=== PATIENT | female | born 1980 | race Caucasian/White ===

== ENCOUNTER → 2017-10-06 07:30 | Outpatient (CLI) | payer MEDICAID, SELFPAY ==
[2017-10-06 08:18] LABS: Absolute Lymphocyte Count 2.04 X10^3/ul (0.83-4.51); Absolute Neutrophil Count 5.5 X10^3/uL (2.0-7.7); Basophil# 0.01 X10^3/uL; Basophil% 0.1 % (0-1); Eosinophil# 0.08 X10^3/uL; Hematocrit 39.5 % (37-47); Hemoglobin 13.2 g/dl (12.0-15.0); Lymphocyte # 2.04 X10^3/ul (4.0); Lymphocyte % 24.9 % (19-41); Mean Corp Hgb Conc 33.4 g/gl (32-36); Mean Corpuscular Hgb 31.8 pg (27.0-32.0); Mean Corpuscular Volume 95.2 fL (81-99); Mean Platelet Vol. 10.5 fl (6.2-12.0); Monocyte# 0.58 X10^3/uL; Monocyte% 7.1 % (0-10); Neutrophil # 5.47 X10^3/uL (2.7-7.7); Neutrophil % 66.8 % (47-70); Platelet Count 184 K/mm3 (150-450); RBC Distribution Width CV 11.7 % (11.6-14.6); RBC Distribution Width SD 40.1 fl (35.1-43.9); Red Blood Count 4.15 M/mm3 (4.2-5.4); White Blood Count 8.2 K/mm3 (4.4-11.0)
[2017-10-06 08:30] LABS: POSITIVE COUNT NO; POSITIVE DIFFERENTIAL NO; POSITIVE MORPHOLOGY NO
[2017-10-06 08:47] LABS: AST(SGOT) 10 U/L (15-37); Alanine Aminotransfer ALT/SGPT 11 U/L (13-56); Albumin, Serum 3.6 g/dL (3.2-5.0); Alkaline Phosphatase 51 U/L (45-117); Anion Gap 6 (5-15); BUN 8 mg/dL (7-18); BUN/Creat Ratio 12.1 RATIO (10-20); Calcium,Total 8.8 mg/dL (8.5-10.1); Chloride 106 mmol/L (98-107); Creatinine, Serum 0.66 mg/dL (0.55-1.02); EST Glomerular Filtration Rate 108 mL/min (>60); Est Glom Filt Rate - Afr Amer 130 mL/min (>60); Ferritin 26 ng/mL (8-252); Globulin 3.5 g/dL (2.2-4.2); Glucose 83 mg/dL (74-106); Iron 107 ug/dL (50-170); Iron Binding Capacity,Total 370 ug/dL (250-450); Potassium 4.3 mmol/L (3.5-5.1); Protein, Total 7.1 g/dL (6.4-8.2); Sodium Level 140 mmol/L (136-145); T4 Free Direct 1.03 ng/dL (0.76-1.46); Thyroid Stim Hormone (TSH) 0.67 uIU/mL (0.358-3.74)
[2017-10-06 09:47] LABS: Vitamin D,25 Hydroxy 19.6 ng/mL (29.95-100.01)
[2017-10-08 08:47] LABS: Thyroid Peroxidase AB 13 IU/mL (0-34); Thyroid Stim Immunoglob <0.10 IU/L (0.00-0.55)
== END ==
PROVIDERS: Family Provider Family Medicine; PCP Family Medicine; Visit Provider Internal Medicine Endocrinology, Diabetes & Metabolism
DX: E55.9 Vitamin D deficiency, unspecified (principal); R53.82 Chronic fatigue, unspecified; Z86.39 Personal history of other endocrine, nutritional and metabolic disease
CPT/HCPCS: 36415; 80053; 82306; 82728; 83540; 83550; 84439; 84443; 84445; 84481; 85025; 86376

== ENCOUNTER 2017-10-13 08:56 | Emergency (ER) | payer MEDICAID, SELFPAY ==
[2017-10-13 08:57] VITALS: BP 147/99; PULSE 132; RESP 16; TEMP 36.9; O2SAT 100; BMI 25.2
--- NOTE | 2017-10-13 09:04 | CT_ITS ---
STUDY: CT BRAIN WITHOUT CONTRAST REASON FOR EXAM: Female, 36 years old. One-week history of left occipital pain. RADIATION DOSAGE (If Supplied By Facility): CTDIvol = ( 44.99 ) mGy, DLP = ( 762.36 ) mGycm TECHNIQUE: Transaxial CT imaging of the brain was performed without administration of intravenous contrast material. Individualized dose optimization techniques were used for this CT. COMPARISON: None. FINDINGS: Normal soft tissue structures. Normal calvarium. Normal size ventricles and extra-axial spaces for the patient's age. Normal white matter tracts of the cerebral hemispheres. Normal basal ganglia and thalami. Normal brainstem. Normal cerebellum. Prominent cisterna magna. This is a normal variant. There is no intracranial hemorrhage. There are no findings of an acute ischemic infarction. Normal visualized paranasal sinuses. CT/Brain/Head without Contrast IMPRESSION: Normal unenhanced CT scan of the brain. Electronically Signed: Alejandro Cutler MD at 9:38 EDT Tel [phone], Service support ,
--- NOTE | 2017-10-13 09:12 | ED.DCSUM_ITS ---
- ER Visit Summary Date of Service: 10/13/17 Chief Complaint: Head pain History of Present Illness: The patient is a 36 F reports pain to the base of the skull and left the past 1 week. She initially thought she had pinched nerve. Pain is now radiating around the left ear. She had some mild nausea today. She states her vision seems not quite as crisp as normal today. She has no light sensitivity. She denies URI symptoms or head injury. She has not had fever or chills. Physical Examination: Vital signs are unremarkable. Patient is afebrile. Patient sitting upright in a well lit room. He is in no acute distress and appears nontoxic. Head and neck examination reveals pupils equal and reactive. TMs are clear bilaterally. She does have tenderness over the left mastoids there is no overlying skin erythema. She also has tenderness at the base of the skull on the left. She has no midline cervical tenderness. There is no meningismus. Heart is regular rate and rhythm. Lung sounds are clear. Abdomen is soft nontender. Neuro exam is normal. Test Results: CT scan of the head is unremarkable. There is a prominent cisterna magna which is a normal variant. Emergency Department Course and Treatment: On repeat evaluation patient is resting comfortably. Repeat heart rate is 91. She did take ibuprofen 3 hours ago. She be given a prescription for Naprosyn. She will also be started on prednisone taper to decrease inflammation around the occipital nerve. Treatment Plan: [] Disposition: Discharge Impression: Cephalgia secondary to pinched nerve This note was generated with [employer] dictation software. It may contain incorrect words, spelling, and punctuation that were not noted in review of the chart prior to signing ED Disposition - Plan for ED Patient: Chief Complaint: Headache Referrals: Guerline Alberts MD [Primary Care Provider] -
--- NOTE | 2017-10-13 10:12 | ED.DEP ---
ED Disposition - Plan for ED Patient: Disposition: Home or Assisted Living Chief Complaint: Headache Instructions: ED Cephalgia Unspecified Prescriptions: Naproxen [Naprosyn] 500 mg PO BID PRN #20 tablet Prednisone 10 mg PO UD #33 tablet Referrals: Guerline Alberts MD [Primary Care Provider] - 1 Week if not improving
[2017-10-13 10:27] VITALS: BP 105/70; PULSE 82; RESP 14; O2SAT 100
== END 2017-10-13 10:28 | disposition home or self-care (01) ==
PROVIDERS: Emergency Provider Emergency Medicine; Family Provider Family Medicine; PCP Family Medicine
DX: G58.9 Mononeuropathy, unspecified (principal); Z87.891 Personal history of nicotine dependence
CPT/HCPCS: 70450; 99283

== ENCOUNTER → 2018-03-07 08:05 | Outpatient (CLI) | payer MEDICAID, SELFPAY ==
[2018-03-07 09:40] LABS: Cholesterol 153 mg/dL (200); High Density Lipoprotein 58 mg/dL; Triglycerides 67 mg/dL; Very Low Density Lipoprotein 13 mg/dL (5-40)
== END ==
PROVIDERS: Family Provider Family Medicine; PCP Family Medicine; Visit Provider Family Medicine
DX: Z00.00 Encounter for general adult medical examination without abnormal findings (principal)
CPT/HCPCS: 36415; 80061

== ENCOUNTER → 2018-04-19 12:50 | Outpatient (CLI) | payer MEDICAID, SELFPAY ==
--- NOTE | 2018-04-19 13:16 | US_ITS ---
STUDY: THYROID ULTRASOUND REASON FOR EXAM: Female, 37 years old. Nodules follow-up. TECHNIQUE: Ultrasound evaluation of the thyroid was performed with real-time and static diaz-scale imaging. COMPARISON: Thyroid ultrasound May 23, 2017. FINDINGS: RIGHT LOBE: The right lobe of the thyroid gland measures 5.3 x 2.4 x 1.5 cm. There is a homogeneous echotexture. Again seen are numerous subcentimeter solid nodules and other complex cystic lesions in the right lobe. The largest is a complicated cyst measuring 1.7 x 1.2 x 0.9 cm LEFT LOBE: The left lobe of the thyroid gland measures 4.8 x 1.6 x 1.2 cm. There is a homogeneous echotexture. Again seen are a number of solid and possibly cystic focal lesions. The largest is a solid mid pole nodule measuring 12 x 10 x 6 mm. ISTHMUS: The isthmus measures 3.0 mm. There is a stable 5 x 4 x 2 mm hypoechoic lesion at the mid isthmus, and a second, slightly smaller, complicated cystic lesion in the left isthmus. The regional lymph nodes are normal. US/Thyroid IMPRESSION: Stable mix of bilateral solid and complicated cystic lesions throughout the thyroid gland, as described. Electronically Signed: Vik Mejia MD at 19:58 EDT , Service support ,
[2018-04-19 13:22] LABS: Absolute Lymphocyte Count 2.73 X10^3/ul (0.83-4.51); Absolute Neutrophil Count 3.1 X10^3/uL (2.0-7.7); Basophil# 0.02 X10^3/uL; Basophil% 0.3 % (0-1); Eosinophil# 0.14 X10^3/uL; Eosinophils% 2.1 % (0-5); Hematocrit 40.7 % (37-47); Lymphocyte # 2.73 X10^3/ul (4.0); Lymphocyte % 41.7 % (19-41); Mean Corp Hgb Conc 34.4 g/gl (32-36); Mean Corpuscular Hgb 32.3 pg (27.0-32.0); Mean Platelet Vol. 9.9 fl (6.2-12.0); Monocyte# 0.58 X10^3/uL; Monocyte% 8.9 % (0-10); Neutrophil # 3.07 X10^3/uL (2.7-7.7); Neutrophil % 46.8 % (47-70); POSITIVE COUNT NO; POSITIVE DIFFERENTIAL NO; POSITIVE MORPHOLOGY NO; Platelet Count 185 K/mm3 (150-450); RBC Distribution Width CV 11.5 % (11.6-14.6); RBC Distribution Width SD 39.2 fl (35.1-43.9); Red Blood Count 4.33 M/mm3 (4.2-5.4); White Blood Count 6.6 K/mm3 (4.4-11.0)
[2018-04-19 13:49] LABS: Vitamin D,25 Hydroxy 73.3 ng/mL (29.95-100.01)
[2018-04-19 13:52] LABS: ALB/GLOB Ratio 1.2 RATIO (0.9-2.4); AST(SGOT) 14 U/L (15-37); Alanine Aminotransfer ALT/SGPT 16 U/L (13-56); Albumin, Serum 3.9 g/dL (3.2-5.0); Alkaline Phosphatase 60 U/L (45-117); Anion Gap 8 (5-15); BUN 7 mg/dL (7-18); BUN/Creat Ratio 9.3 RATIO (10-20); Calcium,Total 9.2 mg/dL (8.5-10.1); Chloride 106 mmol/L (98-107); Creatinine, Serum 0.76 mg/dL (0.55-1.02); EST Glomerular Filtration Rate 92 mL/min (>60); Est Glom Filt Rate - Afr Amer 111 mL/min (>60); Free T3 3.4 pg/mL (2.18-3.98); Globulin 3.3 g/dL (2.2-4.2); Glucose 89 mg/dL (74-106); Protein, Total 7.2 g/dL (6.4-8.2); Sodium Level 141 mmol/L (136-145); T4 Free Direct 1.06 ng/dL (0.76-1.46); Thyroid Stim Hormone (TSH) 0.45 uIU/mL (0.358-3.74)
== END ==
PROVIDERS: Family Provider Family Medicine; PCP Family Medicine; Visit Provider Internal Medicine Endocrinology, Diabetes & Metabolism
DX: E04.1 Nontoxic single thyroid nodule (principal)
CPT/HCPCS: 36415; 76536; 80053; 82306; 84439; 84443; 84481; 85025

== ENCOUNTER → 2018-08-14 15:50 | Outpatient (CLI) | payer MEDICAID, SELFPAY ==
[2018-07-19 12:40] VITALS: BMI 27.1
[2018-08-14 17:41] LABS: Anion Gap 8 (5-15); BUN 7 mg/dL (7-18); BUN/Creat Ratio 10.4 RATIO (10-20); Calcium,Total 9.3 mg/dL (8.5-10.1); Chloride 107 mmol/L (98-107); Creatinine, Serum 0.68 mg/dL (0.55-1.02); EST Glomerular Filtration Rate 105 mL/min (>60); Est Glom Filt Rate - Afr Amer 127 mL/min (>60); Glucose 115 mg/dL (74-106); Magnesium 1.9 mg/dL (1.6-2.6); Potassium 3.2 mmol/L (3.5-5.1); Sodium Level 138 mmol/L (136-145)
== END ==
PROVIDERS: Family Provider Family Medicine; PCP Family Medicine; Referring Provider Nurse Practitioner Family; Visit Provider Nurse Practitioner Family
DX: R00.0 Tachycardia, unspecified (principal); R00.2 Palpitations
CPT/HCPCS: 36415; 80048; 83735

== ENCOUNTER → 2018-08-28 11:02 | Outpatient (CLI) | payer MEDICAID, SELFPAY ==
[2018-07-19 12:40] VITALS: BMI 27.1
[2018-08-28 12:03] LABS: Potassium 3.8 mmol/L (3.5-5.1)
== END ==
PROVIDERS: Family Provider Family Medicine; PCP Family Medicine; Referring Provider Nurse Practitioner Family; Visit Provider Nurse Practitioner Family
DX: E87.6 Hypokalemia (principal); R00.2 Palpitations
CPT/HCPCS: 36415; 84132

== ENCOUNTER 2018-09-28 17:43 | Emergency (ER) | payer MEDICAID, SELFPAY ==
[2018-08-28 12:56] VITALS: BMI 27.1
[2018-09-28 17:44] VITALS: BP 130/71; PULSE 113; RESP 20; TEMP 36.5; O2SAT 100; BMI 26.4
--- NOTE | 2018-09-28 18:04 | ED.VISSUMM ---
- ER Visit Summary Date of Service: 09/28/18 Chief Complaint: Diarrhea with intermittent nausea History of Present Illness: The patient is a 37 F past medical history of hyperthyroidism and accelerated heart rate. She is on metoprolol. Takes of control pill and vitamin. States for the last 3 weeks she has had diarrhea. Primary care physician's office did stool cultures which she states was negative. She denies any recent travel or surgery. Denies any recent hospitalization. No recent antibiotics. She drinks bottled water. No one else at home has diarrhea. She is never had episodes like this before. Physical Examination: Well-appearing young female. Vital signs are stable and afebrile. HEENT exam is unremarkable. Moist weeks membranes. Neck nontender no lymphadenopathy. Lungs clear to auscultation bilaterally. Heart regular rhythm rate about 110 no murmur. Abdomen soft. Nondistended. Normal bowel sounds. No peritoneal signs. Patient is moving all 4 extremities. Calves nontender no edema. Back nontender. Skin unremarkable. Neurologically she is awake and alert. Test Results: None. Emergency Department Course and Treatment: Patient was offered IV fluids. And nausea medication both of which she refused. Patient discussed with me a CAT scan which I explained to her most likely would not give us any significant additional information Treatment Plan: [place] diet increase slowly. She started on nausea medications at home. She stated that Imodium did not help her. Follow-up with Dr. Gonzales of GI. Disposition: dc Impression: Acute diarrhea of uncertain etiology This note was generated with [employer] dictation software. It may contain incorrect words, spelling, and punctuation that were not noted in review of the chart prior to signing ED Disposition - Plan for ED Patient: Referrals: Nadja Ferguson NP-C [Primary Care Provider] -
--- NOTE | 2018-09-28 18:11 | DCINST.ED_ITS ---
ED Disposition - Plan for ED Patient: Disposition: Home or Assisted Living Referrals: Nadja Ferguson, SARAH-C [Primary Care Provider] - As Needed Marco Antonio Gonzales MD [NON-STAFF] - As soon as possible Additional Instructions: Plenty of fluids and rest. [place] diet increase slowly as tolerated. Zofran as needed for nausea. Imodium for diarrhea. Call and follow-up with Dr. Marco Antonio Gonzales of gastroenterology for further evaluation.
== END 2018-09-28 18:51 | disposition home or self-care (01) ==
LOC: ED 18:42
PROVIDERS: Emergency Provider Emergency Medicine; Family Provider Family Medicine; PCP Family Medicine
DX: R19.7 Diarrhea, unspecified (principal); E05.90 Thyrotoxicosis, unspecified without thyrotoxic crisis or storm
CPT/HCPCS: 99282

== ENCOUNTER 2018-12-07 10:59 | Emergency (ER) | payer MEDICAID, SELFPAY ==
[2018-12-07 11:00] VITALS: BP 122/68; PULSE 98; RESP 16; TEMP 36.9; O2SAT 100; BMI 25.7
--- NOTE | 2018-12-07 11:12 | CT_ITS ---
STUDY: CT ABDOMEN AND PELVIS WITHOUT CONTRAST REASON FOR EXAM: Female, 38 years old. Abdominal pain. History of hypertension. RADIATION DOSAGE (If Supplied By Facility): CTDIvol = ( 6.06 ) mGy, DLP = ( 283.32 ) mGycm TECHNIQUE: Transaxial images were obtained from the dome of the diaphragm to the symphysis pubis without oral contrast, and without intravenous contrast. Sagittal and coronal images were reconstructed. Individualized dose optimization techniques were used for this CT. COMPARISON: None. FINDINGS: The visualized lung bases are unremarkable. The visualized portions of the heart are within normal limits. Normal liver. Normal gallbladder and extrahepatic biliary system. Normal spleen. Normal pancreas. Normal bilateral adrenal glands. Normal right kidney. Normal left kidney. Surgical clips are seen at the gastroesophageal junction. Small hiatal hernia. Normal small intestine. Fecal material is seen throughout the colon. Scattered sigmoid diverticula. The appendix is visualized and appears normal. Normal abdominal aorta. Normal inferior vena cava. Normal retroperitoneum. Normal urinary bladder. There is a small cyst in the right ovary measuring 2.2 cm x 2 cm. Calcified phleboliths are seen in the pelvis. Normal abdominal wall. Normal osseous structures. CT/Abdomen/Pelvis without Cont IMPRESSION: Surgical clips are seen in the gastroesophageal junction. Small hiatal hernia. Scattered sigmoid diverticula. Electronically Signed: Alejandro Cutler, at 12:48 EDT , Service support ,
[2018-12-07] MEDS: Morphine 4 MG/ML Syringe IV (11:29)
[2018-12-07] MEDS: Ondansetron 4 MG/2 ML Vial IV (11:30)
[2018-12-07] MEDS: Dicyclomine 20 MG/2 ML Vial IM (11:30)
[2018-12-07] MEDS: 0.9% Normal Saline 1,000 ML 125 ML IV (11:30)
[2018-12-07 11:50] LABS: ALB/GLOB Ratio 1.2 RATIO (0.9-2.4); AST(SGOT) 11 U/L (15-37); Alanine Aminotransfer ALT/SGPT 17 U/L (13-56); Albumin, Serum 4.3 g/dL (3.2-5.0); Alkaline Phosphatase 62 U/L (45-117); Anion Gap 6 (5-15); BUN 8 mg/dL (7-18); BUN/Creat Ratio 10.3 RATIO (10-20); Calcium,Total 9.4 mg/dL (8.5-10.1); Chloride 105 mmol/L (98-107); Creatinine, Serum 0.78 mg/dL (0.55-1.02); EST Glomerular Filtration Rate 89 mL/min (>60); Est Glom Filt Rate - Afr Amer 108 mL/min (>60); Estimated Creatinine Clearance 85.27 ml/min; Globulin 3.5 g/dL (2.2-4.2); Glucose 97 mg/dL (74-106); Lipase 239 U/L (73-393); Potassium 3.8 mmol/L (3.5-5.1); Protein, Total 7.8 g/dL (6.4-8.2); Sodium Level 139 mmol/L (136-145)
[2018-12-07 11:52] LABS: Absolute Lymphocyte Count 2.59 X10^3/ul (0.83-4.51); Absolute Neutrophil Count 3.5 X10^3/uL (2.0-7.7); Basophil# 0.02 X10^3/uL; Basophil% 0.3 % (0-1); Eosinophil# 0.06 X10^3/uL; Eosinophils% 0.9 % (0-5); Hematocrit 41.9 % (37-47); Lymphocyte # 2.59 X10^3/ul (4.0); Lymphocyte % 37.9 % (19-41); Mean Corp Hgb Conc 33.4 g/gl (32-36); Mean Corpuscular Hgb 30.9 pg (27.0-32.0); Mean Corpuscular Volume 92.5 fL (81-99); Monocyte# 0.63 X10^3/uL; Monocyte% 9.2 % (0-10); Neutrophil # 3.53 X10^3/uL (2.7-7.7); Neutrophil % 51.6 % (47-70); POSITIVE COUNT NO; POSITIVE DIFFERENTIAL NO; POSITIVE MORPHOLOGY NO; Platelet Count 185 K/mm3 (150-450); RBC Distribution Width CV 11.9 % (11.6-14.6); RBC Distribution Width SD 40.4 fl (35.1-43.9); Red Blood Count 4.53 M/mm3 (4.2-5.4); White Blood Count 6.8 K/mm3 (4.4-11.0)
[2018-12-07 12:00] LABS: Bacteria 0 SEEN /hpf (None Seen); Mucous, Urine 0 SEEN /hpf (<or=2+); Red Blood Cells-Urine 0 SEEN /hpf (0-5); White Blood Cells 0 SEEN /hpf (0-5)
[2018-12-07 12:06] LABS: Color, Urine Yellow (Yellow); Glucose, Dipstick Normal (Normal); Ketone-Dipstick Negative (Negative); Leukocyte Esterase-Dipstick Negative /ul (Negative); Nitrite-Dipstick Negative (Negative); Occult Blood-Urine Negative /ul (Negative); Protein-Dipstick Negative (Negative); Specific Gravity, Urine 1.005 (1.002-1.030); Urine Bilirubin Dipstick Negative (Negative); Urine Clarity Sl. Cloudy (Clear); Urine Urobilinogen Normal (Normal)
[2018-12-07 12:15] LABS: Squamous Epithelial Cells - UA 0-5 SEEN /hpf (5-10)
[2018-12-07 12:20] LABS: Internal QC Validated? YES +Cl - CLEAR BKGD; Pregnancy, Serum, hCG Quali. NEGATIVE Negative
[2018-12-07] MEDS: HYDROmorphone 1 MG/ML Syringe IV ×2 (12:21→14:30)
--- NOTE | 2018-12-07 13:50 | ED.DCSUM_ITS ---
- ER Visit Summary Date of Service: 12/07/18 Chief Complaint: [Abdominal pain] History of Present Illness: The patient is a 38 F [presents the emergency department complaint of abdominal pain that started about an hour ago. Patient states that it severe and rates it an 8 or 9 out of 10. She describes it as starting in the left lower quadrant and radiating to the right side of the abdomen. Patient denies urinary symptoms. She denies any back pain. Patient states that she is currently being worked up for diarrhea that she is had for about 2 months and is seeing a environmental health and safety manager. Patient had recent colonoscopy that showed a few polyps. She denies any current fever although it for the last 2 months intermittently she is had fever off and on. Patient has history of hyperthyroidism. Patient has had a prior Kimberly fundoplication.] Physical Examination: [HEENT-PERRLA, EOMI. Cranial nerves II through XII grossly intact. TMs clear. Mucous membranes moist. No adenopathy. Cardiovascular-regular rate and rhythm without murmur or ectopy Lungs-clear to auscultation, chest wall stable without crepitus or subcu emphysema Abdomen-normoactive bowel sounds, soft. Patient has tenderness over left lower quadrant with some guarding. There is no rebound, rigidity, or perineal signs. No masses palpated. Extremities-intact ?4, normal range of motion, normal pulses, atraumatic] Test Results: [CBC with differential showing a 6.8, hemoglobin 14, hematocrit 42, placed 185. Chemistries unremarkable. LFTs were normal. Urinalysis normal. hCG was negative. CT flank showed small hiatal hernia and small cyst on the right ovary otherwise nothing acute.] Emergency Department Course and Treatment: [Patient was medicated with morphine and Zofran as well as Bentyl initially. Patient continued to have pain and was given Dilaudid 1 mg IV.] Treatment Plan: [Patient will be given a prescription for [place] for pain. Advised to follow-up with her environmental health and safety manager. Patient to return if worsening pain, fever, vomiting, or condition worsen anyway.] Disposition: [Discharged home stable condition] Impression: Abdominal pain-etiology uncertain [] This note was generated with [employer] software. It may contain incorrect words, spelling, and punctuation that were not noted in review of the chart prior to signing ED Disposition - Plan for ED Patient: Referrals: Nadja Ferguson, SARAH-C [Primary Care Provider] -
--- NOTE | 2018-12-07 13:50 | ED.DEP ---
ED Disposition - Plan for ED Patient: Instructions: ED Abdominal Pain Unkn Cause Prescriptions: Hydrocodone Bitart/Apap 5-325 [[place] 5MG-325MG] 1 tab PO Q4H PRN PRN 2 Days #14 tab PRN Reason: Pain Referrals: Nadja Ferguson, CLOTH FOLDER HAND-C [Primary Care Provider] - 3-5 Days
--- NOTE | 2018-12-07 13:51 | DCINST.ED_ITS ---
ED Disposition - Plan for ED Patient: Instructions: ED Abdominal Pain Unkn Cause Prescriptions: Hydrocodone Bitart/Apap 5-325 [[place] 5MG-325MG] 1 tab PO Q4H PRN PRN 2 Days #14 tab PRN Reason: Pain Referrals: Nadja Ferguosn, HAND MIXER-C [Primary Care Provider] - 3-5 Days
[2018-12-07 13:57] VITALS: BP 124/78; PULSE 76; RESP 18; O2SAT 99
== END 2018-12-07 14:37 | disposition home or self-care (01) ==
LOC: ED 11:32
PROVIDERS: Emergency Provider Emergency Medicine; Family Provider Family Medicine; PCP Family Medicine
DX: R10.9 Unspecified abdominal pain (principal); R19.7 Diarrhea, unspecified; R11.0 Nausea; E05.90 Thyrotoxicosis, unspecified without thyrotoxic crisis or storm; K44.9 Diaphragmatic hernia without obstruction or gangrene; N83.291 Other ovarian cyst, right side
CPT/HCPCS: 74176; 80053; 81001; 83690; 84703; 85025; 96361; 96372; 96374; 96375; 96376; 99283; J7030; J2405

== ENCOUNTER 2019-01-09 15:45 | Emergency (ER) | payer MEDICAID, SELFPAY ==
[2019-01-09 15:46] VITALS: BP 120/73; PULSE 84; RESP 16; TEMP 36.1; O2SAT 99; BMI 26.6
--- NOTE | 2019-01-09 16:15 | RAD_ITS ---
STUDY: X-RAY - LEFT HAND, ATTENTION FIFTH FINGER REASON FOR EXAM: Female, 38 years old. Pain TECHNIQUE: 3 view(s) of the finger were obtained. COMPARISON: None. FINDINGS: There is no evidence of fracture or dislocation. There are no significant degenerative changes. There are no radiodense foreign bodies. RAD/Finger(s) Min 2 Views IMPRESSION: No fracture or dislocation. Electronically Signed: Hitesh Perry, at 16:32 EDT Tel , Service support ,
--- NOTE | 2019-01-09 16:18 | ED.VIS.UPPEX ---
History of Present Illness Chief Complaint: Upper Extremity Injury Informant: Patient Occurred: Weeks - 1 Mechanism/Context: Injury Context: Sudden Onset Quality of Pain: Aching Current Severity: Moderate Maximum Severity: Moderate Worsened by: moving Relieved by: remaining still Associated Symptoms: Negative for: Parasthesia, Weakness, Loss of Funtion Narrative: Patient states she accidentally injured her left small finger when she was trying to push herself up out of her car seat and accidentally had a hyperflexion injury of it against her palm against her car door. Most of her pain is at the small finger PIPJ and MCPJ. - Past Medical History (1) [place] esophagus Status: Chronic (2) Hyperthyroidism Status: Chronic Past Medical History - Allergies and Home Meds Allergies/Adverse Reactions: Allergies No Known Allergies Allergy (Verified 12/07/18 11:01) Primary Care Physician: Nadja Ferguson NP-C [Primary Care Provider] - Surgical History: herniorrhaphy Smoking Status: Former smoker Drugs: None Review of Systems Musculoskeletal: Reports: Extremity Pain Neurological: Denies: Parasthesia, Numbness Physical Exam Vital Signs/Narrative: Vital Signs Temp Pulse Resp BP Pulse Ox 01/09/19 15:46 96.9 F L 84 16 120/73 99 Inital Vital Signs reviewed: Yes Left Finger: - - 5th finger ttp middle and prox phalanxes, and distal 5th MC. also tender PIPJ and MCPJ. all tenderness mild. FROM; FDS and FDP, extensor all intact. no signs of trauma.. Negative for: Limited ROM General: Well nourished, Well developed Head: Normocephalic, Atraumatic Skin: Normal color, No rash, No Trauma Neurological: Alert, Oriented x3, Cranial nerves II-XII grossly intact, Normal Strength, Normal Sensation, Normal Gait Psychological: Normal affect, Normal Mood Diagnostic/Tx/Re-eval Clinical Impression(s) from Imaging Studies Finger X-Ray 01/09/19 16:15 IMPRESSION: No fracture or dislocation. Electronically Signed: Hitesh Perry, at 16:32 EDT Tel , Service support , - Medical Decision Making X-ray negative. Consistent with a sprain, which is likely why she is still having discomfort. Deuce tape her fingers together, advised anti-inflammatories as needed, ice, rest, given appropriate discharge instructions for follow-up. Advised that pain can often last a month or more before it finally will likely resolve. ED Disposition - Plan for ED Patient: Disposition: Home or Assisted Living Diagnosis: Sprain of left little finger Instructions: ED Sprain Finger Referrals: Nadja Ferguson NP-C [Primary Care Provider] - 10-14 Days if not better Additional Instructions: ibuprofen and ice to affected area as needed
== END 2019-01-09 17:05 | disposition home or self-care (01) ==
PROVIDERS: Emergency Provider Emergency Medicine; Family Provider Family Medicine; PCP Family Medicine
DX: S63.617A Unspecified sprain of left little finger, initial encounter (principal); X50.9XXA Other and unspecified overexertion or strenuous movements or postures, initial encounter; Y93.9 Activity, unspecified; Y92.89 Other specified places as the place of occurrence of the external cause; Y99.9 Unspecified external cause status; E05.90 Thyrotoxicosis, unspecified without thyrotoxic crisis or storm; Z87.891 Personal history of nicotine dependence
CPT/HCPCS: 73140; 99282

== ENCOUNTER → 2019-02-06 15:57 | Outpatient (CLI) | payer MEDICAID, SELFPAY ==
[2019-02-06 15:48] VITALS: BMI 26.6
--- NOTE | 2019-02-06 15:58 | RAD_ITS ---
STUDY: X-RAY - LEFT HAND, ATTENTION FIFTH FINGER REASON FOR EXAM: Female, 38 years old. Injury TECHNIQUE: 3 view(s) of the finger were obtained. COMPARISON: None. FINDINGS: Normal metacarpal head. Normal metacarpophalangeal joint. Normal proximal phalanx. Normal middle phalanx. Normal distal phalanx. Normal proximal interphalangeal joint. Normal distal interphalangeal joint. There is no demonstrated fracture. RAD/Finger(s) Min 2 Views IMPRESSION: Normal x-ray examination of the finger. Electronically Signed: Rock Ortiz MD at 16:14 EDT , Service support ,
== END ==
PROVIDERS: Family Provider Family Medicine; PCP Family Medicine; Referring Provider Orthopaedic Surgery; Visit Provider Orthopaedic Surgery
DX: S60.052A Contusion of left little finger without damage to nail, initial encounter (principal)
CPT/HCPCS: 73140

== ENCOUNTER → 2019-05-23 16:40 | Outpatient (CLI) | payer MEDICAID, SELFPAY ==
[2019-02-06 15:48] VITALS: BMI 26.6
[2019-05-21 15:12] VITALS: BMI 26.6
--- NOTE | 2019-05-23 16:43 | US_ITS ---
STUDY: THYROID ULTRASOUND REASON FOR EXAM: Female, 38 years old. Follow-up nodules. TECHNIQUE: Ultrasound evaluation of the thyroid was performed with real-time and static diaz-scale imaging. COMPARISON: None. FINDINGS: RIGHT LOBE: The right lobe of the thyroid gland measures 5.2 x 2.3 x 1.9 cm. There is a homogeneous echotexture. Within the right thyroid lobe there are multiple, predominantly cystic nodules largest seen within the middle pole and measuring 2.2 x 1.5 x 1.0 cm. Some of the nodules have internal septations or combination of solid and cystic changes. Additionally, there are several hypoechoic nodules with hypoechoic rim scattered through the right thyroid lobe within the upper middle and lower pole and largest measuring approximately 0.5 x 0.4 cm. These are stable in the interval. There is peripheral and internal color flow. The margins are regular. LEFT LOBE: The left lobe of the thyroid gland measures 5.0 x 1.9 x 1.4 cm. There is a homogeneous echotexture. Within the left thyroid lobe there is a predominantly hypoechoic nodule with hypoechoic rim and internal color flow seen within the mid upper pole measuring approximately 1.3 x 1.0 x 1.7 cm. There margins are regular . Additional, predominantly cystic nodules demonstrated throughout the remainder of the left thyroid lobe measuring different sizes from 0.2 cm up to a largest dimension of 0.7 cm . The margins are regular. ISTHMUS: The isthmus measures 0.3 cm. A small nodule is seen at the level of the isthmus with hypoechoic rim and diffuse decreased echogenicity measuring 0.6 x 0.5 x 0.3 cm. There is peripheral color flow. The margins are regular. A lymph node is seen lateral to the right thyroid gland measuring 1.3 x 0.9 x 0.3 cm. A second lymph node is seen to the left of the thyroid, measuring 1.3 x 0.7 x 0.3 cm. US/Thyroid IMPRESSION: Multiple bilateral thyroid lobe nodules with predominantly cystic or complex cystic/solid component and favoring benign process given morphology and stability in the interval. Note to be made that benign versus malignant process cannot be adequately determined that microscopic evaluation or documentation of stability. Depending on clinical evaluation and history, follow-up ultrasound in 6-12 months recommended to evaluate stability. Electronically Signed: Kalani Richardson MD at 6:19 EDT , Service support ,
== END ==
PROVIDERS: Family Provider Nurse Practitioner Family; PCP Nurse Practitioner Family; Referring Provider Nurse Practitioner Family; Visit Provider Nurse Practitioner Family
DX: E04.1 Nontoxic single thyroid nodule (principal)
CPT/HCPCS: 76536

== ENCOUNTER → 2019-12-20 15:57 | Outpatient (CLI) | payer MEDICAID, SELFPAY ==
[2019-12-20 12:52] VITALS: BMI 28.5
--- NOTE | 2019-12-20 13:00 | FLU_PTH ---
PATIENT: MANE BRYANT LOC: [place] U#:[id number] AGE/SX: 44/F ROOM: RE12/20/[address]: Dr. Andrea Mcgregor MD : 1980 BED: DIS: SPEC #: [id number] RECD: 12/20/19 15:26 STATUS: ZOFIA RERiana #: [id number] VIRGIL: 12/20/19 13:[address]: Andrea Mcgregor DEPT: CYTOLOGY RECD BY: Chris Roberts ENTERED: 12/24/19 08:35 SP TYPE: Fluid OTHR DR: Taina Carter, FAILURE ANALYSIS TECHNICIAN-Sharron Tissues: A - Thyroid gland, NOS B - Thyroid gland, NOS Procedures: Special Stain Group II Surgery Specimen Level IV Cytospin Fluid Cytology Other HEADER OPERATION: Right thyroid FNA PRE-OP DIAGNOSIS: Multiple thyroid nodules TISSUE SUBMITTED: A - Right thyroid nodule aspiration for cytology, B - Right thyroid slides x6 DIAGNOSIS CYTOLOGY A. Right thyroid nodule aspiration for cytology (cytospin and cell block): Consistent with benign colloid nodule with cystic changes. Adequate for evaluation. B. Right thyroid nodule, FNA (smears): A few clusters of benign follicular cells and small amount of colloid are noted. See comment. RANDA:melisa 12/25/19 COMMENT B. Correlation with clinical, radiologic findings and appropriate follow up are necessary. CYTOLOGY STUDY Slides are reviewed. CYTOLOGY GROSS A - Received is 1 ml of red cloudy fluid labeled with the patient's name and and designated per the requisition as right thyroid. Submitted for cytology preparation including cell block. B - Received are six smears labeled with the patient's name and designated per the requisition as right thyroid. Submitted for staining. / melisa 12/24/19 TC:5 CPT: 06154, 58489, 29644
== END ==
PROVIDERS: PCP Nurse Practitioner Family; Referring Provider Surgery; Visit Provider Surgery
DX: E04.2 Nontoxic multinodular goiter (principal)
CPT/HCPCS: 88108; 88161; 88305; 88313

== ENCOUNTER → 2020-09-24 09:10 | Outpatient (CLI) | payer MEDICAID, SELFPAY ==
[2020-09-24 08:33] VITALS: BMI 29.5
[2020-09-24 10:22] LABS: Hematocrit 40.7 % (37-47); Hemoglobin 13.4 g/dL (12.0-15.0); Mean Corp Hgb Conc 32.9 g/dL (32-36); Mean Corpuscular Hgb 31.6 pg (27.0-32.0); Mean Platelet Vol. 10.2 fl (6.2-12.0); Platelet Count 191 K/mm3 (150-450); RBC Distribution Width CV 11.7 % (11.6-14.6); RBC Distribution Width SD 40.7 fl (35.1-43.9); Red Blood Count 4.24 M/mm3 (4.2-5.4)
[2020-09-24 11:10] LABS: Anion Gap 4 (5-15); BUN 9 mg/dL (7-18); BUN/Creat Ratio 13.1 RATIO (10-20); Calcium,Total 9.4 mg/dL (8.5-10.1); Chloride 105 mmol/L (98-107); Creatinine, Serum 0.69 mg/dL (0.55-1.02); EST Glomerular Filtration Rate 101 mL/min (>60); Est Glom Filt Rate - Afr Amer 122 mL/min (>60); Glucose 88 mg/dL (74-106); Magnesium 2.5 mg/dL (1.6-2.6); Potassium 4.3 mmol/L (3.5-5.1); Sodium Level 138 mmol/L (136-145); Thyroid Stim Hormone (TSH) 0.48 uIU/mL (0.358-3.74)
== END ==
PROVIDERS: PCP Nurse Practitioner Family; Referring Provider Physician Assistant Medical; Visit Provider Physician Assistant Medical
DX: R00.0 Tachycardia, unspecified (principal); R00.2 Palpitations
CPT/HCPCS: 36415; 80048; 83735; 84443; 85027

== ENCOUNTER → 2021-06-02 06:55 | Outpatient (CLI) | payer MEDICAID, SELFPAY ==
[2021-06-02 08:29] LABS: ALB/GLOB Ratio 0.9 RATIO (0.9-2.4); AST(SGOT) 11 U/L (15-37); Alanine Aminotransfer ALT/SGPT 12 U/L (13-56); Albumin, Serum 3.3 g/dL (3.2-5.0); Alkaline Phosphatase 43 U/L (45-117); Anion Gap 5 (5-15); BUN 10 mg/dL (7-18); BUN/Creat Ratio 13.6 RATIO (10-20); Chloride 105 mmol/L (98-107); Cholesterol 202 mg/dL (200); Creatinine, Serum 0.74 mg/dL (0.55-1.02); EST Glomerular Filtration Rate 93 mL/min (>60); Est Glom Filt Rate - Afr Amer 113 mL/min (>60); Globulin 3.7 g/dL (2.2-4.2); Glucose 88 mg/dL (74-106); High Density Lipoprotein 79 mg/dL; Potassium 3.7 mmol/L (3.5-5.1); Sodium Level 138 mmol/L (136-145); Triglycerides 123 mg/dL; Very Low Density Lipoprotein 25 mg/dL (5-40)
== END ==
PROVIDERS: PCP Nurse Practitioner Family; Referring Provider Nurse Practitioner Family; Visit Provider Nurse Practitioner Family
DX: Z13.1 Encounter for screening for diabetes mellitus (principal); Z13.6 Encounter for screening for cardiovascular disorders
CPT/HCPCS: 36415; 80053; 80061

== ENCOUNTER 2022-06-03 07:21 | Outpatient (CLI) | payer MEDICAID, SELFPAY ==
[2022-06-03 07:56] LABS: Hematocrit 41.4 % (37-47); Hemoglobin 14.3 g/dL (12.0-15.0); Mean Corp Hgb Conc 34.5 g/dL (32-36); Mean Corpuscular Hgb 32.3 pg (27.0-32.0); Mean Corpuscular Volume 93.5 fL (81-99); Platelet Count 202 K/mm3 (150-450); RBC Distribution Width CV 11.5 % (11.6-14.6); RBC Distribution Width SD 39.2 fl (35.1-43.9); Red Blood Count 4.43 M/mm3 (4.2-5.4); White Blood Count 6.6 K/mm3 (4.4-11.0)
[2022-06-03 08:36] LABS: AST(SGOT) 17 U/L (15-37); Alanine Aminotransfer ALT/SGPT 16 U/L (13-56); Albumin, Serum 3.8 g/dL (3.2-5.0); Alkaline Phosphatase 54 U/L (45-117); Anion Gap 6 (5-15); BUN 8 mg/dL (7-18); BUN/Creat Ratio 12.4 RATIO (10-20); Calcium,Total 9.8 mg/dL (8.5-10.1); Chloride 105 mmol/L (98-107); Cholesterol 233 mg/dL (200); Creatinine, Serum 0.65 mg/dL (0.55-1.02); EST Glomerular Filtration Rate 108 mL/min (>60); Est Glom Filt Rate - Afr Amer 130 mL/min (>60); Globulin 3.7 g/dL (2.2-4.2); Glucose 90 mg/dL (74-106); High Density Lipoprotein 91 mg/dL; Potassium 3.6 mmol/L (3.5-5.1); Protein, Total 7.5 g/dL (6.4-8.2); Sodium Level 139 mmol/L (136-145); T4 Free Direct 1.16 ng/dL (0.76-1.46); Thyroid Stim Hormone (TSH) 0.83 uIU/mL (0.358-3.74); Triglycerides 88 mg/dL; Very Low Density Lipoprotein 18 mg/dL (5-40)
[2022-06-03 10:04] LABS: Chlamydia Trachomatis by PCR Negative (Negative); Neisserai gonorrhoeae by PCR Negative (Negative); Probe Check PASS; Sample Adequacy Control PASS; Specimen Processing Control PASS
[2022-06-03 10:10] LABS: HIV - WCH Non-Reactive (Nonreactive)
[2022-06-04 06:08] LABS: HEPATITIS B SURFACE AG Negative (Negative); Hep C Antibodies 0.1 s/co ratio (0.0-0.9); Hepatitis A IgM Antibody Negative (Negative); Hepatitis B Core AB IgM Negative (Negative)
== END 2022-06-03 23:59 | disposition home or self-care (01) ==
PROVIDERS: PCP Nurse Practitioner Family; Referring Provider Nurse Practitioner Family; Visit Provider Nurse Practitioner Family
DX: Z13.1 Encounter for screening for diabetes mellitus (principal); Z01.419 Encounter for gynecological examination (general) (routine) without abnormal findings; E05.90 Thyrotoxicosis, unspecified without thyrotoxic crisis or storm; Z11.3 Encounter for screening for infections with a predominantly sexual mode of transmission
CPT/HCPCS: 36415; 80053; 80061; 80074; 84439; 84443; 85027; 86703; 87491; 87591

== ENCOUNTER → 2022-07-04 | Outpatient (CLI) | payer MEDICAID, SELFPAY | END | disposition home or self-care (01) | LOC: LABSPEC 09:55 | PROVIDERS: PCP Nurse Practitioner Family; Visit Provider Physician Assistant Surgical | DX: R52 Pain, unspecified (principal) | CPT/HCPCS: 87070; 87077; 87186; 87205 ==

== ENCOUNTER → 2022-07-07 | Outpatient (CLI) | payer MEDICAID, SELFPAY ==
--- NOTE | 2022-07-07 07:10 | BI_ITS ---
MAMMOGRAPHY - BILATERAL SCREENING REASON FOR EXAM: Female, 41 years old. Routine annual screening examination. PERTINENT HISTORY: Non-contributory. TECHNIQUE: Digital bilateral breast shon (3D mammographic acquisition) in the CC and MLO projections. 2-D mediolateral oblique (MLO) and craniocaudad (CC) views of both breasts were obtained. CAD: Full Field Digital Mammography with Computer Added Detection was performed. COMPARISON: None. Baseline examination. FINDINGS: Breast Composition: There are scattered areas of fibroglandular density. There are no dominant masses or suspicious calcifications. No other significant abnormalities are identified. BI/SCRN MAMM (CAD)W/SHON BILAT IMPRESSION: Negative screening mammogram. Yearly followup mammogram recommended. (A) ASSESSMENT CATEGORY: BIRADS Category 1: Negative. A letter regarding these results will be sent to the patient by the facility within 30 days. Approximately 10% of breast cancers are not detected by mammography. A normal mammogram should not delay biopsy of a clinically suspicious abnormality. [id number] Electronically Signed: Alejandro Cutler MD at 8:23 EST ,
== END | disposition home or self-care (01) ==
LOC: OPBI 07:08
PROVIDERS: PCP Nurse Practitioner Family; Referring Provider Nurse Practitioner Family; Visit Provider Nurse Practitioner Family
DX: Z12.31 Encounter for screening mammogram for malignant neoplasm of breast (principal)
CPT/HCPCS: 77063; 77067

== ENCOUNTER → 2022-12-13 | Outpatient (CLI) | payer MEDICAID, SELFPAY ==
--- NOTE | 2022-12-13 12:48 | CT_ITS ---
STUDY: CT CHEST WITH CONTRAST REASON FOR EXAM: Female, 42 years old. Lung nodule follow up. 30 pound weight loss. Tachycardia. RADIATION DOSAGE (If Supplied By Facility): CTDIvol = ( 7.18 ) mGy, DLP = ( 169.93 ) mGycm TECHNIQUE: Transaxial imaging was performed following intravenous administration of IV 100mL Isovue-370. Multiplanar coronal and sagittal images were reformatted. Individualized dose optimization techniques were used for this CT. COMPARISON: No relevant priors. FINDINGS: CHEST The lungs are normal. There is no demonstrated pleural abnormality. Normal heart and pericardium. Normal mediastinum. Normal hilar regions. Normal unenhanced pulmonary arteries. Normal aorta arch and descending thoracic aorta. Normal osseous structures. There is no demonstrated abnormality of the visualized upper abdomen. CT/Chest WITH Contrast IMPRESSION: Normal enhanced CT chest T abdomen examination. Electronically Signed: Alejandro Cutler MD at 15:39 EDT ,
== END | disposition home or self-care (01) ==
LOC: CT 12:47
PROVIDERS: PCP Nurse Practitioner Family; Referring Provider Nurse Practitioner Family; Visit Provider Nurse Practitioner Family
DX: R91.8 Other nonspecific abnormal finding of lung field (principal)
CPT/HCPCS: 71260; Q9967

== ENCOUNTER → 2022-12-19 | Outpatient (CLI) | payer MEDICAID, SELFPAY ==
--- NOTE | 2022-12-19 16:41 | US_ITS ---
INDICATION: BLADDER MASS EXAMINATION: Ultrasound US Kidney(s) complete (eg, kidneys and bladder) TECHNIQUE: Frankel scale and color doppler images were obtained of the kidneys. COMPARISON: None. FINDINGS: RIGHT KIDNEY: 9.3 x 6.1 x 6.4 cm. There is no hydronephrosis. No shadowing calculus, focal lesion or perinephric collection is demonstrated. LEFT KIDNEY: 9.7 x 5.3 x 4.6 cm. There is no hydronephrosis. No shadowing calculus, focal lesion or perinephric collection is demonstrated. URINARY BLADDER: Anechoic. No focal wall thickening. Bilateral ureteral jets are demonstrated. Prevoid volume 100 mL.. US/Kidney and Bladder IMPRESSION: No sonographic evidence of bladder mass. No acute renal finding. If there is blood in urine or high clinical concern for urologic neoplasm CT IVP could further evaluate. Electronically Signed: Caleb Liz MD at 10:29 EDT ,
== END | disposition home or self-care (01) ==
LOC: US 16:39
PROVIDERS: PCP Nurse Practitioner Family; Referring Provider Nurse Practitioner Family; Visit Provider Nurse Practitioner Family
DX: N32.89 Other specified disorders of bladder (principal)
CPT/HCPCS: 76770

== ENCOUNTER → 2023-01-09 | Outpatient (CLI) | payer MEDICAID, SELFPAY ==
--- NOTE | 2023-01-09 14:20 | CT_ITS ---
STUDY: CT ABDOMEN AND PELVIS WITH AND WITHOUT CONTRAST REASON FOR EXAM: Female, 42 years old. UROGRAM, HEMATURIA RADIATION DOSAGE (If Supplied By Facility): CTDIvol = ( 10.41 ) mGy, DLP = ( 1303.87 ) mGycm TECHNIQUE: Transaxial images were obtained from the dome of the diaphragm to the symphysis pubis without oral contrast. IV 100mL Isovue-300 was administered. Sagittal and coronal images were reconstructed. Individualized dose optimization techniques were used for this CT. COMPARISON: Comparison is made with prior study dated December 07, 2018. FINDINGS: The visualized lung bases are unremarkable. The visualized portions of the heart are within normal limits. Normal liver. The gallbladder is contracted. Normal spleen. Normal pancreas. Normal bilateral adrenal glands. Normal right kidney. Normal left kidney. Surgical sutures are seen in the region of the gastroesophageal junction. Normal small intestine. There are scattered colonic diverticula consistent with diverticulosis. The appendix is visualized and appears normal. Normal abdominal aorta. Normal inferior vena cava. Normal retroperitoneum. The urinary bladder is not completely distended although there is evidence of a bladder wall thickening. Normal abdominal wall. Normal osseous structures. CT/CT Abd/Pelvis W/WO Contrast IMPRESSION: No evidence of obstructive uropathy. Bilateral wall thickening. Electronically Signed: Alejandro Cutler MD at 15:39 EDT ,
== END | disposition home or self-care (01) ==
LOC: CT 14:11
PROVIDERS: PCP Nurse Practitioner Family; Referring Provider Nurse Practitioner Family; Visit Provider Nurse Practitioner Family
DX: R31.9 Hematuria, unspecified (principal); N32.89 Other specified disorders of bladder
CPT/HCPCS: 74178; Q9967

== ENCOUNTER → 2023-01-27 | Outpatient (CLI) | payer MEDICAID, SELFPAY ==
--- NOTE | 2023-01-27 09:30 | RAD_ITS ---
PROCEDURE: Air contrast Upper GI with Small Bowel Follow Through DATE OF EXAMINATION: January 27, 2023. INDICATION: Female, 42 years old. Weight loss. Loss of appetite. FLUOROSCOPY TIME (if supplied): (1:18) minutes/seconds. 25.69 mGy. 26 fluoroscopic images were obtained. TECHNIQUE: Radiographic and fluoroscopic images of the distal esophagus, stomach, and entire small intestine were obtained following the oral ingestion of barium. COMPARISON: None. FINDINGS: The drag car racer film of the abdomen demonstrates a normal bowel gas pattern. There are no abnormal calcifications or organomegaly demonstrated. The visualized osseous structures are normal. The esophagus is unremarkable. No evidence of obstruction. No evidence of gastroesophageal reflux. The stomach and duodenum are unremarkable. A small bowel follow-through examination was then obtained. The terminal ileum is seen within 30 minutes. No abnormalities seen. A single contrast small bowel follow through exam demonstrates the small bowel to have no evidence for stricture, ulceration or mass. The transit time is normal at . RAD/Upper GI/w Small Bowel IMPRESSION: 1. Normal air contrast upper GI series and small bowel follow-through exam. Electronically Signed: Alejandro Cutler MD at 10:34 EDT ,
[2023-01-27 12:02] LABS: T4 Free Direct 1.07 ng/dL (0.76-1.46); Thyroid Stim Hormone (TSH) 0.17 uIU/mL (0.358-3.74)
[2023-01-27 12:03] LABS: Follicle Stimulating Hormone 8.4 mIU/mL
[2023-01-27 12:47] LABS: Hemoglobin A1c 4.8 % (3.8-5.6)
[2023-01-27 14:09] LABS: Luteinizing Hormone 13.5 mIU/mL
[2023-01-31 17:07] LABS: Thyroglobulin Antibody < 1.0 IU/mL (0.0-0.9); Thyroid Peroxidase AB < 9 IU/mL (0-34)
== END | disposition home or self-care (01) ==
LOC: RAD 08:47
PROVIDERS: PCP Nurse Practitioner Family; Referring Provider Surgery; Visit Provider Surgery
DX: Z13.1 Encounter for screening for diabetes mellitus (principal); R63.4 Abnormal weight loss; R13.10 Dysphagia, unspecified
CPT/HCPCS: 36415; 74246; 74248; 82670; 83001; 83002; 83036; 84439; 84443; 84481; 86376; 86800

== ENCOUNTER 2023-03-10 08:58 | Day surgery (SDC) | payer MEDICAID, SELFPAY ==
[2023-03-10] VITALS (7 sets, daily range): BP systolic 91–115; BP diastolic 45–58; PULSE 69–94; RESP 16–18; TEMP 36.1–37.5; O2SAT 96–100; BMI 21.5
[2023-03-10] MEDS: Lactated Ringers 1,000 ML 15 ML IV (09:15)
[2023-03-10 09:30] LABS: Internal QC Validated? YES +Cl - CLEAR BKGD; Pregnancy, Urine Negative Negative
--- NOTE | 2023-03-10 09:57 | PCM.HP.BLA ---
History and Physical Date of Admission: 03/10/23 Intake Vital Signs 09/22/2207:44 01/24/2309:00 Height 5 ft 4 in 5 ft 4 in Weight: 134 lb BMI 23.0 BP 113/73 Blood Pressure Location Rt brachial Position Sitting Respiration 16 Intake Visit Reasons: REPEAT EGD BARRETTS ESOPHAGUS Chief Complaint: unexplained weight loss Malt Specifications Control Assistant Required: No Is patient in pain?: No Allergies No Known Allergies Allergy (Verified 01/24/23 09:01) Medications multivitamin (Daily Multi-Vitamin tablet) 1 tab PO DAILY 07/19/18 [History Confirmed 01/24/23] buspirone 5 mg tablet 5 mg PO TID PRN 08/29/19 [History Confirmed 01/24/23] metoprolol succinate 25 mg tablet,extended release 24 hr 25 mg PO DAILY #90 tabs 08/27/21 [Rx Confirmed 01/24/23] diltiazem HCl 30 mg tablet 30 mg PO DAILY 09/22/21 [History Confirmed 01/24/23] norgestimate-ethinyl estradiol 0.18 mg/0.215mg/0.25mg-35 mcg(28)tablet (Tri-Linyah) tablet PO 12/16/22 [History Confirmed 01/24/23] PFSH Medical History (Updated 01/24/23 @ 09:13 by Lucinda Frankel) Anxiety [place] esophagus COVID-19 Dysphagia Encounter for screening for COVID-19 Strain of right index finger Tachycardia Thyroid nodule URI (upper respiratory infection) Weight loss Surgical History History of colonoscopy (~2018) History of esophagogastroduodenoscopy (EGD) Hx of hernia repair Status post biopsy of thyroid gland (~2016) Family History Mother CHF (congestive heart failure)Father Heart disease Colon cancer Social History Smoking Status: Former smoker alcohol intake: never substance use type: does not use caffeine: Yes Type: coffee HPI HPI HPI: Patient is a 42-year-old female here with weight loss and loss of appetite. Patient has experienced 30 pounds weight loss over the last 3 months which is unintentional. She reports she has no appetite. She does not report specific abdominal pain. She denies blood in her stool. She says she does have dry heaving. She does not have vomiting. She says she feels very full after taking a few bites. Her last colonoscopy was in 2019. ROS General General: Yes weight change and fatigue; No appetite, colon cancer, breast cancer or weakness HEENT HEENT: Yes swollen glands; No difficulty swallowing, eye injury, eye surgery or hoarseness Endo Endocrine: Yes thyroid disease; No diabetes mellitus, thyroid cancer, Hair loss, heat intolerance or cold intolerance Skin Skin: No rash or changing moles Breast Breast: No left breast lump, right breast lump, nipple discharge, breast pain, abnormal mammogram, abnormal US or breast enlargement Musc Musculoskeletal: No back problems, arthritis, rheumatoid arthritis, gout or joint pain Cardio Cardiovascular: Yes heart disease; No murmur, pacemaker, atrial fibrillation, high blood pressure, heart attack, heart stent, palpitations, shortness of breat with exertion or chest pain Psych Psychiatric: Yes anxiety; No depression or hearing voices Resp Respiratory: No shortness of breath, No sleep apnea, No cough, No COPD, No asthma, No emphysema and No wheezing Gastro Gastrointestinal: Yes abdominal pain, Yes nausea or vomiting, Yes diarrhea, No constipation, No blood in stool, No acid reflux, No hemorrhoids, No ulcers, No gallbladder problem and No black,tarry stools James Hematologic: No blood thinners, No blood disorders, No bleeding, No anemia and No blood clots Neuro Neurologic: No system reviewed and no additional complaints, except as documented, No as per HPI, No abnormal gait, No abnormal hearing, No abnormal movements, No abnormal speech, No behavioral changes, No burning sensations, No confusion, No convulsions, No disequilibrium, No dizziness, No localized weakness, No frequent falls, No headache(s), No lack of coordination, No loss of vision, No memory loss, No numbness, No other visual disturbances, No radicular pain, No restless legs, No sensory deficit, No syncope, No tingling, No tremor(s), No weakness and No other Exam Const General: cooperative Orientation: alert and oriented x3 HENMT Head: normal to inspection Neck Neck: normal visual inspection and full ROM Chest Chest palpation & inspection: normal inspection of the chest Resp Effort & Inspection: normal respiratory effort Auscultation: clear to auscultation bilaterally Cardio Rate: regular rate Rhythm: regular rhythm GI Inspection: non-distended Palpation: soft and nontender Skin General: no rashes or lesions noted Neuro General: patient alert and patient oriented x3 Extrem General: full ROM Psych Appearance: grossly normal Mental Status: mental status grossly normal Assessment and Plan Assessment and Plan (1) Weight loss: Status: Acute Plan: Patient is having severe weight loss and early satiety. I reviewed the CT scan with the radiologist and he does not believe that the SMA has the angle to create SMA syndrome but I would like to order an upper GI with small bowel series to see if things are getting caught in the stomach and not able to move through the duodenum. CT scan was normal and did not show any large masses or malignancies to account for her weight loss. If the upper GI is normal I will perform an EGD and colonoscopy. Ralf Ventura MD Pager: [facility] [address] [place] [address], [address] [place] [address] Office: I have examined the patient and the H&P has been reviewed. There are no clinical changes since date of exam.
--- NOTE | 2023-03-10 10:37 | OP.CCLET_ITS ---
03/10/2023 Tiana Carter Re : Upper GI endoscopy procedure for Yamilka Agarwal Dear Raul This procedure was performed on Friday, March 10, 2023. My impressions and recommendations are as follows: Impressions : - Normal esophagus. - Normal stomach. - Normal examined duodenum. - No specimens collected. Recommendations : - Discharge patient to home. - Resume previous diet. - Continue present medications. My findings are described in the full procedure note, which is enclosed. If I can be of further assistance, please feel free to contact me at Doctor phone number(s): , Work: . Sincerely, Ralf Ventura MD 03/10/2023 10:36:53 AM This report has been signed electronically.
--- NOTE | 2023-03-10 10:37 | OP.EGD_ITS ---
Patient Name: Yamilka Agarwal Procedure Date: 03/10/2023 10:07 AM Date of : 1980 Age: 42 Procedure: Upper GI endoscopy Indications: Weight loss Providers: Ralf Ventura MD Medicines: Monitored Anesthesia Care Patient Profile: This is a 42 year old female. Refer to note in patient chart for documentation of history and physical. Complications: No immediate complications. Procedure: Pre-Anesthesia Assessment: - Prior to the procedure, a History and Physical was performed, and patient medications and allergies were reviewed. The patient's tolerance of previous anesthesia was also reviewed. The risks and benefits of the procedure and the sedation options and risks were discussed with the patient. All questions were answered, and informed consent was obtained. Prior Anticoagulants: The patient has taken no anticoagulant or antiplatelet agents. After reviewing the risks and benefits, the patient was deemed in satisfactory condition to undergo the procedure. After obtaining informed consent, the endoscope was passed under direct vision. Throughout the procedure, the patient's blood pressure, pulse, and oxygen saturations were monitored continuously. The gastroscope was introduced through the mouth, and advanced to the fourth part of duodenum. The upper GI endoscopy was accomplished without difficulty. The patient tolerated the procedure well. Scope In: 10:15:50 AM Scope Out: 10:18:29 AM Total Procedure Duration Time 0 hours 2 minutes 39 seconds Findings: The esophagus was normal. The stomach was normal. The examined duodenum was normal. Impression: - Normal esophagus. - Normal stomach. - Normal examined duodenum. - No specimens collected. Recommendation: - Discharge patient to home. - Resume previous diet. - Continue present medications. Procedure Code(s): --- Professional --- 40834, Esophagogastroduodenoscopy, flexible, transoral; diagnostic, including collection of specimen(s) by brushing or washing, when performed (separate procedure) Diagnosis Code(s): --- Professional --- R63.4, Abnormal weight loss CPT copyright 2021 [employer]. All rights reserved. The codes documented in this report are preliminary and upon customer resource specialist review may be revised to meet current compliance requirements. Ralf Ventura MD 03/10/2023 10:36:53 AM This report has been signed electronically. Number of Addenda: 0 Note Initiated On: 03/10/2023 10:07 AM
--- NOTE | 2023-03-10 10:39 | OP.CCLET_ITS ---
03/10/2023 Tiana Caretr Re : Colonoscopy procedure for Yamilka Agarwal Dear Raul This procedure was performed on Friday, March 10, 2023. My impressions and recommendations are as follows: Impressions : - The entire examined colon is normal on direct and retroflexion views. - No specimens collected. Recommendations : - Discharge patient to home. - Resume previous diet. - Continue present medications. - Repeat colonoscopy in 10 years for screening purposes. My findings are described in the full procedure note, which is enclosed. If I can be of further assistance, please feel free to contact me at Doctor phone number(s): , Work: . Sincerely, Ralf Ventura MD 03/10/2023 10:38:51 AM This report has been signed electronically.
--- NOTE | 2023-03-10 10:39 | OP.COLON_ITS ---
Patient Name: Yamilka Agarwal Procedure Date: 03/10/2023 10:19 AM Date of : 1980 Age: 42 Procedure: Colonoscopy Indications: Weight loss Providers: Ralf Ventura MD Medicines: Monitored Anesthesia Care Patient Profile: This is a 42 year old female. Refer to note in patient chart for documentation of history and physical. Last Colonoscopy: none. The patient's first colonoscopy is today. Complications: No immediate complications. Procedure: Pre-Anesthesia Assessment: - Prior to the procedure, a History and Physical was performed, and patient medications and allergies were reviewed. The patient's tolerance of previous anesthesia was also reviewed. The risks and benefits of the procedure and the sedation options and risks were discussed with the patient. All questions were answered, and informed consent was obtained. Prior Anticoagulants: The patient has taken no anticoagulant or antiplatelet agents. After reviewing the risks and benefits, the patient was deemed in satisfactory condition to undergo the procedure. After I obtained informed consent, the scope was passed under direct vision. Throughout the procedure, the patient's blood pressure, pulse, and oxygen saturations were monitored continuously. The Colonoscope was introduced through the anus and advanced to the cecum, identified by appendiceal orifice and ileocecal valve. The colonoscopy was performed without difficulty. The patient tolerated the procedure well. The quality of the bowel preparation was good. The ileocecal valve, appendiceal orifice, and rectum were photographed. Scope In: 10:21:02 AM Scope Withdrawal Time 0 hours 5 minutes 19 seconds Scope Out: 10:32:04 AM Total Procedure Duration Time 0 hours 11 minutes 2 seconds Findings: The entire examined colon appeared normal on direct and retroflexion views. Impression: - The entire examined colon is normal on direct and retroflexion views. - No specimens collected. Recommendation: - Discharge patient to home. - Resume previous diet. - Continue present medications. - Repeat colonoscopy in 10 years for screening purposes. Procedure Code(s): --- Professional --- 59686, Colonoscopy, flexible; diagnostic, including collection of specimen(s) by brushing or washing, when performed (separate procedure) Diagnosis Code(s): --- Professional --- R63.4, Abnormal weight loss CPT copyright 2021 [employer]. All rights reserved. The codes documented in this report are preliminary and upon slunk skinner review may be revised to meet current compliance requirements. Ralf Ventura MD 03/10/2023 10:38:51 AM This report has been signed electronically. Number of Addenda: 0 Note Initiated On: 03/10/2023 10:19 AM
== END 2023-03-10 11:16 | disposition home or self-care (01) ==
LOC: EN 08:59 → AC 09:01
PROVIDERS: Anesthesiology; PCP Nurse Practitioner Family; Referring Provider Nurse Practitioner Family; Visit Provider Surgery
PROC: 0DJD8ZZ Inspection of Lower Intestinal Tract, Via Natural or Artificial Opening Endoscopic (ICD-10-PCS; CPT 45378; principal; 2023-03-10 09:55)
DX: R63.4 Abnormal weight loss (principal); Z87.891 Personal history of nicotine dependence; Z86.16 Personal history of COVID-19; Z68.23 Body mass index [BMI] 23.0-23.9, adult
CPT/HCPCS: 45378; 43235; 81025; J7120; J2405

== ENCOUNTER → 2023-05-05 | Outpatient (CLI) | payer MEDICAID, SELFPAY ==
[2023-05-05 14:25] LABS: Erythrocyte Sedimentation Rate 2 mm/hr (0-30)
[2023-05-05 15:31] LABS: Rheumatoid Factor < 10.0 IU/mL (<15); Uric Acid 3.1 mg/dL (2.6-6.0)
[2023-05-08 17:07] LABS: Anti-Nuclear Antibody Test Negative (.); CCP IgG Antibodies 1 units (0-19); IgG, Quant 902 mg/dL (586-1602); Immunoglobulin A 173 mg/dL (87-352); Immunoglobulin G, Subclass 1 563 mg/dL (248-810); Immunoglobulin G, Subclass 2 244 mg/dL (130-555); Immunoglobulin G, Subclass 3 24 mg/dL (15-102); Immunoglobulin G, Subclass 4 43 mg/dL (2-96)
== END | disposition home or self-care (01) ==
PROVIDERS: PCP Nurse Practitioner Family
DX: M19.90 Unspecified osteoarthritis, unspecified site (principal)
CPT/HCPCS: 36415; 82784; 82787; 83516; 84550; 85652; 86038; 86200; 86431

== ENCOUNTER → 2023-05-10 | Outpatient (CLI) | payer MEDICAID, SELFPAY ==
--- NOTE | 2023-05-10 16:42 | US_ITS ---
INDICATION: NODULE F/U EXAMINATION: Ultrasound US Thyroid (eg thyroid, parathyroid, parotid) TECHNIQUE: Siddiqui scale and color doppler imaging was performed of the thyroid gland. COMPARISON: Prior study dated: 05/23/2019 FINDINGS: RIGHT THYROID LOBE: 5.3 x 1.8 x 2.4 cm, volume 12.1 mL. Previously 5.2 x 2.3 x 1.9 cm. Parenchyma: The gland echotexture is homogenous. Thyroid vascularity is normal. LEFT THYROID LOBE: 5 x 1.6 x 1.3 cm, volume 5.6 mL. Previously 5 x 1.9 x 1.4 cm. Parenchyma: The gland echotexture is homogenous. Thyroid vascularity is normal. ISTHMUS: 0.4 cm in maximum AP dimension. Previously 0.3 cm. Estimated total number of nodules greater than equal to 1 cm: 3. Of note, there are multiple cysts seen throughout both lobes. These are not characterized. Geophysical Laboratory Chief nodules are described as follows: 1. Location: Right mid Size: 1.4 x 1.1 x 0.7 cm, volume 0.6 mL. Nodule characteristics: Composition: Mixed cystic and solid (1). Echogenicity: Hypoechoic (2). Shape: Wider than tall (0). Margins: Ill-defined (0). Echogenic Foci: None (0). ACR TI-RADS total points: 3. ACR TI-RADS category: 3. 2. Location: Right mid Size: 0.8 x 0.4 x 0.7 cm, volume 0.1 mL. Nodule characteristics: Composition: Mixed cystic and solid (1). Echogenicity: Hypoechoic (2). Shape: Wider than tall (0). Margins: Ill-defined (0). Echogenic Foci: None (0). ACR TI-RADS total points: 3. ACR TI-RADS category: 3. 3. Location: Left mid Size: 1.3 x 0.9 x 0.6 cm, volume 0.4 mL. Nodule characteristics: Composition: Solid or almost completely solid (2). Echogenicity: Hypoechoic (2). Shape: Wider than tall (0). Margins: Smooth (0). Echogenic Foci: None (0). ACR TI-RADS total points: 4. ACR TI-RADS category: 4. 4. Location: Isthmus Size: 0.8 x 1 x 0.3 cm. Nodule characteristics: Composition: Solid or almost completely solid (2). Echogenicity: Hypoechoic (2). Shape: Wider than tall (0). Margins: Smooth (0). Echogenic Foci: None (0). ACR TI-RADS total points: 4. ACR TI-RADS category: 4. LYMPH NODES: No lymphadenopathy is seen in the tissue surrounding the thyroid gland. US/Thyroid IMPRESSION: Multiple thyroid nodules are again seen throughout the thyroid gland. Previous images are not available for comparison, but multiple cystic nodules are described on prior. Nodules measured larger on the prior study. Based on the current examination, given the size and appearance of the right lobe nodules there is no specific follow-up for these. The described nodules in the left lobe and at the isthmus are appropriate for follow-up ultrasound in one year. ACR TI-RADS RECOMMENDATION REFERENCE: Ultrasound-guided fine-needle aspiration, follow-up ultrasound, no further follow-up. *TR 1 (0 points) and TR 2 (2 points): No FNA or follow-up. *TR 3 (3 points): FNA if more than or equal to 2.5 cm in maximum dimension. Follow-up ultrasound in 1, 3, and 5 years if 1.5 to 2.4 cm in maximum dimension. *TR 4 (4-6 points): FNA if more than or equal to 1.5 cm in maximum dimension. Follow-up ultrasound in 1, 2, 3, and 5 years if 1 to 1.4 cm in maximum dimension. *TR 5 (more than or equal to 7 points): FNA if more than or equal to 1 cm in maximum dimension. Follow-up ultrasound every year for 5 years if 0.5 to 0.9 cm in maximum dimension. *TR 3, TR 4, or TR 5 nodules that are below the size threshold for follow-up receive no follow-up. Electronically Signed: Garfield Green MD at 17:49 EDT ,
== END | disposition home or self-care (01) ==
LOC: US 16:39
PROVIDERS: PCP Nurse Practitioner Family; Referring Provider Nurse Practitioner Family; Visit Provider Nurse Practitioner Family
DX: E04.1 Nontoxic single thyroid nodule (principal)
CPT/HCPCS: 76536

== ENCOUNTER → 2023-05-19 | Outpatient (CLI) | payer MEDICAID, SELFPAY ==
[2023-05-19 14:51] LABS: Free T3 2.8 pg/mL (2.18-3.98); T4 Free Direct 1.03 ng/dL (0.76-1.46); Thyroid Stim Hormone (TSH) 0.41 uIU/mL (0.358-3.74)
[2023-05-23 15:08] LABS: Thyroid Peroxidase AB < 9 IU/mL (0-34); Thyroid Stim Immunoglob <0.10 IU/L (0.00-0.55)
== END | disposition home or self-care (01) ==
LOC: LAB 13:42
PROVIDERS: PCP Nurse Practitioner Family; Referring Provider Internal Medicine Endocrinology, Diabetes & Metabolism; Visit Provider Internal Medicine Endocrinology, Diabetes & Metabolism
DX: E04.2 Nontoxic multinodular goiter (principal)
CPT/HCPCS: 36415; 84439; 84443; 84445; 84481; 86376

== ENCOUNTER → 2023-11-02 | Outpatient (CLI) | payer MEDICAID, SELFPAY ==
[2023-11-02 09:29] LABS: Thyroid Stim Hormone (TSH) 0.81 uIU/mL (0.358-3.74)
== END | disposition home or self-care (01) ==
LOC: LAB 08:18
PROVIDERS: PCP Nurse Practitioner Family
DX: E05.90 Thyrotoxicosis, unspecified without thyrotoxic crisis or storm (principal)
CPT/HCPCS: 36415; 84439; 84443; 84481

== ENCOUNTER 2023-11-17 09:11 | Emergency (ER) | payer MEDICAID, SELFPAY ==
[2023-11-17 09:12] VITALS: BP 131/71; PULSE 131; RESP 20; TEMP 36.5; O2SAT 100; BMI 23.8
--- NOTE | 2023-11-17 09:23 | EKG12_ITS ---
Test Reason : HIGH HR Blood Pressure : / mmHG Vent. Rate : 114 BPM Atrial Rate : 114 BPM P-R Int : 114 ms QRS Dur : 088 ms QT Int : 328 ms P-R-T Axes : 051 -49 066 degrees QTc Int : 452 ms Sinus tachycardia Left anterior fascicular block Abnormal ECG Confirmed by Kenan Gordon ([id number]), international editorial producer TONY SMITH ([id number]) on 11/20/2023 2:00:47 PM Referred By: Confirmed By:Kenan Gordon
--- NOTE | 2023-11-17 09:39 | RAD_ITS ---
STUDY: X-RAY CHEST REASON FOR EXAM: Female, 42 years old. Chest pain TECHNIQUE: Single AP portable view of the chest. COMPARISON: None. FINDINGS: EKG electrodes are seen. The lungs are clear and expanded. There is no demonstrated pleural abnormality. Normal size heart. Normal mediastinum and gay. Normal visualized pulmonary arteries. Normal visualized aortic arch and descending thoracic aorta. Normal visualized thoracic spine. Normal visualized ribs, clavicles, and shoulders. There is no demonstrated abnormality of the visualized soft tissue structures of the upper abdomen. RAD/Chest 1 View (Portable) IMPRESSION: Normal x-ray examination of the chest. Electronically Signed: Alejandro Cutler MD at 9:49 EDT ,
[2023-11-17 09:43] LABS: Absolute Lymphocyte Count 1.83 X10^3/uL (0.83-4.51); Absolute Neutrophil Count 5.5 X10^3/uL (2.0-7.7); Basophil# 0.04 X10^3/uL; Basophil% 0.5 % (0-1); Eosinophil# 0.05 X10^3/uL; Eosinophils% 0.6 % (0-5); Hemoglobin 12.8 g/dL (12.0-15.0); Lymphocyte # 1.83 X10^3/ul (0.83-4.51); Mean Corp Hgb Conc 33.7 g/dL (32-36); Mean Platelet Vol. 9.7 fl (6.2-12.0); Monocyte# 0.51 X10^3/uL; Monocyte% 6.4 % (0-10); NRBC Flagged by Analyzer 0 % (0-5); Neutrophil % 69.1 % (47-70); Platelet Count 243 K/mm3 (150-450); RBC Distribution Width CV 11.7 % (11.6-14.6); RBC Distribution Width SD 39.7 fl (35.1-43.9); Red Blood Count 4.13 M/mm3 (4.2-5.4)
--- NOTE | 2023-11-17 10:10 | EX.ED.DYSGE1 ---
HPI History of Present Illness Chief Complaint: Palpitations Informant: patient Narrative Narrative: 42-year-old male states that she is here because I was sent here. She tells me that at approximately 0830 hrs. she was sitting in a car getting it under work she began to feel her heart racing. She states she put a pulse ox on her heart rate was around 170. She states that persisted until she got to the emergency department. She reportedly went to primary care office where an EKG showed a sinus tachycardia with a rate of 134 with incomplete right bundle branch block left anterior fascicular block patient states that she was recently told she had problems with her thyroid believes it to be hyperthyroid and states the medication she is on should be in the computer which unfortunately does not. Patient states that she took her last dose of antibiotics for pneumonia. She states she still has not felt quite right stating all week that she feels like she has problems breathing but states it is difficult to describe. Unsure of which antibiotic it is. She states she is also started sertraline in the past week. Patient denies any current fevers. Patient states she has had episodes of tachycardia in the past was seen by cardiology released. She states she wore a Holter monitor at 1 point for about 24 hours. Reportedly takes Cardizem and metoprolol. She had problems with hypotension when she attempted to increase her metoprolol. [facility] Medical History Abnormal thyroid blood test Anxiety Back pain [place] esophagus Cardiology follow-up encounter COVID-19 Dysphagia Encounter for screening for COVID-19 Former smoker Gastric reflux History of echocardiogram History of hiatal hernia History of Holter monitoring History of IBS History of irregular heartbeat Kidney stones Strain of right index finger Tachycardia Thyroid disease Thyroid nodule URI (upper respiratory infection) Wears glasses Weight loss Home Medications multivitamin (Daily Multi-Vitamin tablet) 1 tab PO DAILY 07/19/18 [History Last Taken Unknown] buspirone 5 mg tablet 10 mg PO TID PRN anxiety 08/29/19 [History Last Taken Unknown] metoprolol succinate 25 mg tablet,extended release 24 hr 25 mg PO DAILY #90 tabs 08/27/21 [Rx Last Taken 03/10/23] diltiazem HCl 30 mg tablet 30 mg PO DAILY 02/23/22 [History Last Taken 03/10/23] norgestimate-ethinyl estradiol 0.18 mg/0.215mg/0.25mg-35 mcg(28)tablet (Tri-Linyah) 1 tab PO DAILY 12/16/22 [History Last Taken Unknown] promethazine 25 mg tablet 25 mg PO Q4-6H PRN nausea and vomiting #20 tabs 11/03/23 [Rx Last Taken Unknown] Allergy/AdvReac Type Severity Reaction Status Date / Time No Known Allergies Allergy Verified 11/03/23 07:24 Family History Mother CHF (congestive heart failure) Father Heart disease Colon cancer Surgical History History of colonoscopy (~2018) History of esophagogastroduodenoscopy (EGD) History of Kimberly fundoplication History of tonsillectomy and adenoidectomy Hx of hernia repair Status post biopsy of thyroid gland (~2016) Social History Smoking Status: Former smoker alcohol intake: never substance use type: does not use caffeine: Yes Type: coffee ROS ROS ED Constitutional Constitutional ED: Reports weight loss and other Details: Patient reports unintentional weight loss which she states has been worked up. ; Denies chills or fever(s) Eyes Eyes: Denies change in vision or diplopia ENT ENT ED: Denies ear pain, rhinorrhea or sore throat Cardiovascular Cardiovascular: Reports palpitations and racing heartbeat; Denies chest pain or orthopnea Respiratory/Chest Respiratory/Chest: Reports cough and dyspnea; Denies orthopnea Gastrointestinal Gastrointestinal: Denies abdominal pain, diarrhea, nausea or vomiting Genitourinary Genitourinary ED: Denies dysuria, hematuria or urinary frequency Musculoskeletal Musculoskeletal: Denies arthralgias or myalgias Integumentary Denies abscess or rash Neurologic Neurologic: Denies headache(s) or weakness Psychiatric Psychiatric: Denies anxiety, depression, suicidal ideation or suicidal thoughts Endocrine Endocrinology: Denies polydipsia, polyphagia or polyuria Allergic/Immunologic Allergic/Immunologic ED: Denies mouth swelling, tongue swelling or urticaria EXAM Physical Exam Const Vital Signs: 11/17/23 09:12 04/19/24 09:29 11/17/23 09:32 Temperature 97.7 F L Temperature Source Temporal Pulse Rate 131 H Respiratory Rate 20 H Respiratory Effort Normal Non-Labored Respiratory Pattern Normal Blood Pressure 131/71 H Blood Pressure Mean 91 Pulse Ox 100 Oxygen Delivery Method Room Air Room Air 11/17/23 10:50 11/17/23 11:00 Temperature 97.2 F L Temperature Source Oral Pulse Rate 79 80 Respiratory Rate 18 14 Respiratory Effort Respiratory Pattern Blood Pressure 99/54 L 102/57 L Blood Pressure Mean 69 72 Pulse Ox 98 98 Oxygen Delivery Method Room Air Room Air Positive well nourished and well developed General Appearance ED: well developed HEENT Reports normocephalic, head/scalp atraumatic and moist mucous membranes Eyes PERRL and EOMs intact bilaterally Neck no lymphadenopathy, supple and no JVD Resp normal respiratory effort and clear to auscultation bilaterally Cardio regular rate, regular rhythm and no murmurs Rate: tachycardic GI normal to inspection, nondistended, normoactive bowel sounds and non-tender Palpation: soft Back/Spine no CVA tenderness and normal ROM Extremity normal to inspection General Extremety ED: Negative for edema General Extremity: Negative for edema Neuro oriented x3 and CN's II-XII intact bilaterally Sensorium / Orientation: alert Motor Exam: strength 5/5 throughout Psych mental status grossly normal Mood & Affect: anxious; Negative for depressed or tearful Skin no rashes or lesions noted and no wounds MDM MDM MDM Narrative Medical decision making narrative: My independent interpretation of the chest x-ray is no acute process. Prior to entering the room for initial H&P the patient's heart rate was down to about 91. When in the room patient's heart rate is noted to be around 110 appears to be sinus on the monitor. Patient continued to trend down slowly currently on exit interview about 74 bpm and again appears sinus with the same morphology. CBC appeared normal. D-dimer within normal range at 0.33. Magnesium 1.8 potassium 3.7 sodium 135. Glucose 116. I spoke with the patient's primary care. She will be following up in the office also recommended following back up with cardiology. I think with the gradual reduction in heart rate is less likely to be ectopic atrial in nature as compared to a spontaneous conversion. However I do not have an EKG at the rate of 170 that she was at. Patient's understanding the plan and comfortable with it. History & Record Review Discussion w/independent historian: Patient Lab Data Attestation: I reviewed the patient's lab results. Labs: Laboratory Results - last 24 hr 11/17/23 11/17/23 09:30 10:35 WBC 8.0 RBC 4.13 L Hgb 12.8 Hct 38.0 MCV 92.0 MCH 31.0 MCHC 33.7 RDW Std Deviation 39.7 RDW Coeff of Rizwan 11.7 Plt Count 243 MPV 9.7 Immature Gran % (Auto) 0.400 Neut % (Auto) 69.1 Lymph % (Auto) 23.0 [place] % (Auto) 6.4 Eos % (Auto) 0.6 Baso % (Auto) 0.5 Absolute Neuts (auto) 5.5 Absolute Lymphs (auto) 1.83 Nucleated RBC % 0 D-Dimer Quant (PE/DVT) 0.33 Sodium 135 L Potassium 3.7 Chloride 104 Carbon Dioxide 25.0 Anion Gap 6 BUN 10 Creatinine 0.67 Estim Creat Clear Calc 95.42 Est GFR (MDRD) Af Amer 125 Est GFR (MDRD) Non-Af 103 BUN/Creatinine Ratio 15.0 Glucose 116 H Calcium 9.0 Magnesium 1.8 Troponin I High Sens 4 Radiography Diagnostic Testing: Clinical Impression(s) from Imaging Studies Chest X-Ray 11/17/23 09:39 IMPRESSION: Normal x-ray examination of the chest. Electronically Signed: Alejandro Cutler MD at 9:49 EDT , EKG Initial EKG: Attestation: I personally reviewed and interpreted this EKG as follows: Comments: Sinus tachycardia left anterior fascicular block ventricular rate of 114 bpm Management Discussion w/another healthcare provider: Balloon Sander (PCP (Dr. Ramsay)) Discharge Plan Triage Chief Complaint: Palpitations ED Provider: Nnamdi Mcmanus Dx/Rx/DC Orders Clinical Impression: Heart palpitations Instructions: ED Palpitations Prescriptions: No Action buspirone 5 mg tablet 10 mg PO TID PRN (Reason: anxiety) multivitamin [Daily Multi-Vitamin] tablet 1 tab PO DAILY diltiazem HCl 30 mg tablet 30 mg PO DAILY norgestimate-ethinyl estradiol [Tri-Linyah] 0.18/0.215/0.25 mg-35 mcg (28) tablet 1 tab PO DAILY promethazine 25 mg tablet 25 mg PO Q4-6H PRN (Reason: nausea and vomiting) Qty: 20 0RF metoprolol succinate 25 mg tablet extended release 24 hr 25 mg PO DAILY Qty: 90 3RF Primary Care Provider: Tiana Carter NP Referrals: Sudhir Wang MD [Med Staff - Active Staff] - As soon as possible Tiana Carter NP, [employer] [Primary Care Provider] - As soon as possible Disposition Disposition: Home, Self Care
[2023-11-17 10:15] LABS: Anion Gap 6 (5-15); BUN 10 mg/dL (7-18); Chloride 104 mmol/L (98-107); Creatinine, Serum 0.67 mg/dL (0.55-1.02); EST Glomerular Filtration Rate 103 mL/min (>60); Est Glom Filt Rate - Afr Amer 125 mL/min (>60); Estimated Creatinine Clearance 95.42 ml/min; Glucose 116 mg/dL (74-106); Potassium 3.7 mmol/L (3.5-5.1); Sodium Level 135 mmol/L (136-145); Troponin-I HS (w/2H Reflex) 4 pg/mL (3.0-54.0)
[2023-11-17 10:50] VITALS: BP 99/54; PULSE 79; RESP 18; TEMP 36.2; O2SAT 98
[2023-11-17 10:55] LABS: Magnesium 1.8 mg/dL (1.6-2.6)
[2023-11-17 11:00] VITALS: BP 102/57; PULSE 80; RESP 14; O2SAT 98
[2023-11-17 11:03] LABS: D-Dimer Quantitative (DVT/PE) 0.33 FEU/ug/m (0.27-0.49)
[2023-11-17 11:38] LABS: Reflex Troponin-HS? (from REC) Y
[2023-11-17 11:48] VITALS: BP 98/69; PULSE 81; RESP 14; TEMP 36.2; O2SAT 99
== END 2023-11-17 11:49 | disposition home or self-care (01) ==
PROVIDERS: Emergency Provider Emergency Medicine; PCP Nurse Practitioner Family; Visit Provider Emergency Medicine
DX: R00.2 Palpitations (principal); Z87.891 Personal history of nicotine dependence; F41.9 Anxiety disorder, unspecified; Z79.899 Other long term (current) drug therapy
CPT/HCPCS: 71045; 80048; 83735; 84484; 85025; 85379; 93005; 99284; A4216

== ENCOUNTER → 2024-05-08 | Outpatient (CLI) | payer BC, SELFPAY ==
[2024-05-08 10:04] LABS: Free T3 3.4 pg/mL (2.18-3.98); T4 Free Direct 1.05 ng/dL (0.76-1.46)
--- NOTE | 2024-05-08 13:38 | BI_ITS ---
MAMMOGRAPHY - BILATERAL SCREENING REASON FOR EXAM: Female, 43 years old. Routine annual screening examination. PERTINENT HISTORY: Non-contributory. TECHNIQUE: Digital bilateral breast shon (3D mammographic acquisition) in the CC and MLO projections. 2-D mediolateral oblique (MLO) and craniocaudad (CC) views of both breasts were obtained. CAD: Full Field Digital Mammography with Computer Added Detection was performed. COMPARISON: Comparison is made with prior study dated July 07, 2022. FINDINGS: Breast Composition: There are scattered areas of fibroglandular density. There are no dominant masses or suspicious calcifications. No other significant abnormalities are identified. There has been no significant change since the prior study. BI/SCRN MAMM (CAD)W/SHON BILAT IMPRESSION: Stable bilateral screening mammogram. Yearly follow-up mammogram recommended. (A) ASSESSMENT CATEGORY: BIRADS Category 1: Negative. A letter regarding these results will be sent to the patient by the facility within 30 days. Approximately 10% of breast cancers are not detected by mammography. A normal mammogram should not delay biopsy of a clinically suspicious abnormality. [id number] Electronically Signed: Alejandro Cutler MD at 15:09 EDT ,
== END | disposition home or self-care (01) ==
LOC: OPBI 13:35
PROVIDERS: PCP Nurse Practitioner Family; Referring Provider Obstetrics & Gynecology; Visit Provider Obstetrics & Gynecology
DX: Z12.31 Encounter for screening mammogram for malignant neoplasm of breast (principal); E05.90 Thyrotoxicosis, unspecified without thyrotoxic crisis or storm
CPT/HCPCS: 36415; 77063; 77067; 84439; 84443; 84481

== ENCOUNTER → 2024-05-20 | Outpatient (CLI) | payer BC, SELFPAY ==
[2024-05-20 10:49] LABS: ALB/GLOB Ratio 1.1 RATIO (0.9-2.4); AST(SGOT) 14 U/L (15-37); Alanine Aminotransfer ALT/SGPT 11 U/L (13-56); Albumin, Serum 3.8 g/dL (3.2-5.0); Alkaline Phosphatase 68 U/L (45-117); Anion Gap 6 (5-15); BUN 9 mg/dL (7-18); BUN/Creat Ratio 11.3 RATIO (10-20); Calcium,Total 9.5 mg/dL (8.5-10.1); Chloride 102 mmol/L (98-107); Creatinine, Serum 0.79 mg/dL (0.55-1.02); EST Glomerular Filtration Rate 84 mL/min (>60); Est Glom Filt Rate - Afr Amer 102 mL/min (>60); Globulin 3.4 g/dL (2.2-4.2); Glucose 99 mg/dL (74-106); Magnesium 2.1 mg/dL (1.6-2.6); Potassium 3.8 mmol/L (3.5-5.1); Protein, Total 7.2 g/dL (6.4-8.2); Sodium Level 136 mmol/L (136-145)
== END | disposition home or self-care (01) ==
LOC: MFPLAB 09:08
PROVIDERS: PCP Nurse Practitioner Family; Visit Provider Nurse Practitioner Family
DX: R25.2 Cramp and spasm (principal)
CPT/HCPCS: 36415; 80053; 83735

== ENCOUNTER → 2024-09-17 | Outpatient (CLI) | payer BC, SELFPAY ==
[2024-09-17 10:56] LABS: AST(SGOT) 15 U/L (15-37); Alanine Aminotransfer ALT/SGPT 12 U/L (13-56); Albumin, Serum 3.9 g/dL (3.2-5.0); Alkaline Phosphatase 65 U/L (45-117); Anion Gap 8 (5-15); BUN 10 mg/dL (7-18); BUN/Creat Ratio 11.1 RATIO (10-20); Calcium,Total 9.5 mg/dL (8.5-10.1); Chloride 102 mmol/L (98-107); Cholesterol 196 mg/dL (200); EST Glomerular Filtration Rate 72 mL/min (>60); Est Glom Filt Rate - Afr Amer 88 mL/min (>60); Globulin 3.9 g/dL (2.2-4.2); Glucose 88 mg/dL (74-106); High Density Lipoprotein 67 mg/dL; Protein, Total 7.8 g/dL (6.4-8.2); Sodium Level 136 mmol/L (136-145); Triglycerides 128 mg/dL; Very Low Density Lipoprotein 26 mg/dL (5-40)
[2024-09-17 11:34] LABS: Hepatitis C Antibody Non-Reactive (Nonreactive)
[2024-09-17 11:35] LABS: Free T3 3.3 pg/mL (2.18-3.98); T4 Free Direct 1.11 ng/dL (0.76-1.46)
== END | disposition home or self-care (01) ==
PROVIDERS: PCP Nurse Practitioner Family; Referring Provider Nurse Practitioner Family; Visit Provider Nurse Practitioner Family
DX: Z13.6 Encounter for screening for cardiovascular disorders (principal); Z11.59 Encounter for screening for other viral diseases; Z13.1 Encounter for screening for diabetes mellitus; E05.90 Thyrotoxicosis, unspecified without thyrotoxic crisis or storm; R79.89 Other specified abnormal findings of blood chemistry
CPT/HCPCS: 36415; 80053; 80061; 84439; 84443; 84481; 86803

== ENCOUNTER → 2025-01-13 | Outpatient (CLI) | payer BC, SELFPAY ==
[2025-01-13 16:59] LABS: Bacteria 0 SEEN /hpf (None Seen); Mucous, Urine 0 SEEN /hpf (<or=2+); White Blood Cells 0 SEEN /hpf (0-5)
[2025-01-13 18:03] LABS: Absolute Lymphocyte Count 3.68 X10^3/uL (0.83-4.51); Absolute Neutrophil Count 3.1 X10^3/uL (2.0-7.7); Basophil# 0.03 X10^3/uL; Basophil% 0.4 % (0-1); Eosinophil# 0.15 X10^3/uL; Hemoglobin 13.4 g/dL (12.0-15.0); Lymphocyte # 3.68 X10^3/ul (0.83-4.51); Lymphocyte % 48.4 % (19-41); Mean Corp Hgb Conc 33.5 g/dL (32-36); Mean Corpuscular Hgb 31.2 pg (27.0-32.0); Mean Platelet Vol. 10.3 fl (6.2-12.0); Monocyte# 0.61 X10^3/uL; NRBC Flagged by Analyzer 0 % (0-5); Neutrophil # 3.11 X10^3/uL (2.7-7.7); Neutrophil % 40.9 % (47-70); Platelet Count 222 K/mm3 (150-450); RBC Distribution Width CV 11.9 % (11.6-14.6); RBC Distribution Width SD 41.1 fl (35.1-43.9); White Blood Count 7.6 K/mm3 (4.4-11.0)
[2025-01-13 18:30] LABS: Internal QC Validated? YES +Cl - CLEAR BKGD; Pregnancy, Serum, hCG Quali. NEGATIVE Negative; Record Kit Lot#, Serum Preg. 947241
[2025-01-13 18:57] LABS: Color, Urine Straw (Yellow); Glucose, Dipstick Normal (Normal); Ketone-Dipstick Negative (Negative); Leukocyte Esterase-Dipstick Negative /ul (Negative); Nitrite-Dipstick Negative (Negative); Occult Blood-Urine 10 /ul (Negative); Protein-Dipstick Negative (Negative); Urine Bilirubin Dipstick Negative (Negative); Urine Clarity Clear (Clear); Urine Urobilinogen Normal (Normal)
[2025-01-13 19:14] LABS: Squamous Epithelial Cells - UA 5-10 SEEN /hpf (5-10)
[2025-01-13 19:15] LABS: Red Blood Cells-Urine 0-5 SEEN /hpf (0-5); Transitional Epithelial - Ur 0-5 SEEN /hpf (0-5)
[2025-01-14 15:55] LABS: ALB/GLOB Ratio 1.6 RATIO (0.9-2.4); AST(SGOT) 21 U/L (<=31); Alanine Aminotransfer ALT/SGPT 8 U/L (<=34); Albumin, Serum 4.5 g/dL (3.5-5.0); Alkaline Phosphatase 62 U/L (35-104); Anion Gap 13 (5-15); BUN 7 mg/dL (4-19); BUN/Creat Ratio 8.8 RATIO (10-20); Bilirubin, Direct 0.11 mg/dL (0.00-0.30); Calcium,Total 9.5 mg/dL (7.6-11.0); Carbon Dioxide 24.4 mmol/L (21.0-32.0); Chloride 99 mmol/L (98-108); EST Glomerular Filtration Rate 94 (>60); Globulin 2.8 g/dL (2.2-4.2); Glucose 123 mg/dL (70-99); Potassium 3.4 mmol/L (3.3-5.1); Protein, Total 7.3 g/dL (5.9-8.4); Sodium Level 137 mmol/L (133-145); Total Bilirubin 0.28 mg/dL (0.00-1.30)
== END | disposition home or self-care (01) ==
LOC: MFPLAB 16:55
PROVIDERS: PCP Nurse Practitioner Family
DX: R11.0 Nausea (principal)
CPT/HCPCS: 36415; 80053; 81001; 82248; 84703; 85025; 87086; 87088

== ENCOUNTER → 2025-01-17 | Outpatient (CLI) | payer BC, SELFPAY ==
--- NOTE | 2025-01-17 07:23 | US_ITS ---
PROCEDURE: ABDOMEN LIMITED 01/17/2025 REASON FOR EXAM: NAUSEA COMPARISON: Prior CT scan dated January 27, 2023. FINDINGS: Liver: Hepatomegaly. The liver measures 20.3 cm. Gallbladder: Small amount of sludge is seen in the gallbladder lumen. The gallbladder wall is not thickened. Common bile duct: Normal measuring 1 mm . Pancreas: Normal Other: Visualized portions of the right kidney are unremarkable. No right upper quadrant ascites. US/Abdomen Limited IMPRESSION: Hepatomegaly. Small amount of sludge seen in the gallbladder lumen. Reading Location: [place] [id number]
--- OUTSIDE RECORDS SUMMARY | 2025-01-17 07:25 | XMS RPT_ITS | CCD ---
Author Organization [facility] Care Team Providers Care 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 Name Role Phone LEONEL, BRYN Unavailable Unavailable LEONEL, BRYN Unavailable Unavailable LEONEL, BRYN Unavailable Unavailable LEONEL, BRYN Unavailable Unavailable LEONEL, BRYN Unavailable Unavailable LEONEL, BRYN Unavailable Unavailable MURNEN, RENÉ Unavailable Unavailable MURNEN, RENÉ Unavailable Unavailable NONE, NONE Unavailable Unavailable MURNEN, RENÉ Unavailable Unavailable LEONEL, BRYN Unavailable Unavailable LEONEL, BRYN Unavailable Unavailable NONE, NONE Unavailable Unavailable MURNEN, RENÉ Unavailable Unavailable LEONEL, BRYN Unavailable Unavailable LEONEL, BRYN Unavailable Unavailable MATTIE PIERRE (PUBLIC SERVICE DIRECTOR) Referring Unavailable JOSÉ MIGUEL KING Referring Unavailable JOSÉ MIGUEL KING Admitting Unavailable JOSÉ MIGUEL KING Attending Unavailable RAUL RUTHERFORD-TIANA NANCE Primary Care Physician TIANA GREWAL Primary Care Physician RAUL RUTHERFORD-GOYO TIANA Primary Care Physician Raul PUBLIC SERVICE DIRECTOR, PUBLIC SERVICE DIRECTOR-C Tiana Primary Care Provider Raul PUBLIC SERVICE DIRECTOR, PUBLIC SERVICE DIRECTOR-C Tiana Referring Provider [phone] Tye OLIVERA PA Earnest Attending Provider [phone] Raul PUBLIC SERVICE DIRECTOR, PUBLIC SERVICE DIRECTOR-C [place] Primary Care Provider Raul PUBLIC SERVICE DIRECTOR, PUBLIC SERVICE DIRECTOR-C Tiana Referring Provider [phone] MD Sami Norwood Attending Provider [phone] Dr. Ralf Ventura Attending Provider [phone] David OLIVERA, PA Britni Lewis Attending Provider SYSTEM, PROVIDER NOT IN Primary Care UnavailALBERT Carrion Attending Unava ilable SYSTEM, PROVIDER NOT IN Primary Care Unavaila RITCHIE Sierra Attending Unavailable Cole Dillard CNP Primary Care Provider LORSON INTERN PRODUCT MARKETING MANAGER-ELECTROPHYSIOLOGY SCIENTIST, [place] Primary Care Unavail able LORSON INTERN PRODUCT MARKETING MANAGER-ELECTROPHYSIOLOGY SCIENTIST, [place]IANA Attending Unavail able LORSON INTERN PRODUCT MARKETING MANAGER-ELECTROPHYSIOLOGY SCIENTIST, [place] Primary Care Unavail able LORSON INTERN PRODUCT MARKETING MANAGER-ELECTROPHYSIOLOGY SCIENTIST, TIANA Attending Unavail able LORSON INTERN PRODUCT MARKETING MANAGER-ELECTROPHYSIOLOGY SCIENTIST, [place] Primary Care Unavail able LORSON INTERN PRODUCT MARKETING MANAGER-ELECTROPHYSIOLOGY SCIENTIST, TIANA Attending Unavail able LORSON INTERN PRODUCT MARKETING MANAGER-ELECTROPHYSIOLOGY SCIENTIST, [place] Consulting Unavail able LORSON INTERN PRODUCT MARKETING MANAGER-ELECTROPHYSIOLOGY SCIENTIST, [place] Primary Care Unavail able MARANDA CLEMENTS MD Attending Unavailable [place] PUBLIC SERVICE DIRECTOR, PUBLIC SERVICE DIRECTOR-C Tiana Primary Care Provider [place] PUBLIC SERVICE DIRECTOR, PUBLIC SERVICE DIRECTOR-C Tiana Referring Provider [phone] Dr. Ralf Ventura Other Provider Dr. John Thakur Attending Provider Harjinderson PUBLIC SERVICE DIRECTOR, PUBLIC SERVICE DIRECTOR-C Tiana Primary Care Provider [phone] Harjinderson PUBLIC SERVICE DIRECTOR, PUBLIC SERVICE DIRECTOR-C Tiana Referring Provider [phone] Dr. Ralf Ventura Attending Provider Dr. Rlaf Ventura Other Provider Dr. John Thakur Attending Provider COLE DILLARD Primary Care Unavailable CONY COX Attending Unavailable Physicians, [facility] Primary Care Provider Physicians, [facility] Primary Care Provider Tiana Carter Primary Care Provider [phone] [place] PUBLIC SERVICE DIRECTOR, PUBLIC SERVICE DIRECTOR-C [place] Primary Care Provider [phone] [place] PUBLIC SERVICE DIRECTOR, PUBLIC SERVICE DIRECTOR-C Tiana Referring Provider [phone] JOSELIN Infante Attending Provider ZMEILI, JUDY Attending Unavailable ZMEILI, JUDY Referring Unavailable RAUL TIANA Primary Care Unavailable ZMEILI, JUDY Attending Unavailable ZMEILI, JUDY Referring [facility]available [facility] Unavailable ZMEILI, JUDY Attending Unavailable HARJINDERSON TIANA Primary Care Unavailable LORSON INTERN PRODUCT MARKETING MANAGER-ELECTROPHYSIOLOGY SCIENTIST, [place] Primary Care Unavail able LORSON INTERN PRODUCT MARKETING MANAGER-ELECTROPHYSIOLOGY SCIENTIST, TIANA Attending Unavail able LORSON INTERN PRODUCT MARKETING MANAGER-ELECTROPHYSIOLOGY SCIENTIST, TIANA Attending Unavail able LORSON INTERN PRODUCT MARKETING MANAGER-ELECTROPHYSIOLOGY SCIENTIST, [place] Primary Care Unavail able TYREE HOWE, MARANDA Attending Unavailable LORSON INTERN PRODUCT MARKETING MANAGER-ELECTROPHYSIOLOGY SCIENTIST, [place] Primary Care Unavail able SOFÍA FALCON Attending Unavailable SELF, SELF Referring Unavailable Unavailable Primary Care Provider Unavailabl e [place]on PUBLIC SERVICE DIRECTOR, [place] Primary Care Unavailable [place] PUBLIC SERVICE DIRECTOR, Tiana Attending Unavailable [place] PUBLIC SERVICE DIRECTOR, [place] Primary Care Unavailable ALLISON, 1 Consulting Unavailable [place] PUBLIC SERVICE DIRECTOR, Tiana Attending Unavailable [place] PUBLIC SERVICE DIRECTOR, Tiana Referring Unavailable [place] PUBLIC SERVICE DIRECTOR, [place] Primary Care Unavailable [place] PUBLIC SERVICE DIRECTOR, Tiana Attending Unavailable [place] PUBLIC SERVICE DIRECTOR, [place] Primary Care Unavailable ALLISON, 1 Attending Unavailable [place] PUBLIC SERVICE DIRECTOR, [place] Primary Care Unavailable Sherry PUBLIC SERVICE DIRECTOR, Marylou Attending Unavailable Harjinderson PUBLIC SERVICE DIRECTOR, [place] Referring Unavailable Britni Chau Attending Unavail able [place] PUBLIC SERVICE DIRECTOR, [place] Primary Care Unavailable Tyree, Maranda Attending Unavailable Tyree, Maranda Referring Unavailable ALLISON, 1 Consulting Unavailable [place] PUBLIC SERVICE DIRECTOR, [facility] Care Unavailable [place] PUBLIC SERVICE DIRECTOR-C, [place] Primary Care Provider Sherry PUBLIC SERVICE DIRECTOR-CMarylou Attending Provider Medications Current Medications Medication Drug Class(es) Dates Sig (Normalized) Sig (Original) busPIRone hydrochloride 10 mg oral tablet (20 sources) Start: 05-20-2024 End: 05-15-2025 busPIRone 10 mg oral tablet Dose : 10 mg = 1 tab(s), Oral, BID, # 180 tab(s), 3 Refill(s), Pharmacy: [facility], 166, cm, 04/29/24 14:45:00 EDT, Height, kg, 04/29/24 14:45:00 EDT, Dosing Weight Start Date: 05/20/24 Stop Date: 05/15/25 Status: Ordered Quantity: 180.0 Unit: tab(s) Repeat number: 4 Start: 05-30-2022 End: 05-25-2023 busPIRone 10 mg oral tablet Dose : 10 mg = 1 tab(s), Oral, BID, # 180 tab(s), 3 Refill(s), Pharmacy: [facility], 162.6, cm, 05/30/22 15:45:00 EDT, Height Start Date: 05/30/22 Stop Date: 05/25/23 Status: Ordered Start: 08-29-2019 take 2 tablets by mo uth three times daily as needed for anxiety Buspirone 5 mg tablet Active 10 mg PO THREE TIMES A DAY as needed for anxiety August 29, 2019 2:09pm Start: 08-29-2019 take 10 mg by mouth three times daily Buspirone Active 10 MG PO THREE TIMES A DAY August 29, 2019 2:09pm Start: 12-05-2017 End: 06-25-2022 take 1 tablet by mouth three times daily Buspirone 5 mg tablet Discontinued 5 mg PO THREE TIMES A DAY December 05, 2017 12:00am August 29, 2019 2:09pm take 1 tablet by alexey th every eight hours as needed busPIRone 10 MG tablet Take 1 tablet by mouth Every 8 hours as needed. Active take 1 tablet by alexey th twice daily busPIRone (Buspar) 10 MG tablet Take 10 mg by mouth 2 times daily. Active Comment on above: Take 10 mg by mouth three times daily as needed. cephalexin 500 mg oral capsule (1 source) Cephalosporin Antibacterial Start: 3 End: 3 cephalexin 500 mg oral capsule Dose : 500 mg = 1 cap(s), Oral, q12h, X 5 day(s), # 10 cap(s), 0 Refill(s), 05/15/23 2:31:00 PM EDT, Pharmacy: [facility]30, 166, cm, 05/08/23 8:26:00 EDT, Height, 58.1, kg, 05/08/23 8:26:00 EDT, Dosing Weight Start Date: 05/10/23 Stop Date: 05/15/23 Status: Ordered Dietary Management Product (METHAZEL PO) (1 source) Dietary Manageme nt Product (METHAZEL PO) Take by mouth. Active {7 (Ethinyl Estradiol 0.035 MG / norgestimate 0.18 MG Oral Tablet) / 7 (Ethinyl Estradiol 0.035 MG / norgestimate 0.215 MG Oral Tablet) / 7 (Ethinyl Estradiol 0.035 MG / norgestimate 0.25 MG Oral Tablet) / 7 (Inert Ingredients 1 MG Oral Tablet) } Pack [Tr (20 sources) Progestin, Estrogen Start: End: take 1 tablet by mouth once daily Tri-Sprintec oral tablet Dose = 1 tab(s), Oral, Daily, # 84 tab(s), 3 Refill(s), Pharmacy: [facility], 166, cm, 04/29/24 14:45:00 EDT, Height, kg, 04/29/24 14:45:00 EDT, Dosing Weight Start Date: 05/20/24 Stop Date: 04/21/25 Status: Ordered Quantity: 84.0 Unit: tab(s) Repeat number: 4 Start: 05-20-2024 End: 04-21-2025 take 1 tablet by mouth once daily Tri-Sprintec oral tablet Dose = 1 tab(s), Oral, Daily, # 84 tab(s), 3 Refill(s), Pharmacy: [facility], 166, cm, 04/29/24 14:45:00 EDT, Height, kg, 04/29/24 14:45:00 EDT, Dosing Weight Start Date: 05/20/24 Stop Date: 04/21/25 Status: Ordered Start: 11-06-2023 End: 10-07-2024 take 1 tablet by mouth once daily Tri-Sprintec oral tablet Dose = 1 tab(s), Oral, Daily, # 84 tab(s), 3 Refill(s), Pharmacy: [facility], 166, cm, 11/06/23 11:53:00 EDT, Height, kg, 11/06/23 11:53:00 EDT, Dosing Weight Start Date: 11/06/23 Stop Date: 10/07/24 Status: Ordered Start: 12-16-2022 Norgestimate-E thinyl Estradiol (Tri-Linyah) 0.18/0.215/0.25 mg-35 mcg (28) tablet Active 1 {tbl} PO DAILY December 16, 2022 12:00am Start: 12-16-2022 take 1 tablet by alexey once daily Norgestimate-Ethinyl Estradiol (Tri-Linyah) 0.18/0.215/0.25 mg-35 mcg (28) tablet Active 1 TABLET PO DAILY December 15, 2022 11:00pm Start: 12-16-2022 take 1 tablet by alexey th once daily Norgestimate-Ethinyl Estradiol (Tri-Linyah) 0.18/0.215/0.25 mg-35 mcg (28) tablet Active 1 TABLET PO DAILY December 16, 2022 12:00am Start: 12-16-2022 Norgestimate-E thinyl Estradiol (Tri-Linyah) 0.18/0.215/0.25 mg-35 mcg (28) tablet Active TAB PO December 16, 2022 12:00am Start: 05-30-2022 End: 05-01-2023 take 1 tablet by mouth once daily Tri-Sprintec oral tablet Dose = 1 tab(s), Oral, Daily, # 84 tab(s), 3 Refill(s), Pharmacy: [facility], 162.6, cm, 05/30/22 15:45:00 EDT, Height, kg, 05/30/22 15:45:00 EDT, Dosing Weight Start Date: 05/30/22 Stop Date: 05/01/23 Status: Ordered Start: 04-01-2021 End: 05-26-2022 take 1 tablet by mouth once daily Tri-Sprintec oral tablet Dose = 1 tab(s), Oral, Daily, # 84 tab(s), 4 Refill(s), Pharmacy: [facility], 168, cm, 04/01/21 7:20:00 EDT, Height, kg, 04/01/21 7:20:00 EDT, Dosing Weight Start Date: 04/01/21 Stop Date: 05/26/22 Status: Ordered Start: 07-03-2017 End: 12-07-2017 Norgestimate-Ethinyl Estradi ol 1 TABLET tablet Discontinued 1 NMA PO DAILY July 03, 2017 1:00am December 07, 2017 1:09pm Start: 07-03-2017 End: 12-07-2017 Norgestimate-Ethinyl Estradi ol Discontinued 1 EACH PO DAILY July 03, 2017 1:00am December 07, 2017 1:09pm Start: 07-03-2017 End: 12-07-2017 Norgestimate-Ethinyl Estradi ol Discontinued 1 EACH PO DAILY July 03, 2017 12:00am December 07, 2017 12:09pm take 1 tablet by alexey th once daily Norgestimate-Ethinyl Estradiol 0.18/0.215/0.25 MG-35 MCG tablet Take 1 tablet by mouth daily. Active take 1 tablet by alexey th in the morning norgestimate-ethinyl estradiol (Ortho Tri-Cyclen,Trinessa) 0.18/0.215/0.25 MG-35 MCG tablet Take 1 tablet by mouth in the morning. Active take 1 tablet by alexey th in the morning norgestimate-ethinyl estradiol (Ortho Tri-Cyclen,Trinessa) 0.18/0.215/0.25 MG-35 MCG tablet Take 1 tablet by mouth in the morning. 0 Active take 1 tablet by alexey th once daily Norgestimate-Ethinyl Estradiol (TRI-LINYAH) 0.18/0.215/0.25 mg-35 mcg (28) Take 1 tablet by mouth once daily. 0 Active Comment on above: Take 1 tablet by alexey th once daily. methIMAzole 5 mg oral tablet (18 sources) Thyroid Hormone Synthesis Inhibitor Start: 10-12-2023 End: 10-01-2025 take 1 tablet by mouth once daily Methimazole 5 mg tablet Active 5 mg PO DAILY November 20, 2023 12:00am 24 hr metoprolol succinate 25 mg extended release oral tablet (20 sources) beta-Adrenergic Anton Start: 12-20-2023 End: 06-24-2025 Metoprolol Succinate ER 25 mg oral TABLET extended release Dose : 25 mg = 1 tab(s), Oral, qDay, # 100 tab(s), 3 Refill(s), Pharmacy: [facility], 166, cm, 04/29/24 14:45:00 EDT, Height, kg, 04/29/24 14:45:00 EDT, Dosing Weight Start Date: 05/20/24 Stop Date: 06/24/25 Status: Ordered Quantity: 100.0 Unit: tab(s) Repeat number: 4 Start: 04-01-2021 End: 05-25-2023 Metoprolol Succinate ER 25 m g oral TABLET extended release Dose : 25 mg = 1 tab(s), Oral, qDay, # 90 tab(s), 3 Refill(s), Pharmacy: [facility], 162.6, cm, 05/30/22 15:45:00 EDT, Height, kg, 05/30/22 15:45:00 EDT, Dosing Weight Start Date: 05/30/22 Stop Date: 05/25/23 Status: Ordered Start: 07-03-2017 End: 12-10-2024 take 1 tablet by mouth once daily Metoprolol Succinate 25 mg tablet extended release 24 hr Active 25 mg PO DAILY December 10, 2024 3:27pm Comment on above: Take 25 mg by mouth once daily. Multivitamin preparation (7 sources) Start: 9 take 1 tablet by mouth once daily Multivitamin Dose = 1 tab(s), Oral, Daily, 0 Refill(s) Start Date: 04/05/19 Status: Ordered naproxen 500 mg oral tablet (15 sources) Nonsteroidal Anti-inflammatory Drug Start: 3 End: 3 take 1 tablet by mouth every twelve hours as needed naproxen (NAPROSYN) 500 mg tablet Take 1 tablet by mouth twice daily as needed (for pain). Take with food 180 tablet 0 04/06/2023 07/05/2023 Active Start: 10-13-2017 End: 12-07-2017 take 1 tablet by mouth twice daily as needed Naproxen 500 MG tablet Discontinued 500 mg PO TWICE DAILY NEEDED October 13, 2017 12:00am December 07, 2017 1:08pm Comment on above: Take 1 tablet by alexey twice daily as needed (for pain). Take with food ondansetron 4 mg disintegrating oral tablet (20 sources) Serotonin-3 Receptor Antagonist Start: 5 take 1 tablet by mouth every eight hours as needed for nausea Ondansetron 4 MG Tab Dispersible tablet Indications: Nausea and vomiting, unspecified vomiting type Take 1 tablet by mouth every 8 hours as needed for Nausea. 15 tablet 12/31/2024 Active Start: 12-31-2024 End: 12-31-2024 Ondansetron 4mg/2ml (ZOFRAN) injection 4 mg Start: 12-31-2024 End: 12-31-2024 Ondansetron 4mg/2ml (ZOFRAN) injection 4 mg Start: 12-31-2024 End: 12-31-2024 inject 1 dose by intramuscular injection once 4 mg, Intramuscular, ONCE (IN CLINIC), 1 dose, On Mon12/31/24 at 1230 Start: 09-25-2023 End: 10-01-2024 take 1 tablet by mouth every six hours as needed ondansetron ODT (Zofran-ODT) 4 MG disintegrating tablet Take 4 mg by mouth every 6 hours as needed. 09/25/2023 10/01/2024 Discontinued promethazine hydrochloride 25 mg oral tablet (3 sources) Phenothiazine Start: 11-03-2023 take 1 tablet by mouth every four to six hours as needed for nausea and vomiting Promethazine 25 mg tablet Active 25 mg PO EVERY 4-6 HOURS as needed for nausea and vomiting November 03, 2023 12:00am sertraline 50 mg oral tablet (4 sources) Serotonin Reuptake Inhibitor Start: 05-20-2024 End: 05-15-2025 sertraline 50 mg oral tablet Dose : 50 mg = 1 tab(s), Oral, qDay, # 90 tab(s), 3 Refill(s), Pharmacy: [facility], 166, cm, 04/29/24 14:45:00 EDT, Height, kg, 04/29/24 14:45:00 EDT, Dosing Weight Start Date: 05/20/24 Stop Date: 05/15/25 Status: Ordered Quantity: 90.0 Unit: tab(s) Repeat number: 4 Start: 11-20-2023 sertraline 50 mg oral tablet Dose : 50 mg = 1 tab(s), Oral, qDay, # 30 tab(s), 11 Refill(s), Pharmacy: [facility], 166, cm, 01/01/24 14:09:00 EDT, Height, kg, 01/01/24 14:09:00 EDT, Dosing Weight Start Date: 02/13/24 Status: Ordered Tri-Sprintec oral tablet (2 sources) Start: 04-01-2021 End: 05-26-2022 take 1 tablet by mouth once daily Tri-Sprintec oral tablet Dose = 1 tab(s), Oral, Daily, # 84 tab(s), 4 Refill(s), Pharmacy: [facility], 168, cm, 04/01/21 7:20:00 EDT, Height, kg, 04/01/21 7:20:00 EDT, Dosing Weight Start Date: 04/01/21 Stop Date: 05/26/22 Status: Ordered {11 (varenicline 0.5 MG Oral Tablet [Chantix]) / 42 (varenicline 1 MG Oral Tablet [Chantix]) } Pack [Chantix First Month of Therapy] (1 source) Partial Cholinergic Nicotinic Agonist Start: 06-17-2024 take 1 tablet by mouth twice daily Chantix Starter Pack 0.5 mg-1 mg oral tablet Dose = 1 tab(s), Oral, BID, # 1 kit(s), 0 Refill(s), Pharmacy: [facility], 167.5, cm, 06/17/24 7:23:00 EST, Height, kg, 06/17/24 7:23:00 EST, Dosing Weight Start Date: 06/17/24 Status: Ordered Quantity: 1.0 Unit: kit(s) Repeat number: 1 Completed/Discontinued Medications Medication Drug Class(es) Dates Sig (Normalized) Sig (Original) acetaminophen 325 mg / HYDROcodone bitartrate 5 mg oral tablet (12 sources) Opioid Agonist Start: 12-07-2018 End: 12-09-2018 Hydrocodone-Acetami nophen 1 TABLET tablet Discontinued 1 {tbl} PO EVERY 4 HOURS NEEDED as needed for Pain 14 December 07, 2018 12:00am December 08, 2018 12:00am December 09, 2018 12:07am Start: 12-07-2018 End: 12-09-2018 take 1 tablet by mouth every four hours as needed Hydrocodone-Acetaminophen Discontinued 1 TABLET PO EVERY 4 HOURS NEEDED 14 December 07, 2018 12:00am December 09, 2018 12:07am Cecilwagandha (1 source) Start: 05-08-2023 Nathaly Andersen, See Instructions, 1 tablet daily, 0 Refill(s), 65.1 Start Date: 05/08/23 Status: Ordered dexamethasone 4 mg oral tablet (12 sources) Corticosteroid Start: 06-29-2021 End: 09-22-2021 take 1 tablet by mouth once daily Dexamethasone (Decadron) 4 mg tablet Discontinued 4 mg PO DAILY June 29, 2021 1:00am September 22, 2021 9:43am dicyclomine hydrochloride 10 mg oral capsule (12 sources) Anticholinergic Start: 12-07-2018 End: 09-24-2020 take 10-20 mg by mouth four times daily Dicyclomine 10 MG capsule Discontinued 10 - 20 mg PO 4 TIMES DAILY December 07, 2018 12:00am September 24, 2020 9:35am dilTIAZem hydrochloride 30 mg oral tablet (20 sources) Calcium Channel Anton Start: 04-01-2021 End: 12-04-2025 take 1 tablet by mouth once daily Diltiazem Hcl 30 mg tablet Discontinued 30 mg PO DAILY December 20, 2023 11:09am December 10, 2024 3:27pm Start: 09-24-2020 End: 09-22-2021 take 1 tablet by mouth twice daily Diltiazem Hcl 30 mg tablet Discontinued 30 mg PO TWICE A DAY December 24, 2020 5:47pm September 22, 2021 10:20am Comment on above: Take 30 mg by mouth once daily. 1 ml diphenhydrAMINE hydrochloride 50 mg/ml cartridge (3 sources) Histamine-1 Receptor Antagonist Start: 12-31-2024 End: 12-31-2024 diphenhydrAMINE (BENADRYL) injection 25 mg Start: 12-31-2024 End: 12-31-2024 diphenhydrAMINE (BENADRYL) injection 25 mg Start: 12-31-2024 End: 12-31-2024 inject 1 dose by intramuscular injection once 25 mg, Intramuscular, ONCE (IN CLINIC), 1 dose, On Mon12/31/24 at 1230 1 ml ketorolac tromethamine 30 mg/ml cartridge (2 sources) Nonsteroidal Anti-inflammatory Drug, Cyclooxygenase Inhibitor Start: 12-31-2024 End: 12-31-2024 Ketorolac (TORADOL) injection 60 mg Start: 12-31-2024 End: 12-31-2024 inject 1 dose by intramuscular injection once 60 mg, Intramuscular, ONCE (IN CLINIC), 1 dose, On Mon12/31/24 at 1230 1 ml medroxyPROGESTERone acetate 150 mg/ml prefilled syringe (12 sources) Progestin Start: 12-07-2017 End: 09-24-2020 inject 150 mg by intramuscular injection every three months Medroxyprogesterone (Depo-Provera) 150 mg/mL syringe Discontinued 150 mg IM every 3 months December 07, 2017 12:00am September 24, 2020 9:34am methylPREDNISolone 4 mg oral tablet (12 sources) Corticosteroid Start: 06-09-2021 End: 09-22-2021 take 1 tablet by mouth once daily Methylprednisolone (Medrol (Augustus)) 4 mg tablets,dose pack Discontinued 4 mg PO DAILY June 09, 2021 1:00am September 22, 2021 9:43am multivit with minerals/lutein (MULTIVITAMIN 50 PLUS ORAL) (4 sources) multivit with minerals/lutein (MULTIVITAMIN 50 PLUS ORAL) Take by mouth. 0 Active Comment on above: Take by mouth. Multivitamin (Daily Multi-Vitamin) tablet (12 sources) Start: 07-19-2018 End: 02-23-2024 Multivitamin (Daily Multi-Vitamin) tablet Discontinued 1 {tbl} PO DAILY July 19, 2018 1:00am February 23, 2024 8:49am Start: 07-19-2018 take 1 tablet by alexey th once daily Multivitamin (Daily Multi-Vitamin) tablet Active 1 TABLET PO DAILY July 19, 2018 1:00am Start: 07-19-2018 take 1 tablet by alexey th once daily Multivitamin (Daily Multi-Vitamin) tablet Active 1 TABLET PO DAILY July 19, 2018 12:00am omeprazole 40 mg delayed release oral capsule (12 sources) Proton Pump Inhibitor Start: 05-21-2019 End: 08-29-2019 take 1 capsule by mouth once daily Omeprazole 40 mg capsule,delayed release(DR/EC) Discontinued 40 mg PO DAILY May 21, 2019 12:00am August 29, 2019 2:08pm pantoprazole 40 mg delayed release oral tablet (12 sources) Proton Pump Inhibitor Start: 12-07-2018 End: 05-21-2019 take 1 tablet by mouth once daily Pantoprazole 40 MG tablet Discontinued 40 mg PO DAILY December 07, 2018 12:00am May 21, 2019 3:12pm predniSONE 10 mg oral tablet (12 sources) Start: 10-13-2017 End: 12-07-2017 take 4 tablets by mouth once daily, then take 3 tablets by mouth once daily, then take 2 tablets by mouth once daily, then take 1 tablet by mouth once daily, then take 1 tablet by mouth every other day Prednisone 10 MG tablet Discontinued 10 mg PO DIRECTED October 13, 2017 12:00am December 07, 2017 1:08pm Take 4 tablets daily for 3 days, then 3 daily for 3 days, then 2 daily for 3 days, then 1 a day for 3 days then 1 QOD for 3 doses. sodium iodide (I-123) capsule 300 microcurie (2 sources) Start: 10-11-2023 End: 10-11-2023 sodium iodide (I-123) capsule 300 microcurie sulfamethoxazole 800 mg / trimethoprim 160 mg oral tablet (12 sources) Dihydrofolate Reductase Inhibitor Antibacterial, Sulfonamide Antimicrobial Start: 07-04-2022 End: 07-11-2022 Sulfamethoxazole-Tr imethoprim (Bactrim Ds) 800-160 mg tablet Discontinued 1 {tbl} PO Q12H 14 7 July 04, 2022 1:00am July 10, 2022 1:00am July 11, 2022 1:03am traMADol hydrochloride 50 mg oral tablet (2 sources) Opioid Agonist Start: 10-09-2021 End: 10-15-2021 traMADol 50 mg oral tablet Dose : 50 mg = 1 tab(s), Oral, q12h, PRN for pain, # 12 tab(s), 0 Refill(s), Pharmacy: [facility] #30, Left flank pain, 162.6, cm, 10/09/21 9:53:00 EST, Height, 75.4, kg, 10/09/21 9:53:00 EST, Dosing Weight Start Date: 10/09/21 Stop Date: 10/15/21 Status: Ordered valACYclovir 1000 mg oral tablet (1 source) Herpesvirus Nucleoside Analog DNA Polymerase Inhibitor, Herpes Simplex Virus Nucleoside Analog DNA Polymerase Inhibitor, Herpes Zoster Virus Nucleoside Analog DNA Polymerase Inhibitor Start: 11-23-2022 End: 11-30-2022 valACYclovir 1 g oral tablet Dose : 1 gram(s) = 1 tab(s), Oral, q8h, Corrected dose, X 7 day(s), # 21 tab(s), 0 Refill(s), 11/30/22 7:58:00 EDT, Pharmacy: [facility], 166, cm, 11/23/22 7:04:00 EDT, Height, 65.1 Start Date: 11/23/22 Stop Date: 11/30/22 Status: Ordered Vitamin D3 125 mcg (5000 intl units) oral capsule (7 sources) Start: 07-05-2021 End: 08-04-2021 Vitamin D3 125 mcg (5000 intl units) oral capsule Dose : 125 mcg = 1 cap(s), Oral, qDay, # 30 cap(s), 0 Refill(s), Pharmacy: [facility], COVID-19, 162.6, cm, 07/05/21 16:51:00 EST, Height, kg, 07/05/21 16:51:00 EST, Dosing Weight Start Date: 07/05/21 Stop Date: 08/04/21 Status: Ordered Problems Active Problems Problem Classification Problem Date Documented Da te Episodic/Chronic Abdominal pain (7 sources) Generalized abdominal pain; Translations: [Pain in female pelvis] Onset: 11-12-2018 11-19-2021 Episodic Anxiety disorders (20 sources) Anxiety disorder, unspecified; Translations: [Anxiety] Onset: 04-27-2017 03-25-2019 Chronic Cardiac dysrhythmias (2 sources) Atrial premature depolarization; Translations: [Ventricular premature depolarization] Onset: 02-22-2017 Chronic Cardiac dysrhythmias (20 sources) Tachycardia, unspecified; Translations: [Palpitations] Onset: 02-13-2017 04-08-2019 Episodic Esophageal disorders (10 sources) Barger's esophagus 04-08-2019 Chronic Headache; including migraine (11 sources) Headache; Translations: [Acute headache] 05-25-2021 Episodic Headache; including migraine (2 sources) Headache; including migraine; Translations: [Headache, unspecified] Onset: 12-31-2024 Heart valve disorders (1 source) Rheumatic disorders of both mitral and tricuspid valves; Translations: [RHEUMATIC D/O MITRAL TRICUSPID VALV] Onset: 02-17-2017 Chronic Immunizations and screening for infectious disease (14 sources) Patient encounter status; Translations: [Encounter for screening for COVID-19] Onset: 04-29-2024 06-09-2021 Episodic Malaise and fatigue (4 sources) Fatigue 05-30-2022 Episodic Menstrual disorders (10 sources) Menorrhagia; Translations: [Irregular periods] 03-25-2019 Chronic Mycoses (9 sources) Pityriasis versicolor 04-01-2021 Episodic Nausea and vomiting (4 sources) Nausea; Translations: [Nausea with vomiting, unspecified] Onset: 10-04-2018 Episodic Osteoarthritis (1 source) Arthritis; Translations: [Unspecified osteoarthritis, unspecified site] 04-06-2023 Chronic Other connective tissue disease (4 sources) Hand pain 11-23-2022 Episodic Other connective tissue disease (9 sources) Swelling of hand; Translations: [Other specified soft tissue disorders] 12-19-2022 Episodic Other connective tissue disease (1 source) Cramp in lower limb 05-20-2024 Episodic Other connective tissue disease (1 source) Pain in toe 12-09-2024 Episodic Other connective tissue disease (1 source) Swelling of lower limb 12-09-2024 Episodic Other connective tissue disease (2 sources) Pain in unspecified toe(s); Translations: [Pain in unspecified toe(s)] Onset: 12-09-2024 Episodic Other gastrointestinal disorders (2 sources) Change in bowel habit; Translations: [Change in bowel habit] Onset: 11-01-2018 Episodic Other gastrointestinal disorders (1 source) Functional diarrhea; Translations: [Diarrhea, functional] Onset: 11-12-2018 Episodic Other gastrointestinal disorders (1 source) Diarrhea, unspecified; Translations: [Diarrhea, unspecified] Onset: 11-01-2018 Episodic Other gastrointestinal disorders (13 sources) Diarrhea; Translations: [Diarrhea, unspecified] Onset: 11-01-2018 05-09-2019 Episodic Other gastrointestinal disorders (7 sources) Dysphagia; Translations: [Dysphagia, unspecified] 01-24-2023 Episodic Other lower respiratory disease (9 sources) Nodule of lung 01-16-2020 Episodic Other lower respiratory disease (3 sources) Snoring 11-20-2023 Episodic Other nervous system disorders (2 sources) Carpal tunnel syndrome, right upper limb; Translations: [Carpal tunnel syndrome, right upper limb] Onset: 11-16-2022 Chronic Other nutritional; endocrine; and metabolic disorders (4 sources) Unintentional weight loss 11-23-2022 Episodic Other nutritional; endocrine; and metabolic disorders (6 sources) Weight loss; Translations: [Abnormal weight loss] 01-24-2023 Episodic Other nutritional; endocrine; and metabolic disorders (5 sources) Abnormal weight loss; Translations: [Loss of weight] 01-24-2023 Episodic Other nutritional; endocrine; and metabolic disorders (1 source) Weight decreased; Translations: [Abnormal weight loss] 01-24-2023 Episodic Other screening for suspected conditions (not mental disorders or infectious disease) (20 sources) Decreased thyroid stimulating hormone level; Translations: [Thyroid function tests abnormal] Onset: 04-29-2024 05-08-2023 Episodic Other upper respiratory infections (12 sources) Sinusitis; Translations: [Chronic sinusitis, unspecified] 06-09-2021 Chronic Other upper respiratory infections (19 sources) Upper respiratory infection; Translations: [Acute upper respiratory infection, unspecified] 06-09-2021 Episodic Otitis media and related conditions (2 sources) Acute suppurative otitis media without spontaneous rupture of ear drum, bilateral; Translations: [Acute suppurative otitis media without spontaneous rupture of ear drum, bilateral] Onset: 02-05-2023 Episodic Residual codes; unclassified (2 sources) Unrefreshed by sleep 11-20-2023 Episodic Screening or history of mental health and substance abuse (15 sources) Personal history of nicotine dependence; Translations: [Ex-smoker] Onset: 02-17-2017 01-16-2020 Episodic Skin and subcutaneous tissue infections (15 sources) Abscess of back ; Translations: [Cutaneous abscess of back [any part, except buttock]] Episodic Sprains and strains (20 sources) Unspecified sprain of left little finger, initial encounter; Translations: [Sprain of left little finger] 01-10-2019 Episodic Substance-related disorders (1 source) Nicotine dependence 06-17-2024 Chronic Thyroid disorders (20 sources) Nontoxic multinodular goiter; Translations: [Thyrotoxicosis, unspecified without thyrotoxic crisis or storm] Onset: 04-27-2017 03-25-2019 Chronic Unclassified (20 sources) Patient encounter status 05-25-2021 Unclassified (10 sources) Postmenopausal hormone replacement therapy 04-08-2019 Unclassified (2 sources) Sebaceous cyst of skin 02-19-2024 Unclassified (1 source) Sterilization requested 05-20-2024 Viral infection (20 sources) Disease caused by 2019-nCoV; Translations: [COVID-19] Onset: 07-26-2022 11-23-2022 Episodic Past or Other Problems Problem Classification Problem Date Documented Da te Episodic/Chronic Contraceptive and procreative management (1 source) Encounter for contraceptive management, unspecified; Translations: [ENC CONTRACEPTIVE MANAGEMENT UNS] Onset: 04-27-2017 Episodic Fluid and electrolyte disorders (4 sources) Hypokalemia; Translations: [Hypokalemia] Onset: 10-03-2024 12-09-2024 Episodic Genitourinary symptoms and ill-defined conditions (7 sources) Increased frequency of urination; Translations: [Frequency of micturition] Onset: 05-08-2023 05-08-2023 Episodic Heart valve disorders (3 sources) Cardiac murmur, unspecified; Translations: [CARDIAC MURMUR UNSPECIFIED] Onset: 02-16-2017 Episodic Other connective tissue disease (1 source) Cramp and spasm; Translations: [Cramp and spasm] Onset: 06-14-2024 Episodic Other gastrointestinal disorders (4 sources) Altered bowel function; Translations: [Change in bowel habit] Onset: 11-01-2018 11-01-2018 Episodic Results Test Name Value Interpretation Reference Range Facility Urine Cultureon 01-15-2025 [facility] Mixed Gram Pos Gram Neg Org Streator Count 25,000-50,000 [facility] Mixed contaminants. Submit a new specimen if indicated. Normal [facility] Comment on above: Performed By: #### L 506.0400, L501.58377, [id number] #### [facility] [address] [place], [place], [id number] Bilirubin, Directon 01-15-20 25 Bilirubin.direct [Mass/Vol] 0.11 mg/dL Normal 0.00-0.30 [facility] Comment on above: Result Comment: Hemo lysis present, Results??could be affected. ?? Performed By: #### L 506.0400, L501.72711, [id number] #### [facility] [address] [place], [address] Comprehensive Metabolic Prof ilon 01-14-2025 Albumin [Mass/Vol] 4.5 g/dL Normal 3.5-5.0 [facility] Comment on above: Performed By: #### L 506.0400, [id number], [id number] #### [facility] [address] [place], [address] Albumin/Globulin [Mass ratio] 1.6 {ratio} Normal 0.9-2.4 [facility] Comment on above: Performed By: #### L 506.0400, [id number], [id number] #### [facility] [address] [place], [address] ALK PHOS 62 U/L Normal 35-104 [facility] Comment on above: Performed By: #### L 506.0400, [id number], [id number] #### [facility] [address] [place], [address] ALT [Catalytic activity/Vol] 8 U/L Normal <=34 [facility] Comment on above: Performed By: #### L 506.0400, [id number], [id number] #### [facility] [address] [place], [address] AST [Catalytic activity/Vol] 21 U/L Normal <=31 [facility] Comment on above: Result Comment: Hemo lysis present, Results??could be affected. ?? Performed By: #### L 506.0400, [id number], [id number] #### [facility] [address] [place], [address] Bilirubin [Mass/Vol] 0.28 mg/dL Normal 0.00-1.30 [facility] Comment on above: Performed By: #### L 506.0400, [id number], [id number] #### [facility] [address] [place], [address] BUN/CRE 8.8 RATIO Low 10-20 [facility] Comment on above: Performed By: #### L 506.0400, [id number], [id number] #### [facility] [address] [place], [address] Calcium [Mass/Vol] 9.5 mg/dL Normal 7.6-11.0 [facility] Comment on above: Performed By: #### L 506.0400, [id number], [id number] #### [facility] [address] [place], [address] Chloride [Moles/Vol] 99 mmol/L Normal 98-108 [facility] Comment on above: Performed By: #### L 506.0400, [id number], [id number] #### [facility] [address] [place], [address] CO2 [Moles/Vol] 24.4 mmol/L Normal 21.0-32.0 [facility] Comment on above: Performed By: #### L 506.0400, [id number], [id number] #### [facility] [address] [place], [address] Creatinine [Mass/Vol] 0.80 mg/dL Normal 0.70-1.20 [facility] Comment on above: Performed By: #### L 506.0400, [id number], [id number] #### [facility] [address] [place], [address] GAP 13 Normal 5-15 [facility] Comment on above: Performed By: #### L 506.0400, L501.35089, [id number] #### [facility] [address] [place], [address] GFR/1.73 sq M.predicted among non-blacks MDRD (S/P/Bld) [Vol rate/Area] 94 mL/min/{1.73_m2} Normal >60 [facility] Comment on above: Result Comment: mL/m in/1.73m2 CKD-EPI Creatinine Equation (2020) Performed By: #### L 506.0400, L501.52151, [id number] #### [facility] [address] [place], [address] Globulin (S) [Mass/Vol] 2.8 g/dL Normal 2.2-4.2 [facility] Comment on above: Performed By: #### L 506.0400, [id number], [id number] #### [facility] [address] [place], [address] Glucose [Mass/Vol] 123 mg/dL High 70-99 [facility] Comment on above: Performed By: #### L 506.0400, [id number], [id number] #### [facility] [address] [place], [address] Potassium [Moles/Vol] 3.4 mmol/L Normal 3.3-5.1 [facility] Comment on above: Result Comment: Hemo lysis present, Results??could be affected. ?? Performed By: #### L 506.0400, L501.77683, [id number] #### [facility] [address] [place], [address] Sodium [Moles/Vol] 137 mmol/L Normal 133-145 [facility] Comment on above: Performed By: #### L 506.0400, [id number], [id number] #### [facility] [address] [place], [address] T PROT 7.3 g/dL Normal 5.9-8.4 [facility] Comment on above: Performed By: #### L 506.0400, [id number], [id number] #### [facility] [address] [place], [place], [id number] Urea nitrogen [Mass/Vol] 7 mg/dL Normal 4-19 [facility] Comment on above: Performed By: #### L 506.0400, [id number], [id number] #### [facility] [address] [place], [place], [id number] Absolute lymphocyte countOrd ered By: Marylou Powell on 01-13-2025 Lymphocytes Auto (Unsp spec) [#/Vol] 3.68 10*3/uL 0.83-4.51 [facility] Absolute neutrophil countOrd ered By: Marylou Powell on 01-13-2025 Neutrophils (Bld) [#/Vol] 3.1 10*3/uL 2.0-7.7 [facility] Anion gap in Serum or Plasma Ordered By: Marylou Powell on 01-13-2025 Anion gap [Moles/Vol] 13 mmol/L 5-15 [facility] Automated lymphocyte count a s percentage of total leukocytesOrdered By: Marylou Powell on 01-13-2025 Lymphocytes/100 WBC Auto (Unsp spec) 48.4 % High 19-41 [facility] BUN/creatinine ratioOrdered By: Marylou Powell on 01-13-2025 Urea nitrogen/Creatinine [Mass ratio] 8.8 mg/mg Low 10-20 [facility] Basophil percentageOrdered B y: Marylou Powell on 01-13-2025 Basophils/100 WBC (Bld) 0.4 % 0-1 [facility] Bilirubin Test strip Ql (U)O rdered By: Marylou Powell on 01-13-2025 Bilirubin Ql (U) Negative Negative [facility] Bilirubin directOrdered By: Marylou Powell on 01-13-2025 Bilirubin.direct [Mass/Vol] 0.11 mg/dL 0.00-0.30 [facility] Comment on above: Hemolysis present, R esults could be affected. Bilirubin, totalOrdered By: Marylou Powell on 01-13-2025 Bilirubin [Mass/Vol] 0.28 mg/dL 0.00-1.30 [facility] CBC W/Diff, Automatedon 12-29 Absolute Lymph 3.68 X10 3/uL Normal 0.83-4.51 [facility] Comment on above: Performed By: #### L 506.0400, [id number], [id number] #### [facility] [address] [place], [address] Absolute Neut 3.1 X10 3/uL Normal 2.0-7.7 [facility] Comment on above: Performed By: #### L 506.0400, [id number], [id number] #### [facility] [address] [place], [address] Basophils/100 WBC (Bld) 0.4 % Normal 0-1 [facility] Comment on above: Performed By: #### L 506.0400, L501.04594, [id number] #### [facility] [address] [place], [address] Eosinophils/100 WBC (Bld) 2.0 % Normal 0-5 [facility] Comment on above: Performed By: #### L 506.0400, L501.00296, [id number] #### [facility] [address] [place], [address] Erythrocyte distribution width (RBC) [Ratio] 11.9 % Normal 11.6-14.6 [facility] Comment on above: Performed By: #### L 506.0400, [id number], [id number] #### [facility] [address] [place], [address] Hematocrit (Bld) [Volume fraction] 40.0 % Normal 37-47 [facility] Comment on above: Performed By: #### L 506.0400, [id number], [id number] #### [facility] [address] [place], [address] Hemoglobin (Bld) [Mass/Vol] 13.4 g/dL Normal 12.0-15.0 [facility] Comment on above: Performed By: #### L 506.0400, L501.91516, [id number] #### [facility] [address] [place], [address] IG% 0.300 Normal 0.0-0.9 [facility] Comment on above: Result Comment: IG% - Immature Granulocytes (promyelocytes, myelocytes and metamyelocytes) > 1% indicates that a LEFT SHIFT is Present. Performed By: #### L 506.0400, L501.51673, L501.9520 #### [facility] [address] [place], [address] Lymphocytes/100 WBC (Bld) 48.4 % High 19-41 [facility] Comment on above: Performed By: #### L 506.0400, L501.42150, [id number] #### [facility] [address] [place], [address] MCH (RBC) [Entitic mass] 31.2 pg Normal 27.0-32.0 [facility] Comment on above: Performed By: #### L 506.0400, L501.72161, L501.9520 #### [facility] [address] [place], [address] MCHC (RBC) [Mass/Vol] 33.5 g/dL Normal 32-36 [facility] Comment on above: Performed By: #### L 506.0400, L501.99502, [id number] #### [facility] [address] [place], [address] MCV (RBC) [Entitic vol] 93.0 fL Normal 81-99 [facility] Comment on above: Performed By: #### L 506.0400, L501.53774, L501.9520 #### [facility] [address] [place], [address] Monocytes/100 WBC (Bld) 8.0 % Normal 0-10 [facility] Comment on above: Performed By: #### L 506.0400, L501.73356, [id number] #### [facility] [address] [place], [address] Neutrophils/100 WBC (Bld) 40.9 % Low 47-70 [facility] Comment on above: Performed By: #### L 506.0400, L501.36125, [id number] #### [facility] [address] [place], [address] Nucleated RBC (Bld) [#/Vol] 0 10*3/uL Normal 0-5 [facility] Comment on above: Performed By: #### L 506.0400, L501.83466, L501.9520 #### [facility] [address] [place], [address] Platelet mean volume (Bld) [Entitic vol] 10.3 fL Normal 6.2-12.0 [facility] Comment on above: Performed By: #### L 506.0400, L501.32392, [id number] #### [facility] [address] [place], [address] Platelets (Bld) [#/Vol] 222 10*3/uL Normal 150-450 [facility] Comment on above: Performed By: #### L 506.0400, L501.87544, [id number] #### [facility] [address] [place], [address] RBC (Bld) [#/Vol] 4.30 10*6/uL Normal 4.2-5.4 [facility] Comment on above: Performed By: #### L 506.0400, L501.57270, L501.9520 #### [facility] [address] [place], [address] RDW SD 41.1 fl Normal 35.1-43.9 [facility] Comment on above: Performed By: #### L 506.0400, L501.38350, [id number] #### [facility] [address] [place], [address] WBC (Bld) [#/Vol] 7.6 10*3/uL Normal 4.4-11.0 [facility] Comment on above: Performed By: #### L 506.0400, L501.86805, L501.9520 #### [facility] [address] [place], [address] Carbon dioxide, total [Moles /volume] in Central venous bloodOrdered By: Marylou Powell on 01-13-2025 CO2 [Moles/Vol] 24.4 mmol/L 21.0-32.0 [facility] Chloride assayOrdered By: Silvio Powell on 01-13-2025 Chloride [Moles/Vol] 99 mmol/L 98-108 [facility] Eosinophil percentageOrdered By: Marylou Powell on 01-13-2025 Eosinophils/100 WBC (Bld) 2.0 % 0-5 [facility] Erythrocyte distribution wid th ratioOrdered By: Marylou Powell on 01-13-2025 Erythrocyte distribution width (RBC) [Ratio] 11.9 % 11.6-14.6 [facility] Erythrocyte distribution wid th standard deviationOrdered By: Marylou Powell on 01-13-2025 Erythrocyte distribution width (RBC) [Ratio] 41.1 fl 35.1-43.9 [facility] Glomerular filtration rate ( GFR) estimation/1.73 sq m using serum, plasma, or whole bOrdered By: Marylou Powell on 01-13-2025 GFR/1.73 sq M.predicted among non-blacks MDRD (S/P/Bld) [Vol rate/Area] 94 mL/min/{1.73_m2} >60 [facility] Comment on above: mL/min/1.73m2 CKD-EP I Creatinine Equation (2020) Hematocrit Auto (Bld) [Volum e fraction]Ordered By: Marylou Powell on 01-13-2025 Hematocrit (Bld) [Volume fraction] 40.0 % 37-47 [facility] Hemoglobin measurementOrdere d By: Marylou Powell on 01-13-2025 Hemoglobin (Bld) [Mass/Vol] 13.4 g/dL 12.0-15.0 [facility] Immature granulocytes/100 WB C Auto (Bld)Ordered By: Marylou Powell on 01-13-2025 Immature granulocytes/100 WBC (Bld) 0.300 % 0.0-0.9 [facility] Comment on above: IG% - Immature Granu locytes (promyelocytes, myelocytes and metamyelocytes) > 1% indicates that a LEFT SHIFT is Present. Ketones Test strip Ql (U)Ord ered By: Marylou Powell on 01-13-2025 Ketones Ql (U) Negative Negative [facility] - Chemistry and C hemistry - challengeOrdered By: Marylou Powell on 01-13-2025 AST [Catalytic activity/Vol] 21 U/L <32 [facility] Comment on above: Hemolysis present, R esults could be affected. MCV (mean corpuscular volume ) determinationOrdered By: Marylou Powell on 01-13-2025 MCV (RBC) [Entitic vol] 93.0 fL 81-99 [facility] Mean corpuscular hemoglobin (MCH) determinationOrdered By: Marylou Powell on 01-13-2025 MCH (RBC) [Entitic mass] 31.2 pg 27.0-32.0 [facility] Mean corpuscular hemoglobin concentration (MCHC) determinationOrdered By: Marylou Powell on 01-13-2025 MCHC (RBC) [Mass/Vol] 33.5 g/dL 32-36 [facility] Mean platelet volume determi nationOrdered By: Marylou Powell on 01-13-2025 Platelet mean volume (Bld) [Entitic vol] 10.3 fL 6.2-12.0 [facility] Microscopic analysis of urin e for red blood cells (RBC)Ordered By: Marylou Powell on 01-13-2025 Microscopic analysis of urine for red blood cells (RBC) 0-5 SEEN /hpf 0-5 [facility] Monocyte percentageOrdered B y: Marylou Powell on 01-13-2025 Monocytes/100 WBC (Bld) 8.0 % 0-10 [facility] Mucus LM Ql (Urine sed)Order ed By: Marylou Powell on 01-13-2025 Mucus Ql (Urine sed) 0 SEEN /hpf [facility] Neutrophil percentageOrdered By: Marylou Powell on 01-13-2025 Neutrophils/100 WBC (Bld) 40.9 % Low 47-70 [facility] Nitrite Test strip Ql (U)Ord ered By: Marylou Powell on 01-13-2025 Nitrite Ql (U) Negative Negative [facility] Nucleated red blood cell per centageOrdered By: Marylou Powell on 01-13-2025 Nucleated RBC/100 WBC (Bld) [Ratio] 0 % 0-5 [facility] Platelet countOrdered By: Silvio Powell on 01-13-2025 Platelets (Bld) [#/Vol] 222 10*3/uL 150-450 [facility] Potassium measurement (mass/ volume)Ordered By: Marylou Powell on 01-13-2025 Potassium (Unsp spec) [Mass/Vol] 3.4 mmol/L 3.3-5.1 [facility] Comment on above: Hemolysis present, R esults could be affected. ,Serum,hCG Quali.on 01-13-2025 HCG, SERUM QUAL Negative Normal [facility] Comment on above: Performed By: #### L 506.0400, L501.80072, L501.9520 #### [facility] [address] [place], [address] Protein Test strip Ql (U)Ord ered By: Marylou Powell on 01-13-2025 Protein Ql (U) Negative Negative [facility] RBC Auto (Bld) [#/Vol]Ordere d By: Marylou Powell on 01-13-2025 RBC (Bld) [#/Vol] 4.30 10*6/uL 4.2-5.4 [facility] Serum beta-hCG test, qualita tiveOrdered By: Marylou Powell on 01-13-2025 Beta HCG ( test) Ql Negative [facility] Serum creatinine measurement (mass/volume)Ordered By: Marylou Powell on 01-13-2025 Creatinine [Mass/Vol] 0.80 mg/dL 0.70-1.20 [facility] Serum globulin measurementOr dered By: Marylou Powell on 01-13-2025 Globulin (S) [Mass/Vol] 2.8 g/dL 2.2-4.2 [facility] Serum glucose measurement (m ass/volume)Ordered By: Marylou Powell on 01-13-2025 Glucose [Mass/Vol] 123 mg/dL High 70-99 [facility] Serum or plasma alanine aljeo otransferase (ALT) measurementOrdered By: Marylou Powell on 01-13-2025 ALT [Catalytic activity/Vol] 8 U/L <35 [facility] Serum or plasma albumin cindy urement (mass/volume)Ordered By: Marylou Powell on 01-13-2025 Albumin [Mass/Vol] 4.5 g/dL 3.5-5.0 [facility] Serum or plasma albumin/glob ulin mass ratioOrdered By: Marylou Powell on 01-13-2025 Albumin/Globulin [Mass ratio] 1.6 {ratio} 0.9-2.4 [facility] Serum or plasma alkaline marvin sphatase measurementOrdered By: Marylou Powell on 01-13-2025 ALP [Catalytic activity/Vol] 62 U/L 35-104 [facility] Serum or plasma calcium cindy urement (mass/volume)Ordered By: Marylou Powell on 01-13-2025 Calcium [Mass/Vol] 9.5 mg/dL 7.6-11.0 [facility] Serum or plasma urea nitroge n measurement (mass/volume)Ordered By: Marylou Powell on 01-13-2025 Urea nitrogen [Mass/Vol] 7 mg/dL 4-19 [facility] Sodium levelOrdered By: Kelly Powell on 01-13-2025 Sodium [Moles/Vol] 137 mmol/L 133-145 [facility] Squamous epithelial cells de tection in urine sediment by light microscopyOrdered By: Marylou Powell on 01-13-2025 Epithelial cells.squamous LM Ql (Urine sed) 5-10 SEEN /hpf 5-10 [facility] Total proteinOrdered By: Pal Powell on 01-13-2025 Protein [Mass/Vol] 7.3 g/dL 5.9-8.4 [facility] Transitional cells detection in urine sediment by light microscopyOrdered By: Marylou Powell on 01-13-2025 Transitional cells LM Ql (Urine sed) 0-5 SEEN /hpf 0-5 [facility] Urinalysis, Completeon 01-13 EPI,TRANSITION 0-5 SEEN Normal 0-5 [facility] Comment on above: Order Comment: CLEAN CATCH Performed By: #### L 506.0400, L501.68975, L501.9520 #### [facility] [address] [place], [address] RBC 0-5 SEEN Normal 0-5 [facility] Comment on above: Order Comment: CLEAN CATCH Performed By: #### L 506.0400, L501.90818, L501.9520 #### [facility] [address] [place], [address] EPI,SQUAMOUS 5-10 SEEN Normal 5-10 [facility] Comment on above: Order Comment: CLEAN CATCH Performed By: #### L 506.0400, L501.65075, L501.9520 #### [facility] [address] [place], [address] BACTERIA 0 SEEN Normal None Seen [facility] Comment on above: Order Comment: CLEAN CATCH Performed By: #### L 506.0400, L501.15738, L501.9520 #### [facility] [address] [place], [address] Mucus Ql (Urine sed) 0 SEEN Normal [facility] Comment on above: Order Comment: CLEAN CATCH Performed By: #### L 506.0400, L501.28641, L501.9520 #### [facility] [address] [place], [address] WBC 0 SEEN Normal 0-5 [facility] Comment on above: Order Comment: CLEAN CATCH Performed By: #### L 506.0400, L501.37193, L501.9520 #### [facility] [address] [place], [address] Urine clarityOrdered By: Pal Powell on 01-13-2025 Clarity (U) Clear Clear [facility] Urine color determinationOrd ered By: Marylou Powell on 01-13-2025 Color (U) Straw Yellow [facility] Urine cultureOrdered By: Pal Powell on 01-13-2025 Bacteria identified Cx Nom (U) Mixed Gram Pos & Gram Neg Org Abnormal [facility] Urine glucose detectionOrder ed By: Marylou Powell on 01-13-2025 Glucose Ql (U) Normal mg/dl Normal [facility] Urine leukocyte esterase det ection by dipstickOrdered By: Marylou Powell on 01-13-2025 Leukocyte esterase Test strip Ql (U) Negative Negative [facility] Urine pHOrdered By: Marylou villalobos on 01-13-2025 pH (U) 6.0 [pH] 5.0 - 8.0 [facility] Urine sediment bacteria coun t by microscopy (number/high power field)Ordered By: Marylou Powell on 01-13-2025 Bacteria LM.HPF (Urine sed) [#/Area] 0 /[HPF] None Seen [facility] Urine specific gravity measu rementOrdered By: Marylou Powell on 01-13-2025 Specific gravity (U) [Rel density] 1.010 1.002-1.030 [facility] Urine urobilinogen measureme ntOrdered By: Marylou Powell on 01-13-2025 Urobilinogen Ql (U) Normal mg/dl Normal [facility] White blood cell (WBC) count Ordered By: Marylou Powell on 01-13-2025 WBC (Bld) [#/Vol] 7.6 10*3/uL 4.4-11.0 [facility] White blood cell countOrdere d By: Marylou Powell on 01-13-2025 White blood cell count 0 SEEN /hpf 0-5 [facility] SARS-COV-2 RAPID AG (WIC)on 12-31-2024 SARS-CoV-2 (COVID-19) RNA MONALISA+probe Ql (Unsp spec) Not detected Normal NOT DETECTED [facility] Comment on above: Result Comment: Nega tive results should be treated as presumptive and confirmation with a molecular assay, if necessary, for patient management, may be performed. Negative results do not rule out SARSCoV-2 infection and should not be used as the sole basis for treatment or patient management decisions, including infection control decisions. Negative results should be considered in the context of a patient's recent exposures, history and the presence of clinical signs and symptoms consistent with COVID-19. Performed By: #### C COVAG #### [place] [address] NARRATIVE This test was perfor med using lateral flow immunoassay. This test does not differentiate between SARS-CoV and SARS-CoV2. Normal [facility] Comment on above: Performed By: #### C COVAG #### [place] [address] SARS-COV-2 RAPID ANTIGEN (CL INIC ONLY)on 12-31-2024 SARS-CoV-2 (COVID-19) RNA MONALISA+probe Ql (Unsp spec) This test was performed using lateral flow immunoassay. This test does not differentiate between SARS-CoV and SARS-CoV2. [facility] [place] SARS-CoV-2 (COVID-19) RNA NA A+probe Ql (Unsp spec)on 12-31-2024 SARS-CoV-2 (COVID-19) Ag IA.rapid Ql (Resp) Not detected NOT DETECTED [facility] [place] Comment on above: Negative results winnie uld be treated as presumptive and confirmation with a molecular assay, if necessary, for patient management, may be performed. Negative results do not rule out SARSCoV-2 infection and should not be used as the sole basis for treatment or patient management decisions, including infection control decisions. Negative results should be considered in the context of a patient's recent exposures, history and the presence of clinical signs and symptoms consistent with COVID-19. [facility] [place] RFon 12-12-2024 Rheumatoid Factor <6.0 Normal <=5.9 [facility] Comment on above: Result Comment: RF I gM Antibody by Enzyme Immunoassay: Negative < or = 6 Positive > 6 A positive result indicates the presence of RF antibodies and suggests the possibility of rheumatoid arthritis. A negative result indicates no RF IgM antibody or levels below the negative cut-off of the assay. Results of this assay should be used in conjunction with clinical findings and other serological tests. These results were obtained with the [employer] QUANTA Lite RF IgM [place]. RF IgM values obtained with different manufacturers' assay methods may not be used interchangeably. The magnitude of the reported IgM levels cannot be correlated to an endpoint titer. Performed By: #### U MEIR PAUL K #### [address] [address] #### RF #### [id number] [place] [address] 12-10-2024 Antinuclear Ab Screen Negative Normal Negative [facility] Comment on above: Result Comment: Anti -nuclear antibody test is used as an aid in diagnosis of systemic autoimmune diseases. Where positive and clinically warranted, follow-up using disease-specific testing is recommended. Low positive titers are not uncommon with advanced age, certain chronic infections, and malignancies among others. Test methodology: Indirect fluorescence immunoassay (IFA) using HEp-2 cells. Performed By: [facility] [employer] [address] [place] [address] Broke Worker: Tim Kaufman III#: [id number] Performed By: #### U MEIR PAUL K #### [address] [address] #### RF #### [address] [address] [place] 12-09-2024 Potassium [Moles/Vol] 4.3 mmol/L Normal 3.5-5.1 AUL [facility] Comment on above: Performed By: #### U MEIR PAUL K #### [facility] [address] [place], [place] [address] #### RF #### [facility] [address] [place], [place] [address] LABORATORYOrdered By: RADHA ARTHUR CONTRIBUTOR_SYSTEM on 12-09-2024 Antinuclear Ab Screen Negative Invalid Interpretation Code Negative [facility] Comment on above: Result Comment: Anti -nuclear antibody test is used as an aid in diagnosis of systemic autoimmune diseases. Where positive and clinically warranted, follow-up using disease-specific testing is recommended. Low positive titers are not uncommon with advanced age, certain chronic infections, and malignancies among others. Test methodology: Indirect fluorescence immunoassay (IFA) using HEp-2 cells. Performed By: [facility] [address] [place] [address] Broke Worker: Jerry Newton III, M.D. CLIA#: [id number] LABORATORYOrdered By: SYSTEM SYSTEM on 12-09-2024 Potassium [Moles/Vol] 4.3 mmol/L Normal 3.5 - 5.1 mmol/L AO ADM SS Uric Acid Lvl 3.6 mg/dL Normal 2.6 - 6.2 mg/dL AO ADM SS LABORATORYOrdered By: Lucita Romo on 12-09-2024 Rheumatoid factor IgM IA Qn (S) 1 Normal <=5.9 [facility] Comment on above: Interpretive Data: R F IgM Antibody by Enzyme Immunoassay: Negative < or = 6 Positive > 6 A positive result indicates the presence of RF antibodies and suggests the possibility of rheumatoid arthritis. A negative result indicates no RF IgM antibody or levels below the negative cut-off of the assay. Results of this assay should be used in conjunction with clinical findings and other serological tests. These results were obtained with the [employer] QUANTA Lite RF IgM [place]. RF IgM values obtained with different manufacturers' assay methods may not be used interchangeably. The magnitude of the reported IgM levels cannot be correlated to an endpoint titer. [facility] 12-09-2024 Uric Acid Lvl 3.6 mg/dL Normal 2.6-6.2 [facility] Comment on above: Performed By: #### U MEIR PAUL K #### [facility] [address] [place], [place] [address] #### RF #### [facility] [address] [place] [address] Office Visiton 10-01-2024 Follow-up visit [id number] Misael Bryant fernie 1980 F Date Provider Department Center 10/01/2024 [id number], [facility] None Family History Problem Relation Age of Onset Asthma Mother Heart disease Mother Heart failure Mother Heart disease Father Cancer Father Thyroid disease Neg Hx Thyroid cancer Neg Hx Family Status - Relation Status Age at Mother Father Neg Hx Level of Service:63459 MO OFFICE/OUTPATIENT ESTABLISHED MOD MDM 30 MIN Reason for Visit and Comments: Follow-up [540053] - Low TSH level Normal [facility] Progress Noteon 10-01-2024 Progress Note [facility] [address] [facility] [address] Dept: [phone] Dept Visit Date: 10/01/2024 HPI: Yamilka Bryant is a 43 y.o. 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 Left thyroid nodule 1.3 cm TI-right 4, and 1 cm thyroid nodule at the isthmus TI-right 4 Thyroid ultrasound in September 2023 revealed 1.2 cm right thyroid nodule with microcalcifications TI-RADS 5 and another 1.3 cm left thyroid nodule TI-RADS 5 with microcalcifications Ultrasound-guided FNA biopsy for the 2 thyroid nodules in January 2024 was benign Thyroid uptake and scan in 2023 revealed increased uptake of 32% with heterogenicity in the right thyroid lobe with mild increased activity in the left lobe that corresponds to the solid nodule on the left side Patient was started on methimazole 5 mg daily Denies sore throat fever abdominal pain She denies being on biotin or b complex Denies hx of being on thyroid or antithyroid meds Denies tremors Reported that palpitations random Sees cardiology, HR controlled on metoprolol and diltiazem Reported hx of anxiety Does not sleep well at night Reported cold intolerance Denies heat intolerance Denies increased sweating Reported stable weight but fluctuates when she gets sick Reported occasional neck swelling Denies dysphagia Denies dyspnea Denies hoarseness Denies Fhx of thyroid disease or cancer Denies radiation treatment to head and neck Patient reported regular menstrual period, LMP was this week The patient current PCP is Tiana Carter Past Medical History: Diagnosis Date Anxiety Barger's esophagus Herpes zoster Thyroid nodule Past Surgical History: Procedure Laterality Date BIOPSY (HISTORICAL) STOMACH SURGERY 2015 TONSILLECTOMY Current Outpatient Medications Medication Sig Dispense Refill busPIRone (Buspar) 10 MG tablet Take 10 mg by mouth 2 times daily. dilTIAZem (Cardizem) 30 MG immediate release tablet Take 30 mg by mouth in the morning. metoprolol succinate XL (Toprol-XL) 25 MG 24 hr tablet Take 25 mg by mouth daily. norgestimate-ethinyl estradiol (Ortho Tri-Cyclen,Trinessa) 0.18/0.215/0.25 MG-35 MCG tablet Take 1 tablet by mouth in the morning. methIMAzole (Tapazole) 5 MG tablet Take 1 tablet (5 mg) by mouth daily. 90 tablet 3 No current facility-administered medications for this visit. No Known Allergies Family History Problem Relation Name Age of Onset Asthma Mother Heart disease Mother Heart failure Mother Heart disease Father Cancer Father Thyroid disease Neg Hx Thyroid cancer Neg Hx Social History Socioeconomic History Marital status: Single Tobacco Use Smoking status: Former Types: Cigarettes Smokeless tobacco: Former Substance and Sexual Activity Alcohol use: Yes Comment: Occ Drug use: Never Social Drivers of Health Stress: No Stress Concern Present (01/02/2020) Received from [facility], [facility] [employer] - Occupational Stress Questionnaire Feeling of Stress : Only a little Subjective: Review of Systems All other systems reviewed and are negative. Objective: BP 106/69 Pulse 90 Ht 5' 4 (1.626 m) Wt 140 lb (63.5 kg) BMI 24.03 kg/m? Physical Exam Constitutional: General: She is not in acute distress. Appearance: Normal appearance. She is not ill-appearing. HENT: Head: Normocephalic and atraumatic. Nose: Nose normal. Mouth/Throat: Mouth: Mucous membranes are moist. Pharynx: Oropharynx is clear. Eyes: General: No scleral icterus. Extraocular Movements: Extraocular movements intact. Neck: Thyroid: No thyromegaly. Cardiovascular: Rate and Rhythm: Normal rate and regular rhythm. Pulses: Normal pulses. Heart sounds: Normal heart sounds. No murmur heard. Pulmonary: Effort: Pulmonary effort is normal. No respiratory distress. Breath sounds: Normal breath sounds. No stridor. No wheezing, rhonchi or rales. Abdominal: General: Abdomen is flat. There is no distension. Palpations: Abdomen is soft. Tenderness: There is no abdominal tenderness. Musculoskeletal: Cervical back: Neck supple. Right lower leg: No edema. Left lower leg: No edema. Skin: General: Skin is warm. Coloration: Skin is not jaundiced. Findings: No rash. Neurological: Mental Status: She is alert and oriented to person, place, and time. Deep Tendon Reflexes: Reflexes normal. Psychiatric: Mood and Affect: Mood normal. Behavior: Behavior norm (more content not included)... Normal [facility] [id number] 09-23-2024 [facility]. [facility] Comment on above: Order Comment: [id number] TSH RECEPTOR AB SERUM RF Result Comment: TEST RESULTS LIMITS Thyrotropin Receptor Ab, Serum <1.10 IU/L 0.00-1.75 TESTING PERFORMED AT [facility]. ORIGINAL REPORT ON FILE IN LAB CONTAINS ADDITIONAL TEST SITE INFORMATION. Performed By: #### L 506.0400, L501.9520, L501.60832, L3410.9998 #### [facility] [address] [place], [address] Comprehensive Metabolic Prof ilon 09-17-2024 Albumin [Mass/Vol] 3.9 g/dL Normal 3.2-5.0 [facility] Comment on above: Performed By: #### L 506.0400, L501.75292, L501.9520 #### [facility] [address] [place], [address] Albumin/Globulin [Mass ratio] 1.0 {ratio} Normal 0.9-2.4 [facility] Comment on above: Performed By: #### L 506.0400, L501.45293, L501.9520 #### [facility] [address] [place], [address] ALK P 65 U/L Normal 45-117 [facility] Comment on above: Performed By: #### L 506.0400, L501.76210, L501.9520 #### [facility] [address] [place], [address] ALT [Catalytic activity/Vol] 12 U/L Low 13-56 [facility] Comment on above: Performed By: #### L 506.0400, L501.84686, L501.9520 #### [facility] [address] [place], [address] AST [Catalytic activity/Vol] 15 U/L Normal 15-37 [facility] Comment on above: Performed By: #### L 506.0400, L501.98234, L501.9520 #### [facility] [address] [place], [address] Bilirubin [Mass/Vol] 0.50 mg/dL Normal 0.20-1.00 [facility] Comment on above: Result Comment: For patients on eltrombopag therapy, use of Dimension [place] TBIL is not recommended. Performed By: #### L 506.0400, L501.49801, L501.9520 #### [facility] [address] [place], [address] BUN/CRE 11.1 RATIO Normal 10-20 [facility] Comment on above: Performed By: #### L 506.0400, L501.02465, L501.9520 #### [facility] [address] [place], [address] CA,Total 9.5 mg/dL Normal 8.5-10.1 [facility] Comment on above: Performed By: #### L 506.0400, L501.75791, L501.9520 #### [facility] [address] [place], [address] Chloride [Moles/Vol] 102 mmol/L Normal 98-107 [facility] Comment on above: Performed By: #### L 506.0400, L501.96141, L501.9520 #### [facility] [address] [place], [address] CO2 [Moles/Vol] 26.0 mmol/L Normal 21.0-32.0 [facility] Comment on above: Performed By: #### L 506.0400, L501.52417, L501.9520 #### [facility] [address] [place], [address] Creatinine [Mass/Vol] 0.90 mg/dL Normal 0.55-1.02 [facility] Comment on above: Result Comment: The validity of the calculated GFR GFRAA in patients over 70 years has not been determined. Clinical correlation is essential. Performed By: #### L 506.0400, L501.78037, L501.9520 #### [facility] [address] [place], [address] EST GFR - AA 88 mL/min Normal >60 [facility] Comment on above: Result Comment: Afri can [place]ian GFR Calc Performed By: #### L 506.0400, L501.10894, L501.9520 #### [facility] [address] [place], [address] GAP 8 Normal 5-15 [facility] Comment on above: Performed By: #### L 506.0400, L501.88979, L501.9520 #### [facility] [address] [place], [address] GFR/1.73 sq M.predicted among non-blacks MDRD (S/P/Bld) [Vol rate/Area] 72 mL/min/{1.73_m2} Normal >60 [facility] Comment on above: Result Comment: Non- GFR Calc Performed By: #### L 506.0400, L501.75590, L501.9520 #### [facility] [address] [place], [address] Globulin (S) [Mass/Vol] 3.9 g/dL Normal 2.2-4.2 [facility] Comment on above: Performed By: #### L 506.0400, L501.43595, L501.9520 #### [facility] [address] [place], [address] Glucose [Mass/Vol] 88 mg/dL Normal 74-106 [facility] Comment on above: Performed By: #### L 506.0400, L501.08250, L501.9520 #### [facility] [address] [place], [address] Potassium [Moles/Vol] 3.0 mmol/L Low 3.5-5.1 [facility] Comment on above: Performed By: #### L 506.0400, L501.92454, L501.9520 #### [facility] [address] [place], [address] Sodium [Moles/Vol] 136 mmol/L Normal 136-145 [facility] Comment on above: Performed By: #### L 506.0400, L501.37740, L501.9520 #### [facility] [address] [place], [address] T PROT 7.8 g/dL Normal 6.4-8.2 [facility] Comment on above: Performed By: #### L 506.0400, L501.84807, L501.9520 #### [facility] [address] [place], [address] Urea nitrogen [Mass/Vol] 10 mg/dL Normal 7-18 [facility] Comment on above: Performed By: #### L 506.0400, L501.85945, L501.9520 #### [facility] [address] [place], [address] Free T3on 09-17-2024 Free T3 [Mass/Vol] 3.3 pg/mL Normal 2.18-3.98 [facility] Comment on above: Performed By: #### L 506.0400, L501.9520, L501.92217, L3410.9998 #### [facility] [address] [place], [address] Hepatitis C Antibodyon 09-17 Hepatitis C AB Non-Reactive Normal Nonreactive [facility] Comment on above: Result Comment: Non Reactive: < 0.8 Equivocal: >/= 0.8 to < 1.0 Reactive: >/= 1.0 The CDC requires that a reactive/equivocal HCV antibody result be sent out for confirmation. HCV Quant by PCR testing. Performed By: #### L 506.0400, L501.70242, L501.9520 #### [facility] [address] [place], [address] Lipid Profileon 09-17-2024 Cholesterol [Mass/Vol] 196 mg/dL Normal 200 [facility] Comment on above: Result Comment: <200 mg/dL Desirable 200-240 mg/dL Borderline >240 mg/dL High Risk Performed By: #### L 506.0400, L501.03499, L501.9520 #### [facility] [address] [place], [address] Cholesterol in HDL [Mass/Vol] 67 mg/dL Normal [facility] Comment on above: Result Comment: The drugs N-Acetylcysteine and Metamizole may falsely depress this assay. Reference Range HDL <40 mg/dL Low HDL Cholesterol HDL >or= 60 mg/dL High HDL Cholesterol Performed By: #### L 506.0400, L501.04397, L501.9520 #### [facility] [address] [place], [address] Cholesterol in LDL [Mass/Vol] 103 mg/dL Normal 0-130 [facility] Comment on above: Performed By: #### L 506.0400, L501.65132, L501.9520 #### [facility] [address] [place], [address] Cholesterol in VLDL [Mass/Vol] 26 mg/dL Normal 5-40 [facility] Comment on above: Performed By: #### L 506.0400, L501.70084, L501.9520 #### [facility] [address] [place], [address] Triglyceride [Mass/Vol] 128 mg/dL Normal [facility] Comment on above: Result Comment: The drugs N-Acetylcysteine and Metamizole may falsely depress this assay. Serum Triglycerides Reference Interval Normal <150 mg/dL Borderline high 150 - 199 mg/dL High 200 - 499 mg/dL Very High > or = 500 mg/dL Performed By: #### L 506.0400, L501.98766, L501.9520 #### [facility] [address] [place], [place], [address] T4 Free Directon 09-17-2024 T4 FREE DIRECT 1.11 ng/dL Normal 0.76-1.46 [facility] Comment on above: Performed By: #### L 506.0400, L501.9520, L501.71360, L3410.9998 #### [facility] [address] [place], [place], [address] Thyroid Stim Hormone (TSH)on 09-17-2024 TSH 1.790 uIU/mL Normal 0.358-3.740 [facility] Comment on above: Performed By: #### L 506.0400, [id number], [id number], L3410.9996 #### [facility] [address] [place], [address] 36on 09-10-2024 36 Pt due for labs soon and has follow up with Dr Avila 10/01/24. Please send to hold over until labs and appointment. Normal [facility] 36on 05-21-2024 36 Name of caller: Carlota michele Contact phone number: [phone] Relationship to Patient: patient Provider: Dr Avila Practice: Endo Chief Complaint/Reason for Call: Pt is asking if the medication Methimazole is actually doing anything good? Pt states the symptoms that was stated should be taken care of are not and has actually developed new symptoms like leg cramps that are very painful. Additionally pt states her insurance will be changing and will no longer be able to afford the methimazole medication. Pt sates her blood work was no different than it is now and is wondering why the medication has not been increased or changed to a different medication. Please advise Best time of day caller can be reached: Any Patient advised that office/PCP has 24-48 business hours to return their call: Yes [facility] Comprehensive Metabolic Prof ilon 05-20-2024 Albumin [Mass/Vol] 3.8 g/dL Normal 3.2-5.0 [facility] Comment on above: Performed By: #### L 501.5200, L500.4050 #### [facility] [address] [place], [address] Albumin/Globulin [Mass ratio] 1.1 {ratio} Normal 0.9-2.4 [facility] Comment on above: Performed By: #### L 501.5200, L500.4050 #### [facility] [address] [place], [address] ALK P 68 U/L Normal 45-117 [facility] Comment on above: Performed By: #### L 501.5200, L500.4050 #### [facility] [address] [place], [address] ALT [Catalytic activity/Vol] 11 U/L Low 13-56 [facility] Comment on above: Performed By: #### L 501.5200, L500.4050 #### [facility] [address] [place], [address] AST [Catalytic activity/Vol] 14 U/L Low 15-37 [facility] Comment on above: Performed By: #### L 501.5200, L500.4050 #### [facility] [address] [place], [address] Bilirubin [Mass/Vol] 0.50 mg/dL Normal 0.20-1.00 [facility] Comment on above: Result Comment: For patients on eltrombopag therapy, use of Dimension [place] TBIL is not recommended. Performed By: #### L 501.5200, L500.4050 #### [facility] [address] [place], [address] BUN/CRE 11.3 RATIO Normal 10-20 [facility] Comment on above: Performed By: #### L 501.5200, L500.4050 #### [facility] [address] [place], [address] CA,Total 9.5 mg/dL Normal 8.5-10.1 [facility] Comment on above: Performed By: #### L 501.5200, L500.4050 #### [facility] [address] [place], [address] Chloride [Moles/Vol] 102 mmol/L Normal 98-107 [facility] Comment on above: Performed By: #### L 501.5200, L500.4050 #### [facility] [address] [place], [address] CO2 [Moles/Vol] 28.0 mmol/L Normal 21.0-32.0 [facility] Comment on above: Performed By: #### L 501.5200, L500.4050 #### [facility] [address] [place], [address] Creatinine [Mass/Vol] 0.79 mg/dL Normal 0.55-1.02 [facility] Comment on above: Result Comment: The validity of the calculated GFR GFRAA in patients over 70 years has not been determined. Clinical correlation is essential. Performed By: #### L 501.5200, L500.4050 #### [facility] [address] [place], [address] EST GFR - AA 102 mL/min Normal >60 [facility] Comment on above: Result Comment: Afri can Panamanian GFR Calc Performed By: #### L 501.5200, L500.4050 #### [facility] [address] [place], [address] GAP 6 Normal 5-15 [facility] Comment on above: Performed By: #### L 501.5200, L500.4050 #### [facility] [address] [place], [address] GFR/1.73 sq M.predicted among non-blacks MDRD (S/P/Bld) [Vol rate/Area] 84 mL/min/{1.73_m2} Normal >60 [facility] Comment on above: Result Comment: Non- GFR Calc Performed By: #### L 501.5200, L500.4050 #### [facility] [address] [place], [address] Globulin (S) [Mass/Vol] 3.4 g/dL Normal 2.2-4.2 [facility] Comment on above: Performed By: #### L 501.5200, L500.4050 #### [facility] [address] [place], [address] Glucose [Mass/Vol] 99 mg/dL Normal 74-106 [facility] Comment on above: Performed By: #### L 501.5200, L500.4050 #### [facility] [address] [place], [address] Potassium [Moles/Vol] 3.8 mmol/L Normal 3.5-5.1 [facility] Comment on above: Performed By: #### L 501.5200, L500.4050 #### [facility] [address] [place], [address] Sodium [Moles/Vol] 136 mmol/L Normal 136-145 [facility] Comment on above: Performed By: #### L 501.5200, L500.4050 #### [facility] [address] [place], [address] T PROT 7.2 g/dL Normal 6.4-8.2 [facility] Comment on above: Performed By: #### L 501.5200, L500.4050 #### [facility] [address] [place], [address] Urea nitrogen [Mass/Vol] 9 mg/dL Normal 7-18 [facility] Comment on above: Performed By: #### L 501.5200, L500.4050 #### [facility] [address] [place], [address] Magnesiumon 05-20-2024 Magnesium [Mass/Vol] 2.1 mg/dL Normal 1.6-2.6 [facility] Comment on above: Performed By: #### L 506.0400, L501.61041, L501.95 #### [facility] [address] [place], [address] No Panel Informationon 05-20 Culture Urine No growth at 48 hours. [facility] Work Phone: 36on 05-17-2024 36 Left msg tcb. [facility] 36 ----- Message from Gissell Avila MD sent at 05/17/2024 1:01 PM EDT ----- Inform the patient that her thyroid function test were normal so continue same dose of methimazole and recheck labs a week before her next visit with me in September [facility] 36 Addressed in a diffe rent encounter [facility] 36 Results Reconciled u nder lab tab for review. [facility] 36on 05-15-2024 36 Called for results t o faxed. [facility] 36on 05-14-2024 36 Name of caller: Carlota michele Contact phone number: [phone] Relationship to Patient: patient Provider: Dr Avila Practice: Endocrinology Chief Complaint/Reason for Call: Yamilka called in to see if her lab results were received. She had them done last week at [facility]. Yamilka would like a call back with those results and stated that she is currently out of medication. Best time of day caller can be reached: any Patient advised that office/PCP has 24-48 business hours to return their call: Yes [facility] Free T3on 05-08-2024 Free T3 [Mass/Vol] 3.4 pg/mL Normal 2.18-3.98 [facility] Comment on above: Performed By: #### L 506.0400, L501.24110, L501.9520 #### [facility] [address] [place], [address] SCRN MAMM (CAD)W/LALO BILATo n 05-08-2024 SCRN MAMM (CAD)W/LALO BILAT [facility] Imaging Services [address] [place] [address] SCRN MAMM (CAD)W/LALO BILAT MR#: [id number] Acct: [id number] Name: YAMILKA BRYANT Rep #: [id number] : 1980 F 43 From: Alejandro bloom MD PCP: NGUYỄN Heath Status: [facility] Study: SCRN MAMM (CAD)W/LALO BILAT Date of Exam: 04/23 Exam# [id number] Ordering Dr: Maranda Clements MD [id number] MAMMOGRAPHY - BILATERAL SCREENING REASON FOR EXAM: Female, 43 years old. Routine annual screening examination. PERTINENT HISTORY: Non-contributory. TECHNIQUE: Digital bilateral breast lalo (3D mammographic acquisition) in the CC and MLO projections. 2-D mediolateral oblique (MLO) and craniocaudad (CC) views of both breasts were obtained. CAD: Full Field Digital Mammography with Computer Added Detection was performed. COMPARISON: Comparison is made with prior study dated July 07, 2022. FINDINGS: Breast Composition: There are scattered areas of fibroglandular density. There are no dominant masses or suspicious calcifications. No other significant abnormalities are identified. There has been no significant change since the prior study. BI/SCRN MAMM (CAD)W/LALO BILAT IMPRESSION: Stable bilateral screening mammogram. Yearly follow-up mammogram recommended. (A) ASSESSMENT CATEGORY: BIRADS Category 1: Negative. A letter regarding these results will be sent to the patient by the facility within 30 days. Approximately 10% of breast cancers are not detected by mammography. A normal mammogram should not delay biopsy of a clinically suspicious abnormality. [id number] Electronically Signed: Alejandro Cutler MD at 15:09 EDT , CC: NGUYỄN Carter; Dr. Maranda Clements MD [employer] P8 Developer: Signed Normal [facility] T4 Free Directon 05-08-2024 T4 FREE DIRECT 1.05 ng/dL Normal 0.76-1.46 [facility] Comment on above: Performed By: #### L 506.0400, L501.34436, L501.9520 #### [facility] [address] [place], [place], [address] Thyroid Stim Hormone (TSH)on 05-08-2024 TSH 1.570 uIU/mL Normal 0.358-3.740 [facility] Comment on above: Performed By: #### L 506.0400, L501.90960, L501.9520 #### [facility] [address] [place], [place], [address] Pasteurizing Supervisor Cytology Reporton 2023 Pasteurizing Supervisor Cytology Report . Pathology Reports Accession: Collected Date/Time: Received Date/Time: Pathologist: [id number] 04/29/2024 15:14 EDT 04/29/2024 18:00 EDT NNAMDI BAE MD Pasteurizing Supervisor Cytology Report SPECIMEN: Specimen Description: Liquid Prep w/ HPV Specimen: Cervical Screening or Diagnostic: Screening RELEVANT HISTORY: LMP: 04/20/24 Other clinical information: + HR HPV 21,22. MELINA 1 06/2022 SPECIMEN ADEQUACY: SATISFACTORY FOR EVALUATION Endocervical/Transformatio nal zone component present INTERPRETATION/RESULTS: NEGATIVE FOR INTRAEPITHELIAL LESION OR MALIGNANCY SUGGESTIONS/EDUCATIONAL NOTES: This case has been reviewed for 10% QA rescreen HIGH RISK HPV TESTING: Event Code Result HPV Interp See Interp HPVO * HPV Interp Text: High Risk HPV Typing is Positive: High Risk HPV Types detected, other than HPV 16 or HPV 18. Specimen is positive for the DNA of any one of, or combination of, the following high risk HPV types: 31, 33, 35, 39, 45, 51, 52, 56, 58, 59, 66, 68. HPV types 16 and 18 DNA were undetectable or below the pre-set threshold. The abdiel High-Risk HPV DNA Test is not intended for use as a screening device for Pap normal women under age 30 and is not intended to substitute for regular Pap screening. The abdiel High-Risk HPV DNA Test is designed to augment existing methods for the detection of cervical disease and should be used in conjunction with clinical information derived from other diagnostic and screening tests, physical examinations and full medical history in accordance with appropriate patient management procedures. NOTE: A negative result does not preclude the presence of HPV infection because results depend on adequate specimen collection, absence of inhibitors and sufficient DNA to be detected. As of: 05/02/24 12:14 EDT COMMENT: This Pap Test was successfully processed and evaluated with the assistance of the Extreme DA ThinPrep Test Imaging System. Pathology Reports Accession: Collected Date/Time: Received Date/Time: Pathologist: [id number] 04/29/2024 15:14 EDT 04/29/2024 18:00 EDT NNAMDI BAE MD Electronically Signed by Pathology report verified by [facility] Screened by: CARLOS DW Electronically signed by NNAMDI BAE Sign-Out Date: 05/02/2024 14:41 Performing Lab: [facility], [address] [place] [address] Pathology Dept Disclaimer The Pap test is a screening test for cervical cancer. As evidenced by published data, it is subject to both inherent false negative and false positive results. Your patient's results should be interpreted in context with pertinent clinical history including gynecological examination. Normal [facility] HPVon 05-01-2024 HPV Interp Abnormal See Interp HPVN [facility] Comment on above: Order Comment: Order placed by AP_HPV_ORDER rule from [id number] Result Comment: High Risk HPV Typing is Positive: High Risk HPV Types detected, other than HPV 16 or HPV 18. Specimen is positive for the DNA of any one of, or combination of, the following high risk HPV types: 31, 33, 35, 39, 45, 51, 52, 56, 58, 59, 66, 68. HPV types 16 and 18 DNA were undetectable or below the pre-set threshold. The abdiel High-Risk HPV DNA Test is not intended for use as a screening device for Pap normal women under age 30 and is not intended to substitute for regular Pap screening. The abdiel High-Risk HPV DNA Test is designed to augment existing methods for the detection of cervical disease and should be used in conjunction with clinical information derived from other diagnostic and screening tests, physical examinations and full medical history in accordance with appropriate patient management procedures. NOTE: A negative result does not preclude the presence of HPV infection because results depend on adequate specimen collection, absence of inhibitors and sufficient DNA to be detected. See Interp HPVO Performed By: #### H PV #### [place] [address] HPV Source Cervix Normal [facility] Comment on above: Order Comment: Order placed by AP_HPV_ORDER rule from [id number] Performed By: #### H PV #### [place] [address] LABORATORYOrdered By: Claudine Carbajal on 04-29-2024 HPV Interp High Risk HPV Typing is Positive: High Risk HPV Typesdetected, other than HPV 16 or HPV 18.Specimen is positive for the DNA of any one of, or combination of, the following high risk HPVtypes: 31, 33, 35, 39, 45, 51, 52, 56, 58, 59, 66, 68.HPV types 16 and 18 DNA were undetectable or below the pre-set threshold.The abdiel High-Risk HPV DNA Test is not intended for use as a screening device for Papnormal women under age 30 and is not intended to substitute for regular Pap screening.The abdiel High-Risk HPV DNA Test is designed to augment existing methods for the detectionof cervical disease and should be used in conjunction with clinical information derived from otherdiagnostic and screening tests, physical examinations and full medical history in accordance withappropriate patient management procedures.NOTE: A negative result does not preclude the presence of HPV infection because results dependon adequate specimen collection, absence of inhibitors and sufficient DNA to be detected. Invalid Interpretation Code See Interp HPVN Auto Viro/Sero SS Specimen source Nom (Unsp spec) Cervix (04/29/24 3:14 PM) Normal Auto Viro/Sero SS Cardiology Visit Reporton Cardiology Visit Report [facility] [address] [place] [address] OFFICE VISIT Date of Service: 02/23/24 MR#: [id number] Acct: [id number] Name: YAMILKA BRYANT Rep #: [id number] : 1980 Provider: JOSELIN Richards Age/Sex: 43/F Location: [facility] Status: Signed HPI HPI History of Present Illness Details: YAMILKA BRYANT, is a 43 F with a has a history of sinus tachycardia, palpitations, hypothyroidism with a thyroid nodule status post thyroid biopsy, and anxiety. She had previously been monitored with a 30-day monitor and had a 5 beat run of VT. An echocardiogram done demonstrated preserved ejection fraction. She was in the office earlier this year for concerns over sinus tachycardia. We had attempted to have a loop recorder placed however insurance denied this. She did undergo a 14- day event monitor this did demonstrate 1 episode of sinus tachycardia with a heart rate of 129 that was associated with lightheadedness and dizziness. Her average heart rate was 84 bpm. No significant dysrhythmias noted. Patient does have brief palpitations. She has not had any fast heart rates. She has had some low heart rates. She did not have any symptoms similar to what she had earlier this year. Intake Vital Signs 11/20/23 11:25 02/23/24 08:46 Height 5 ft 4 in 5 ft 4 in Weight: 128 lb 135 lb BMI 21.9 23.1 BP 124/72 H 116/76 Blood Pressure Location Lt brachial Lt brachial Position Sitting Sitting Respiration 18 16 Pulse 96 96 Pulse Source Monitor Monitor Pulse Oximetry (%) 100 Intake Visit Reasons: 3 M FU Replenishment Buyer Required: No Accompanied by: Self Is patient in pain?: No Allergies No Known Allergies Allergy (Verified 02/23/24 08:49) Medications ???Medication ???Instructions ???Recorded ???Confirmed ???Type buspirone 5 mg tablet 10 mg PO TID PRN anxiety 08/29/19 02/23/24 History norgestimate-ethinyl estradiol 1 tab PO DAILY 12/16/22 02/23/24 History 0.18 mg/0.215mg/0.25mg-35 mcg(28)tablet (Tri-Linyah) promethazine 25 mg tablet 25 mg PO Q4-6H PRN nausea and 11/03/23 02/23/24 Rx vomiting #20 tabs methimazole 5 mg tablet 5 mg PO DAILY 11/20/23 02/23/24 History sertraline 50 mg tablet 50 mg PO DAILY 11/20/23 02/23/24 History diltiazem HCl 30 mg tablet 30 mg PO DAILY #90 tabs 12/20/23 02/23/24 Rx metoprolol succinate 25 mg 25 mg PO DAILY #90 tabs 12/20/23 02/23/24 Rx tablet,extended release 24 hr Ejection fraction %: 60 Nurse's Note: wants to talk about ribs right side then off and on chest discomfort PFSH Medical History Abnormal thyroid blood test Wears glasses Thyroid disease Kidney stones Back pain History of hiatal hernia History of IBS Gastric reflux Former smoker History of Holter monitoring History of echocardiogram Cardiology follow-up encounter History of irregular heartbeat Dysphagia Weight loss Strain of right index finger COVID-19 URI (upper respiratory infection) Encounter for screening for COVID-19 Anxiety Thyroid nodule Tachycardia Barger esophagus Surgical History History of tonsillectomy and adenoidectomy History of Adriane fundoplication History of colonoscopy ( 2019) Status post biopsy of thyroid gland ( 2017) History of esophagogastroduodenoscopy (EGD) Hx of hernia repair Family History Mother CHF (congestive heart failure) Father Heart disease Colon cancer Social History Smoking Status: Former smoker alcohol intake: never substance use type: does not use caffeine: Yes Type: coffee ROS Const Const: Positive for difficulty sleeping (same); Negative for fatigue, weakness, headache(s), frequent falls or excessive sweating Eyes Eyes: Negative for loss of peripheral vision, transient loss of vision, blurry vision, double vision or tunnel vision ENT ENT: Negative for headache(s), dizziness, Nosebleed/epistaxis or balance problems Cardio Chest Pain: Yes (discomfort) Frequency: daily, weekly and more than once a day Character: dull Location: epigastric and mid sternal Duration: brief Palpitations: Yes (her normal) feels like its: fast and skipping Edema: Bilateral (always) Muscle aches with walking: None Resp Respiratory: Negative for SOB with activity, SOB at rest, SOB orthopnea SOB lying down, Cough or paroxysmal nocturnal dyspnea GI GI: Positive for nausea (sometimes-norm) and heartburn; Negative vomiting or black,tarry stools : Negative for hematuria Musc Musc: Negative for muscle aches/ myalgia, muscle weakness, joint pain or balance problems Skin Skin: Negative non-healing lesi (more content not included)... Normal [facility] 02-07-2024 36 Message released to patient as written. Patient's further questions if applicable: Patient was returning office call. Released previous message to patient containing test results and medication instructions. Patient expresses understanding of message released. Please be advised. Were all questions from office addressed or relayed to the patient from encounter: Yes [facility] 36 Left msg to call back. Normal [facility] 36 ----- Message from Gissell Avila MD sent at 01/30/2024 9:05 AM EDT ----- Please inform pt that her thyroid function were normal. She can continue same dose of methimazole. Repeat thyroid test in 3 months [facility] 02-06-2024 36 My chart msg sent. [facility] 02-05-2024 36 Left msg TCB [facility] 01-31-2024 36 See both msgs below. Left msg for pt to call back [place] [id number] ----- Message from Gissell Avila MD sent at 01/30/2024 3:21 PM EDT ----- Please inform the patient that FNA biopsy for the right and left thyroid nodule were benign so risk of thyroid cancer is low Normal [facility] 36on 01-30-2024 36 Left msg tcb. Normal [facility] 36 ----- Message from Gissell Avila MD sent at 01/30/2024 9:05 AM EDT ----- Please inform pt that her thyroid function were normal. She can continue same dose of methimazole. Repeat thyroid test in 3 months Normal [facility] Progress Noteon 01-30-2024 Progress Note Inform the patient t hat her thyroid function test were normal so continue same dose of methimazole and recheck labs a week before her next visit with me in September Normal [facility] Progress Noteon 01-29-2024 Progress Note Please inform the pa tient that FNA biopsy for the right and left thyroid nodule were benign so risk of thyroid cancer is low Normal [facility] US GUIDED THYROID NEEDLE COR E BIOPSY W/ REFLEX AFFIRMAon 01-29-2024 US GUIDED THYROID NEEDLE CORE BIOPSY W/ REFLEX AFFIRMA Patient Name: YAMILKA BRYANT : 1980 Exam Date/Time: 01/29/2024 09:45 Procedure: US GUIDED THYROID NEEDLE CORE BIOPSY W/ REFLEX AFFIRMA Ordering Provider: AVILA OMAR Reason For Exam: Thyroid nodule CLINICAL HISTORY: Thyroid nodule Procedures: Ultrasound-guided thyroid FNA of bilateral thyroid nodules JONATHAN: Leia Muniz PA-C Attending provider: Sundeep Shepherd M.D. duck bill operator: Leia Muniz PA-C Attending provider was available in the department if needed. MEDICATIONS: Lidocaine. EBL: Minimal. Contrast: None. Specimen sent: FNA biopsies of a 1.2 right inferior TI-RADS 5 thyroid nodule and a 1.3 superior left TI-RADS 5 thyroid nodule. COMPLICATIONS: None Procedural details: All of the risk, benefits, and alternative treatments were explained to the patient and informed consent was obtained and documented. The patient was brought into the ultrasound suite and placed in a supine position. Imaging from 10/02/2023 was reviewed. The patient's thyroid was interrogated with ultrasound and a dominant thyroid nodule suitable for biopsy was identified. A timeout was performed. The overlying skin was then prepped and draped in the usual sterile fashion. The overlying subcutaneous tissues were anesthetized using 2 percent lidocaine. Under real-time ultrasound guidance, a 25-gauge 7.5 cm needle was advanced into the right thyroid nodule. 5 sets of FNA passes were performed. 3 passes were prepared for routine cytology and 2 passes were prepared for Afirma. All needles were then removed and hemostasis obtained using manual pressure. Post biopsy images were stored. Attention was then turned to the left superior nodule. The overlying subcutaneous tissues were anesthetized using 2 percent lidocaine. Under real-time ultrasound guidance, a 25-gauge 7.5 cm needle was advanced into the left thyroid nodule. 5 sets of FNA passes were performed. 3 passes were prepared for routine cytology and 2 passes were prepared for Afirma. All needles were then removed and hemostasis obtained using manual pressure. Post biopsy images were stored. FINDINGS: Dominant nodule within bilateral thyroid lobes IMPRESSION: Impression: Technically successful uncomplicated ultrasound-guided thyroid FNA of bilateral nodules as described above. Report Dictated on Electronically Signed By: Leia Muniz PA-C Electronically Signed Date/Time: 01/29/2024 11:07 AM EDT [facility] US Guidance for fine needle aspiration of Thyroid glandon 01-29-2024 Impression: Technically successful uncomplicated ultrasound-guided thyroid FNA of bilateral nodules as described above. Report Dictated on Electronically Signed By: Leia Muniz PA-C Electronically Signed Date/Time: 01/29/2024 11:07 AM T [facility] Patient Name: [facility]AM[facility]TERO [facility] 1980 [id number] Exam Date/Time: 01/29/2024 09:45 Procedure: US GUIDED THYROID NEEDLE CORE BIOPSY W/ REFLEX AFFIRMA Ordering Provider: AVILA OMAR Reason For Exam: Thyroid nodule CLINICAL HISTORY: Thyroid nodule Procedures: Ultrasound-guided thyroid FNA of bilateral thyroid nodules JONATHAN: Leia Muniz PA-C Attending provider: Sundeep Shepherd M.D. duck bill operator: Leia Muniz PA-C Attending provider was available in the department if needed. MEDICATIONS: Lidocaine. EBL: Minimal. Contrast: None. Specimen sent: FNA biopsies of a 1.2 right inferior TI-RADS 5 thyroid nodule and a 1.3 superior left TI-RADS 5 thyroid nodule. COMPLICATIONS: None Procedural details: All of the risk, benefits, and alternative treatments were explained to the patient and informed consent was obtained and documented. The patient was brought into the ultrasound suite and placed in a supine position. Imaging from 10/02/2023 was reviewed. The patient's thyroid was interrogated with ultrasound and a dominant thyroid nodule suitable for biopsy was identified. A timeout was performed. The overlying skin was then prepped and draped in the usual sterile fashion. The overlying subcutaneous tissues were anesthetized using 2 percent lidocaine. Under real-time ultrasound guidance, a 25-gauge 7.5 cm needle was advanced into the right thyroid nodule. 5 sets of FNA passes were performed. 3 passes were prepared for routine cytology and 2 passes were prepared for Afirma. All needles were then removed and hemostasis obtained using manual pressure. Post biopsy images were stored. Attention was then turned to the left superior nodule. The overlying subcutaneous tissues were anesthetized using 2 percent lidocaine. Under real-time ultrasound guidance, a 25-gauge 7.5 cm needle was advanced into the left thyroid nodule. 5 sets of FNA passes were performed. 3 passes were prepared for routine cytology and 2 passes were prepared for Afirma. All needles were then removed and hemostasis obtained using manual pressure. Post biopsy images were stored. FINDINGS: Dominant nodule within bilateral thyroid lobes [facility] EM[facility]GENC[facility] RADIOLOGY SYSTEM Leia Muniz PA-C - 01/29/2024 Patient Name: [place]AMIL[place] [facility]ANT [facility] 1980 [facility] [id number] Exam Date/Time: 01/29/2024 09:45 Procedure: US GUIDED THYROID NEEDLE CORE BIOPSY W/ REFLEX AFFIRMA Ordering Provider: AVILA OMAR Reason For Exam: Thyroid nodule CLINICAL HISTORY: Thyroid nodule Procedures: Ultrasound-guided thyroid FNA of bilateral thyroid nodules JONATHAN: Leia Muniz PA-C Attending provider: Sundeep Shepherd M.D. duck bill operator: Leia Muniz PA-C Attending provider was available in the department if needed. MEDICATIONS: Lidocaine. EBL: Minimal. Contrast: None. Specimen sent: FNA biopsies of a 1.2 right inferior TI-RADS 5 thyroid nodule and a 1.3 superior left TI-RADS 5 thyroid nodule. COMPLICATIONS: None Procedural details: All of the risk, benefits, and alternative treatments were explained to the patient and informed consent was obtained and documented. The patient was brought into the ultrasound suite and placed in a supine position. Imaging from 10/02/2023 was reviewed. The patient's thyroid was interrogated with ultrasound and a dominant thyroid nodule suitable for biopsy was identified. A timeout was performed. The overlying skin was then prepped and draped in the usual sterile fashion. The overlying subcutaneous tissues were anesthetized using 2 percent lidocaine. Under real-time ultrasound guidance, a 25-gauge 7.5 cm needle was advanced into the right thyroid nodule. 5 sets of FNA passes were performed. 3 passes were prepared for routine cytology and 2 passes were prepared for Afirma. All needles were then removed and hemostasis obtained using manual pressure. Post biopsy images were stored. Attention was then turned to the left superior nodule. The overlying subcutaneous tissues were anesthetized using 2 percent lidocaine. Under real-time ultrasound guidance, a 25-gauge 7.5 cm needle was advanced into the left thyroid nodule. 5 sets of FNA passes were performed. 3 passes were prepared for routine cytology and 2 passes were prepared for Afirma. All needles were then removed and hemostasis obtained using manual pressure. Post biopsy images were stored. FINDINGS: Dominant nodule within bilateral thyroid lobes IMPRESSION: Impression: Technically successful uncomplicated ultrasound-guided thyroid FNA of bilateral nodules as described above. Report Dictated on Electronically Signed By: Leia Muniz PA-C Electronically Signed Date/Time: 01/29/2024 11:07 AM EDT [facility] Radiology Study observation (narrative) [facility] US Guidance for fine needle aspiration of Thyroid glandOrdered By: Leia Muniz on 01-29-2024 [facility] Work Phone: Absolute lymphocyte countOrd ered By: ED PROVIDER on 11-17-2023 Lymphocytes Auto (Unsp spec) [#/Vol] 1.83 10*3/uL 0.83-4.51 [facility] Automated lymphocyte count a s percentage of total leukocytesOrdered By: ED PROVIDER on 11-17-2023 Lymphocytes/100 WBC Auto (Unsp spec) 23.0 % 19-41 [facility] Basophil percentageOrdered B y: ED PROVIDER on 11-17-2023 Basophils/100 WBC (Bld) 0.5 % 0-1 [facility] Eosinophils/100 WBC (Bld) 0.6 % 0-5 [facility] Hemoglobin (Bld) [Mass/Vol] 12.8 g/dL 12.0-15.0 [facility] Monocytes/100 WBC (Bld) 6.4 % 0-10 [facility] Neutrophils (Bld) [#/Vol] 5.5 10*3/uL 2.0-7.7 [facility] Neutrophils/100 WBC (Bld) 69.1 % 47-70 [facility] WBC (Bld) [#/Vol] 8.0 10*3/uL 4.4-11.0 [facility] Basophil percentageOrdered B y: Nnamdi Diaehne on 11-17-2023 Chloride [Moles/Vol] 104 mmol/L 98-107 [facility] Glucose [Mass/Vol] 116 mg/dL 74-106 [facility] Comment on above: Fasting Glucose resu lt from 100 to 125 mg/dL suggests IMPAIRED HOMEOSTASIS per A.D.A. criteria. Potassium [Moles/Vol] 3.7 mmol/L 3.5-5.1 [facility] Sodium [Moles/Vol] 135 mmol/L 136-145 [facility] Determination of erythrocyte mean corpuscular volume (MCV)Ordered By: ED PROVIDER on 11-17-2023 MCV (RBC) [Entitic vol] 92.0 fL 81-99 [facility] Erythrocyte distribution wid th ratioOrdered By: ED PROVIDER on 11-17-2023 Erythrocyte distribution width (RBC) [Ratio] 11.7 % 11.6-14.6 [facility] Erythrocyte distribution wid th standard deviationOrdered By: ED PROVIDER on 11-17-2023 Erythrocyte distribution width (RBC) [Entitic vol] 39.7 fL 35.1-43.9 [facility] Hematocrit Auto (Bld) [Volum e fraction]Ordered By: ED PROVIDER on 11-17-2023 Hematocrit (Bld) [Volume fraction] 38.0 % 37-47 [facility] Immature granulocytes/100 WB C Auto (Bld)Ordered By: ED PROVIDER on 11-17-2023 Immature granulocytes/100 WBC (Bld) 0.400 % 0.0-0.9 [facility] Comment on above: IG% - Immature Granu locytes (promyelocytes, myelocytes and metamyelocytes) > 1% indicates that a LEFT SHIFT is Present. Laboratory - Chemistry and C hemistry - challengeOrdered By: Nnamdi Mcmanus on 11-17-2023 CO2 [Moles/Vol] 25.0 mmol/L 21.0-32.0 [facility] Magnesium [Mass/Vol] 1.8 mg/dL 1.6-2.6 [facility] Urea nitrogen/Creatinine [Mass ratio] 15.0 mg/mg 10-20 [facility] Laboratory - Hematology and Cell countsOrdered By: ED PROVIDER on 11-17-2023 MCH (RBC) [Entitic mass] 31.0 pg 27.0-32.0 [facility] MCHC (RBC) [Mass/Vol] 33.7 g/dL 32-36 [facility] Nucleated RBC/100 WBC (Bld) [Ratio] 0 % 0-5 [facility] Platelet mean volume (Bld) [Entitic vol] 9.7 fL 6.2-12.0 [facility] Platelets (Bld) [#/Vol] 243 10*3/uL 150-450 [facility] No Panel InformationOrdered By: Nnamdi Mcmanus on 11-17-2023 D-Dimer Quantitative (PE/DVT) 0.33 FEU/ug/m 0.27-0.49 [facility] Comment on above: NORMAL D-Dimer level (<0.50) indicates no DVT or PE. Estimated Creatinine Clearance Calc 95.42 ml/min [facility] Estimated GFR (MDRD) Amer 125 mL/min >60 [facility] Comment on above: GFR Calc Estimated GFR (MDRD) Non-Af Amer 103 mL/min >60 [facility] Comment on above: Non- GFR Calc RBC Auto (Bld) [#/Vol]Ordere d By: ED PROVIDER on 11-17-2023 RBC (Bld) [#/Vol] 4.13 10*6/uL 4.2-5.4 [facility] Serum or plasma calcium cindy urement (mass/volume)Ordered By: Nnamdi Mcmanus on 11-17-2023 Calcium [Mass/Vol] 9.0 mg/dL 8.5-10.1 [facility] Serum or plasma cardiac trop onin I panel by high sensitivity methodOrdered By: Nnamdi Mcmanus on 11-17-2023 Tropinin I.cardiac panel High sensitivity method 4 pg/mL 3.0-54.0 [facility] Comment on above: Please Note: [place] t Units and Gender Specific Reference Ranges. For more information see Policy Stat Procedure [place] High Sensitivity Troponin (TNIH) and attachments. Serum or plasma creatinine m easurement (mass/volume)Ordered By: Nnamdi Mcmanus on 11-17-2023 Creatinine [Mass/Vol] 0.67 mg/dL 0.55-1.02 [facility] Comment on above: The validity of the calculated GFR & GFRAA in patients over 70 years has not been determined. Clinical correlation is essential. Serum or plasma urea nitroge n measurement (mass/volume)Ordered By: Nnamdi Mcmanus on 11-17-2023 Urea nitrogen [Mass/Vol] 10 mg/dL 02-14 [facility] Thin prep Papanicolaou smear with manual screeningOrdered By: Nnamdi Mcmanus on 11-17-2023 Thin prep Papanicolaou smear with manual screening 6 12-12 [facility] 36on 11-06-2023 36 Left voicemail for p atient regarding below. Provided with central scheduling phone number or to return call to office to schedule. Normal [facility] 36 ----- Message from Gissell Avila MD sent at 11/06/2023 10:15 AM EDT ----- Please inform pt that her thyroid function were normal. She can continue same dose of methimazole. Repeat thyroid test in 3 months Now, we need to FNA for 2 thyroid around this time to do it at [facility]. Please see orders. Thanks Normal [facility] OUTSIDE LAB SCANOrdered By: Kerry Galloway on 11-06-2023 [facility] Progress Noteon 11-06-2023 Progress Note Please inform pt melisa t her thyroid function were normal. She can continue same dose of methimazole. Repeat thyroid test in 3 months Now, we need to FNA for 2 thyroid around this time to do it at [facility]. Please see orders. Thanks [facility] Progress Note Please inform pt melisa t her thyroid function were normal. She can continue same dose of methimazole. Repeat thyroid test in 3 months [facility] Laboratory - Microbiology an d Antimicrobial susceptibilityon 11-03-2023 S. pyogenes Ag IA Ql (Unsp spec) Negative [facility] No Panel Informationon 11-02 Influenza Types A,B Rapid (Clinic) Negative [facility] POC SARS CoV-2 Antigen Negative [facility] No Panel Informationon 11-01 Free Triiodothyronine (T3) pg/dL 3.0 pg/mL 2.18-3.98 [facility] Serum or plasma thyroid stim ulating hormone (TSH) measurement (units/volume)on 11-02-2023 TSH Qn 0.81 uIU/mL 0.358-3.74 [facility] Thin prep Papanicolaou smear with manual screeningon 11-02-2023 Thin prep Papanicolaou smear with manual screening 1.30 ng/dL 0.76-1.46 [facility] 36on 10-12-2023 36 Sent, orders in, thanks Normal S [facility] 36 See msg below Rx Pen ded, please order labs. [place] [id number] Message released to patient as written. Patient's further questions if applicable: Yamilka would like the lab work to be sent to [facility] and th prescription to [facility] [place] in [place]. Were all questions from office addressed or relayed to the patient from encounter: Yes [place] [id number] Left msg for pt to c all back. [place] [id number] ----- Message from Gissell Avila MD sent at 10/12/2023 12:37 PM EDT ----- Please inform the patient that in summary her thyroid function test were consistent with subclinical hyperthyroidism. Thyroid ultrasound revealed 2 thyroid nodules Thyroid uptake and scan showed possible increased activity on the left side so one of the thyroid nodules could be potentially producing extra thyroid hormones at that could explain the reason for subclinical hyperthyroidism. Recommend to start methimazole 5 mg 1 tablet daily which is on antithyroid medication that will help to improve the TSH level. Load in the prescription if she agrees for 30-day supply with 1 refill. Then we will order blood work to be done in 4 weeks. Very important to follow-up on the results if she does not at outside lab and to make sure that the results are sent to me. She is to call us if she does not hear from us within a week after doing the test Once her thyroid function test are normal I would recommend to do FNA biopsy for the 2 thyroid nodules that we found on the ultrasound because it has some microcalcifications. It is reported that she had biopsy in the past in 2017 and I think she told me they were benign but we do not have access to the results [facility] Progress Noteon 10-11-2023 Progress Note Please inform the pa martha that in summary her thyroid function test were consistent with subclinical hyperthyroidism. Thyroid ultrasound revealed 2 thyroid nodules Thyroid uptake and scan showed possible increased activity on the left side so one of the thyroid nodules could be potentially producing extra thyroid hormones at that could explain the reason for subclinical hyperthyroidism. Recommend to start methimazole 5 mg 1 tablet daily which is on antithyroid medication that will help to improve the TSH level. Load in the prescription if she agrees for 30-day supply with 1 refill. Then we will order blood work to be done in 4 weeks. Very important to follow-up on the results if she does not at outside lab and to make sure that the results are sent to me. She is to call us if she does not hear from us within a week after doing the test Once her thyroid function test are normal I would recommend to do FNA biopsy for the 2 thyroid nodules that we found on the ultrasound because it has some microcalcifications. It is reported that she had biopsy in the past in 2017 and I think she told me they were benign but we do not have access to the results [facility] 36on 10-06-2023 36 Patient scheduled on 10/10 at 9AM - [facility] 36on 10-05-2023 36 Left msg for pt expl aining it is ok. [facility] 36 Sure as long as we g et results [facility] 36 Is this ok? 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 Message relayed to patient: Please inform the patient that her thyroid function test were consistent with subclinical hyperthyroidism and her thyroid ultrasound revealed multiple thyroid nodules that stable compared to the ultrasound done in April 2023 Recommend at this point to do thyroid uptake and scan to see if she has possible overactive thyroid nodules Please see order for test as well before the thyroid uptake and scan Patient wants to know if she can have blood drawn immediately prior to the can since she doesn't live near [facility] and would have to take another day off of work. R: Message sent to office for review. Reason for Disposition Health Information question, no triage required and triager able to answer question Lab result questions Caller requesting lab results (Exception: Routine or non-urgent lab result.) Protocols used: Information Only Call - No [id number], PCP Call - No [facility] Left voicemail for p atient to return call regarding below. [facility] 36 ----- Message from Gissell Avila MD sent at 10/04/2023 12:06 PM EST ----- Please inform the patient that her thyroid function test were consistent with subclinical hyperthyroidism and her thyroid ultrasound revealed multiple thyroid nodules that stable compared to the ultrasound done in April 2023 Recommend at this point to do thyroid uptake and scan to see if she has possible overactive thyroid nodules Please see order for test as well before the thyroid uptake and scan [facility] US THYROIDon 10-04-2023 US THYROID Patient Name: YAMILKA MONTERO : 1980 [place] [id number] Exam Date/Time: 10/02/2023 10:34 Procedure: US THYROID Ordering Provider: AVILA OMAR Reason For Exam: THYROID NODULE CLINICAL INFORMATION: Multiple thyroid nodules. Follow-up study. Ultrasound of the thyroid gland is provided. The examination is compared to a previous study from an outside institution ([facility]) dated 05/10/2023. FINDINGS: The right lobe measures 1.3 x 2.0 x 5.2 cm. The left lobe measures 1.0 x 1.6 x 5.0 cm. The isthmus spans 0.4 cm. Numerous subcentimeter nodules are noted bilaterally. The majority are nearly completely cystic. Several are hypoechoic solid nodules. Please see nodule details below. Nodule Details: RIGHT LOBE, LOWER POLE Size: 0.7 cm AP x 0.8 cm transverse x 1.2 cm cephalocaudad Echogenicity: Solid, hypoechoic to surrounding thyroid Margins: Well-circumscribed Microcalcifications: Some Acoustic enhancement: None identified Comparison: No significant change LEFT LOBE, LOWER POLE Size: 0.6 cm AP x 0.8 cm transverse x 1.3 cm cephalocaudad Echogenicity: Solid, hypoechoic to surrounding thyroid Margins: Well-circumscribed Microcalcifications: Some Acoustic enhancement: None identified Comparison: No significant change IMPRESSION: 1. Numerous nodules are noted bilaterally. The majority of these are cysts. 2. Solid hypoechoic nodules are noted bilaterally (see details above). 3. Note: The bilateral solid nodules were biopsied on 06/08/2017 (at [facility]). I do not have those results. BILATERAL SOLID NODULE ASSESSMENT CATEGORY: TI-RADS 5 - (highly suspicious) > 20% risk of malignancy - FNA when >/= 1 cm. Follow when > 0.5 cm every year for up to 5 years . Please see the complete detailed TI-RADS categorization below. Please note: There are other existing guidelines to classify thyroid nodules to determine need for FNA; and this decision will be deferred to the ordering physician. *TI-RADS (2017) Reference: Darcy Longoria. ACR Thyroid Imaging, Reporting and Data System (TI-RADS): White Paper of the ACR TI-RADS Committee. J Am [employer]. October 2016 Thyroid nodule details (add points for total score): Composition(points): 1 - mixed cystic and solid 2 - solid Echogenicity: 1 - hyperechoic or isoechoic 2 - hypoechoic 3 - very hypoechoic Shape: 3 - taller than wide Margin: 2 - lobulated or irregular 3 - extrathyroidal extension Echogenic foci: 1 - macrocalcifications 2 - rim calcification 3 - microcalcifications Risk for malignancy: TI-RADS 1 - 0 points - (benign) < 2% risk of malignancy TI-RADS 2 - 2 points - (not suspicious) < 5% risk of malignancy TI-RADS 3 - 3 points - (mildly suspicious) < 5% risk of malignancy - FNA when >/= 2.5 cm. Follow when > 1.5 cm at 1, 3 and 5 years TI-RADS 4 - 4-6 points - (moderately suspicious) 5-20% risk of malignancy - FNA when >/= 1.5 cm. Follow when > 1 cm at 1, 2, 3 and 5 years TI-RADS 5 - 7+ points - (highly suspicious) > 20% risk of malignancy - FNA when >/= 1 cm. Follow when > 0.5 cm every year for up to 5 years Note: Nodule vascularity is no longer considered a useful characteristic to assess risk for malignancy. Report Dictated on Electronically Signed By: Hitesh Bruce MD Electronically Signed Date/Time: 10/04/2023 10:14 AM [facility] 07-11-2023 [place] Telephone ([employer]) -- YAMILKA BRYANT ([id number]) 1980 F Date Time Provider Department 07/11/23 CONY COX During your visit today, we recorded the following information about you: Diandra Zavala 07/11/2023 9:22 AM Signed Patient missed her appointment yesterday. She called today wanting to know if there were any issues with her labs? Does she need a follow up? She lives far away and didn't want to travel if there was nothing more you could do? Labs were done at [place] and are scanned in her chart. Cony Turner MD 07/11/2023 6:53 PM Signed Diandra labs are not scanned in Not sure if even done Thanks Cony Cox MD Please obtain report Diandra Zavala 07/12/2023 1:40 PM Signed I saw the labs but they were from Dr. Ralf Ventura. Will call [place] to obtain. Diandra Hawk 07/12/2023 2:40 PM Signed Spoke with [place] lab and they are faxing over results. Patient had them done on 05-05-23. Diandra Hawk 07/12/2023 2:43 PM Signed Spoke with the patient and explained that we never received the labs from [place]. They are now faxing the results to us and I will give them to Dr. Cox. Once reviewed we will determine if a follow up is needed. Diandra Hawk 07/12/2023 2:53 PM Signed Results are on your desk. Cony Turner MD 07/12/2023 9:36 PM Signed Please call her Labs done for lupus RA Sjogre celiac gout all negative Can fu as needed MD Nika Alvarado Gail, LPN 07/13/2023 8:26 AM Signed Spoke with the pt and results were given. She will f/u if needed Barbara Jose LPN Allergies As of Date: 07/11/2023 (No Known Allergies) Date Reviewed: 04/06/2023 Reviewed by: Vivek Tarango MA - Fully Assessed Reason for Visit: Patient Question [0207] Prescriptions as of 07/13/2023 - Norgestimate-Ethinyl Estradiol (TRI-LINYAH) 0.18/0.215/0.25 mg-35 mcg (28) Take 1 tablet by mouth once daily. - dilTIAZem (CARDIZEM) 30 mg tablet Take 30 mg by mouth once daily. - busPIRone (BUSPAR) 10 mg tablet Take 10 mg by mouth three times daily as needed. - multivit with minerals/lutein (MULTIVITAMIN 50 PLUS ORAL) Take by mouth. - metoprolol succinate ER (TOPROL XL) 25 mg 24 hr tablet Take 25 mg by mouth once daily. Problem List As Of Date 07/11/2023 Noted Resolved Diarrhea [R19.7] 11/01/2018 Altered bowel habits [R19.4] 11/01/2018 Palpitations [R00.2] 11/01/2018 Tachycardia [R00.0] 11/01/2018 Nodular goiter [E04.9] 11/01/2018 Hyperthyroidism [E05.90] 11/01/2018 Anxiety [F41.9] 11/01/2018 Former smoker [Z87.891] 11/01/2018 Encounter Status:Closed by DIANDRA ZAVALA on 07/11/23 Normal [facility] Laboratory - Chemistry and C hemistry - challengeOrdered By: oJhn Thakur on 05-19-2023 Free T4 [Mass/Vol] 1.03 ng/dL 0.76-1.46 [facility] No Panel InformationOrdered By: John Thakur on 05-19-2023 Free Triiodothyronine (T3) pg/dL 2.8 pg/mL 2.18-3.98 [facility] Thyroid Stimulating Hormone (TSH) 0.41 uIU/mL 0.358-3.74 [facility] Serum or plasma thyroperoxid ase antibody assay (units/volume)Ordered By: John Thakur on 05-19-2023 TPO Ab Qn [IU]/mL 0-34 [facility] Comment on above: Performed at: [address] [id number] Director: Aashish Li MD, Phone: [phone] at: [facility] [place] [id number] Director: Marco Antonio Romero PhD, Phone: [phone] Thyroid stimulating immunogl obulins detectionOrdered By: John Thakur on 05-19-2023 Thyroid stimulating immunoglobulins Ql (S) <0.10 IU/L 0.00-0.55 [facility] No Panel Informationon 05-08 Culture Urine <10,000 cfu/ml. No Significant growth. Sensitivity not indicated. [facility] Work Phone: Erythrocyte sedimentation ra pooja 05-05-2023 ESR (Bld) [Velocity] 2 mm/h 0-30 [facility] Mitotic spindle apparatus Ab [Titer] in Serum or Plasmaon 05-05-2023 Mitotic spindle apparatus Ab [Titer] Not Reportable [facility] No Panel Informationon 05-05 SYDNIE Nuclear Membrane Pattern Not Reportable [facility] Immunoglobulin G4 43 mg/dL 2-96 [facility] Tissue Transglutaminase IgG Ab <2 U/mL 0-5 [facility] Comment on above: Negative 0 - 5 Weak Positive 6 - 9 Positive >9 Serum IgG subclass 1 measure ment (mass/volume)on 05-05-2023 IgG subclass 1 (S) [Mass/Vol] 563 mg/dL 248-810 [facility] Serum IgG subclass 2 measure ment (mass/volume)on 05-05-2023 IgG subclass 2 (S) [Mass/Vol] 244 mg/dL 130-555 [facility] Serum IgG subclass 3 measure ment (mass/volume)on 05-05-2023 IgG subclass 3 (S) [Mass/Vol] 24 mg/dL 15-102 [facility] Serum cyclic citrullinated p eptide IgG antibody assay (units/volume)on 05-05-2023 Cyclic citrullinated peptide IgG Qn 1 units 0-19 [facility] Comment on above: Negative <20 Weak po sitive 20 - 39 Moderate positive 40 - 59 Strong positive >59 Serum midbody antibody titer by immunofluorescenceon 05-05-2023 Midbody Ab IF (S) [Titer] Not Reportable [facility] Serum multiple nuclear dot p attern antinuclear IgG antibody (SYDNIE) titer by immunofluoon 05-05-2023 Multiple nuclear dots nuclear IgG pattern IF (S) [Titer] Not Reportable [facility] Serum neuronal nuclear antib tyler detection by immunofluorescenceon 05-05-2023 Neuronal nuclear Ab IF Ql (S) Not Reportable [facility] Serum nuclear antibody patte rn homogenous titer by immunofluorescenceon 05-05-2023 Homogenous nuclear Ab pattern IF (S) [Titer] Not Reportable [facility] Serum nuclear antibody titer by immunofluorescenceon 05-05-2023 Nuclear Ab IF (S) [Titer] Negative . [facility] Comment on above: Negative <1:80 Borde rline 1:80 Positive >1:80ICAP nomenclature: [id number] more information about Hep-2 cell patterns useANApatterns.org, the official website for theInternational Consensus on Antinuclear Antibody (SYDNIE)Patterns (ICAP).Performed at: [facility] [address] [id number] Director: Marco Antonio Romero PhD, Phone: [phone] Serum or plasma IgA measurem ent (mass/volume)on 05-05-2023 IgA [Mass/Vol] 173 mg/dL 87-352 [facility] Comment on above: Performed at: [address] [id number] Director: Marco Antonio Romero PhD, Phone: [phone] Serum or plasma IgG measurem ent (mass/volume)on 05-05-2023 IgG [Mass/Vol] 902 mg/dL [phone] [facility] Serum or plasma uric acid me asurement (mass/volume)on 05-05-2023 Urate [Mass/Vol] 3.1 mg/dL 2.6-6.0 [facility] Comment on above: The drugs N-Acetylcy steine and Metamizole may falsely depress this assay. Serum proliferating cell nuc lear antigen (PCNA) antibody titer by immunofluorescenceon 05-05-2023 PCNA extractable nuclear Ab IF (S) [Titer] Not Reportable [facility] Serum rheumatoid factor dete ctionon 05-05-2023 Rheumatoid factor Ql (S) < 10.0 IU/mL <15 [facility] Serum speckled nuclear antib tyler pattern titeron 05-05-2023 Speckled nuclear Ab pattern (S) [Titer] Not Reportable [facility] Thin prep Papanicolaou smear with manual screeningon 05-05-2023 Thin prep Papanicolaou smear with manual screening Not Reportable [facility] CNPNon 04-14-2023 CNPN Telephone ([employer]) -- YAMILKA BRYANT ([id number]) 1980 F Date Time Provider Department 04/14/23 CONY COX During your visit today, we recorded the following information about you: Cony Cox MD 04/14/2023 9:15 AM Signed Please let her know Old chart has been reviewed Labs ordered please get them done MD Nika Alvarado Gail, LPN 04/14/2023 10:58 AM Signed LVMM for the pt to please return my call to discuss I will also send my chart message. ELSY Penny Gail, LPN 04/14/2023 12:42 PM Signed Pt notified and asked for orders to be mailed to her home- done Barbara Jose LPN Allergies As of Date: 04/14/2023 (No Known Allergies) Date Reviewed: 04/06/2023 Reviewed by: Vivek Tarango MA - Fully Assessed Reason for Visit: Patient Update [1234] Prescriptions as of 04/14/2023 - Norgestimate-Ethinyl Estradiol (TRI-LINYAH) 0.18/0.215/0.25 mg-35 mcg (28) Take 1 tablet by mouth once daily. - dilTIAZem (CARDIZEM) 30 mg tablet Take 30 mg by mouth once daily. - naproxen (NAPROSYN) 500 mg tablet Take 1 tablet by mouth twice daily as needed (for pain). Take with food - busPIRone (BUSPAR) 10 mg tablet Take 10 mg by mouth three times daily as needed. - multivit with minerals/lutein (MULTIVITAMIN 50 PLUS ORAL) Take by mouth. - metoprolol succinate ER (TOPROL XL) 25 mg 24 hr tablet Take 25 mg by mouth once daily. Problem List As Of Date 04/14/2023 Noted Resolved Diarrhea [R19.7] 11/01/2018 Altered bowel habits [R19.4] 11/01/2018 Palpitations [R00.2] 11/01/2018 Tachycardia [R00.0] 11/01/2018 Nodular goiter [E04.9] 11/01/2018 Hyperthyroidism [E05.90] 11/01/2018 Anxiety [F41.9] 11/01/2018 Former smoker [Z87.891] 11/01/2018 Encounter Status:Closed by BARBARA JOSE on 04/14/23 [facility] CNPN Telephone ([employer]) -- YAMILKA BRYANT ([id number]) 1980 F Date Time Provider Department 04/14/23 CONY COX During your visit today, we recorded the following information about you: Allergies As of Date: 04/14/2023 (No Known Allergies) Date Reviewed: 04/06/2023 Reviewed by: Vivek Tarango MA - Fully Assessed Reason for Visit: Orders [681] Prescriptions as of 04/14/2023 - Norgestimate-Ethinyl Estradiol (TRI-LINYAH) 0.18/0.215/0.25 mg-35 mcg (28) Take 1 tablet by mouth once daily. - dilTIAZem (CARDIZEM) 30 mg tablet Take 30 mg by mouth once daily. - naproxen (NAPROSYN) 500 mg tablet Take 1 tablet by mouth twice daily as needed (for pain). Take with food - busPIRone (BUSPAR) 10 mg tablet Take 10 mg by mouth three times daily as needed. - multivit with minerals/lutein (MULTIVITAMIN 50 PLUS ORAL) Take by mouth. - metoprolol succinate ER (TOPROL XL) 25 mg 24 hr tablet Take 25 mg by mouth once daily. Problem List As Of Date 04/14/2023 Noted Resolved Diarrhea [R19.7] 11/01/2018 Altered bowel habits [R19.4] 11/01/2018 Palpitations [R00.2] 11/01/2018 Tachycardia [R00.0] 11/01/2018 Nodular goiter [E04.9] 11/01/2018 Hyperthyroidism [E05.90] 11/01/2018 Anxiety [F41.9] 11/01/2018 Former smoker [Z87.891] 11/01/2018 Encounter Status:Closed by BARBARA JOSE on 04/14/23 [facility] Chandana 04-06-2023 CNOV Office Visit (CROW ) -- YAMILKA BRYANT ([id number]) 1980 F Date Time Provider Department 04/06/23 10:00 AM CONY COX During your visit today, we recorded the following information about you: Temperature Pulse Blood pressure Weight 98.3 degrees 88/minute 108/63 56.7 kg Height 1.626 m Cony Cox MD 07/12/2023 9:35 PM Addendum This note was created using [employer]. Subjective Yamilka Bryant is a 42 year old female. 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 No history of Hidradenitis Suppurativa . No labs testing done Patient does not have a history of dry eyes, dry mouth, dryness in the mucosal membranes. There is no history of salivary gland enlargement. Patient has no history of pleuritis, pericarditis, seizures, psychosis, malar or discoid rashes. Has no history of hematologic issues, renal issues ( proteinuria or hematuria) . No history of photosensitivity is there. No history of any recurrent thrombotic events. No history of Raynaud or Livedo reticularis. No history of any recurrent miscarriages is there. No history of psoriasis, ulcerative colitis, Chron's disease, celiac disease or iritis / uveitis in family. Wt loss No vomit Nausea lot Never hungry Seen surg and alexander normal Review of Systems Constitutional: Positive for fatigue and unexpected weight change. Negative for fever. Respiratory: Negative. Cardiovascular: Negative. Objective Blood Pressure 108/63 Pulse 88 Temperature 36.8 ?C (98.3 ?F) Height 162.6 cm (5' 4) Weight 56.7 kg (125 lb) Last Menstrual Period 12/31/2019 Body Mass Index 21.46 kg/m? Physical Exam Vitals reviewed. Constitutional: General: She is not in acute distress. Appearance: Normal appearance. She is not ill-appearing or toxic-appearing. Cardiovascular: Rate and Rhythm: Normal rate and regular rhythm. Heart sounds: Normal heart sounds. No murmur heard. No friction rub. No gallop. Pulmonary: Effort: No respiratory distress. Breath sounds: Normal breath sounds. No stridor. No wheezing or rhonchi. Abdominal: General: There is no distension. Palpations: Abdomen is soft. There is no mass. Tenderness: There is no abdominal tenderness. Hernia: No hernia is present. Musculoskeletal: Right shoulder: Normal. Left shoulder: Normal. Right elbow: Normal. Left elbow: Normal. Right wrist: Normal. Left wrist: Normal. Right hand: Normal. Left hand: Normal. Cervical back: No rigidity or tenderness. Thoracic back: Normal. Lumbar back: Normal. Right hip: Normal. Left hip: Normal. Right knee: Normal. Left knee: Normal. Right lower leg: No edema. Left lower leg: No edema. Right ankle: Normal. Left ankle: Normal. Right foot: Normal. Left foot: Normal. Comments: Minimal swelling at the 2nd MCP Low grade dip pip 1st cmc enlargement Tender point neg Lymphadenopathy: Cervical: No cervical adenopathy. Skin: Findings: No rash. Neurological: Mental Status: She is alert. Assessment and Plan First visit 04/06/23 right handed Polyarthralgia 2022 Thyroglobulin, thyroid peroxidase ab neg. 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 ( 2 week ) stop and then just as needed. 04/06/23 get labs once old chart is reviewed, orders get labs once reviewed wt loss also issue . Drug and disease monitoring 2019 LFT (more content not included)... Normal [facility] Laboratory - Chemistry and C hemistry - challengeOrdered By: Yeyo Clements on 03-10-2023 HCG ( test) Ql (U) Negative [facility] Comment on above: Very dilute urine sp ecimens, as indicated by a low specificgravity, may not contain retail account representative levels of hCG. If is still suspected, a first morning urinespecimen should be collected 48 hours later and tested. Laboratory - Chemistry and C hemistry - challengeOrdered By: Ralf Ventura on 01-27-2023 Free T4 [Mass/Vol] 1.07 ng/dL 0.76-1.46 [facility] No Panel InformationOrdered By: Ralf Ventura on 01-27-2023 Thyroglobulin Antibody < 1.0 IU/mL 0.0-0.9 [facility] Comment on above: Thyroglobulin Antibo dy measured by Levon CoulterMethodologyPerformed at: CB - [facility] [address] [id number] Director: Marco Antonio Romero PhD, Phone: [phone] Follicle Stimulating Hormone 8.4 mIU/mL [facility] Comment on above: NORMAL REFERENCE RAN GES FEMALE FOLLICULAR 2.3 - 12.6 mIU/mL MID-CYCLE PEAK 5.2 - 17.5 mIU/mL LUTEAL 1.7 - 12.9 mIU/mL POST-MENOPAUSAL ON MHT 5.9 - 72.8 mIU/mL NOT ON MHT 12.7 - 132.2 mlU/mL MALE 0.7 - 10.8 mIU/mL Free Triiodothyronine (T3) pg/dL 3.0 pg/mL 2.18-3.98 [facility] Luteinizing Hormone 13.5 mIU/mL [facility] Comment on above: NORMAL REFERENCE RAN GES FEMALE FOLLICULAR 1.9 - 26.2 mIU/mL MID-CYCLE PEAK 22.8 - 76.1 mIU/mL LUTEAL 0.6 - 16.6 mIU/mL POST-MENOPAUSAL ON MHT 1.1 - 52.4 mIU/mL NOT ON MHT 8.6 - 61.8 mIU/mL MALE 1.2 - 10.6 mIU/mL Thyroid Stimulating Hormone (TSH) 0.17 uIU/mL 0.358-3.74 [facility] Serum or plasma estradiol (E 2) measurement (mass/volume)Ordered By: Ralf Ventura on 01-27-2023 E2 [Mass/Vol] 180.0 pg/mL [facility] Comment on above: NORMAL REFERENCE RAN GES FEMALE FOLLICULAR 21.4 - 164.8 pg/mL MID-CYCLE PEAK 49.9 - 367.2 pg/mL LUTEAL 40.2 - 259.0 pg/mL POST-MENOPAUSAL ON MHT <11.0 - 462.1 pg/mL NOT ON MHT <11.0 - 58.3 pg/mL MALE <11.0 - 52.5 pg/mL NOTE:[employer] HAS CONFIRMED THE DRUG FULVETRANT (FASLODEX) MAY CAUSE FALSELY ELEVATED ESTRADIOL RESULTS WHEN USING THIS TEST METHOD. IF PATIENT IS TAKING FULVESTRANT AN ALTERNATIVE METHOD SHOULD BE USED TO DETERMINE ESTRADIOL CONCENTRATION. Serum or plasma thyroperoxid ase antibody assay (units/volume)Ordered By: Ralf Ventura on 01-27-2023 TPO Ab Qn [IU]/mL 0-34 [facility] Whole blood hemoglobin A1c/t otal hemoglobin ratio (mass fraction)Ordered By: Ralf Ventura on 01-27-2023 HbA1c (Bld) [Mass fraction] 4.8 % 3.8-5.6 [facility] Comment on above: Normal < 5.7 % Predi abetic 5.7 - 6.4 % Diabetic >or= 6.5 % Please note range changes. ANAon 11-24-2022 Nuclear Ab IF (S) [Titer] 40 {titer} Normal Neg 40 [facility] ([place]) Comment on above: Result Comment: SYDNIE Screen and Titer methodology is an immunofluorescent technique utilizing Hep2 Substrate. Performed By: #### C BC, ANEU, URIC, FT4, CMP, ADIFF, GFR, TSH ####[address] [place], [place] [address]#### SYDINE, RF ####[place] [address] RFon 11-24-2022 Rheumatoid Factor <6.0 Normal <=6.0 [facility] ([place]) Comment on above: Result Comment: RF I gM Antibody by Enzyme Immunoassay: Negative < or = 6 Positive > 6 A positive result indicates the presence of RF antibodies and suggests the possibility of rheumatoid arthritis. A negative result indicates no RF IgM antibody or levels below the negative cut-off of the assay. Results of this assay should be used in conjunction with clinical findings and other serological tests. These results were obtained with the [employer] QUANTA Lite RF IgM [place]. RF IgM values obtained with different manufacturers' assay methods may not be used interchangeably. The magnitude of the reported IgM levels cannot be correlated to an endpoint titer. Performed By: #### C BC, ANEU, URIC, FT4, CMP, ADIFF, GFR, TSH ####[address] [place], [place] [address]#### SYDNIE, RF ####[address] [address] XR CHEST 2 VIEWSon 3 XR CHEST 2 VIEWS ORIGINAL EXAMINATION: TWO XRAY VIEWS OF THE CHEST 11/23/2022 8:19 am COMPARISON: None. HISTORY: ORDERING SYSTEM PROVIDED HISTORY: Reason for Exam: unintentional weight loss FINDINGS: The heart size and mediastinal contours are normal. There is no lung infiltrate or edema. No pneumothorax or pleural fluid is present. The skeletal structures are unremarkable. IMPRESSION: No acute radiographic abnormality of the chest. Interpreted by: Vishnu Sargent MD Preliminary Report By: Vishnu Sargent MD Electronically signed By Vishnu Sargent MD Dictated Date: 11/24/2022 11:10:54 AM Prelim Date: 11/24/2022 11:11:30 AM Sign Date: 11/24/2022 11:11:30 AM Ordering Provider: TIANA Cook [facility] ([place]) XR HAND MINIMUM 3 VIEWS RIGKatrina Ton 11-24-2022 XR HAND MINIMUM 3 VIEWS RIGHT ORIGINAL EXAMINATION: THREE XRAY VIEWS OF THE RIGHT HAND11/23/2022 8:21 am COMPARISON: None. HISTORY: ORDERING SYSTEM PROVIDED HISTORY: Reason for Exam: right second finger mcp joint pain and swelling FINDINGS: No acute fracture or dislocation is identified. The joint spaces are maintained. There is no radiopaque foreign body. IMPRESSION: No acute fracture or dislocation. Interpreted by: Jaxon Nguyen MD Preliminary Report By: Jaxon Nguyen MD Electronically signed By Jaxon Nguyen MD Dictated Date: 11/24/2022 10:23:26 AM Prelim Date: 11/24/2022 10:24:07 AM Sign Date: 11/24/2022 10:24:07 AM Ordering Provider: TIANA Cook [facility] ([place]) .Auto Diffon 11-23-2022 Basophil, Absolute 0.0 10 3/mcL Normal 0.0-0.2 [facility] ([place]) Comment on above: Performed By: #### C BC, ANEU, URIC, FT4, CMP, ADIFF, GFR, TSH #### [address] [address] #### SYDNIE, RF #### [address] [address] Basophils/100 WBC (Bld) 0.2 % Normal 0.0-2.5 [facility]) Comment on above: Performed By: #### C BC, ANEU, URIC, FT4, CMP, ADIFF, GFR, TSH #### [address] [address] #### SYDNIE, RF #### [address] [address] Eosinophil, Absolute 0.0 10 3/mcL Normal 0.0-0.4 [facility] ([place]) Comment on above: Performed By: #### C BC, ANEU, URIC, FT4, CMP, ADIFF, GFR, TSH #### [address] [address] #### SYDNIE, RF #### [address] [address] Eosinophils/100 WBC (Bld) 0.6 % Normal 0.0-7.0 [facility] ([place]) Comment on above: Performed By: #### C BC, ANEU, URIC, FT4, CMP, ADIFF, GFR, TSH #### [place] [address] #### SYDNIE, RF #### [address] [address] Lymphocyte, Absolute 1.9 10 3/mcL Normal 0.8-3.9 [facility] ([place]) Comment on above: Performed By: #### C BC, ANEU, URIC, FT4, CMP, ADIFF, GFR, TSH #### [place] [address] #### SYDNIE, RF #### [address] [address] Lymphocytes/100 WBC (Bld) 23.6 % Normal 10.0-50.0 [facility] ([place]) Comment on above: Performed By: #### C BC, ANEU, URIC, FT4, CMP, ADIFF, GFR, TSH #### [place] [address] #### SYDNIE, RF #### [address] [address] Monocyte, Absolute 0.4 10 3/mcL Normal 0.2-1.0 [facility] ([place]) Comment on above: Performed By: #### C BC, ANEU, URIC, FT4, CMP, ADIFF, GFR, TSH #### [place] [address] #### SYDNIE, RF #### [address] [address] Monocytes/100 WBC (Bld) 4.8 % Normal 1.7-13.0 [facility] ([place]) Comment on above: Performed By: #### C BC, ANEU, URIC, FT4, CMP, ADIFF, GFR, TSH #### [address] [address] #### SYDNIE, RF #### [address] [address] Neutrophils/100 WBC (Bld) 70.8 % Normal 37.0-80.0 [facility] ([place]) Comment on above: Performed By: #### C BC, ANEU, URIC, FT4, CMP, ADIFF, GFR, TSH #### [address] [address] #### SYDNIE, RF #### [address] [address] .GFRon 11-23-2022 GFR 102 ml/min/1.73sqm Normal [facility] ([place]) Comment on above: Result Comment: GFR Population mean for , Non- Americans Ages 20-29 = 116 mL/min/1.73 sq.m. Ages 30-39 = 107 mL/min/1.73 sq.m. Ages 40-49 = 99 mL/min/1.73 sq.m. Ages 50-59 = 93 mL/min/1.73 sq.m. Ages 60-69 = 85 mL/min/1.73 sq.m. Ages 70+ = 75 mL/min/1.73 sq.m. Chronic Kidney Disease: Less than 60 mL/min/1.73 square meters End Stage Renal Disease: Less than 15 mL/min/1.73 square meters Performed By: #### C BC, ANEU, URIC, FT4, CMP, ADIFF, GFR, TSH ####[address] [address]#### SYDNIE, RF ####[address] [address] GFR Non- 84 ml/min/1.73sqm Normal [facility] ([place]) Comment on above: Result Comment: GFR Population mean for , Non- Americans Ages 20-29 = 116 mL/min/1.73 sq.m. Ages 30-39 = 107 mL/min/1.73 sq.m. Ages 40-49 = 99 mL/min/1.73 sq.m. Ages 50-59 = 93 mL/min/1.73 sq.m. Ages 60-69 = 85 mL/min/1.73 sq.m. Ages 70+ = 75 mL/min/1.73 sq.m. Chronic Kidney Disease: Less than 60 mL/min/1.73 square meters End Stage Renal Disease: Less than 15 mL/min/1.73 square meters Performed By: #### C BC, ANEU, URIC, FT4, CMP, ADIFF, GFR, TSH ####[place] [address]#### SYDNIE, RF ####[place] [address] .NEUABSon 11-23-2022 Neutrophil, Absolute 5.8 10 3/mcL Normal 2.9-6.2 [facility] ([place]) Comment on above: Performed By: #### C BC, ANEU, URIC, FT4, CMP, ADIFF, GFR, TSH #### [address] [address] #### SYDNIE, RF #### [place] [address] .Urinalysis Microscopic (AO) on 11-23-2022 UA Bacteria Trace Abnormal [facility] ([place]) Comment on above: Performed By: #### U A, UAMICAO ####Tana [address] [address] UA CA Ox Crystal 1+ /hpf Normal [facility] ([place]) Comment on above: Performed By: #### U A, UAMICAO ####[address] [place], [place] [address] UA Mucous 3+ /hpf Normal [facility] ([place]) Comment on above: Performed By: #### U A, UAMICAO ####[address] [place], [place] [address] UA RBC None Seen Normal None Seen [facility] ([place]) Comment on above: Performed By: #### U A UAMICAO ####[address] [place], [place] [address] UA Squam Epithelial 0-5 Abnormal None Seen [facility] ([place]) Comment on above: Performed By: #### U A UAMICAO ####[address] [place], [place] [address] UA WBC 0-5 Abnormal None Seen [facility] ([place]) Comment on above: Performed By: #### Shelbie Holley UAMICAO ####[address] [place], [place] [address] CBCon 11-23-2022 Erythrocyte distribution width (RBC) [Ratio] 11.9 % Normal 11.5-14.5 [facility] ([place]) Comment on above: Performed By: #### C BC, ANEU, URIC, FT4, CMP, ADIFF, GFR, TSH #### [place] [address] #### SYDNIE, RF #### [place] [address] Hematocrit (Bld) [Volume fraction] 38.5 % Normal 37.0-47.0 [facility] ([place]) Comment on above: Performed By: #### C BC, ANEU, URIC, FT4, CMP, ADIFF, GFR, TSH #### [place] [address] #### SYDNIE, RF #### [place] [address] Hgb 13.3 G/dL Normal 12.0-16.0 [facility] ([place]) Comment on above: Performed By: #### C BC, ANEU, URIC, FT4, CMP, ADIFF, GFR, TSH #### [place] [address] #### SYDNIE, RF #### [place] [address] MCH (RBC) [Entitic mass] 31.6 pg High 27.0-31.2 [facility] ([place]) Comment on above: Performed By: #### C BC, ANEU, URIC, FT4, CMP, ADIFF, GFR, TSH #### [place] [address] #### SYDNIE, RF #### [place] [address] MCHC 34.5 G/dL Normal 33.0-37.0 [facility] ([place]) Comment on above: Performed By: #### C BC, ANEU, URIC, FT4, CMP, ADIFF, GFR, TSH #### [place] [address] #### SYDNIE, RF #### [place] [address] MCV (RBC) [Entitic vol] 91.6 fL Normal 80.0-94.0 [facility] ([place]) Comment on above: Performed By: #### C BC, ANEU, URIC, FT4, CMP, ADIFF, GFR, TSH #### [place] [address] #### SYDNIE, RF #### [place] [address] Platelet 196 10 3/mcL Normal 130-400 [facility] ([place]) Comment on above: Performed By: #### C BC, ANEU, URIC, FT4, CMP, ADIFF, GFR, TSH #### [place] [address] #### SYDNIE, RF #### [place] [address] Platelet mean volume (Bld) [Entitic vol] 8.7 fL Normal 7.4-10.4 [facility] ([place]) Comment on above: Performed By: #### C BC, ANEU, URIC, FT4, CMP, ADIFF, GFR, TSH #### [place] [address] #### SYDNIE, RF #### [address] [address] RBC 4.21 10 6/mcL Normal 4.20-5.40 [facility] ([place]) Comment on above: Performed By: #### C BC, ANEU, URIC, FT4, CMP, ADIFF, GFR, TSH #### [address] [address] #### SYDNIE, RF #### [place] [address] WBC 8.2 10 3/mcL Normal 4.6-10.8 [facility] ([place]) Comment on above: Performed By: #### C BC, ANEU, URIC, FT4, CMP, ADIFF, GFR, TSH #### [place] [address] #### SYDNIE, RF #### [place] [address] CMPon 11-23-2022 Albumin Level 4.1 G/dL Normal 3.5-5.0 [facility] ([place]) Comment on above: Performed By: #### C BC, ANEU, URIC, FT4, CMP, ADIFF, GFR, TSH ####[place] [address]#### SYDNIE, RF ####[place] [address] Albumin/Globulin [Mass ratio] 1.5 {ratio} Normal 1.1-2.5 [facility] ([place]) Comment on above: Performed By: #### C BC, ANEU, URIC, FT4, CMP, ADIFF, GFR, TSH ####[place] [address]#### SYDNIE, RF ####[place] [address] ALP [Catalytic activity/Vol] 44 U/L Normal 40-135 [facility] ([place]) Comment on above: Performed By: #### C BC, ANEU, URIC, FT4, CMP, ADIFF, GFR, TSH ####[place] [address]#### SYDNIE, RF ####[place] [address] ALT [Catalytic activity/Vol] 18 U/L Normal 14-59 [facility] ([place]) Comment on above: Performed By: #### C BC, ANEU, URIC, FT4, CMP, ADIFF, GFR, TSH ####[place] [address]#### SDYNIE, RF ####[place] [address] AST [Catalytic activity/Vol] 17 U/L Normal 10-40 [facility] ([place]) Comment on above: Performed By: #### C BC, ANEU, URIC, FT4, CMP, ADIFF, GFR, TSH ####[place] [address]#### SYDNIE, RF ####[place] [address] Bili Total 0.6 mg/dL Normal 0.2-1.0 [facility] ([place]) Comment on above: Result Comment: Use of this assay is not recommended for patients undergoing treatment with eltrombopag due to the potential for falsely elevated results. Performed By: #### C BC, ANEU, URIC, FT4, CMP, ADIFF, GFR, TSH ####[place] [address]#### SYDNIE, RF ####[place] [address] BUN/Creatinine Ratio 12 ratio Normal 7-27 [facility] ([place]) Comment on above: Performed By: #### C BC, ANEU, URIC, FT4, CMP, ADIFF, GFR, TSH ####[place] [address]#### SYDNIE, RF ####[place] [address] Calcium [Mass/Vol] 9.6 mg/dL Normal 8.4-10.2 [facility] ([place]) Comment on above: Performed By: #### C BC, ANEU, URIC, FT4, CMP, ADIFF, GFR, TSH ####[place] [address]#### SYDINE, RF ####[place] [address] Chloride [Moles/Vol] 103 mmol/L Normal 98-107 [facility] ([place]) Comment on above: Performed By: #### C BC, ANEU, URIC, FT4, CMP, ADIFF, GFR, TSH ####[place] [address]#### SYDNIE, RF ####[place] [address] CO2 [Moles/Vol] 28 mmol/L Normal 22-29 [facility] ([place]) Comment on above: Performed By: #### C BC, ANEU, URIC, FT4, CMP, ADIFF, GFR, TSH ####[place] [address]#### SYDNIE, RF ####[place] [address] Creatinine [Mass/Vol] 0.76 mg/dL Normal 0.55-1.02 [facility] ([place]) Comment on above: Performed By: #### C BC, ANEU, URIC, FT4, CMP, ADIFF, GFR, TSH ####[place] [address]#### SYDNIE, RF ####[place] [address] Electrolyte Balance 10.0 mEq/L Normal 4.0-15.0 [facility] ([place]) Comment on above: Performed By: #### C BC, ANEU, URIC, FT4, CMP, ADIFF, GFR, TSH ####[place] [address]#### SYDNIE, RF ####[place] [address] Globulin 2.8 G/dL Normal [facility] ([place]) Comment on above: Performed By: #### C BC, ANEU, URIC, FT4, CMP, ADIFF, GFR, TSH ####[address] [address]#### SYDNIE, RF ####[address] [address] Glucose [Mass/Vol] 74 mg/dL Normal 70-105 [facility] ([place]) Comment on above: Performed By: #### C BC, ANEU, URIC, FT4, CMP, ADIFF, GFR, TSH ####[place] [address]#### SYDNIE, RF ####[address] [address] Potassium [Moles/Vol] 3.8 mmol/L Normal 3.5-5.1 [facility] ([place]) Comment on above: Performed By: #### C BC, ANEU, URIC, FT4, CMP, ADIFF, GFR, TSH ####[place] [address]#### SYDNIE, RF ####[address] [address] Sodium [Moles/Vol] 141 mmol/L Normal 136-145 [facility] ([place]) Comment on above: Performed By: #### C BC, ANEU, URIC, FT4, CMP, ADIFF, GFR, TSH ####[place] [address]#### SYDNIE, RF ####[address] [address] Total Protein 6.9 G/dL Normal 6.4-8.2 [facility] ([place]) Comment on above: Performed By: #### C BC, ANEU, URIC, FT4, CMP, ADIFF, GFR, TSH ####[place] [address]#### SYDNIE, RF ####[address] [address] Urea nitrogen [Mass/Vol] 9 mg/dL Normal 7-18 [facility] ([place]) Comment on above: Performed By: #### C BC, ANEU, URIC, FT4, CMP, ADIFF, GFR, TSH ####[facility] [place], [place] [address]#### SYDNIE, RF ####[facility] [place] [address] FT4on 11-23-2022 Free T4 [Mass/Vol] 1.26 ng/dL Normal 0.76-1.46 [facility] ([place]) Comment on above: Performed By: #### C BC, ANEU, URIC, FT4, CMP, ADIFF, GFR, TSH #### [facility] [address] [place], [place] [address] #### SYDNIE, RF #### [facility] [address] [place], [place] [id number] LABORATORYOrdered By: An Anton on 11-23-2022 Appearance (U) Slightly Cloudy *ABN* (11/23/22 8:13 AM) Invalid Interpretation Code Clear AO Auto Urine SS Bacteria LM.HPF (Urine sed) [#/Area] Trace /HPF Invalid Interpretation Code AO Auto Urine SS Bilirubin Ql (U) Moderate *ABN* (11/23/22 8:13 AM) Invalid Interpretation Code Negative AO Auto Urine SS Calcium oxalate crystals LM.HPF (Urine sed) [#/Area] 1 /[HPF] Invalid Interpretation Code AO Auto Urine SS Color (U) Dark yellow Invalid Interpretation Code AO Auto Urine SS Glucose Test strip (U) [Mass/Vol] Negative Invalid Interpretation Code Negativemg/d L AO Auto Urine SS Hemoglobin Auto test strip (U) [Mass/Vol] Trace *ABN* (11/23/22 8:13 AM) Invalid Interpretation Code Negative AO Auto Urine SS Ketones Ql (U) 80 mg/dL Invalid Interpretation Code Negativemg/d L AO Auto Urine SS UA Leuk Est Negative (11/23/22 8:13 AM) Invalid Interpretation Code Negative AO Auto Urine SS UA Mucous 3+ /HPF Invalid Interpretation Code AO Auto Urine SS UA Nitrite Negative (11/23/22 8:13 AM) Invalid Interpretation Code Negative AO Auto Urine SS UA pH 5.5 (11/23/22 8:13 AM) Invalid Interpretation Code 5.0 - 8.0 AO Auto Urine SS UA Protein Negative Invalid Interpretation Code Negativemg/d L AO Auto Urine SS UA RBC None Seen /HPF Invalid Interpretation Code None Seen/HPF AO Auto Urine SS UA Spec Grav >=1.030 *ABN* (11/23/22 8:13 AM) Invalid Interpretation Code 1.015-1.025 AO Auto Urine SS UA Specimen Type Clean Catch (11/23/22 8:13 AM) Invalid Interpretation Code AO Auto Urine SS UA Squam Epithelial 0-5 /HPF Invalid Interpretation Code None Seen/HPF AO Auto Urine SS UA Urobilinogen 0.2 E.U./dL Invalid Interpretation Code 0.2-1.0E.U./ dL AO Auto Urine SS WBC LM.HPF (Urine sed) [#/Area] 0-5 /HPF Invalid Interpretation Code None Seen/HPF AO Auto Urine SS Basophil, Absolute 0.0 103/mcL Invalid Interpretation Code 0.0 - 0.2 10^3/mcL AO Workflow SS Basophils/100 WBC (Bld) 0.2 % Invalid Interpretation Code 0.0 - 2.5 % AO Workflow SS Eosinophil, Absolute 0.0 103/mcL Invalid Interpretation Code 0.0 - 0.4 10^3/mcL AO Workflow SS Eosinophils/100 WBC (Bld) 0.6 % Invalid Interpretation Code 0.0 - 7.0 % AO Workflow SS Erythrocyte distribution width (RBC) [Ratio] 11.9 % Invalid Interpretation Code 11.5 - 14.5 % AO Workflow SS Hematocrit (Bld) [Volume fraction] 38.5 % Invalid Interpretation Code 37.0 - 47.0 % AO Workflow SS Hemoglobin (Bld) [Mass/Vol] 13.3 G/dL Invalid Interpretation Code 12.0 - 16.0 G/dL AO Workflow SS Lymphocyte, Absolute 1.9 103/mcL Invalid Interpretation Code 0.8 - 3.9 10^3/mcL AO Workflow SS Lymphocytes/100 WBC (Bld) 23.6 % Invalid Interpretation Code 10.0 - 50.0 % AO Workflow SS MCH (RBC) [Entitic mass] 31.6 pg Invalid Interpretation Code 27.0 - 31.2 pg AO Workflow SS MCHC 34.5 G/dL Invalid Interpretation Code 33.0 - 37.0 G/dL AO Workflow SS MCV (RBC) [Entitic vol] 91.6 fL Invalid Interpretation Code 80.0 - 94.0 fL AO Workflow SS Monocyte, Absolute 0.4 103/mcL Invalid Interpretation Code 0.2 - 1.0 10^3/mcL AO Workflow SS Monocytes/100 WBC (Bld) 4.8 % Invalid Interpretation Code 1.7 - 13.0 % AO Workflow SS Neutrophil, Absolute 5.8 103/mcL Invalid Interpretation Code 2.9 - 6.2 10^3/mcL AO Workflow SS Neutrophils/100 WBC (Bld) 70.8 % Invalid Interpretation Code 37.0 - 80.0 % AO Workflow SS Platelet mean volume (Bld) [Entitic vol] 8.7 fL Invalid Interpretation Code 7.4 - 10.4 fL AO Workflow SS Platelets (Bld) [#/Vol] 196 103/mcL Invalid Interpretation Code 130 - 400 10^3/mcL AO Workflow SS RBC (Bld) [#/Vol] 4.21 106/mcL Invalid Interpretation Code 4.20 - 5.40 10^6/mcL AO Workflow SS WBC (Bld) [#/Vol] 8.2 103/mcL Invalid Interpretation Code 4.6 - 10.8 10^3/mcL AO Workflow SS LABORATORYOrdered By: SYSTEM SYSTEM on 11-23-2022 Albumin BCP dye [Mass/Vol] 4.1 G/dL Invalid Interpretation Code 3.5 - 5.0 G/dL AO ADM SS Albumin/Globulin [Mass ratio] 1.5 {ratio} Invalid Interpretation Code 1.1 - 2.5 ratio AO ADM SS ALP [Catalytic activity/Vol] 44 U/L Invalid Interpretation Code 40 - 135 U/L AO ADM SS ALT With P-5'-P [Catalytic activity/Vol] 18 U/L Invalid Interpretation Code 14 - 59 U/L AO ADM SS AST With P-5'-P [Catalytic activity/Vol] 17 U/L Invalid Interpretation Code 10 - 40 U/L AO ADM SS Bilirubin [Mass/Vol] 0.6 mg/dL Invalid Interpretation Code 0.2 - 1.0 mg/dL AO ADM SS Calcium [Mass/Vol] 9.6 mg/dL Invalid Interpretation Code 8.4 - 10.2 mg/dL AO ADM SS Chloride [Moles/Vol] 103 mmol/L Invalid Interpretation Code 98 - 107 mmol/L AO ADM SS CO2 [Moles/Vol] 28 mmol/L Invalid Interpretation Code 22 - 29 mmol/L AO ADM SS Creatinine [Mass/Vol] 0.76 mg/dL Invalid Interpretation Code 0.55 - 1.02 mg/dL AO ADM SS Electrolyte Balance 10.0 mEq/L Invalid Interpretation Code 4.0 - 15.0 mEq/L AO ADM SS Free T4 [Mass/Vol] 1.26 ng/dL Invalid Interpretation Code 0.76 - 1.46 ng/dL AO ADM SS GFR/1.73 sq M.predicted among blacks MDRD (S/P/Bld) [Vol rate/Area] 102 ml/min/1.73sqm Invalid Interpretation Code AO Chemistry S GFR/1.73 sq M.predicted among non-blacks MDRD (S/P/Bld) [Vol rate/Area] 84 ml/min/1.73sqm Invalid Interpretation Code AO Chemistry S Globulin 2.8 G/dL Invalid Interpretation Code AO ADM SS Glucose [Mass/Vol] 74 mg/dL Invalid Interpretation Code 70 - 105 mg/dL AO ADM SS Potassium [Moles/Vol] 3.8 mmol/L Invalid Interpretation Code 3.5 - 5.1 mmol/L AO ADM SS Protein [Mass/Vol] 6.9 G/dL Invalid Interpretation Code 6.4 - 8.2 G/dL AO ADM SS Sodium [Moles/Vol] 141 mmol/L Invalid Interpretation Code 136 - 145 mmol/L AO ADM SS TSH Qn 0.41 m[IU]/L Invalid Interpretation Code 0.36 - 3.74 mcIU/mL AO ADM SS Urea nitrogen [Mass/Vol] 9 mg/dL Invalid Interpretation Code 7 - 18 mg/dL AO ADM SS Urea nitrogen/Creatinine [Mass ratio] 12 ratio Invalid Interpretation Code 7 - 27 ratio AO ADM SS Uric Acid Lvl 4.3 mg/dL Invalid Interpretation Code 2.6 - 6.2 mg/dL AO ADM SS TSHon 11-23-2022 TSH Qn 0.41 m[IU]/L Normal 0.36-3.74 [facility] ([place]) Comment on above: Performed By: #### C BC, ANEU, URIC, FT4, CMP, ADIFF, GFR, TSH #### [address] [address] #### SYDNIE, RF #### [address] [address] UAon 11-23-2022 Color (U) Dark yellow Normal [facility] ([place]) Comment on above: Performed By: #### U A, UAMICAO ####[address] [place] [address] Glucose (U) [Mass/Vol] Negative Normal Negative [facility] ([place]) Comment on above: Performed By: #### U A, UAMICAO ####[address] [place] [address] Ketones Ql (U) 80 mg/dL Abnormal Negative [facility] ([place]) Comment on above: Performed By: #### U A, UAMICAO ####[address] [place] [address] UA Appear Slightly Cloudy Abnormal Clear [facility] ([place]) Comment on above: Performed By: #### U A, UAMICAO ####[address] [place] [address] UA Bili Moderate Abnormal Negative [facility] ([place]) Comment on above: Performed By: #### U A, UAMICAO ####[address] [place] [address] UA Blood Trace Abnormal Negative [facility] ([place]) Comment on above: Performed By: #### U A, UAMICAO ####[address] [place] [address] UA Leuk Est Negative Normal Negative [facility] ([place]) Comment on above: Performed By: #### U A, UAMICAO ####[address] [place] [address] UA Nitrite Negative Normal Negative [facility] ([place]) Comment on above: Performed By: #### U A, UAMICAO ####[address] [place] [address] UA pH 5.5 Normal 5.0 - 8.0 [facility] ([place]) Comment on above: Performed By: #### U A, UAMICAO ####[address] [place] [address] UA Protein Negative Normal Negative [facility] ([place]) Comment on above: Performed By: #### U A, UAMICAO ####[address] [place] [address] UA Spec Grav >=1.030 Abnormal 1.015-1.025 [facility] ([place]) Comment on above: Performed By: #### U A UAMICAO ####[address] [place], [place] [address] UA Specimen Type Clean Catch Normal [facility] ([place]) Comment on above: Performed By: #### U A, UAMICAO ####[address] [place] [place], [place] [address] UA Urobilinogen 0.2 E.U./dL Normal 0.2-1.0 [facility] ([place]) Comment on above: Performed By: #### U A, UAMICAO ####[address] [place], [place] [address] URICon 11-23-2022 Uric Acid Lvl 4.3 mg/dL Normal 2.6-6.2 [facility] ([place]) Comment on above: Performed By: #### C BC, ANEU, URIC, FT4, CMP, ADIFF, GFR, TSH #### [address] [address] #### SYDNIE, RF #### [place] [address] Final Surgical Pathology Rep [facility] 07-28-2022 Final Surgical Pathology Report . Pathology Reports Accession: Collected Date/Time: Received Date/Time: Pathologist: [id number] 07/26/2022 10:12 DEX 07/27/2022 10:26 NNAMDI CASAS MD Final Surgical Pathology Report DIAGNOSIS: A) CERVIX BIOPSY @ 6 O'CLOCK - LOW GRADE WILEY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 and the report reviewed and electronically signed by: AMA RUSSELL MD on Dec 31 2019 10:00AM EST Normal [facility] ANES Joan 11-12-2018 ANES POST HNO ID: [id number] Author: Leonel Bernard Service: Anesthesiology Author Type: Anesthesiologist Type: Anesthesia PostOp Filed: 11/12/2018 12:37 PM Note Text: POST ANESTHESIA EVALUATION NOTE SERVICE DATE: 11/12/2018 SERVICE TIME: 12.36 : 1980 Vitals: 11/12/18 0903 11/12/18 1100 Temp: 37.4 ?C (99.3 ?F) 36.6 ?C (97.9 ?F) 11/12/18 1100 11/12/18 1115 11/12/18 1130 11/12/18 1138 BP: 103/60 94/51 97/53 99/54 11/12/18 1100 11/12/18 1115 11/12/18 1130 11/12/18 1138 Pulse: 97 87 86 84 11/12/18 1100 11/12/18 1115 11/12/18 1130 11/12/18 1138 Resp: 16 16 22 18 11/12/18 1100 11/12/18 1115 11/12/18 1130 11/12/18 1138 SpO2: 99% 97% 99% 99% Validated Vital Signs: Yes POST ANES STATUS: No apparent anesthetic complications. The patient is appropriately hydrated with stable respiratory and cardiovascular status. Patient has safe and adequate airway control. The patient has appropriate pain relief and no significant post operative nausea or vomiting. The patient has achieved baseline mental status. Intra-Operative Events: No Significant Anesthesia Events Further assessment by Anesthesia Service: None Other Remarks: SIGNATURE: Leonel Bernard MD PATIENT NAME: Yamilka Bryant DATE: November 12, 2018 TIME: 12:36 PM PAGER/CONTACT #: anesthesia [facility] ANES PREOPon 11-12-2018 ANES PREOP HNO ID: [id number] Author: Leonel P Vincent Service: Anesthesiology Author Type: Anesthesiologist Type: Anesthesia PreOp Filed: 11/12/2018 10:02 AM Note Text: ANESTHESIOLOGY DAY OF SURGERY NOTE SERVICE DATE: 11/12/2018 SERVICE TIME: 05.01 : 1980 Procedure(s) (LRB): COLONOSCOPY (N/A) Surgeon(s): José Miguel King Estimated body mass index is 26.26 kg/m? as calculated from the following: Height as of this encounter: 162.6 cm (5' 4). Weight as of this encounter: 69.4 kg (153 lb). Most recent hematocrit and potassium results: Hematocrit 41.5 10/02/2018 Potassium 4.4 10/02/2018 ANES DOS/PREOP NOTE: Vitals: 11/12/18 0903 BP: 106/61 Pulse: 93 Resp: 17 Temp: 37.4 ?C (99.3 ?F) TempSrc: Temporal Artery SpO2: 99% Weight: 69.4 kg (153 lb) Height: 162.6 cm (5' 4) ACTIVE PROBLEM LIST Diarrhea Altered Bowel Habits Palpitations Tachycardia Multiple Thyroid Nodules Hyperthyroidism Anxiety Former Smoker PAST MEDICAL HISTORY Diagnosis Date - Barger's esophagus determined by biopsy [facility] T[facility] PAST SURGICAL HISTORY Procedure Laterality Date - [facility] AD[facility]ANE FUNDOPLASTY 2013 [facility] - TONSILLECTOMY HX FAMILY HISTORY Problem Relation Age of Onset - Heart Mother of CHF - Heart disease Father - Skin Cancer Father - GI Father diverticulitis - Heart Sister irregular heart beat Social History: Social History Tobacco Use - Smoking status: Former Smoker Packs/day: 0.75 Years: 15.00 Pack years: 11.25 Types: Cigarettes Last attempt to quit: 2013 Years since quittin.2 - Smokeless tobacco: Never Used Substance Use Topics - Alcohol use: Never Frequency: Never - Drug use: Never No current facility-administered medications on file prior to encounter. Current Outpatient Medications on File Prior to Encounter: dicyclomine (BENTYL) 10 mg capsule Take one (1) or two (2) capsules, three times a day. multivit with minerals/lutein (MULTIVITAMIN 50 PLUS ORAL) Take by mouth. Lactobac no.41/Bifidobact no.7 (PROBIOTIC-10 ORAL) Take by mouth. Omeprazole 20 mg TbEC Take 20 mg by mouth once daily. metoprolol succinate ER (TOPROL XL) 25 mg 24 hr tablet Take 25 mg by mouth once daily. Current Facility-Administered Medications: NaCl 0.9% iv infusion 30 mL/hr INTRAVENOUS CONTINUOUS José Miguel King Last Rate: 30 mL/hr at 11/12/18 0916 30 mL/hr at 11/12/18 0916 Allergies: ALLERGIES No Known Allergies DOS EXAM: Adequate NPO status: Yes Anesthetic risks, benefits, alternatives, personnel and consent discussed: Yes Patient agrees to proceed: Yes Previous Anesthesia: No history of adverse event. Airway Assessment: MP 2; Neck ROM: Full ROM without neurologic symptoms; Airway Evaluation: No significant abnormalities Symptoms of Sleep Apnea: None Dentition: Poor dentition Additional Physical Exam: Lungs: Patient health status unchanged since recent history and physical. See history and physical for exam findings. Lungs clear to auscultation. Good diaphragmatic excursion. Cardiac: Patient health status unchanged since recent history and physical. See history and physical for exam findings. normal S1 and S2; no rubs, no murmurs, and no gallops Additional Pertinent Findings: N/A Blood Products: Not anticipated for this procedure. Anesthetic Plan: MAC with Sedation Pain Management Plan: Parenteral or Oral ASA Class: 2 Other Medical Problems: None Chronic Beta Anton medication administered within 24 hours: N/A I have interviewed and examined the patient. I have reviewed the medical record and/or the pre-anesthesia evaluation, pertinent labs, and test results. Significant changes in the patient's condition since the History and Physical, not otherwise documented in primary service progress notes: No This contains updated information obtained within 48 hours of Surgery/Procedure. SIGNATURE: Leonel Bernard MD PATIENT NAME: Yamilka Bryant DATE: November 12, 2018 TIME: 10:02 AM CSN: [id number] Normal [facility] HISTORY PHYSICALon HISTORY PHYSICAL HNO ID: [id number] Author: José Miguel King Service: General Surgery Author Type: Physician Type: HANDP Filed: 11/12/2018 9:27 AM Note Text: This note was created using Designer Materialriter. Yamilka Bryant is a 37 year old female returning for follow up regarding altered bowel habits (diarrhea). I saw the patient in consultation on 10/02/18. That note has been reviewed. UGI-SBFT ordered and she was prescribed omeprazole. ? ? DATE OF EXAM: Sep 12:25PM ? MDX ? 5381 ?- ?XR UPPER GI W SMALL BOWEL SERIES ?/ PROCEDURE REASON: multiple diagnoses ?? ? * * * * Physician Interpretation * * * * ?Study: Upper GI and Small bowel seires single contrast study. HISTORY: Indication: Diarrhea, unspecified type Altered bowel habits Nausea TECHNIQUE: Radiation time: 1:50 (minutes:secs) Images obtained: Multiple spot film images under fluoroscopic guidance. Comparison: NONE. RESULT: Findings: Esophagus: ?Swallowing function unremarkable.. No hiatal hernia is seen. ? ?No gastroesophageal reflux identified. Stomach: The stomach showed no evidence of persistent filling defects,ulceration or mass lesions. ?Terminal ileum is unremarkable. Small bowel findings: No evidence of ulceration. ?Normal transit time. ? IMPRESSION: Negative exam. ? The patient underwent EGD by Dr. Ventura on 07/04/17: Report of Operation Date of Procedure: 07/04/17 Pre-Operative Diagnosis:?History of Barger's Post-Operative Diagnosis: Same Surgery/Procedure Performed:: EGD with biopsies Specimen's removed: 1. ?Antral biopsies. ?2. ?GE junction biopsies Description of Procedure: ? The patient was then placed in the left lateral decubitus position. IV sedation was started by anesthesia. The endoscope was then advanced under direct visualization over the tongue, into the esophagus, stomach and duodenum. It was slowly withdrawn and the mucosa was carefully evaluated. Duodenal mucosal abnormalities were not visualized. Antegrade and retrograde views of the stomach were normal and did not reveal a hiatal hernia or ulceration. ?Retrograde views revealed that the wrap was intact and below the diaphragm. ?Gastric folds were normal. A biopsy of the antrum was performed with cold forceps. The scope was then withdrawn through the GE junction and careful examination did not demonstrate any mucosal abnormalities. ?The patient had a history of Barger's esophagus and so four-quadrant biopsies of the GE junction were performed with cold forceps. ?Careful examination of the remainder of the esophagus was normal. The scope was then withdrawn from the patient and the procedure terminated. It was well tolerated and there were no immediate complications. ? MICROSCOPIC DIAGNOSIS A. Gastric antrum, biopsy: ?Gastritis. ? B. ?Gastroesophageal junction, biopsy: ?Fragments of gastric mucosa with chronic inflammation. ?No evidence of goblet cell metaplasia. ? RESULTS: ANTIBODY / CLONE ?RESULT H Pylori ?(polyclonal) ?negative ? Subjective The patient presents today reporting that taking the dicyclomine has decrease her bowel movements have from 5-6 times a day down to 3-4, but the discomfort persists. Mostly RLQ, but the discomfort can involve most of the abdomen at times. No blood or black stool. ? Taking omeprazole daily. The patient reports that she had a fever, nausea and vomiting over the weekend. Saw her PCP and wasn't given anything. We discussed the likelihood of that being viral. ? ? Review of Systems Constitutional: Positive for fever (for 24 hours 10/13). Negative for appetite change and unexpected weight change. HENT: Negative for dental problem, mouth sores and trouble swallowing. Eyes: Negative for visual disturbance. Respiratory: Negative for cough, shortness of breath and wheezing. Cardiovascular: Negative for chest pain and palpitations. Gastrointestinal: Positive for abdominal pain and diarrhea. Negative for blood in stool and nausea (resolved since the weekend episode.). Genitourinary: Negative for difficulty urinating, vaginal bleeding and vaginal discharge. Musculoskeletal: Positive for back pain. Skin: Negative for color change, pallor and rash. Neurological: Negative for tremors, seizures, syncope and headaches. Hematological: Negative for adenopathy. Does not bruise/bleed easily. Psychiatric/Behavioral: The patient is not nervous/anxious. ? ? ? PHYSICAL EXAMINATION: Blood pressure 110/69, pulse 83, height 162.6 cm (5' 4), weight 68.5 kg (151 lb), last menstrual period 10/11/2018. General appearance: Well appearing, alert, in no acute distress, well-hydrated, well nourished. Skin: Skin color, texture, turgor normal, no suspicious rashes or lesions. Head: Normocephalic, no masses, lesions or abnormalities. Eyes: Anicteric sclera. . Neck: Supple, no adenopathy; thyroid symmetric, normal size. Lungs: lungs clear to auscultation. No wheezing, rhonchi, rales. Heart: RRR without murmur. Abdomen: Bowel sounds normal. Abdomen soft. Mild tenderness RLQ, minimal tenderness otherwise. No masses, organomegaly. Extremities: No deformities, edema, skin discoloration, clubbing or cyanosis. Peripheral pulses: Normal Neuro: Gait normal. Reflexes normal and symmetric. Sensation grossly intact. ? Assessment and Plan Altered bowel habits 2)RLQ pain ? The patient may increase dicyclomine to 1 or 2 three times a day. ? This patient will be scheduled for a colonoscopy with MAC. She will be using Miralax/Dulcolax as the prep. The preparation, as well as the procedure, has been explained in detail. The risks, benefits, anticipated outcomes and possible complications were mentioned. I explained the procedure in understandable terms and the patient was given printed material concerning the planned procedure. The patient had the opportunity to ask questions concerning the planned procedure. The patient freely consents to the planned procedure. ? The patient is asked to call with any questions for concerns, or should there be any change in health status between now and the scheduled procedure. ? I have personally interviewed and examined this patient. I have read the information the MA documented in this encounter. I spent 30 minutes in the visit, with more than 50% of the total ifvq-mi-rcya time of the visit in counseling / coordination of care. ? Mattie Pierre RN INTERN PRODUCT MARKETING MANAGER.[facility] NURSING PROGon 11-12-2018 Protein mass conc HNO ID: [id number] Author: Sofía (Rn) KAJAL Garcia Service: Nursing Author Type: Registered Nurse Type: Nursing Progress Note Filed: 11/12/2018 11:29 AM Note Text: Nursing Progress Note Patient Name: Yamilka Bryant Patient Location: [facility] Endo/[facility] Endo re[port from Philip P RN, pt sitting upright eating ice chips, c/o abd cramping, advised to pass gas today, pt states that she is. VSS This note was completed by: Sofía Garcia RN [facility] PT EDon 11-12-2018 PT ED HNO ID: [id number] Author: Kenan ValenciaRnYenifer Bang RN Service: ? Author Type: Registered Nurse Type: Patient Education Filed: 11/12/2018 11:53 AM Note Text: POST OP LEARNING RESPONSE INSTRUCTION PROVIDED TO: Patient and family member METHOD OF INSTRUCTION: Teach Back . PATIENT / FAMILY RESPONSE: Verbalizes understanding of: POST-OPERATIVE INSTRUCTIONS-Correct actions to take to reduce postoperative complications FOLLOW-UP PLAN: Patient instructed to call with any further issues SUPPLEMENTAL MATERIAL: None REFERRAL (RECOMMENDATION): None Electronically Signed By: Kenan Bang RN In Department: [facility] ENDOSCOPY [facility] PT ED HNO ID: [id number] Author: Rhonda ValenciaRn) KAJAL Teixeira Service: ? Author Type: Registered Nurse Type: Patient Education Filed: 11/12/2018 8:58 AM Note Text: PRE OP LEARNING ASSESSMENT PROCEDURE/SURGERY: GI PROCEDURES: Colonoscopy READINESS TO LEARN COGNITIVE ABILITY: Alert and oriented MOTIVATION TO LEARN: Interested FAMILY SUPPORT: High - Very involved in pt care PATIENT LEARNS BEST BY: Verbal Instruction FACTORS AFFECTING LEARNING: None PHYSICAL LIMITATIONS AFFECTING LEARNING: None Electronically Signed By: Rhonda Teixeira RN In Department: [facility] ENDOSCOPY [facility] SURGICAL PATHOLOGYon 019 SURGICAL PATHOLOGY Specimen originated from [facility] Specimen #: [id number] Submitting Physician: JOSÉ MIGUEL KING MD FINAL DIAGNOSIS 1. Rectum, polypectomy (A) - Hyperplastic polyp. 2. Terminal ileum, biopsy (B) - Ileal mucosa with no diagnostic alteration. 3. Random colon, biopsy (C) - Colonic mucosa with no diagnostic alteration. TP/kr 11/13/2018 Fransico Mock M.D. (Electronic Signature) SPECIMEN SUBMITTED A: RECTAL POLYP B: TERMINAL ILEUM, BIOPSY C: RANDOM COLON, BIOPSY CLINICAL DATA DIARRHEA, LMP: HCG NEGATIVE GROSS DESCRIPTION A. Received in formalin is one piece of judd, soft tissue measuring 0.3 x 0.2 x 0.2 cm. Totally submitted in one cassette. B. Received in formalin is one piece of judd, soft tissue measuring 0.3 x 0.2 x 0.2 cm. Totally submitted in one cassette. C. Received in formalin are multiple pieces of judd, soft tissue aggregating to 0.7 x 0.2 x 0.2 cm. Totally submitted in one cassette. Gross examination performed at [facility], [address] [place] [address] 11/12/2018 4:28:50 PM Date of Report: 11/13/2018 Date of Procedure: 11/12/2018 Date of Receipt: 11/12/2018 Submitted by: JOSÉ MIGUEL KING MD Location: [facility] Diagnostic interpretation performed at [facility], [address] [place] [address]. [place] Number: [id number] [facility] NURSING PROGon 11-05-2018 Protein mass conc HNO ID: [id number] Author: Hien (Rn) KAJAL Banegas Service: ? Author Type: Registered Nurse Type: Nursing Progress Note Filed: 11/05/2018 9:27 AM Note Text: PACC Nurse Progress Note History AND Physical: PACC Visit Date: 11/01/18 Original HANDP Date: N/A ED visit Date: N/A Outside HANDP Scanned Date: N/A Labs Within Last 6 Months: CBC: Date 11/01/18-within normal limits BMP/CMP: Date 11/01/18-within acceptable limits Imaging Within Last 12 Months: X-ray-upper GI series Date of test: 10/04/18 See chart Cardiac Testing: N/A Last Menstrual Period: LMP Date: 10/11/18 Postmenopausal >1yr: No, S/P Hysterectomy: NoBMI Percentile (PEDS): N/A Risk Assessment: N/A Anesthesia Review: N/A Narrative: Per HPI: Anxiety; history of palpitations Pre-op Considerations: N/A Chart Check: COMPLETED Hien Banegas RN November 05, 2018 9:25 AM [facility] HISTORY PHYSICALon 9 HISTORY PHYSICAL HNO ID: [id number] Author: Sindhu Lawson (Cally Brandt Service: ? Author Type: Nurse Practitioner Type: HANDP Filed: 11/01/2018 11:19 AM Note Text: HISTORY AND PHYSICAL EXAMINATION SERVICE DATE: 11/01/2018 SERVICE TIME: 10:34 AM PRIMARY CARE PHYSICIAN: Cole Dillard NP REASON FOR VISIT: Yamilka Bryant is a 37 year old female who is scheduled for PAC due to colonoscopy at the request of Dr. José Miguel King for consultation. My final recommendation will be communicated back to the requesting physician by way of shared medical record or letter. The patient has the following: ACTIVE PROBLEM LIST Diarrhea Altered Bowel Habits Palpitations Tachycardia Multiple Thyroid Nodules Hyperthyroidism Anxiety Former Smoker Subjective CHIEF COMPLAINT: Pre-op exam: Altered bowel habits HPI: Keegan Is a 37 yo female seen for PAC due to scheduled colonoscopy because of complaints of altered bowel habits/diarrhea x month and half. Pt also with complaints of nausea, hx of barger's and generalized abdominal pain. PMH-palpitations, tachycardia, anxiety PAST MEDICAL HISTORY Diagnosis Date - Barger's esophagus determined by biopsy - [facility] PAST SURGICAL HISTORY Procedure Laterality Date - [facility]ION AD[facility] FUNDOPLASTY 2013 [facility] - TONSILLECTOMY HX FAMILY HISTORY Problem Relation Age of Onset - Heart Mother of CHF - Heart disease Father - Skin Cancer Father - GI Father diverticulitis - Heart Sister irregular heart beat SOCIAL HISTORY: Social History Socioeconomic History Marital status: Single Spouse name: Not on file Number of children: Not on file Years of education: Not on file Highest education level: Not on file Social Needs Financial resource strain: Not on file Food insecurity - worry: Not on file Food insecurity - inability: Not on file Transportation needs - medical: Not on file Transportation needs - non-medical: Not on file Occupational History Not on file Tobacco Use Smoking status: Former Smoker Packs/day: 0.75 Years: 15.00 Pack years: 11.25 Types: Cigarettes Quit date: 2013 Years since quittin.2 Smokeless tobacco: Never Used Substance and Sexual Activity Alcohol use: Never Frequency: Never Drug use: Never Sexual activity: Not on file Other Topics Concerns: Not on file Social History Narrative Not on file Prior to Admission medications as of 11/01/18 1032 Medication Sig Last Dose Taking polyethylene glycol 3350 (MIRALAX, GLYCOLAX) 17 gram/dose powder Take one (1) bottle as instructed on instruction sheet for colonoscopy. Taking Yes dicyclomine (BENTYL) 10 mg capsule Take one (1) or two (2) capsules, three times a day. Taking Yes multivit with minerals/lutein (MULTIVITAMIN 50 PLUS ORAL) Take by mouth. Taking Yes Lactobac no.41/Bifidobact no.7 (PROBIOTIC-10 ORAL) Take by mouth. Taking Yes Omeprazole 20 mg TbEC Take 20 mg by mouth once daily. Taking Yes metoprolol succinate ER (TOPROL XL) 25 mg 24 hr tablet Take 25 mg by mouth once daily. Taking Yes No medication comments found. ALLERGIES No Known Allergies REVIEW OF SYSTEMS: PAIN ASSESSMENT: Pain Pain Level: 3 Pain Location: Abdomen Description: Aching Frequency: Continuous Intervention: Relaxation General: Unintentional weight loss 8lbs due to diarrhea Neuro: No history of TIA's, stroke, SIDING STAPLER tumor, impaired sensorium, hemiplegia, paraplegia or quadraplegia. No neurological symptoms or problems. Denies hx BARR/migraines. Denies numbness/tingling. Respiratory: No history of current cough or dyspnea, or pneumonia in the past 6 weeks. No history of respiratory/pulmonary symptoms or problems. Former smoker. Denies hx of asthma, or NOELLE. Cardiovascular: Positive for: palpitations and tachycardia, on rx, follows [facility], Negative for Recent LA, Arrhythmia, CAD, Chest Pain, CHF, HTN, PVD, Valvular Heart Disease, DVT/PE, LE edema or SOB GI: See HPI : hx of kidney stone. Denies hx of frequent UTIs or CKD. TELEMETRY RN: Negative for abnormal vaginal bleeding, abnormal vaginal discharge. 2-3 weeks menstrual cycles occasional periods, on Depo : Denies, Patient's last menstrual period was 10/11/2018. Endocrine: Hyperthyroidism and multiple thyroid nodules, no rx, surveillance by PCP . Denies DM. Hematology: No history of bleeding or clotting disorder. Pt is not taking anti-coagulation or platelet medications. No history of hematological symptoms or problems. Oncology: No history of CA metastasis, chemo within 30 days, or radiotherapy within 90 days. Has not lost 10% of body wt in 6 months. No history of oncological symptoms or problems. Psych: Anxiety on rx PRN Musculoskeletal: Negative for joint pain or swelling, back pain or muscle pain. Skin: Negative for lesions, rash and itching. Objective PHYSICAL EXAM: VITALS: BP 105/54 Pulse 83 Temp (Src) 98.5 (Tympanic) Resp 16 Ht 5' 4 (1.63m) Wt 153 lb (69.4kg) SpO2 97% LMP 10/11/2018 BMI 26.25 kg/(m2). General: Alert and oriented Skin: Normal color, no rash, no lesions. HEENT: EOM, pupils equal, round and reactive. Cardiovascular: Normal S1 AND S2, no rubs, murmurs or gallops. No JVD. Pulse regular. Lungs: Normal breath sounds, no wheezes or crackles. Abdomen: Soft, non-tender, no rigidity. Extremities: No deformity, no edema or tenderness, no joint swelling or clubbing. Neurological: Normal cognition and motor skills. Pulses: Carotid and radial pulses normal +2. Diagnostic tests reviewed for today's visit: Lab Value Units Date High Low HB 13.9 g/dL 10/02/2018 15.5 11.5 HCT 41.5 % 10/02/2018 46.0 36.0 WBC 7.68 k/uL 10/02/2018 11.00 3.70 PLT 241 k/uL 10/02/2018 400 150 NA 141 mmol/L 10/02/2018 144 136 K 4.4 mmol/L 10/02/2018 5.1 3.7 GLUC 85 mg/dL 10/02/2018 99 74 BUN 6 mg/dL 10/02/2018 21 7 CREAT 0.65 mg/dL 10/02/2018 0.96 0.58 PTSEC No results within date range. INR No results within date range. APTT No results within date range. ALT 13 U/L 10/02/2018 38 7 AST 18 U/L 10/02/2018 35 13 TBILI 0.3 mg/dL 10/02/2018 1.3 0.2 TSH No results within date range. Lab Value Units Date High Low HCGQT No results within date range. UHCG No results within date range. HCG, BODY* No results within date range. Lab Value Units Date High Low ABORHD No results within date range. ABSCREEN No results within date range. No results found for: HBA1C Most recent labs Assessment/Plan Palpitations On rx, follows [facility] Tachycardia On rx, pulse 83 today Multiple thyroid nodules Surveillance by PCP Hyperthyroidism No rx Anxiety Buspar PRN Former smoker . METS: Climb a flight of stairs or walk up a hill (5.50 METs) Patient denies any chest pain or undue shortness of breath with the above physical activity. ASA Class: 3 ANESTHESIA FINDINGS: Intubation History: No history of difficult intubation Significant Anesthesia Considerations: None Airway Exam: General: Normal appearance Mallampati Score is CLASS II ULBT: Class I - Lower incisors can bite the upper lip above the marisol line Neck: Normal appearance and function, Distance from hyoid to mentum during neck extension is at least 3 finger breaths, neck fullness/thyroid nodules Mouth: Normal tongue size Dentition: multiple cavities, but intact Airway History: No abnormal airway history STOP BANG Score: Criteria: None Score = 0 PLAN This patient is optimally prepared for surgery. CONSULTS: Patient does not require consults for optimization at this time. The Following Tests/Procedures Have Been Initiated: Labs not indicated per PACC protocol, EKG not indicated per PACC protocol Planned Anesthetic: Per anesthesia choice Instructions Given to Patient: Patient given verbal and written preop instructions and voices comprehension and compliance. @ASSESSEND@ SIGNATURE: Sindhu Brandt APRN.[facility]YO PATIENT NAME: Yamilka Bryant DATE: November 01, 2018 TIME: 10:34 AM PAGER/CONTACT #: [facility] HOSPon 10-24-2018 HOSP Patient:Yani Bryant MRN: Height:5' 4(1.626 m) Weight:153 lb (69.4 kg) Outpatient Medications as of 11/12/18: busPIRone (BUSPAR) 10 mg tablet dicyclomine (BENTYL) 10 mg capsule multivit with minerals/lutein (MULTIVITAMIN 50 PLUS ORAL) Lactobac no.41/Bifidobact no.7 (PROBIOTIC-10 ORAL) Omeprazole 20 mg TbEC metoprolol succinate ER (TOPROL XL) 25 mg 24 hr tablet Admission/Clinic Administered Medications as of 11/12/18: NaCl 0.9% iv infusion Problem List: Diarrhea [R19.7] Altered bowel habits [R19.4] Palpitations [R00.2] Tachycardia [R00.0] Multiple thyroid nodules [E04.2] Hyperthyroidism [E05.90] Anxiety [F41.9] Former smoker [Z87.891] Allergies: No Known Allergies Date Verified:11/12/18 Lab Values No results within the last 30 days for the following basenames: K,HCT Progress Notes ([facility]): Piper Villegas Ma 10/18/2018 2:41 PM Signed Patient needs to be scheduled for a Colonoscopy MAC in [place] with Dr. King. Dx- altered bowel habits, diarrhea, unspecified type, generalized abdominal pain. Piper Rodriguez 10/24/2018 4:28 PM Signed 11-12-2018 Per patient scheduled colon Gal Rodriguez Progress Notes ([facility]): Mattie Pierre RN APRN.ELECTROPHYSIOLOGY SCIENTIST 10/18/2018 2:06 PM Signed You may take 2 of the dicyclomine, three times a day. Please follow the instructions for colonoscopy. You will be using Dulcolax and Miralax as laxatives during the preparation for the procedure. Your procedure will be at [facility], on November 12. This will be with Dr. King, with the same sedation you had for the upper endoscopy. Follow up with me on November 20, for 1:00. Mattie Pierre RN APRN.ELECTROPHYSIOLOGY SCIENTIST 10/18/2018 2:21 PM Signed This note was created using [employer]er [employer]. Yamilka Bryant is a 37 year old female returning for follow up regarding altered bowel habits (diarrhea). I saw the patient in consultation on 10/02/18. That note has been reviewed. UGI-SBFT ordered and she was prescribed omeprazole. DATE OF EXAM: Sep 12:25PM ? MDX ? 5381 ?- ?XR UPPER GI W SMALL BOWEL SERIES ?/ PROCEDURE REASON: multiple diagnoses ?? ? * * * * Physician Interpretation * * * * ?Study: Upper GI and Small bowel seires single contrast study. HISTORY: Indication: Diarrhea, unspecified type Altered bowel habits Nausea TECHNIQUE: Radiation time: 1:50 (minutes:secs) Images obtained: Multiple spot film images under fluoroscopic guidance. Comparison: NONE. RESULT: Findings: Esophagus: ?Swallowing function unremarkable.. No hiatal hernia is seen. ? ?No gastroesophageal reflux identified. Stomach: The stomach showed no evidence of persistent filling defects,ulceration or mass lesions. ?Terminal ileum is unremarkable. Small bowel findings: No evidence of ulceration. ?Normal transit time. IMPRESSION: Negative exam. The patient underwent EGD by Dr. Ventura on 07/04/17: Report of Operation Date of Procedure: 07/04/17 Pre-Operative Diagnosis: History of Barger's Post-Operative Diagnosis: Same Surgery/Procedure Performed:: EGD with biopsies Specimen's removed: 1. Antral biopsies. 2. GE junction biopsies Description of Procedure: The patient was then placed in the left lateral decubitus position. IV sedation was started by anesthesia. The endoscope was then advanced under direct visualization over the tongue, into the esophagus, stomach and duodenum. It was slowly withdrawn and the mucosa was carefully evaluated. Duodenal mucosal abnormalities were not visualized. Antegrade and retrograde views of the stomach were normal and did not reveal a hiatal hernia or ulceration. Retrograde views revealed that the wrap was intact and below the diaphragm. Gastric folds were normal. A biopsy of the antrum was performed with cold forceps. The scope was then withdrawn through the GE junction and careful examination did not demonstrate any mucosal abnormalities. The patient had a history of Barger's esophagus and so four-quadrant biopsies of the GE junction were performed with cold forceps. Careful examination of the remainder of the esophagus was normal. The scope was then withdrawn from the patient and the procedure terminated. It was well tolerated and there were no immediate complications. ? MICROSCOPIC DIAGNOSIS A. Gastric antrum, biopsy: Gastritis. B. Gastroesophageal junction, biopsy: Fragments of gastric mucosa with chronic inflammation. No evidence of goblet cell metaplasia. ? RESULTS: ANTIBODY / CLONE RESULT H Pylori (polyclonal) negative Subjective The patient presents today reporting that taking the dicyclomine has decrease her bowel movements have from 5-6 times a day down to 3-4, but the discomfort persists. Mostly RLQ, but the discomfort can involve most of the abdomen at times. No blood or black stool. Taking omeprazole daily. The patient reports that she had a fever, nausea and vomiting over the weekend. Saw her PCP and wasn't given anything. We discussed the likelihood of that being viral. Review of Systems Constitutional: Positive for fever (for 24 hours 10/13). Negative for appetite change and unexpected weight change. HENT: Negative for dental problem, mouth sores and trouble swallowing. Eyes: Negative for visual disturbance. Respiratory: Negative for cough, shortness of breath and wheezing. Cardiovascular: Negative for chest pain and palpitations. Gastrointestinal: Positive for abdominal pain and diarrhea. Negative for blood in stool and nausea (resolved since the weekend episode.). Genitourinary: Negative for difficulty urinating, vaginal bleeding and vaginal discharge. Musculoskeletal: Positive for back pain. Skin: Negative for color change, pallor and rash. Neurological: Negative for tremors, seizures, syncope and headaches. Hematological: Negative for adenopathy. Does not bruise/bleed easily. Psychiatric/Behavioral: The patient is not nervous/anxious. PHYSICAL EXAMINATION: Blood pressure 110/69, pulse 83, height 162.6 cm (5' 4), weight 68.5 kg (151 lb), last menstrual period 10/11/2018. General appearance: Well appearing, alert, in no acute distress, well-hydrated, well nourished. Skin: Skin color, texture, turgor normal, no suspicious rashes or lesions. Head: Normocephalic, no masses, lesions or abnormalities. Eyes: Anicteric sclera. . Neck: Supple, no adenopathy; thyroid symmetric, normal size. Lungs: lungs clear to auscultation. No wheezing, rhonchi, rales. Heart: RRR without murmur. Abdomen: Bowel sounds normal. Abdomen soft. Mild tenderness RLQ, minimal tenderness otherwise. No masses, organomegaly. Extremities: No deformities, edema, skin discoloration, clubbing or cyanosis. Peripheral pulses: Normal Neuro: Gait normal. Reflexes normal and symmetric. Sensation grossly intact. Assessment and Plan Altered bowel habits 2)RLQ pain The patient may increase dicyclomine to 1 or 2 three times a day. This patient will be scheduled for a colonoscopy with MAC. She will be using Miralax/Dulcolax as the prep. The preparation, as well as the procedure, has been explained in detail. The risks, benefits, anticipated outcomes and possible complications were mentioned. I explained the procedure in understandable terms and the patient was given printed material concerning the planned procedure. The patient had the opportunity to ask questions concerning the planned procedure. The patient freely consents to the planned procedure. The patient is asked to call with any questions for concerns, or should there be any change in health status between now and the scheduled procedure. I have personally interviewed and examined this patient. I have read the information the MA documented in this encounter. I spent 30 minutes in the visit, with more than 50% of the total ikfq-oh-pazd time of the visit in counseling / coordination of care. Mattie Pierre RN INTERN PRODUCT MARKETING MANAGER.[facility] XR UPPER GI W SMALL BOWEL SE Mary Beth 10-04-2018 XR UPPER GI W SMALL BOWEL SERIES * * *Final Report* * * DATE OF EXAM: Oct 04 2018 12:25PM MDX 5381 - XR UPPER GI W SMALL BOWEL SERIES / PROCEDURE REASON: multiple diagnoses * * * * Physician Interpretation * * * * Study: Upper GI and Small bowel seires single contrast study. HISTORY: Indication: Diarrhea, unspecified type Altered bowel habits Nausea TECHNIQUE: Radiation time: 1:50 (minutes:secs) Images obtained: Multiple spot film images under fluoroscopic guidance. Comparison: NONE. RESULT: Findings: Esophagus: Swallowing function unremarkable.. No hiatal hernia is seen. No gastroesophageal reflux identified. Stomach: The stomach showed no evidence of persistent filling defects,ulceration or mass lesions. Terminal ileum is unremarkable. Small bowel findings: No evidence of ulceration. Normal transit time. IMPRESSION: Negative exam. [employer]et P8 Developer: MISHA Transcribe Date/Time: Oct 04 2018 12:41P Dictated by : SHARON ARAIZA DO This examination was interpreted and the report reviewed and electronically signed by: SHARON ARAIZA DO on Oct 04 2018 12:43PM EST [id number] [facility] Bacteria identified Cx Nom ( Wound) Wound Culture Staphylococcus aureus [facility] Work Phone: Gram stain for investigation of transfusion reaction Microscopic observation Gram stain Nom (Unsp spec) [facility] Work Phone: Vital Signs Date Time Vital Sign Value Performing Clinician Facility 12-31-2024 12:04-0400 Body height 162.6 cm Sofía Falcon INTERN PRODUCT MARKETING MANAGER-ELECTROPHYSIOLOGY SCIENTIST Work Phone: [facility] 12-31-2024 12:04-0400 Body mass index (BMI) [Ratio] 24.89 kg/m2 Sofía Falcon INTERN PRODUCT MARKETING MANAGER-ELECTROPHYSIOLOGY SCIENTIST Work Phone: [facility] 12-31-2024 12:04-0400 Body temperature 99.1 [degF] Sofía Falcon INTERN PRODUCT MARKETING MANAGER-ELECTROPHYSIOLOGY SCIENTIST Work Phone: [facility] 12-31-2024 12:04-0400 Body weight 65.77 kg Sofía Falcon INTERN PRODUCT MARKETING MANAGER-ELECTROPHYSIOLOGY SCIENTIST Work Phone: [facility] [facility] 12-31-2024 12:04-0400 Diastolic blood pressure 61 mm[Hg] Sofía Falcon INTERN PRODUCT MARKETING MANAGER-ELECTROPHYSIOLOGY SCIENTIST Work Phone: [facility] 12-31-2024 12:04-0400 Respiratory rate 16 /min Sofía Falcon INTERN PRODUCT MARKETING MANAGER-ELECTROPHYSIOLOGY SCIENTIST Work Phone: [facility] 12-31-2024 12:04-0400 SaO2% (BldA) [Mass fraction] 99 % Sofía Falcon INTERN PRODUCT MARKETING MANAGER-ELECTROPHYSIOLOGY SCIENTIST Work Phone: [facility] 12-31-2024 12:04-0400 Systolic blood pressure 112 mm[Hg] Sofía Falcon INTERN PRODUCT MARKETING MANAGER-ELECTROPHYSIOLOGY SCIENTIST Work Phone: [facility] 10-01-2024 07:51-0500 Body height 162.6 cm Judy Avila MD Work Phone: [facility] 10-01-2024 07:51-0500 Body mass index (BMI) [Ratio] 24.03 kg/m2 Judy Avila MD Work Phone: [facility] 10-01-2024 07:51-0500 Body weight 63.5 kg Judy Avila MD Work Phone: [facility] 10-01-2024 07:51-0500 Diastolic blood pressure 69 mm[Hg] Judy Avila MD Work Phone: [facility] 10-01-2024 07:51-0500 Heart rate 90 /min Judy Avila MD Work Phone: [facility] 10-01-2024 07:51-0500 Systolic blood pressure 106 mm[Hg] Judy Avila MD Work Phone: [facility] 01-29-2024 09:38-0400 Diastolic blood pressure 69 mm[Hg] Judy Avila MD Work Phone: [facility] 01-29-2024 09:38-0400 Heart rate 74 /min Judy Avila MD Work Phone: [facility] 01-29-2024 09:38-0400 SaO2% (BldA) [Mass fraction] 100 % Judy Avila MD Work Phone: [facility] 01-29-2024 09:38-0400 Systolic blood pressure 106 mm[Hg] Judy Avila MD Work Phone: [facility] 11-17-2023 11:48-0400 Body temperature 97.2 [degF] PUBLIC SERVICE DIRECTOR-C Tiana Carter PUBLIC SERVICE DIRECTOR Work Phone: [facility] 11-17-2023 11:48-0400 Diastolic blood pressure 69 mm[Hg] PUBLIC SERVICE DIRECTOR-C Tiana Carter PUBLIC SERVICE DIRECTOR Work Phone: [facility] 11-17-2023 11:48-0400 Heart rate 81 /min PUBLIC SERVICE DIRECTOR-C Tiana Carter PUBLIC SERVICE DIRECTOR Work Phone: [facility] 11-17-2023 11:48-0400 Respiratory rate 14 /min PUBLIC SERVICE DIRECTOR-C Tiana Carter PUBLIC SERVICE DIRECTOR Work Phone: [facility] 11-17-2023 11:48-0400 SaO2% (BldA) [Mass fraction] 99 % PUBLIC SERVICE DIRECTOR-C Tiana Carter PUBLIC SERVICE DIRECTOR Work Phone: [facility] 11-17-2023 11:48-0400 Systolic blood pressure 98 mm[Hg] PUBLIC SERVICE DIRECTOR-C Tiana Carter PUBLIC SERVICE DIRECTOR Work Phone: [facility] 11-17-2023 09:12-0400 Body height 162.56 cm PUBLIC SERVICE DIRECTOR-C Tiana Carter PUBLIC SERVICE DIRECTOR Work Phone: [facility] 11-17-2023 09:12-0400 Body mass index (BMI) [Ratio] 23.8 kg/m2 PUBLIC SERVICE DIRECTOR-C Tiana Carter PUBLIC SERVICE DIRECTOR Work Phone: [facility] 11-17-2023 09:12-0400 Body weight 63.09 kg PUBLIC SERVICE DIRECTOR-C Tiana Carter PUBLIC SERVICE DIRECTOR Work Phone: [facility] 11-03-2023 07:23-0400 Body temperature 98.5 [degF] PUBLIC SERVICE DIRECTOR-C Tiana Carter PUBLIC SERVICE DIRECTOR Work Phone: [facility] 11-03-2023 07:23-0400 Diastolic blood pressure 70 mm[Hg] PUBLIC SERVICE DIRECTOR-C Tiana Carter PUBLIC SERVICE DIRECTOR Work Phone: [facility] 11-03-2023 07:23-0400 Heart rate 112 /min PUBLIC SERVICE DIRECTOR-C Tiana Carter PUBLIC SERVICE DIRECTOR Work Phone: [facility] 11-03-2023 07:23-0400 Respiratory rate 15 /min PUBLIC SERVICE DIRECTOR-C Tiana Carter PUBLIC SERVICE DIRECTOR Work Phone: [facility] 11-03-2023 07:23-0400 SaO2% (BldA) [Mass fraction] 98 % PUBLIC SERVICE DIRECTOR-C Tiana Carter PUBLIC SERVICE DIRECTOR Work Phone: [facility] 11-03-2023 07:23-0400 Systolic blood pressure 114 mm[Hg] PUBLIC SERVICE DIRECTOR-C Tiana Carter PUBLIC SERVICE DIRECTOR Work Phone: [facility] 10-02-2023 08:20-0500 Body height 162.6 cm Judy Avila MD Work Phone: [facility] 10-02-2023 08:20-0500 Body mass index (BMI) [Ratio] 21.97 kg/m2 Judy Avila MD Work Phone: [facility] 10-02-2023 08:20-0500 Body weight 58.06 kg Judy Avila MD Work Phone: [facility] 10-02-2023 08:20-0500 Diastolic blood pressure 64 mm[Hg] Judy Avila MD Work Phone: [facility] 10-02-2023 08:20-0500 Heart rate 113 /min Judy Avila MD Work Phone: [facility] 10-02-2023 08:20-0500 Systolic blood pressure 108 mm[Hg] Judy Avila MD Work Phone: [facility] 05-19-2023 13:00-0400 Body height 162.56 cm PUBLIC SERVICE DIRECTOR-C Tiana Carter PUBLIC SERVICE DIRECTOR Work Phone: [facility] 05-19-2023 13:00-0400 Body mass index (BMI) [Ratio] 21.7 kg/m2 PUBLIC SERVICE DIRECTOR-C Tiana Carter PUBLIC SERVICE DIRECTOR Work Phone: [facility] 05-19-2023 13:00-0400 Body temperature 97.6 [degF] PUBLIC SERVICE DIRECTOR-C Tiana Carter PUBLIC SERVICE DIRECTOR Work Phone: [facility] 05-19-2023 13:00-0400 Body weight 57.26 kg PUBLIC SERVICE DIRECTOR-C Tiana Carter PUBLIC SERVICE DIRECTOR Work Phone: [facility] 05-19-2023 13:00-0400 Diastolic blood pressure 68 mm[Hg] PUBLIC SERVICE DIRECTOR-C Tiana Carter PUBLIC SERVICE DIRECTOR Work Phone: [facility] 05-19-2023 13:00-0400 Heart rate 78 /min PUBLIC SERVICE DIRECTOR-C Tiana Carter PUBLIC SERVICE DIRECTOR Work Phone: [facility] 05-19-2023 13:00-0400 Respiratory rate 18 /min PUBLIC SERVICE DIRECTOR-C Tiana Carter PUBLIC SERVICE DIRECTOR Work Phone: [facility] 05-19-2023 13:00-0400 SaO2% (BldA) [Mass fraction] 97 % PUBLIC SERVICE DIRECTOR-C Tiana Carter PUBLIC SERVICE DIRECTOR Work Phone: [facility] 05-19-2023 13:00-0400 Systolic blood pressure 104 mm[Hg] PUBLIC SERVICE DIRECTOR-C Tiana Carter PUBLIC SERVICE DIRECTOR Work Phone: [facility] 04-06-2023 10:05-0400 Body height 162.6 cm Cony Cox MD Work Phone: [facility] 04-06-2023 10:05-0400 Body temperature 98.29 [degF] Cony Cox MD Work Phone: [facility] 04-06-2023 10:05-0400 Body weight 56.7 kg Cony Cox MD Work Phone: [facility] 04-06-2023 10:05-0400 Diastolic blood pressure 63 mm[Hg] Cony Cox MD Work Phone: [facility] 04-06-2023 10:05-0400 Heart rate 88 /min Cony Cox MD Work Phone: [facility] 04-06-2023 10:05-0400 Systolic blood pressure 108 mm[Hg] Cony oCx MD Work Phone: [facility] 03-10-2023 10:53-0400 Body temperature 97 [degF] PUBLIC SERVICE DIRECTOR-C Tiana Carter PUBLIC SERVICE DIRECTOR Work Phone: [facility] 03-10-2023 10:53-0400 Diastolic blood pressure 45 mm[Hg] PUBLIC SERVICE DIRECTOR-C Tiana Carter PUBLIC SERVICE DIRECTOR Work Phone: [facility] 03-10-2023 10:53-0400 Heart rate 74 /min PUBLIC SERVICE DIRECTOR-C Tiana Carter PUBLIC SERVICE DIRECTOR Work Phone: [facility] 03-10-2023 10:53-0400 Respiratory rate 16 /min PUBLIC SERVICE DIRECTOR-C Tiana Carter PUBLIC SERVICE DIRECTOR Work Phone: [facility] 03-10-2023 10:53-0400 SaO2% (BldA) [Mass fraction] 100 % PUBLIC SERVICE DIRECTOR-C Tiana Carter PUBLIC SERVICE DIRECTOR Work Phone: [facility] 03-10-2023 10:53-0400 Systolic blood pressure 93 mm[Hg] PUBLIC SERVICE DIRECTOR-C Tiana Carter PUBLIC SERVICE DIRECTOR Work Phone: [facility] 03-10-2023 09:26-0400 Body height 162.56 cm PUBLIC SERVICE DIRECTOR-C Tiana Carter PUBLIC SERVICE DIRECTOR Work Phone: [facility] 03-10-2023 09:26-0400 Body mass index (BMI) [Ratio] 21.5 kg/m2 PUBLIC SERVICE DIRECTOR-C Tiana Carter PUBLIC SERVICE DIRECTOR Work Phone: [facility] 03-10-2023 09:26-0400 Body weight 57 kg PUBLIC SERVICE DIRECTOR-C Tiana Carter PUBLIC SERVICE DIRECTOR Work Phone: [facility] 01-24-2023 13:15-0400 Body height 162.56 cm PUBLIC SERVICE DIRECTOR-C Tiana Carter PUBLIC SERVICE DIRECTOR Work Phone: [facility] 01-24-2023 13:15-0400 Body mass index (BMI) [Ratio] 22.8 kg/m2 PUBLIC SERVICE DIRECTOR-C Tiana Carter PUBLIC SERVICE DIRECTOR Work Phone: [facility] 01-24-2023 13:15-0400 Body weight 60.32 kg PUBLIC SERVICE DIRECTOR-C Tiana Carter PUBLIC SERVICE DIRECTOR Work Phone: [facility] 01-24-2023 13:15-0400 Diastolic blood pressure 72 mm[Hg] PUBLIC SERVICE DIRECTOR-C Tiana Carter PUBLIC SERVICE DIRECTOR Work Phone: [facility] 01-24-2023 13:15-0400 Heart rate 90 /min PUBLIC SERVICE DIRECTOR-C Tiana Carter PUBLIC SERVICE DIRECTOR Work Phone: [facility] 01-24-2023 13:15-0400 Respiratory rate 18 /min PUBLIC SERVICE DIRECTOR-C Tiana Carter PUBLIC SERVICE DIRECTOR Work Phone: [facility] 01-24-2023 13:15-0400 SaO2% (BldA) [Mass fraction] 100 % PUBLIC SERVICE DIRECTOR-C Tiana Carter PUBLIC SERVICE DIRECTOR Work Phone: [facility] 01-24-2023 13:15-0400 Systolic blood pressure 111 mm[Hg] PUBLIC SERVICE DIRECTOR-C Tiana Carter PUBLIC SERVICE DIRECTOR Work Phone: [facility] 01-24-2023 09:00-0400 Body mass index (BMI) [Ratio] 23 kg/m2 PUBLIC SERVICE DIRECTOR-C Tiana Carter PUBLIC SERVICE DIRECTOR Work Phone: [facility] 01-24-2023 09:00-0400 Body weight 60.78 kg PUBLIC SERVICE DIRECTOR-C Tiana Carter PUBLIC SERVICE DIRECTOR Work Phone: [facility] 01-24-2023 09:00-0400 Diastolic blood pressure 73 mm[Hg] PUBLIC SERVICE DIRECTOR-C Tiana Carter PUBLIC SERVICE DIRECTOR Work Phone: [facility] 01-24-2023 09:00-0400 Respiratory rate 16 /min PUBLIC SERVICE DIRECTOR-C Tiana Carter PUBLIC SERVICE DIRECTOR Work Phone: [facility] 01-24-2023 09:00-0400 Systolic blood pressure 113 mm[Hg] PUBLIC SERVICE DIRECTOR-C Tiana Carter PUBLIC SERVICE DIRECTOR Work Phone: [facility] 07-04-2022 07:35-0500 Body temperature 98.3 [degF] PUBLIC SERVICE DIRECTOR-C Tiana Carter PUBLIC SERVICE DIRECTOR Work Phone: [facility] Work Phone: 07-04-2022 07:35-0500 Diastolic blood pressure 68 mm[Hg] PUBLIC SERVICE DIRECTOR-C Tiana Carter PUBLIC SERVICE DIRECTOR Work Phone: [facility] Work Phone: 07-04-2022 07:35-0500 Heart rate 84 /min PUBLIC SERVICE DIRECTOR-C Tiana Carter PUBLIC SERVICE DIRECTOR Work Phone: [facility] Work Phone: 07-04-2022 07:35-0500 Respiratory rate 14 /min PUBLIC SERVICE DIRECTOR-C Tiana Carter PUBLIC SERVICE DIRECTOR Work Phone: [facility] Work Phone: 07-04-2022 07:35-0500 SaO2% (BldA) [Mass fraction] 99 % PUBLIC SERVICE DIRECTOR-C Tiana Carter PUBLIC SERVICE DIRECTOR Work Phone: [facility] Work Phone: 07-04-2022 07:35-0500 Systolic blood pressure 118 mm[Hg] PUBLIC SERVICE DIRECTOR-C Tiana Carter NP Work Phone: [facility] Work Phone: Encounters Encounter Date Encounter Type Care Provider Facility Start: 01-13-2025 End: 01-13-2025 Patient encounter procedure Marylou Powell PUBLIC SERVICE DIRECTOR-C -Laboratory Tawny Black Start: 01-13-2025 End: 01-13-2025 ambulatory Tiana Carter PUBLIC SERVICE DIRECTOR Facility:[facility] Start: 12-31-2024 ambulatory SOFÍA FALCON [facility] Start: 12-31-2024 End: 12-31-2024 Office outpatient new 30 minutes Sofía Falcon INTERN PRODUCT MARKETING MANAGER-ELECTROPHYSIOLOGY SCIENTIST Work Phone: [facility] Comment on above: Viral illness (Prima ry Dx); Nausea and vomiting, unspecified vomiting type; Acute nonintractable headache, unspecified headache type Start: 12-09-2024 End: 12-13-2024 ambulatory TIANA CARTER INTERN PRODUCT MARKETING MANAGER-ELECTROPHYSIOLOGY SCIENTIST Facility:[facility] Start: 12-09-2024 End: 12-13-2024 Outreach Lab TIANA CARTER INTERN PRODUCT MARKETING MANAGER-ELECTROPHYSIOLOGY SCIENTIST [facility] Start: 10-03-2024 ambulatory Tiana Carter PUBLIC SERVICE DIRECTOR Facil ity:[facility] Start: 10-01-2024 End: 10-01-2024 Office outpatient visit 25 minutes Judy Avila MD Work Phone: [facility] Comment on above: Subclinical hyperthy roidism (Primary Dx); Multiple thyroid nodules; Low TSH level Start: 10-01-2024 End: 10-01-2024 ambulatory JUDY AVILA [facility] Start: 09-17-2024 End: 09-17-2024 ambulatory Tiana Crater NP Facility:[facility] Start: 09-10-2024 End: 09-10-2024 Refill Judy Avila MD Work Phone: [facility] Comment on above: Low TSH level Start: 05-21-2024 End: 06-11-2024 Telephone encounter Judy Avila MD Work Phone: [facility] Comment on above: Medication Problem Start: 05-20-2024 End: 05-24-2024 ambulatory TIANA CARTER INTERN PRODUCT MARKETING MANAGER-ELECTROPHYSIOLOGY SCIENTIST Facility:[facility] Start: 05-20-2024 End: 05-24-2024 Outreach Lab TIANA CARTER INTERN PRODUCT MARKETING MANAGER-ELECTROPHYSIOLOGY SCIENTIST [facility] Start: 05-20-2024 End: 05-20-2024 ambulatory Tiana Carter PUBLIC SERVICE DIRECTOR Facility:[facility] Start: 05-17-2024 End: 05-17-2024 Orders Only Judy Avila MD Work Phone: [facility] Comment on above: Hyperthyroidism (Camila summer Dx); Low TSH level Start: 05-14-2024 End: 05-17-2024 Telephone encounter Judy Avial MD Work Phone: [facility] Comment on above: Results Start: 05-08-2024 End: 05-08-2024 ambulatory Maranda Clements Facility:[facility] Start: 04-29-2024 End: 05-03-2024 ambulatory MARANDA CLEMENTS MD Facility:[facility] Start: 04-29-2024 End: 05-03-2024 Outreach Lab MARANDA CLEMENTS MD [facility] Start: 02-23-2024 End: 02-23-2024 ambulatory Tiana Carter PUBLIC SERVICE DIRECTOR Facility:[facility] Start: 01-30-2024 End: 01-30-2024 Orders Only Judy Avila MD Work Phone: [facility] Comment on above: Subclinical hyperthy roidism (Primary Dx); Low TSH level Start: 01-29-2024 End: 01-29-2024 Subsequent hospital visit by physician Judy Avila MD Work Phone: [facility] Comment on above: Multiple thyroid nod ules Start: 01-29-2024 End: 01-29-2024 ambulatory [facility] Start: 11-17-2023 End: 11-17-2023 Emergency department patient visit PUBLIC SERVICE DIRECTOR-C Tiana Carter PUBLIC SERVICE DIRECTOR Work Phone: [facility]-Emergency Department Work Phone: Start: 11-06-2023 Orders Only Judy Avila MD Work Phone: [facility] Comment on above: Multiple thyroid nod ules (Primary Dx); Low TSH level Results Start: 11-03-2023 End: 11-03-2023 Patient encounter procedure PUBLIC SERVICE DIRECTOR-C Tiana Carter PUBLIC SERVICE DIRECTOR Work Phone: [facility] Work Phone: Start: 11-02-2023 End: 11-02-2023 ambulatory PUBLIC SERVICE DIRECTOR-C Tiana Carter PUBLIC SERVICE DIRECTOR Work Phone: [facility] Work Phone: Start: 11-02-2023 End: 11-02-2023 Patient encounter procedure PUBLIC SERVICE DIRECTOR-C Tiana Portillojonathan PUBLIC SERVICE DIRECTOR Work Phone: [facility]-Laboratory Work Phone: Start: 10-11-2023 End: 10-11-2023 Subsequent hospital visit by physician Judy Avila MD Work Phone: [facility] Nuclear Medicine Comment on above: Subclinical hyperthy roidism Start: 10-11-2023 End: 10-11-2023 ambulatory [facility] Start: 10-04-2023 Orders Only Judy Avila MD Work Phone: [facility] Comment on above: Subclinical hyperthy roidism (Primary Dx) Results Start: 10-02-2023 End: 10-02-2023 Subsequent hospital visit by physician Judy Avila MD Work Phone: [address] [facility] Comment on above: Multiple thyroid nod ules Start: 10-02-2023 End: 10-02-2023 Office outpatient new 45 minutes Judy Avila MD Work Phone: [facility] Comment on above: Low TSH level (Prima ry Dx); Multiple thyroid nodules Start: 07-11-2023 Telephone encounter Cony Cox MD Work Phone: [facility] [place] Comment on above: Patient Question Start: 05-19-2023 End: 05-19-2023 ambulatory PUBLIC SERVICE DIRECTOR-C Tiana Carter PUBLIC SERVICE DIRECTOR Work Phone: [facility] Work Phone: Start: 05-19-2023 End: 05-19-2023 Patient encounter procedure PUBLIC SERVICE DIRECTOR-C Tiana Carter PUBLIC SERVICE DIRECTOR Work Phone: [facility] Endocrinology Work Phone: Start: 05-10-2023 End: 05-10-2023 ambulatory PUBLIC SERVICE DIRECTOR-C Tiana Carter PUBLIC SERVICE DIRECTOR Work Phone: [facility] Work Phone: Start: 05-10-2023 End: 05-10-2023 Patient encounter procedure PUBLIC SERVICE DIRECTOR-C Tiana Carter PUBLIC SERVICE DIRECTOR Work Phone: [facility]-Ultrasound, [facility] Work Phone: Start: 05-08-2023 End: 05-13-2023 ambulatory TIANA CARTER INTERN PRODUCT MARKETING MANAGER-ELECTROPHYSIOLOGY SCIENTIST Facility:[facility] Start: 05-08-2023 End: 05-12-2023 Outreach Lab TIANA CARTER INTERN PRODUCT MARKETING MANAGER-ELECTROPHYSIOLOGY SCIENTIST [facility] Start: 05-05-2023 End: 05-05-2023 ambulatory PUBLIC SERVICE DIRECTOR-C Tiana Carter PUBLIC SERVICE DIRECTOR Work Phone: [facility] Work Phone: Start: 05-05-2023 End: 05-05-2023 Patient encounter procedure PUBLIC SERVICE DIRECTOR-C Tiana Carter PUBLIC SERVICE DIRECTOR Work Phone: [facility]-Laboratory Work Phone: Start: 04-14-2023 Telephone encounter Cony Cox MD Work Phone: [facility] [place] Comment on above: Orders Patient Update Start: 04-06-2023 End: 04-06-2023 ambulatory COLE DILLARD Facility:[facility] Start: 04-06-2023 End: 04-06-2023 Patient encounter procedure Cony Cox MD Work Phone: [facility] [place] Comment on above: 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) Start: 03-10-2023 Non-patient / Non-visit PUBLIC SERVICE DIRECTOR-C Abilio Carter PUBLIC SERVICE DIRECTOR Work Phone: [facility] Start: 03-10-2023 End: 03-10-2023 Admission to same day surgery center PUBLIC SERVICE DIRECTOR-Sharron Carter PUBLIC SERVICE DIRECTOR Work Phone: [facility]-Endoscopy Work Phone: Start: 02-05-2023 End: 02-05-2023 Emergency department patient visit PROVIDER NOT IN SYSTEM [facility] Start: 01-27-2023 End: 01-27-2023 ambulatory PUBLIC SERVICE DIRECTOR-C Tiana Carter PUBLIC SERVICE DIRECTOR Work Phone: [facility] Work Phone: Start: 01-27-2023 End: 01-27-2023 Patient encounter procedure PUBLIC SERVICE DIRECTOR-Sharron Carter PUBLIC SERVICE DIRECTOR Work Phone: [facility]-Radiology, [facility] Work Phone: Start: 01-24-2023 End: 01-24-2023 Patient encounter procedure PUBLIC SERVICE DIRECTOR-Sharron Carter PUBLIC SERVICE DIRECTOR Work Phone: [facility] Work Phone: Start: 01-24-2023 End: 01-24-2023 Patient encounter procedure PUBLIC SERVICE DIRECTOR-Sharron Carter PUBLIC SERVICE DIRECTOR Work Phone: [facility] Work Phone: Start: 01-09-2023 End: 01-09-2023 ambulatory PUBLIC SERVICE DIRECTOR-C Tiana Carter PUBLIC SERVICE DIRECTOR Work Phone: [facility] Work Phone: Start: 01-09-2023 End: 01-09-2023 Patient encounter procedure PUBLIC SERVICE DIRECTOR-C Tiana Carter PUBLIC SERVICE DIRECTOR Work Phone: [facility] Scan, [facility] Start: 12-19-2022 End: 12-19-2022 ambulatory PUBLIC SERVICE DIRECTOR-C Tiana Carter PUBLIC SERVICE DIRECTOR Work Phone: [facility] Work Phone: Start: 12-19-2022 End: 12-19-2022 Patient encounter procedure PUBLIC SERVICE DIRECTOR-C Tiana Carter PUBLIC SERVICE DIRECTOR Work Phone: [facility]-Ultrasound, [facility] Start: 12-16-2022 End: 12-16-2022 Patient encounter procedure PUBLIC SERVICE DIRECTOR-C Tiana Carter PUBLIC SERVICE DIRECTOR Work Phone: [facility] Start: 12-13-2022 End: 12-13-2022 Patient encounter procedure PUBLIC SERVICE DIRECTOR-C Tiana Carter PUBLIC SERVICE DIRECTOR Work Phone: [facility]-Cat Scan, [facility] Start: 11-23-2022 End: 11-24-2022 ambulatory TIANA CARTER INTERN PRODUCT MARKETING MANAGER-ELECTROPHYSIOLOGY SCIENTIST Facility:[facility] Start: 11-23-2022 End: 11-23-2022 Patient encounter procedure TIANA CARTER INTERN PRODUCT MARKETING MANAGER-ELECTROPHYSIOLOGY SCIENTIST [facility] Start: 11-16-2022 End: 11-16-2022 Emergency department patient visit PROVIDER NOT IN SYSTEM [facility] Start: 07-26-2022 End: 07-31-2022 ambulatory TIANA CARTER INTERN PRODUCT MARKETING MANAGER-ELECTROPHYSIOLOGY SCIENTIST Facility:[facility] Start: 07-07-2022 End: 07-07-2022 ambulatory PUBLIC SERVICE DIRECTOR-C Tiana Carter PUBLIC SERVICE DIRECTOR Work Phone: [facility] Work Phone: Start: 07-07-2022 End: 07-07-2022 Patient encounter procedure PUBLIC SERVICE DIRECTOR-C Tiana Carter PUBLIC SERVICE DIRECTOR Work Phone: [facility]-Outpatient Breast Imaging Start: 07-04-2022 End: 07-04-2022 ambulatory PUBLIC SERVICE DIRECTOR-C Tiana Carter PUBLIC SERVICE DIRECTOR Work Phone: [facility] Work Phone: Start: 07-04-2022 End: 07-04-2022 Patient encounter procedure PUBLIC SERVICE DIRECTOR-C Tiana Carter PUBLIC SERVICE DIRECTOR Work Phone: [facility]-Laboratory, Specimen Start: 07-04-2022 End: 07-04-2022 Patient encounter procedure PUBLIC SERVICE DIRECTOR-C Tiana Carter PUBLIC SERVICE DIRECTOR Work Phone: [facility] Start: 06-03-2022 End: 06-03-2022 ambulatory PUBLIC SERVICE DIRECTOR-C Tiana Crater PUBLIC SERVICE DIRECTOR Work Phone: [facility] Work Phone: Start: 06-03-2022 End: 06-03-2022 Patient encounter procedure PUBLIC SERVICE DIRECTOR-C Tiana Carter PUBLIC SERVICE DIRECTOR Work Phone: [facility]-Laboratory Start: 05-31-2022 End: 06-05-2022 ambulatory TIANA CARTER INTERN PRODUCT MARKETING MANAGER-ELECTROPHYSIOLOGY SCIENTIST Facility:[facility] Start: 05-31-2022 End: 06-05-2022 Encounter for gynecological examination (general) (routine) without abnormal findings TIANA CARTER INTERN PRODUCT MARKETING MANAGER-ELECTROPHYSIOLOGY SCIENTIST Facility:[facility] Start: 12-06-2021 End: 12-10-2021 Outreach Lab VIC LOPEZ MD [facility] Start: 12-06-2021 End: 12-06-[address] GIO SEALS DO [facility] Start: 11-02-2021 End: 11-02-[address] GIO SEALS DO [facility] Start: 10-09-2021 End: 10-09-[address] GIO SEALS DO [facility] Start: 05-25-2021 End: 05-29-2021 Outreach Lab TIANA CARTER INTERN PRODUCT MARKETING MANAGER-ELECTROPHYSIOLOGY SCIENTIST [facility] Start: 11-12-2018 End: 11-12-2018 Patient encounter procedure [facility] Start: 11-01-2018 Encounter for other preprocedural examination [facility] Start: 11-01-2018 End: 11-01-2018 Patient encounter procedure [facility] Start: 10-04-2018 Patient encounter procedure [facility] (PUBLIC SERVICE DIRECTOR) [facility] Start: 03-02-2017 End: 03-03-2017 Ambulatory NONE NONE Facility:[facility] Start: 02-16-2017 End: 02-17-2017 Ambulatory [facility] Facility:[facility] Start: 02-13-2017 End: 02-14-2017 Ambulatory [facility] Facility:[facility] Start: 02-13-2017 End: 02-14-2017 Ambulatory NONE NONE Facility:[facility] Procedures Date Procedure Procedure Detail Performing Clinician Start: 01-13-2025 Urnls dip stick/tabl et reagent auto microscopy Tiana Carter PUBLIC SERVICE DIRECTOR-C Work Phone: Start: 01-13-2025 Urine culture Tiana li PUBLIC SERVICE DIRECTOR-C Work Phone: Start: 12-31-2024 SARS-CoV-2 (COVID-19 ) RNA [Presence] in Unspecified specimen by MONALISA with probe detection Sofía Falcon INTERN PRODUCT MARKETING MANAGER-ELECTROPHYSIOLOGY SCIENTIST Work Phone: Start: 09-17-2024 Thyrotropin [Units/v olume] in Serum or Plasma Judy Avila MD Work Phone: Start: 05-08-2024 Thyrotropin [Units/v olume] in Serum or Plasma Judy Avila MD Work Phone: Start: 01-29-2024 Biopsy thyroid percu taneous core needle Judy Avila MD Work Phone: Start: 01-29-2024 Thyrotropin [Units/v olume] in Serum or Plasma Judy Avila MD Work Phone: Start: 11-17-2023 Plain chest X-ray PUBLIC SERVICE DIRECTOR-C Tiana Raul PUBLIC SERVICE DIRECTOR Work Phone: Start: 11-06-2023 OUTSIDE LAB SCAN Judy burns MD Work Phone: Start: 11-02-2023 Thyrotropin [Units/v olume] in Serum or Plasma Judy Avila MD Work Phone: Start: 10-02-2023 Thyrotropin [Units/v olume] in Serum or Plasma Judy Avila MD Work Phone: Start: 05-10-2023 US scan of thyroid PUBLIC SERVICE DIRECTOR-C Tiana Carter PUBLIC SERVICE DIRECTOR Work Phone: Start: 01-27-2023 Radiologic examinati on of upper gastrointestinal tract and small bowel with serial films PUBLIC SERVICE DIRECTOR-C Tiana Carter PUBLIC SERVICE DIRECTOR Work Phone: Start: 01-09-2023 Computed tomography of abdomen and pelvis with contrast PUBLIC SERVICE DIRECTOR-C Tiana Carter PUBLIC SERVICE DIRECTOR Work Phone: Start: 12-19-2022 US urinary tract PUBLIC SERVICE DIRECTOR-C Abilio Carter PUBLIC SERVICE DIRECTOR Work Phone: Start: 12-13-2022 CT of thorax with contrast PUBLIC SERVICE DIRECTOR-C Tiana Carter PUBLIC SERVICE DIRECTOR Work Phone: Start: 07-07-2022 End: 07-07-2022 Screening mammography PUBLIC SERVICE DIRECTOR-C Tiana Hernadez n PUBLIC SERVICE DIRECTOR Work Phone: Start: 07-04-2017 Endoscopic biopsy KARIS CARTER INTERN PRODUCT MARKETING MANAGER-ELECTROPHYSIOLOGY SCIENTIST Start: 06-18-2017 Biopsy TIANA ALBERT RSON INTERN PRODUCT MARKETING MANAGER-ELECTROPHYSIOLOGY SCIENTIST Start: 06-08-2017 Biopsy TIANA PRICE RSON INTERN PRODUCT MARKETING MANAGER-ELECTROPHYSIOLOGY SCIENTIST Comment on above: thyroid- [facility] Start: 07-31-2014 Other (qualifier value) TIANA CARTER INTERN PRODUCT MARKETING MANAGER-ELECTROPHYSIOLOGY SCIENTIST Comment on above: stomach Sx - Dr. Libia post, to repair hiatal hernia Start: 07-31-2014 Stomach structure (b tyler structure) TIANA CARTER INTERN PRODUCT MARKETING MANAGER-ELECTROPHYSIOLOGY SCIENTIST Investigation of tra nsfusion reaction PUBLIC SERVICE DIRECTOR-C Tiana Carter PUBLIC SERVICE DIRECTOR Work Phone: Microbial culture, routine N P-C Tiana Carter PUBLIC SERVICE DIRECTOR Work Phone: None (qualifier value) KARIS CARTER INTERN PRODUCT MARKETING MANAGER-ELECTROPHYSIOLOGY SCIENTIST Plan of Treatment Date Care Activity Detail Author Start: 2056 RSV Immunization for Adults (1 - 1-dose 75+ series) RSV Immunization for Adults (1 - 1-dose 75+ series) [facility] Start: 2041 RSV Immunization aged 60 or older (1 - 1-dose 60+ series) RSV Immunization aged 60 or older (1 - 1-dose 60+ series) [facility] Start: 11-30-2031 Zoster Vaccines (1 of 2) Zoster Vaccines (1 of 2) [facility] Start: 10-07-2025 End: 10-07-2025 Patient encounter procedure 10/07/2025 8:00 AM EDT Office Visit [facility] [address] [place] [id number] Judy Avila MD [address] [place] [id number] [facility] Start: 09-17-2025 Thyroid stimulating hormone measurement TSH Level [facility] Start: 09-03-2025 End: 10-01-2025 Thyrotropin [Units/volume] in Serum or Plasma TSH Lab Routine Subclinical hyperthyroidism Expected: 09/03/2025, Expires: 10/01/2025 [facility] Comment on above: Expected: 09/03/2025, Expires: Start: 09-03-2025 End: 10-01-2025 Thyroxine (T4) free [Mass/volume] in Serum or Plasma T4, free Lab Routine Subclinical hyperthyroidism Expected: 09/03/2025, Expires: 10/01/2025 [facility] Comment on above: Expected: 09/03/2025, Expires: Start: 09-03-2025 End: 10-01-2025 Triiodothyronine (T3) Free [Mass/volume] in Serum or Plasma T3, free Lab Routine Subclinical hyperthyroidism Expected: 09/03/2025, Expires: 10/01/2025 [facility] Comment on above: Expected: 09/03/2025, Expires: Start: 09-03-2025 End: 10-01-2025 US Thyroid gland US thyroid Imaging Routine Subclinical hyperthyroidism Multiple thyroid nodules Expected: 09/03/2025, Expires: 10/01/2025 [facility] Comment on above: Expected: 09/03/2025, Expires: Start: 05-08-2025 Thyroid stimulating hormone measurement TSH Level [facility] Start: 04-03-2025 End: 10-01-2025 Thyrotropin [Units/volume] in Serum or Plasma TSH Lab Routine Subclinical hyperthyroidism Expected: 04/03/2025, Expires: 10/01/2025 [facility] Work Phone: Comment on above: Expected: 04/03/2025, Expires: Start: 04-03-2025 End: 10-01-2025 Thyroxine (T4) free [Mass/volume] in Serum or Plasma T4, free Lab Routine Subclinical hyperthyroidism Expected: 04/03/2025, Expires: 10/01/2025 [facility] Comment on above: Expected: 04/03/2025, Expires: Start: 04-03-2025 End: 10-01-2025 Triiodothyronine (T3) Free [Mass/volume] in Serum or Plasma T3, free Lab Routine Subclinical hyperthyroidism Expected: 04/03/2025, Expires: 10/01/2025 [facility] Comment on above: Expected: 04/03/2025, Expires: Start: 03-31-2025 Influenza vaccination INFLUENZA VACCINE (Season Ended) [facility] Start: 01-28-2025 Thyroid stimulating hormone measurement TSH Level [facility] Start: 11-01-2024 Thyroid stimulating hormone measurement TSH Level [facility] Start: 10-01-2024 Thyroid Nodule Ultrasound Thyroid Nodule Ultrasound [facility] Start: 10-01-2024 Thyroid stimulating hormone measurement TSH Level [facility] Start: 10-01-2024 End: 10-01-2024 Patient encounter procedure [facility] Start: 09-17-2024 End: 05-17-2025 Thyroid Stimulating Hormone Receptor Antibody (TRAb) Thyroid Stimulating Hormone Receptor Antibody (TRAb) Lab Routine Low TSH level Hyperthyroidism Expected: 09/17/2024, Expires: 05/17/2025 [facility] Comment on above: Expected: 09/17/2024, Expires: Start: 09-17-2024 End: 05-17-2025 Thyrotropin [Units/volume] in Serum or Plasma TSH Lab Routine Low TSH level Hyperthyroidism Expected: 09/17/2024, Expires: 05/17/2025 [facility] Comment on above: Expected: 09/17/2024, Expires: Start: 09-17-2024 End: 05-17-2025 Thyroxine (T4) free [Mass/volume] in Serum or Plasma T4, free Lab Routine Low TSH level Hyperthyroidism Expected: 09/17/2024, Expires: 05/17/2025 [facility] Work Phone: Comment on above: Expected: 09/17/2024, Expires: Start: 09-17-2024 End: 05-17-2025 Triiodothyronine (T3) Free [Mass/volume] in Serum or Plasma T3, free Lab Routine Low TSH level Hyperthyroidism Expected: 09/17/2024, Expires: 05/17/2025 [facility] Comment on above: Expected: 09/17/2024, Expires: Start: 05-01-2024 End: 01-29-2025 Thyrotropin [Units/volume] in Serum or Plasma TSH Lab Routine Subclinical hyperthyroidism Expected: 05/01/2024, Expires: 01/29/2025 [facility] Work Phone: Comment on above: Expected: 05/01/2024, Expires: Start: 05-01-2024 End: 01-29-2025 Thyroxine (T4) free [Mass/volume] in Serum or Plasma T4, free Lab Routine Subclinical hyperthyroidism Expected: 05/01/2024, Expires: 01/29/2025 [facility] Comment on above: Expected: 05/01/2024, Expires: Start: 05-01-2024 End: 01-29-2025 Triiodothyronine (T3) Free [Mass/volume] in Serum or Plasma T3, free Lab Routine Subclinical hyperthyroidism Expected: 05/01/2024, Expires: 01/29/2025 [facility] Comment on above: Expected: 05/01/2024, Expires: Start: 03-31-2024 COVID-19 Vaccine ( season) COVID-19 Vaccine () [facility] Start: 03-31-2024 COVID-19 Vaccine ( season) COVID-19 Vaccine () [facility] Start: 03-31-2024 Influenza vaccination Influenza Vaccine (#1) [facility] Start: 02-05-2024 End: 11-05-2024 Thyrotropin [Units/volume] in Serum or Plasma TSH Lab Routine Low TSH level Expected: 02/05/2024, Expires: 11/05/2024 [facility] Work Phone: Comment on above: Expected: 02/05/2024, Expires: Start: 02-05-2024 End: 11-05-2024 Thyroxine (T4) free [Mass/volume] in Serum or Plasma T4, free Lab Routine Low TSH level Expected: 02/05/2024, Expires: 11/05/2024 [facility] Comment on above: Expected: 02/05/2024, Expires: Start: 02-05-2024 End: 11-05-2024 Triiodothyronine (T3) Free [Mass/volume] in Serum or Plasma T3, free Lab Routine Low TSH level Expected: 02/05/2024, Expires: 11/05/2024 [facility] Comment on above: Expected: 02/05/2024, Expires: Start: 11-17-2023 Troponin I measurement [facility] Start: 11-17-2023 [facility] Start: 11-17-2023 [facility] Start: 11-06-2023 End: 11-05-2024 US Guidance for fine needle aspiration of Thyroid gland US guided thyroid biopsy w/reflex [facility] Routine Multiple thyroid nodules Expected: 11/06/2023, Expires: 11/05/2024 [facility] Comment on above: Expected: 11/06/2023, Expires: Start: 10-11-2023 End: 10-11-2023 Patient encounter procedure 10/11/2023 9:00 AM EDT Appointment [facility] Nuclear Medicine [address] [place] [address] Judy Avila MD [address] [place] [address] [facility] Medicine Start: 10-04-2023 End: 10-03-2024 hCG, quantitative hCG, quantitative Lab Routine Subclinical hyperthyroidism Expected: 10/04/2023 (Approximate), Expires: 10/03/2024 [facility] Comment on above: Expected: 10/04/2023 (Approximate), Expi res: 10/03/2024 Start: 10-04-2023 End: 10-03-2024 NM Thyroid gland Uptake NM thyroid uptake and scan Imaging Routine Subclinical hyperthyroidism Expected: 10/04/2023, Expires: 10/03/2024 [facility] Work Phone: Comment on above: Expected: 10/04/2023, Expires: Start: 10-02-2023 End: 10-01-2024 hCG, quantitative hCG, quantitative Lab Routine Low TSH level Expected: 10/02/2023 (Approximate), Expires: 10/01/2024 [facility] Comment on above: Expected: 10/02/2023 (Approximate), Expi res: 10/01/2024 Start: 10-02-2023 End: 10-01-2024 Thyroid Stimulating Hormone Receptor Antibody (TRAb) (Sendout) Thyroid Stimulating Hormone Receptor Antibody (TRAb) (Sendout) Lab Routine Low TSH level Expected: 10/02/2023 (Approximate), Expires: 10/01/2024 [facility] Comment on above: Expected: 10/02/2023 (Approximate), Expi res: 10/01/2024 Start: 10-02-2023 End: 10-01-2024 Thyrotropin [Units/volume] in Serum or Plasma TSH Lab Routine Low TSH level Expected: 10/02/2023 (Approximate), Expires: 10/01/2024 [facility] Comment on above: Expected: 10/02/2023 (Approximate), Expi res: 10/01/2024 Start: 10-02-2023 End: 10-01-2024 Thyroxine (T4) free [Mass/volume] in Serum or Plasma T4, free Lab Routine Low TSH level Expected: 10/02/2023 (Approximate), Expires: 10/01/2024 [facility] Work Phone: Comment on above: Expected: 10/02/2023 (Approximate), Expi res: 10/01/2024 Start: 10-02-2023 End: 10-01-2024 Triiodothyronine (T3) Free [Mass/volume] in Serum or Plasma T3, free Lab Routine Low TSH level Expected: 10/02/2023 (Approximate), Expires: 10/01/2024 [facility] Comment on above: Expected: 10/02/2023 (Approximate), Expi res: 10/01/2024 Start: 10-02-2023 End: 10-01-2024 US Thyroid gland [facility] Comment on above: Expected: 10/02/2023, Expires: Once for 1 Occurrenc es starting 10/02/2023 until 10/02/2023 Start: 07-07-2023 Screening for malignant neoplasm of breast Mammogram [facility] Start: 03-31-2023 COVID-19 Vaccine ( season) COVID-19 Vaccine ( season) [facility] Start: 03-31-2023 Influenza vaccination [facility] Start: 03-10-2023 Colonoscopy flx dx w/collj spec when pfrmd DIAGNOSTIC COLONOSCOPY [facility] Start: 03-10-2023 Esophagogastroduodenoscopy transoral diagnostic EGD DIAGNOSTIC BRUSH WASH [facility] Start: 03-10-2023 Patient discharge [facility] Start: 12-19-2022 Patient referral [facility] Work Phone: Start: 07-31-2022 DEPRESSION ASSESSMENT DEPRESSION ASSESSMENT [facility] Start: 07-04-2022 [facility] Work Phone: Start: 2021 Lipid panel LIPID SCREENING [facility] Start: 2021 Mammography [facility] Start: 2021 Screening for malignant neoplasm of breast [facility] Start: 01-01-2021 ANNUAL PCP TEAM CHRONIC DISEASE VISIT ANNUAL PCP TEAM CHRONIC DISEASE VISIT [facility] Start: 11-30-2011 HPV TESTING HPV TESTING [facility] Start: 11-30-2011 Screening for malignant neoplasm of cervix [facility] Start: 2002 PAP TESTING PAP TESTING [facility] Start: 2002 Screening for malignant neoplasm of cervix [facility] Start: 2000 DTaP/Tdap/Td Vaccines (1 - Tdap) DTaP/Tdap/Td Vaccines (1 - Tdap) [facility] Start: 2000 Hepatitis B vaccination HEP B VACCINE (1 of 3 - 19+ 3-dose series) [facility] Start: 2000 Third diphtheria, tetanus and acellular pertussis (DTaP) vaccination TDAP (ADULT) [facility] Start: 2000 Urine microalbumin profile [facility] Start: 11-30-1999 HEPATITIS C SCREENING HEPATITIS C SCREENING [facility] Start: 11-30-1999 Hepatitis C screening Hepatitis C Screening [facility] Start: 11-30-1999 HIV SCREENING HIV SCREENING [facility] Start: 11-30-1999 HIV screening HIV Screening [facility] Start: 1996 HIV screening HIV SCREENING DISCUSSION [facility] Start: 1994 Varicella vaccination Varicella Vaccines (1 of 2 - 13+ 2-dose series) [facility] Start: 1993 Depression Screening Depression Screening [facility] Start: 1982 MMR Vaccines (1 of 1 - Standard series) MMR Vaccines (1 of 1 - Standard series) [facility] Start: 1982 Varicella vaccination Varicella Vaccines (1 of 2 - 2-dose childhood series) [facility] Start: 06-01-1982 COVID-19 VACCINE (#1) COVID-19 VACCINE (#1) [facility] Start: 1981 HEPATITIS B (1 of 3 - 3-dose series) HEPATITIS B (1 of 3 - 3-dose series) [facility] Start: 1981 Hepatitis B Vaccine (1 of 3 - 3-dose series) Hepatitis B Vaccine (1 of 3 - 3-dose series) [facility] Start: 1981 Hepatitis C screening HEPATITIS C VIRUS SCREENING [facility] Start: 1981 HIV screening HIV Screening [facility] Start: 1981 Tetanus vaccination TETANUS [facility] Start: 1981 Thyroid Nodule Ultrasound Thyroid Nodule Ultrasound [facility] Fine needle aspiration [facility] Work Phone: Comment on above: Release Upon Ordering for 1 Occurrences starting 01/29/2024, 1 completed Microbial culture, routine Wound Culture [facility] Work Phone: End: 10-11-2023 NM Thyroid gland Uptake [facility] Work Phone: Comment on above: Once for 1 Occurrences starting 10/11/19 24 until 10/11/2023 Patient Education ED Palpitations [facility] Work Phone: Patient referral [facility] Work Phone: [facility] Immunizations Immunization Date Immunization Notes Care Provider [facility] 06-17-2024 tetanus toxoid, reduced diphtheria toxoid, and acellular pertussis vaccine, adsorbed; Translations: [Boostrix (Tdap)] TIANA CARTER INTERN PRODUCT MARKETING MANAGERAllocad[facility]2024 influenza virus vaccine, unspecified formulation TIANA CARTER INTERN PRODUCT MARKETING MANAGER[facility]ad[facility] 05-08-2023 influenza, injectabl e, quadrivalent, contains preservative; Translations: [Fluarix PF Quadrivalent ] TIANA CARTER INTERN PRODUCT MARKETING MANAGER[facility]ad[facility] 05-08-2023 influenza virus vaccine, unspecified formulation Judy Avila MD Work Phone: [facility] 05-30-2022 influenza, injectabl e, quadrivalent, contains preservative; Translations: [Fluarix PF Quadrivalent ] TIANA CARTER INTERN PRODUCT MARKETING MANAGER-ELECTROPHYSIOLOGY SCIENTIST [facility] 05-30-2022 influenza virus vaccine, unspecified formulation Cony Cox MD Work Phone: [facility] 05-25-2021 influenza, injectabl e, quadrivalent, contains preservative; Translations: [Fluarix PF Quadrivalent ] TIANA CARTER INTERN PRODUCT MARKETING MANAGER-ELECTROPHYSIOLOGY SCIENTIST [facility] 04-27-2020 influenza virus vaccine, unspecified formulation MARANDA CLEMENTS MD [facility] 07-01-2019 hepatitis B vaccine, adult dosage PUBLIC SERVICE DIRECTOR-C Tiana Cartre PUBLIC SERVICE DIRECTOR Work Phone: [facility] 05-09-2019 influenza, injectabl e, quadrivalent, preservative free; Translations: [Fluarix PF Quadrivalent ] TIANA CARTER INTERN PRODUCT MARKETING MANAGER-ELECTROPHYSIOLOGY SCIENTIST [facility] 01-24-2019 hepatitis B vaccine, adult dosage PUBLIC SERVICE DIRECTOR-C Tiana Carter PUBLIC SERVICE DIRECTOR Work Phone: [facility] 12-27-2018 hepatitis B vaccine, adult dosage PUBLIC SERVICE DIRECTOR-C Tiana Carter PUBLIC SERVICE DIRECTOR Work Phone: [facility] 05-10-2018 influenza virus vaccine, unspecified formulation MARANDA CLEMENTS MD [facility] 05-18-2017 influenza virus vaccine, unspecified formulation MARANDA CLEMENTS MD [facility] Payers Date Payer Category Payer Blue Cross Blue [employer] Managed Care - HMO [employer] BLUE CROSS [id number] 2024 Managed Care (unspecified) [employer] HMO PPO POS [id number] 2024 Unknown [id number] 2024 Unknown [id number] 2024 Self-pay [id number] 2022 Medicaid [id number] 2016 Unknown [id number] 2016 Unknown [id number] 1981 Unknown [id number]. 902 1981 Unknown [id number] [id number]. 902 1981 Unknown [id number] [id number]. 627 1981 Unknown [id number] 2.840.1.597482.3.579.2. 62 1981 Unknown [id number] 2.840.1.072183.3.579.2. 627 1981 Unknown [id number] [id number]. 1981 Unknown [id number] 2..1.354581.3.579.2. 627 1981 Unknown [id number] .[id number]. 1981 Unknown [id number] 2..1.748727.3.579.2. 1981 Unknown [id number] [id number]. 983 Private Health Insurance [place] [id number] Unknown [id number]. 462 Unknown [id number] .[id number]. 462 Unknown [id number] .[id number]. 462 Unknown [id number] 2.840.1.749328.3.579.2. 462 Unknown [id number] 2.840.1.958774.3.579.2. 462 Unknown [id number] 2.840.1.672112.3.579.2. 462 Unknown [id number] .[id number]. 462 Unknown [facility] [id number] Social History Date Type Detail Facility Start: 05-09-2019 End: 11-17-2023 Ex-smoker (finding) [facility] Sex Assigned At [facility] Start: 07-04-2022 End: 11-17-2023 Tobacco smoking status NHIS Unknown if ever smoked [facility] Start: 01-09-2019 None [facility] Start: 1980 Sex Assigned At Female [facility] End: 07-31-2013 History of tobacco use Current smoker [facility] End: 07-31-2013 History of tobacco use Cigarette Smoker [facility] Start: 11-01-2018 End: 12-31-2024 Cigarettes smoked current (pack per day) - Reported 0.8 [facility] Start: 11-01-2018 End: 12-31-2024 Tobacco use and exposure Smokeless tobacco non-user [facility] Start: 04-06-2023 Alcohol intake Lifetime non-d herbert (finding) [facility] Start: 06-18-2020 End: 12-31-2024 Alcohol Use Disorder Identification Test - Consumption [AUDIT-C] [facility] How often to you hav e a drink containing alcohol? Never [facility] How many standard dr inks containing alcohol do you have on a typical day? Patient refused [facility] Do you feel stress - tense, restless, nervous, or anxious, or unable to sleep at night because your mind is troubled all the time - these days [OSQ] Only a little [facility] In the past 12 month s, was there a time when you were not able to pay the mortgage or rent on time? No [facility] Start: 01-02-2020 Education 12 [facility] Start: 1980 Sex Assigned At Not on file [facility] Start: 10-02-2023 Tobacco use and exposure Marie r smokeless tobacco user [facility] Start: 10-02-2023 End: 10-01-2024 Alcohol intake Current drinker of alcohol (finding) [facility] Start: 10-02-2023 Alcohol Comment Occ [facility] Start: 11-06-2014 End: 05-18-2023 Sex Female (finding) [facility] Start: 12-31-2024 [facility] Start: 12-31-2024 Alcoholic beverage intake Ex-drinker (finding) [facility] Gender identity Identifies as fe male gender (finding) [facility] NEGATED: Highlighted rowStart: NINF History of tobacco use Passive smoker [facility] Goals Date Patient Goal Desired Activity /State Mental Status Date Assessment Result Facility 11-17-2023 Cognitive function Awake;Alert;A ppropriate;Follow s Commands [facility] Work Phone: 03-10-2023 Cognitive function Level Of Cons ciousness Awake;Alert;Appropriate;Follow s Commands [facility] Work Phone: 03-10-2023 Cognitive function Voice/Name [facility] Work Phone: Clinical Notes 05-25-2021 to 12-31-2024 Annette Barker - 12/31/2024 11:55 AM Joaquin Falcon APRN-GOYO - 12/31/2024 11:55 AM Rich Barker - 12/31/2024 11:55 AM Hailey Avila MD - 10/01/2024 8:00 AM ESTDischarge Instructions Note Date & Type Note Facility 12-31-2024 History of Present illness Narrative Main historian: Self Patient presents with Nausea, Headache, and Vomiting Associated symptoms: loss of appetite Onset: x3 days Self treatments: Ibuprofen Alleviating factors none Aggravating factors: none Exposures: states after being at a grad constitution party Last visit: HPI Yamilka Knox Elizabethashley 1980 presents to the [facility] with Chief Complaint Patient presents with Nausea Headache Vomiting Main historian: Self Patient presents with Nausea, Headache, and Vomiting States headache is generalized denies any vision changes. States she has had decreased appetite she is able to drink water and keep it down. States she did miss work today due to her symptoms and does need a work excuse. Denies any weakness dizziness. Denies any bouts of diarrhea states she has vomited 1 time in the past 24 hours Associated symptoms: loss of appetite Onset: x3 days Self treatments: Ibuprofen Alleviating factors none Aggravating factors: none Exposures: states after being at a grad constitution party Last visit: History No Known Allergies Current Outpatient Medications Medication Sig busPIRone 10 MG tablet Take 1 tablet by mouth Every 8 hours as needed. Dietary Management Product (METHAZEL PO) Take by mouth. Diltiazem 30 MG tablet Take 1 tablet by mouth daily. Metoprolol succinate 25 MG tablet XL Take 1 tablet by mouth daily. Norgestimate-Ethinyl Estradiol 0.18/0.215/0.25 MG-35 MCG tablet Take 1 tablet by mouth daily. Ondansetron 4 MG Tab Dispersible tablet Take 1 tablet by mouth every 8 hours as needed for Nausea. Family History Problem Relation Age of Onset Heart Failure Mother Other - Specify Father Myocardial Infarction Father Past Medical History: Diagnosis Date Anxiety Tachycardia No past surgical history on file. Social History Socioeconomic History Marital status: Single Spouse name: Not on file Number of children: Not on file Years of education: Not on file Highest education level: Not on file Occupational History Not on file Tobacco Use Smoking status: Never Passive exposure: Never Smokeless tobacco: Never Vaping Use Vaping status: Every Day Substances: Nicotine Devices: Disposable, Pre-filled or refillable cartridge, Refillable tank Substance and Sexual Activity Alcohol use: Not Currently Drug use: Not Currently Sexual activity: Not on file Other Topics Concern Not on file Social History Narrative Not on file Social Drivers of Health Financial Resource Strain: Not on file Food Insecurity: Not on file Transportation Needs: Not on file Physical Activity: Not on file Stress: No Stress Concern Present (01/02/2020) Received from [facility] - Occupational Stress Questionnaire Feeling of Stress : Only a little Social Connections: Not on file Personal Safety: Not on file Housing Stability: Unknown (01/02/2020) Received from [facility] Housing Stability Vital Sign Unable to Pay for Housing in the Last Year: No Number of Places Lived in the Last Year: Not on file Unstable Housing in the Last Year: No ROS Review of Systems 8 systems reviewed with patient, negative unless specifically mentioned in history of present illness PHYSICAL EXAM Visit Vitals BP 112/61 Temp 99.1 F (37.3 C) (Temporal) Resp 16 Ht 1.626 m (5' 4) Wt 65.8 kg (145 lb) SpO2 99% BMI 24.89 kg/m Physical Exam Vitals and nursing note reviewed. Constitutional: Appearance: Normal appearance. HENT: Head: Normocephalic. Right Ear: Tympanic membrane, ear canal and external ear normal. Left Ear: Tympanic membrane, ear canal and external ear normal. Nose: Nose normal. Mouth/Throat: Mouth: Mucous membranes are moist. Pharynx: Oropharynx is clear. Eyes: Conjunctiva/sclera: Conjunctivae normal. Cardiovascular: Rate and Rhythm: Normal rate and regular rhythm. Pulses: Normal pulses. Heart sounds: Normal heart sounds. Pulmonary: Effort: Pulmonary effort is normal. Breath sounds: Normal breath sounds. Abdominal: General: Bowel sounds are normal. Musculoskeletal: General: Normal range of motion. Cervical back: Normal range of motion and neck supple. Skin: General: Skin is warm and dry. Neurological: General: No focal deficit present. Mental Status: She is alert and oriented to person, place, and time. Mental status is at baseline. Cranial Nerves: Cranial nerves 2-12 are intact. Sensory: Sensation is intact. Motor: Motor function is intact. Coordination: Coordination is intact. RESULTS Recent Results (from the past 2 hours) SARS-COV-2 RAPID ANTIGEN (CLINIC ONLY) Collection Time: 12/31/24 12:12 PM Specimen: NARES Result Value Ref Range SARS-COV-2 Rapid Antigen NOT DETECTED NOT DETECTED NARRATIVE -1 This test was performed using lateral flow immunoassay. This test does not differentiate between SARS-CoV and SARS-CoV2. ASSESSMENT/PLAN 1. Viral illness 2. Nausea and vomiting, unspecified vomiting type 3. Acute nonintractable headache, unspecified headache type Orders Placed This Encounter SARS-COV-2 RAPID ANTIGEN (CLINIC ONLY) Ketorolac (TORADOL) injection 60 mg DISCONTD: diphenhydrAMINE (BENADRYL) injection 25 mg DISCONTD: Ondansetron 4mg/2ml (ZOFRAN) injection 4 mg Ondansetron 4mg/2ml (ZOFRAN) injection 4 mg diphenhydrAMINE (BENADRYL) injection 25 mg Ondansetron 4 MG Tab Dispersible tablet COVID-19 negative. Physical exam grossly unremarkable. Patient has neurologically intact. 1236pm Benadryl, Zofran, Toradol given in clinic for headache 1318 patient states headache has improved neuro assessment unchanged Patient discharged home in stable condition I did prescribe Zofran for nausea supportive treatment reviewed patient verbalizes understanding for any worsening or worrisome symptoms go to the ER work excuse provided Follow up if symptoms worsen or fails to improve over time. The risk and benefits of therapy were discussed with the patient. Alarm symptoms were discussed, along with reasons for contacting the office or going to the ER. Questions were answered for the patient. Follow up if symptoms worsen or fails to improve over time. If symptoms worsen patient was advised to follow up in our office, primary care provider or the Emergency Dept. Benefits, Risks, Contraindications, and Complications of recommended treatments were explained. The patient verbalized understanding and agrees to proceed with plan. CLARISSA Espinosa 12/31/2024 Pt given diphenhydramine, Toradol, and Zofran IM right glute. Pt tolerated well. documented in this encounter [facility] 10-01-2024 History of Present illness Narrative Images from the original note were not included. [facility] ENDO[facility] [address] [id number] Dept: [phone] Dept Visit Date: 10/01/2024 HPI: Yamilka Bryant is a 43 y.o. female who presents today for: Chief Complaint Patient presents with Follow-up Low TSH level HPI: Patient is here for follow-up on subclinical hyperthyroidism She has history of thyroid nodules at least since 2018 Previous FNA bx done and they came back benign and other came back undetermined She had thyroid ultrasound in April 2023 at [facility] that revealed 1.4 cm right thyroid nodule TI-right 3, 0.8 cm right thyroid nodule TI-right 3. Left thyroid nodule 1.3 cm TI-right 4, and 1 cm thyroid nodule at the isthmus TI-right 4 Thyroid ultrasound in September 2023 revealed 1.2 cm right thyroid nodule with microcalcifications TI-RADS 5 and another 1.3 cm left thyroid nodule TI-RADS 5 with microcalcifications Ultrasound-guided FNA biopsy for the 2 thyroid nodules in January 2024 was benign Thyroid uptake and scan in 2023 revealed increased uptake of 32% with heterogenicity in the right thyroid lobe with mild increased activity in the left lobe that corresponds to the solid nodule on the left side Patient was started on methimazole 5 mg daily Denies sore throat fever abdominal pain She denies being on biotin or b complex Denies hx of being on thyroid or antithyroid meds Denies tremors Reported that palpitations random Sees cardiology, HR controlled on metoprolol and diltiazem Reported hx of anxiety Does not sleep well at night Reported cold intolerance Denies heat intolerance Denies increased sweating Reported stable weight but fluctuates when she gets sick Reported occasional neck swelling Denies dysphagia Denies dyspnea Denies hoarseness Denies Fhx of thyroid disease or cancer Denies radiation treatment to head and neck Patient reported regular menstrual period, LMP was this week The patient current PCP is Tiana Carter Past Medical History: Diagnosis Date Anxiety Barger's esophagus Herpes zoster Thyroid nodule Past Surgical History: Procedure Laterality Date BIOPSY (HISTORICAL) STOMACH SURGERY 2015 TONSILLECTOMY Current Outpatient Medications Medication Sig Dispense Refill busPIRone (Buspar) 10 MG tablet Take 10 mg by mouth 2 times daily. dilTIAZem (Cardizem) 30 MG immediate release tablet Take 30 mg by mouth in the morning. metoprolol succinate XL (Toprol-XL) 25 MG 24 hr tablet Take 25 mg by mouth daily. norgestimate-ethinyl estradiol (Ortho Tri-Cyclen,Trinessa) 0.18/0.215/0.25 MG-35 MCG tablet Take 1 tablet by mouth in the morning. methIMAzole (Tapazole) 5 MG tablet Take 1 tablet (5 mg) by mouth daily. 90 tablet 3 No current facility-administered medications for this visit. No Known Allergies Family History Problem Relation Name Age of Onset Asthma Mother Heart disease Mother Heart failure Mother Heart disease Father Cancer Father Thyroid disease Neg Hx Thyroid cancer Neg Hx Social History Socioeconomic History Marital status: Single Tobacco Use Smoking status: Former Types: Cigarettes Smokeless tobacco: Former Substance and Sexual Activity Alcohol use: Yes Comment: Occ Drug use: Never Social Drivers of Health Stress: No Stress Concern Present (01/02/2020) Received from [facility], [facility] of Occupational Health - Occupational Stress Questionnaire Feeling of Stress : Only a little Subjective: Review of Systems All other systems reviewed and are negative. Objective: BP 106/69 Pulse 90 Ht 5' 4 (1.626 m) Wt 140 lb (63.5 kg) BMI 24.03 kg/m Physical Exam Constitutional: General: She is not in acute distress. Appearance: Normal appearance. She is not ill-appearing. HENT: Head: Normocephalic and atraumatic. Nose: Nose normal. Mouth/Throat: Mouth: Mucous membranes are moist. Pharynx: Oropharynx is clear. Eyes: General: No scleral icterus. Extraocular Movements: Extraocular movements intact. Neck: Thyroid: No thyromegaly. Cardiovascular: Rate and Rhythm: Normal rate and regular rhythm. Pulses: Normal pulses. Heart sounds: Normal heart sounds. No murmur heard. Pulmonary: Effort: Pulmonary effort is normal. No respiratory distress. Breath sounds: Normal breath sounds. No stridor. No wheezing, rhonchi or rales. Abdominal: General: Abdomen is flat. There is no distension. Palpations: Abdomen is soft. Tenderness: There is no abdominal tenderness. Musculoskeletal: Cervical back: Neck supple. Right lower leg: No edema. Left lower leg: No edema. Skin: General: Skin is warm. Coloration: Skin is not jaundiced. Findings: No rash. Neurological: Mental Status: She is alert and oriented to person, place, and time. Deep Tendon Reflexes: Reflexes normal. Psychiatric: Mood and Affect: Mood normal. Behavior: Behavior normal. Thought Content: Thought content normal. Judgment: Judgment normal. Diagnostic Workup: Latest Reference Range & Units 10/02/23 10:52 11/02/23 00:00 01/29/24 10:24 05/08/24 00:00 09/17/24 00:00 THYROID STIMULATING HORMONE 0.35 - 4.94 uIU/mL 0.12 (L) 0.810 1.51 1.570 1.79 T4, FREE 0.70 - 1.48 ng/dL 1.3 1.30 1.0 1.05 1.11 T3, FREE 1.58 - 3.91 pg/mL 4.1 3.00 2.9 3.40 3.30 (L): Data is abnormally low Latest Reference Range & Units 10/02/23 10:52 TRAB <=2.00 IU/L <1.00 09/17/24 00:00 THYROID STIMULATING HORMONE RECEPTOR ANTIBODY (TRAB) <1.10 Assessment: Diagnosis Plan 1. Subclinical hyperthyroidism TSH T4, free T3, free TSH T4, free T3, free TSH T4, free T3, free TSH T4, free T3, free US thyroid 2. Multiple thyroid nodules US thyroid 3. Low TSH level methIMAzole (Tapazole) 5 MG tablet Plan: 1. Subclinical hyperthyroidism 2. Multiple thyroid nodules 3. 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 I offered the patient the treatment of radioactive iodine treatment versus to continue methimazole she would like to continue methimazole 5 mg daily Last thyroid function test was normal Repeat thyroid function test in 6 months and in 1 year Ultrasound-guided FNA biopsy for the 2 thyroid nodules in January 2024 were benign Patient was counseled that most hot nodules are benign Repeat thyroid ultrasound in 1 year I spent 30 minutes with the pt which involved in coordination of care, medical evaluation, review of records, and/or counseling of the pt regarding her condition/disease state/prognosis on the date of this note. Follow up in about 1 year (around 10/01/2025). Judy Avila MD 8:41 AM 10/01/24 Pt was eval'd by me on today's date and the note has been electronically signed by me. documented in this encounter [facility] 09-10-2024 Telephone encounter Note Pt due for labs soon and has follow up with Dr Avila 10/01/24. Please send to hold over until labs and appointment. [facility] 09-10-2024 Miscellaneous Notes Pt due for labs soon and has follow up with Dr Avila 10/01/24. Please send to hold over until labs and appointment. documented in this encounter [facility] 05-22-2024 Note . MICRO - Microbiology PROCEDURE: Urine Culture [*1] SOURCE: Urine, Clean Catch BODY SITE: COLLECTED DATE/TIME: 05/20/2024 16:43 EDT RECEIVED DATE/TIME: 05/20/2024 19:25 EDT START DATE/TIME: 05/20/2024 19:25 EDT FREE TEXT SOURCE: FINAL REPORTS Final Report [] Verified Date/Time/Personnel: 05/22/2024 07:35 EDT No growth at 48 hours. PRELIMINARY REPORTS Preliminary Report [] Verified Date/Time/Personnel: 05/21/2024 09:38 EDT No growth to date Performing Locations *1: This test was performed at: [address], [facility] , [facility] 05-21-2024 Telephone encounter Note Name of caller: Yamilka Contact phone number: [phone] Relationship to Patient: patient Provider: Dr Avila Practice: Endo Chief Complaint/Reason for Call: Pt is asking if the medication Methimazole is actually doing anything good? Pt states the symptoms that was stated should be taken care of are not and has actually developed new symptoms like leg cramps that are very painful. Additionally pt states her insurance will be changing and will no longer be able to afford the methimazole medication. Pt sates her blood work was no different than it is now and is wondering why the medication has not been increased or changed to a different medication. Please advise Best time of day caller can be reached: Any Patient advised that office/PCP has 24-48 business hours to return their call: Yes [facility] 05-21-2024 Miscellaneous Notes Name of caller: Yamilka Contact phone number: [phone] Relationship to Patient: patient Provider: Dr Avila Practice: Endo Chief Complaint/Reason for Call: Pt is asking if the medication Methimazole is actually doing anything good? Pt states the symptoms that was stated should be taken care of are not and has actually developed new symptoms like leg cramps that are very painful. Additionally pt states her insurance will be changing and will no longer be able to afford the methimazole medication. Pt sates her blood work was no different than it is now and is wondering why the medication has not been increased or changed to a different medication. Please advise Best time of day caller can be reached: Any Patient advised that office/PCP has 24-48 business hours to return their call: Yes documented in this encounter [facility] 05-17-2024 Telephone encounter Note Addressed in a different encounter [facility] Work Phone: 05-17-2024 Miscellaneous Notes Addressed in a different encounter Results Reconciled under lab tab for review. Called for results to faxed. Name of caller: Yamilka Contact phone number: [phone] Relationship to Patient: patient Provider: Dr Avila Practice: Endocrinology Chief Complaint/Reason for Call: Yamilka called in to see if her lab results were received. She had them done last week at [facility]. Yamilka would like a call back with those results and stated that she is currently out of medication. Best time of day caller can be reached: any Patient advised that office/PCP has 24-48 business hours to return their call: Yes documented in this encounter [facility] 05-17-2024 Telephone encounter Note Results Reconciled under lab tab for review. [facility] 05-15-2024 Telephone encounter Note Called for results to faxed. [facility] 05-14-2024 Telephone encounter Note Name of caller: Yamilka Contact phone number: [phone] Relationship to Patient: patient Provider: Dr Avila Practice: Endocrinology Chief Complaint/Reason for Call: Yamilka called in to see if her lab results were received. She had them done last week at [facility]. Yamilka would like a call back with those results and stated that she is currently out of medication. Best time of day caller can be reached: any Patient advised that office/PCP has 24-48 business hours to return their call: Yes [facility] 05-02-2024 Note This Pap Test was successfully processed and evaluated with the assistance of the [employer] ThinPrep Test Imaging System. [facility] 05-02-2024 Note This Pap Test was successfully processed and evaluated with the assistance of the [employer] Thin[employer] Test Imaging System. [facility] 05-02-2024 Note This Pap Test was successfully processed and evaluated with the assistance of the [employer] Thin[employer] Test Imaging System. [facility] 05-02-2024 Note This Pap Test was successfully processed and evaluated with the assistance of the [employer] Thin[employer] Test Imaging System. [facility] 05-02-2024 Note This Pap Test was successfully processed and evaluated with the assistance of the [employer] Thin[employer] Test Imaging System. [facility] 05-02-2024 Note This Pap Test was successfully processed and evaluated with the assistance of the [employer] Thin[employer] Test Imaging System. [facility] 05-02-2024 Note This Pap Test was successfully processed and evaluated with the assistance of the [employer] Thin[employer] Test Imaging System. [facility] 05-02-2024 Note This Pap Test was successfully processed and evaluated with the assistance of the [employer] Media[employer] Test Imaging System. [facility] 05-02-2024 Note This Pap Test was successfully processed and evaluated with the assistance of the [employer] ThinPrep Test Imaging System. [facility] 01-29-2024 Hospital Discharge instructions Kaitlyn Koehler RN - 01/29/2024 9:06 AM EDT Biopsy Discharge Instructions Your Recovery A biopsy is a procedure that is performed to obtain a small piece of tissue from an organ, bone, growth, or tumor. This tissue is sent to the lab where a pathologist can examine it to look for cancer or to diagnose other health problems. The area where the biopsy was taken may be sore for a couple days following the procedure. You may develop a bruise. This care sheet gives you a general idea about how long it will take for you to recover. However, each person recovers at a different pace. How can you care for yourself at home? Activity - Avoid heavy lifting or strenuous activities for 24-48 hours following your procedure Diet - You may resume your normal diet. If your stomach is upset, try bland, low-fat food like plain rice, broiled chicken, toast and yogurt. - Drink plenty of fluids. Medications - You may resume your home medications the day after the procedure unless otherwise instructed by your doctor. Care of Biopsy Site - Keep a bandage over the biopsy site for 24 hours. It is important to keep the site clean and dry during this time. - After 24 hours you may remove the bandage and clean the area with a mild soap. - You may apply heat or ice to the procedure site to help with any soreness. Alternate 20 minutes with heat or ice, and 20 minutes without. Be sure to use a barrier such as a towel between the ice or heat and your skin. - Monitor the site for signs of infection including redness, discharge or swelling. If you are concerned with the site, please contact us. When should you call for help? - For emergent concerns following your procedure please call 911 or go to the nearest emergency room. - For any non-emergent post-procedure questions or concerns, please give us a call between 8am and 5pm. - [facility] Radiology - [phone] - [facility] Radiology - [phone] - For questions after hours, please call [phone] and ask for the on-call Angiography Radiologist. When can I expect to get my test results? - It typically takes 1-2 weeks to get your biopsy results. - All biopsy results will be sent to your doctor that ordered the procedure. For any questions regarding test results, please contact your doctor s office. This handout is intended to provide general educational material to assist you in making informed decisions regarding your medical care. Specific questions about your unique medical conditions should be referred to your primary care physician. documented in this encounter [facility] 01-29-2024 Note Patient arrived to [facility] department for thyroid biopsy.Leia Muniz Pa-C discussing procedure with patient and informed consent obtained. Right anterior neck prepped in sterile fashion. FNA x 5 obtained from right thyroid nodule, with 2 specimens placed into Afirma. Left anterior neck prepped in sterile fashion. FNA x 5 obtained from left thyroid nodule, with 2 specimens placed into Afirma. Patient tolerated procedure well. Denies pain. Bandaid applied. Homegoing instuctions reviewed with patient. Ice pack given to patient. Patient discharged to home. [facility] 01-29-2024 Nurse Note Patient arrived to ultrasound department for thyroid biopsy.Leia Muniz Pa-C discussing procedure with patient and informed consent obtained. Right anterior neck prepped in sterile fashion. FNA x 5 obtained from right thyroid nodule, with 2 specimens placed into Afirma. Left anterior neck prepped in sterile fashion. FNA x 5 obtained from left thyroid nodule, with 2 specimens placed into Afirma. Patient tolerated procedure well. Denies pain. Bandaid applied. Homegoing instuctions reviewed with patient. Ice pack given to patient. Patient discharged to home. [facility] 01-29-2024 Nurse Note Patient arrived to ultrasound department for thyroid biopsy.Leia Muniz Pa-C discussing procedure with patient and informed consent obtained. Right anterior neck prepped in sterile fashion. FNA x 5 obtained from right thyroid nodule, with 2 specimens placed into Afirma. Left anterior neck prepped in sterile fashion. FNA x 5 obtained from left thyroid nodule, with 2 specimens placed into Afirma. Patient tolerated procedure well. Denies pain. Bandaid applied. Homegoing instuctions reviewed with patient. Ice pack given to patient. Patient discharged to home. documented in this encounter [facility] 11-06-2023 Telephone encounter Note Left voicemail for patient regarding below. Provided with central scheduling phone number or to return call to office to schedule. [facility] 11-06-2023 Telephone encounter Note ----- Message from Judy Avila MD sent at 11/06/2023 10:15 AM EDT ----- Please inform pt that her thyroid function were normal. She can continue same dose of methimazole. Repeat thyroid test in 3 months Now, we need to FNA for 2 thyroid around this time to do it at [facility]. Please see orders. Thanks [facility] 11-06-2023 Miscellaneous Notes Left voicemail for patient regarding below. Provided with central scheduling phone number or to return call to office to schedule. ----- Message from Judy Avila MD sent at 11/06/2023 10:15 AM EDT ----- Please inform pt that her thyroid function were normal. She can continue same dose of methimazole. Repeat thyroid test in 3 months Now, we need to FNA for 2 thyroid around this time to do it at [facility]. Please see orders. Thanks documented in this encounter [facility] 10-06-2023 Telephone encounter Note Patient scheduled on 10/10 at 9AM - [facility] 10-06-2023 Miscellaneous Notes Patient scheduled on 10/10 at 9AM - [facility] Left voicemail for patient to return call regarding below. ----- Message from Judy Avila MD sent at 10/04/2023 12:06 PM EST ----- Please inform the patient that her thyroid function test were consistent with subclinical hyperthyroidism and her thyroid ultrasound revealed multiple thyroid nodules that stable compared to the ultrasound done in April 2023 Recommend at this point to do thyroid uptake and scan to see if she has possible overactive thyroid nodules Please see order for test as well before the thyroid uptake and scan documented in this encounter [facility] 10-04-2023 Telephone encounter Note Left voicemail for patient to return call regarding below. [facility] 10-04-2023 Telephone encounter Note ----- Message from Judy Avila MD sent at 10/04/2023 12:06 PM EST ----- Please inform the patient that her thyroid function test were consistent with subclinical hyperthyroidism and her thyroid ultrasound revealed multiple thyroid nodules that stable compared to the ultrasound done in April 2023 Recommend at this point to do thyroid uptake and scan to see if she has possible overactive thyroid nodules Please see order for test as well before the thyroid uptake and scan [facility] 10-02-2023 History of Present illness Narrative Images from the original note were not included. [facility] [address] [id number] Dept: [phone] Dept Visit Date: 10/02/2023 HPI: Yamilka Bryant is a 42 y.o. female who presents today for: Chief Complaint Patient presents with New Patient Thyroid Problem HPI: Patient referred to endocrinology for low TSH level and thyroid nodules TSH level was 0.17 in December 2022 with normal free T4 normal free T3 TPO antibodies were normal thyroglobulin antibody was normal TSH level was normal at 0.41 in October 2022 TSH level was normal at 0.83 in May 2022 She denies being on biotin or b complex Denies hx of being on thyroid or antithyroid meds Denies tremors Reported palpitations occasionally, random, fees increased recently Reported hx of anxiety Does not sleep well at night Reported cold intolerance Denies heat intolerance Denies increased sweating lately She reported weight loss of 20 pounds in 2 months last year in 09/2022 and continued to loose weight till early 2023, all unintentional Had COVID 2 weeks ago She has history of thyroid nodules at least since 2019 Previous FNA bx done and they came back benign and other came back undetermined She had thyroid ultrasound in April 2023 at [facility] that revealed 1.4 cm right thyroid nodule TI-right 3, 0.8 cm right thyroid nodule TI-right 3. Left thyroid nodule 1.3 cm TI-right 4, and 1 cm thyroid nodule at the isthmus TI-right 4 Reported occasional neck swelling Denies dysphagia Denies dyspnea Denies hoarseness Denies Fhx of thyroid disease or cancer Denies radiation treatment to head and neck Patient reported regular menstrual period The patient current PCP is [facility] Past Medical History: Diagnosis Date Anxiety Barger's esophagus Herpes zoster Thyroid nodule Past Surgical History: Procedure Laterality Date BIOPSY (HISTORICAL) STOMACH SURGERY 2015 TONSILLECTOMY Current Outpatient Medications Medication Sig Dispense Refill busPIRone (Buspar) 10 MG tablet Take 10 mg by mouth every 8 hours as needed. dilTIAZem (Cardizem) 30 MG immediate release tablet Take 30 mg by mouth in the morning. metoprolol succinate XL (Toprol-XL) 25 MG 24 hr tablet Take 25 mg by mouth daily. norgestimate-ethinyl estradiol (Ortho Tri-Cyclen,Trinessa) 0.18/0.215/0.25 MG-35 MCG tablet Take 1 tablet by mouth in the morning. ondansetron ODT (Zofran-ODT) 4 MG disintegrating tablet Take 4 mg by mouth every 6 hours as needed. No current facility-administered medications for this visit. No Known Allergies Family History Problem Relation Name Age of Onset Asthma Mother Heart disease Mother Heart failure Mother Heart disease Father Cancer Father Thyroid disease Neg Hx Thyroid cancer Neg Hx Social History Socioeconomic History Marital status: Single Tobacco Use Smoking status: Former Types: Cigarettes Smokeless tobacco: Former Substance and Sexual Activity Alcohol use: Yes Comment: Occ Drug use: Never Subjective: Review of Systems All other systems reviewed and are negative. Objective: BP 108/64 Pulse (!) 113 Ht 5' 4 (1.626 m) Wt 128 lb (58.1 kg) BMI 21.97 kg/m Physical Exam Constitutional: General: She is not in acute distress. Appearance: Normal appearance. She is not ill-appearing. HENT: Head: Normocephalic and atraumatic. Nose: Nose normal. Mouth/Throat: Mouth: Mucous membranes are moist. Pharynx: Oropharynx is clear. Eyes: General: No scleral icterus. Extraocular Movements: Extraocular movements intact. Neck: Thyroid: No thyromegaly. Cardiovascular: Rate and Rhythm: Normal rate and regular rhythm. Pulses: Normal pulses. Heart sounds: Normal heart sounds. No murmur heard. Pulmonary: Effort: Pulmonary effort is normal. No respiratory distress. Breath sounds: Normal breath sounds. No stridor. No wheezing, rhonchi or rales. Abdominal: General: Abdomen is flat. There is no distension. Palpations: Abdomen is soft. Tenderness: There is no abdominal tenderness. Musculoskeletal: Cervical back: Neck supple. Right lower leg: No edema. Left lower leg: No edema. Skin: General: Skin is warm. Coloration: Skin is not jaundiced. Findings: No rash. Neurological: Mental Status: She is alert and oriented to person, place, and time. Deep Tendon Reflexes: Reflexes normal. Psychiatric: Mood and Affect: Mood normal. Behavior: Behavior normal. Thought Content: Thought content normal. Judgment: Judgment normal. Diagnostic Workup: Please see HPI Assessment: Diagnosis Plan 1. Low TSH level T4, free TSH T3, free Thyroid Stimulating Hormone Receptor Antibody (TRAb) (Sendout) T4, free TSH T3, free Thyroid Stimulating Hormone Receptor Antibody (TRAb) (Sendout) hCG, quantitative hCG, quantitative 2. Multiple thyroid nodules US thyroid Plan: 1. Low TSH level 2. Multiple thyroid nodules In general patient is clinically euthyroid Patient could have normal thyroid function test versus subclinical hyperthyroidism versus hyperthyroidism Will obtain thyroid function test for confirmation today Will obtain TSH receptor antibody If thyroid function test are consistent with subclinical hyperthyroidism or hypertthyroidism with negative TSH receptor antibody then I will obtain thyroid uptake and scan to evaluate for toxic nodules Patient was counseled about causes of hyperthyroidism Patient was counseled about symptoms of hyperthyroidism Patient was counseled about possible treatments for hyperthyroidism Patient was counseled about indications for treatment for subclinical hyperthyroidism For thyroid nodules: She was counseled about the nature of thyroid nodules Will evaluate thyroid nodules by obtaining thyroid ultrasound at our facility Further recommendations to follow after I get test results I have addressed the above chronic illnesses including management, progression, and benefits and side effects of treatment. I have reviewed prior records, interpreted test results and discussed management with the patient. I spent 45 minutes with the pt which involved in coordination of care, medical evaluation, review of records, and/or counseling of the pt regarding her condition/disease state/prognosis on the date of this note. Follow up in about 1 year (around 10/01/2024). Judy Avila MD 9:12 AM 10/02/23 Pt was eval'd by me on today's date and the note has been electronically signed by me. documented in this encounter [facility] 10-02-2023 Instructions Judy Avila MD - 10/02/2023 8:20 AM EST 1 documented in this encounter [facility] 07-11-2023 Miscellaneous Notes Patient missed her appointment yesterday. She called today wanting to know if there were any issues with her labs? Does she need a follow up? She lives far away and didn't want to travel if there was nothing more you could do? Labs were done at [facility] and are scanned in her chart. Diandra Zavala documented in this encounter [facility] 05-10-2023 Note . MICRO - Microbiology PROCEDURE: Urine Culture [*1] SOURCE: Urine, Clean Catch BODY SITE: COLLECTED DATE/TIME: 05/08/2023 11:00 EDT RECEIVED DATE/TIME: 05/08/2023 15:10 EDT START DATE/TIME: 05/08/2023 15:11 EDT FREE TEXT SOURCE: FINAL REPORTS Final Report [] Verified Date/Time/Personnel: 05/10/2023 07:44 EDT <10,000 cfu/ml. No Significant growth. Sensitivity not indicated. PRELIMINARY REPORTS Preliminary Report [] Verified Date/Time/Personnel: 05/09/2023 09:15 EDT No growth to date Performing Locations *1: This test was performed at: [facility], [address] [place] [address], [facility] , [facility] ([place]) 04-14-2023 Miscellaneous Notes Pt notified and asked for orders to be mailed to her home- done Barbara Jose LPN LVMM for the pt to please return my call to discuss I will also send my chart message. Barbara Jose LPN Please let her know Old chart has been reviewed Labs ordered please get them done Cony Cox MD documented in this encounter [facility] 04-06-2023 Note HNO ID: [id number] Author: Cony Cox MD Service: ? Author Type: Physician Type: Progress Notes Filed: 07/12/2023 9:35 PM Note Text: This note was created using Designer Material[employer]. Subjective Yamilka Bryant is a 42 year old female. 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 No history of Hidradenitis Suppurativa . No labs testing done Patient does not have a history of dry eyes, dry mouth, dryness in the mucosal membranes. There is no history of salivary gland enlargement. Patient has no history of pleuritis, pericarditis, seizures, psychosis, malar or discoid rashes. Has no history of hematologic issues, renal issues ( proteinuria or hematuria) . No history of photosensitivity is there. No history of any recurrent thrombotic events. No history of Raynaud or Livedo reticularis. No history of any recurrent miscarriages is there. No history of psoriasis, ulcerative colitis, Chron's disease, celiac disease or iritis / uveitis in family. Wt loss No vomit Nausea lot Never hungry Seen surg and alexander normal Review of Systems Constitutional: Positive for fatigue and unexpected weight change. Negative for fever. Respiratory: Negative. Cardiovascular: Negative. Objective Blood Pressure 108/63 Pulse 88 Temperature 36.8 ?C (98.3 ?F) Height 162.6 cm (5' 4) Weight 56.7 kg (125 lb) Last Menstrual Period 12/31/2019 Body Mass Index 21.46 kg/m? Physical Exam Vitals reviewed. Constitutional: General: She is not in acute distress. Appearance: Normal appearance. She is not ill-appearing or toxic-appearing. Cardiovascular: Rate and Rhythm: Normal rate and regular rhythm. Heart sounds: Normal heart sounds. No murmur heard. No friction rub. No gallop. Pulmonary: Effort: No respiratory distress. Breath sounds: Normal breath sounds. No stridor. No wheezing or rhonchi. Abdominal: General: There is no distension. Palpations: Abdomen is soft. There is no mass. Tenderness: There is no abdominal tenderness. Hernia: No hernia is present. Musculoskeletal: Right shoulder: Normal. Left shoulder: Normal. Right elbow: Normal. Left elbow: Normal. Right wrist: Normal. Left wrist: Normal. Right hand: Normal. Left hand: Normal. Cervical back: No rigidity or tenderness. Thoracic back: Normal. Lumbar back: Normal. Right hip: Normal. Left hip: Normal. Right knee: Normal. Left knee: Normal. Right lower leg: No edema. Left lower leg: No edema. Right ankle: Normal. Left ankle: Normal. Right foot: Normal. Left foot: Normal. Comments: Minimal swelling at the 2nd MCP Low grade dip pip 1st cmc enlargement Tender point neg Lymphadenopathy: Cervical: No cervical adenopathy. Skin: Findings: No rash. Neurological: Mental Status: She is alert. Assessment and Plan First visit 04/06/23 right handed Polyarthralgia 2022 Thyroglobulin, thyroid peroxidase ab neg. 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 ( 2 week ) stop and then just as needed. 04/06/23 get labs once old chart is reviewed, orders get labs once reviewed wt loss also issue . Drug and disease monitoring 2019 LFT tsh normal cbc cmp normal 01/20 TSH 0.17 low T 4 normal Benign Hypermobility Syndrome ? 04/22 Knee extension is > 180 degrees, elbow extension is 180 degrees, the thumb cannot passively appose the anterior surface of the forearm, the MCP joints can be extended to beyond 90 degrees, pat (more content not included)... [facility] 04-06-2023 History of Present illness Narrative This note was created using NoteWriter. Subjective Yamilka Bryant is a 42 year old female. 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 No history of Hidradenitis Suppurativa . No labs testing done Patient does not have a history of dry eyes, dry mouth, dryness in the mucosal membranes. There is no history of salivary gland enlargement. Patient has no history of pleuritis, pericarditis, seizures, psychosis, malar or discoid rashes. Has no history of hematologic issues, renal issues ( proteinuria or hematuria) . No history of photosensitivity is there. No history of any recurrent thrombotic events. No history of Raynaud or Livedo reticularis. No history of any recurrent miscarriages is there. No history of psoriasis, ulcerative colitis, Chron's disease, celiac disease or iritis / uveitis in family. Wt loss No vomit Nausea lot Never hungry Seen surg and alexander normal Review of Systems Constitutional: Positive for fatigue and unexpected weight change. Negative for fever. Respiratory: Negative. Cardiovascular: Negative. Objective Blood Pressure 108/63 Pulse 88 Temperature 36.8 C (98.3 F) Height 162.6 cm (5' 4) Weight 56.7 kg (125 lb) Last Menstrual Period 12/31/2019 Body Mass Index 21.46 kg/m Physical Exam Vitals reviewed. Constitutional: General: She is not in acute distress. Appearance: Normal appearance. She is not ill-appearing or toxic-appearing. Cardiovascular: Rate and Rhythm: Normal rate and regular rhythm. Heart sounds: Normal heart sounds. No murmur heard. No friction rub. No gallop. Pulmonary: Effort: No respiratory distress. Breath sounds: Normal breath sounds. No stridor. No wheezing or rhonchi. Abdominal: General: There is no distension. Palpations: Abdomen is soft. There is no mass. Tenderness: There is no abdominal tenderness. Hernia: No hernia is present. Musculoskeletal: Right shoulder: Normal. Left shoulder: Normal. Right elbow: Normal. Left elbow: Normal. Right wrist: Normal. Left wrist: Normal. Right hand: Normal. Left hand: Normal. Cervical back: No rigidity or tenderness. Thoracic back: Normal. Lumbar back: Normal. Right hip: Normal. Left hip: Normal. Right knee: Normal. Left knee: Normal. Right lower leg: No edema. Left lower leg: No edema. Right ankle: Normal. Left ankle: Normal. Right foot: Normal. Left foot: Normal. Comments: Minimal swelling at the 2nd MCP Low grade dip pip 1st cmc enlargement Tender point neg Lymphadenopathy: Cervical: No cervical adenopathy. Skin: Findings: No rash. Neurological: Mental Status: She is alert. 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 ( 2 week ) stop and then just as needed. 04/06/23 get labs once old chart is reviewed, orders get labs once reviewed wt loss also issue . Drug and disease monitoring 2019 LFT tsh normal cbc cmp normal Benign Hypermobility Syndrome ? 04/22 Knee extension is > 180 degrees, elbow extension is 180 degrees, the thumb cannot passively appose the anterior surface of the forearm, the MCP joints can be extended to beyond 90 degrees, patient is not able to show truncal flexion so that the palms of the hands can be placed on the ground with knees in the extended position. Ankle joint hypermobility is there, patellar hypermobility is there. Skin hyperextensibility is there. High arch palate flat feet 04/06/23b observe Palpitation TT Cardizem + toprol xl 04/06/[address] chest : There is an approximately 3 mm nodule seen within the left apex (series 2, image #30). There is an approximately 5 mm nodule seen within the right upper lobe (series 2, image #124). There is mild dependent atelectasis, There is mild biapical fibrosis Hyperthyroid 2019 CT chest : There are hypodense nodules seen within each lobe of the thyroid gland, measuring up to 8 mm within the left lobe of the thyroid gland (series 3, image #8). Calcification within the left lobe of the thyroid gland. There are prominent, not pathologically enlarged bilateral axillary lymph nodes, likely reactive TT No intervention 04/06/23 Wt loss (( september onset 5'4 max wt 165 and now 125, still loosing wt at present ) Diverticulosis (( 2019 CT ) 03/22 EGD done 2018 Colonoscopy hyperplastic poly 03/22 Colonoscopy done 04/06/23 Hiatal hernia surg past 04/06/23 2019 US abd normal TT 04/06/23 has appt with GI not seen them 04/06/23 04/06/23 thyroid physician next months. Brief Personal and family history: BCP Home health care 04/06/23 Quit smoking 2006 started 16 1 pack week 04/06/23 No ETOH No marijuana 04/06/23 One daughter no med issue 04/06/23 3 sister healthy 04/06/23 Father 67 04/06/23 (( [place] cancer ? Skin , ) Mom ( enlarged heart age 37 ) ?? documented in this encounter [facility] 01-24-2023 Evaluation + Plan note Future Scheduled TestsEstradiol Level 01/24/23Luteinizing Hormone 01/24/23Thyroid Antibodies 01/24/23Thyroid Stimulating Hormone 01/24/23Free T4 01/24/23A1C Hemoglobin 01/24/23Follicle Stimulating Hormone Level 01/24/23Free T3 01/24/23US Pelvis Non-OB Complete 12/12/22US Thyroid 05/08/23 [facility] 11-25-2022 Note . MICRO - Microbiology PROCEDURE: Urine Culture [*1] SOURCE: Urine, Clean Catch BODY SITE: COLLECTED DATE/TIME: 11/23/2022 08:13 EDT RECEIVED DATE/TIME: 11/23/2022 19:42 EDT START DATE/TIME: 11/23/2022 19:42 EDT FREE TEXT SOURCE: FINAL REPORTS Final Report [] Verified Date/Time/Personnel: 11/25/2022 07:42 EDT 10,000 - 50,000 cfu/ml Mixed growth consistent with normal urogenital steven. PRELIMINARY REPORTS Preliminary Report [] Verified Date/Time/Personnel: 11/24/2022 09:11 EDT No growth to date Performing Locations *1: This test was performed at: [facility], [address] [place] [address], [facility] , [facility] ([place]) 11-23-2022 Evaluation + Plan note Diagnostic Tests PendingRheumatoid Factor 11/23/22Antinuclear Antibody Screen, Serum 11/23/22Urine Culture 11/23/22 [facility] 10-29-2021 Evaluation + Plan note Future Scheduled TestsXR Abdomen AP 10/29/21CT Abdomen and Pelvis w/o contrast 10/09/21 [facility] 10-09-2021 Evaluation + Plan note Diagnostic Tests PendingUrine Culture 10/09/21 Future Scheduled TestsCT Abdomen and Pelvis w/o contrast 10/09/21 [facility] 05-25-2021 Evaluation + Plan note Future Scheduled TestsPathology Pasteurizing Supervisor Request 05/25/21Lipid Profile 05/25/21Complete Metabolic Panel 05/25/21 [facility] Evaluation + Plan note Future Appointments Appointment Date:05/20/2024 08:00:00 AM Scheduled Provider:TIANA CARTER Location:[facility] Appointment Type:PC Wellness Annual Future Scheduled TestsMA Mammo Screening Bilateral w/ Lalo 04/29/24US Thyroid 05/08/23US Thyroid 05/01/24 [facility] Evaluation + Plan note Future Appointments Appointment Date:06/17/2024 07:30:00 AM Scheduled Provider:TIANA CARTER Location:[facility] Appointment Type:PC Wellness Annual Future Scheduled TestsMagnesium Level 05/20/24Complete Metabolic Panel 05/20/24MA Mammo Screening Bilateral w/ Lalo 04/29/24US Thyroid 05/01/24 [facility] Evaluation + Plan note Future Appointments Appointment Date:06/16/2025 07:30:00 AM Scheduled Provider:TIANA CARTER Location:[facility] Appointment Type:PC Wellness Annual Future Scheduled TestsMagnesium Level 05/20/24Lipid Profile 06/17/24epatitis C Antibody IgG 06/17/24Complete Metabolic Panel 06/17/24Complete Metabolic Panel 05/20/24MA Mammo Screening Bilateral w/ Lalo 04/29/24US Thyroid 05/01/24 [facility] Evaluation note Diagnosis Onset Date Abscess of back acute [facility] Work Phone: Evaluation note* Diagnosis Onset Date Resolution Status Strain of right index finger acute [facility] Work Phone: Evaluation note* Diagnosis Onset Date Resolution Status Strain of right index finger acute Weight loss acute Palpitations chronic Tachycardia chronic [facility] Work Phone: Evaluation note* Diagnosis Inflammatory arthritis- Primary Unspecified inflammatory polyarthropathy [facility] Diagnosis Onset Date Resolution Status Weight loss acute Palpitations chronic Tachycardia chronic [facility] Work Phone: Evaluation note* Diagnosis Onset Date Resolution Status Weight loss acute Palpitations chronic Tachycardia chronic Abnormal thyroid blood test acute Weight loss acute Multinodular goiter chronic [facility] Work Phone: Evaluation note* Diagnosis Onset Date Resolution Status Abnormal thyroid blood test acute Weight loss acute Multinodular goiter chronic [facility] Work Phone: Evaluation note* Diagnosis Low TSH level- Primary Multiple thyroid nodules Nontoxic multinodular goiter [facility] Diagnosis Multiple thyroid nodules Nontoxic multinodular goiter [facility]* Diagnosis Subclinical hyperthyroidism- Primary Thyrotoxicosis without mention of goiter or other cause, without mention of thyrotoxic crisis or storm [facility] Diagnosis Subclinical hyperthyroidism Thyrotoxicosis without mention of goiter or other cause, without mention of thyrotoxic crisis or storm [facility]* Diagnosis Multiple thyroid nodules- Primary Nontoxic multinodular goiter Low TSH level [facility]* Diagnosis Onset Date Resolution Status Acute upper respiratory infection acute [facility] Work Phone: Evaluation note* Diagnosis Multiple thyroid nodules Nontoxic multinodular goiter [facility]* Diagnosis Subclinical hyperthyroidism- Primary Thyrotoxicosis without mention of goiter or other cause, without mention of thyrotoxic crisis or storm Low TSH level [facility]* Diagnosis Hyperthyroidism- Primary Thyrotoxicosis without mention of goiter or other cause, without mention of thyrotoxic crisis or storm Low TSH level [facility]* Diagnosis Low TSH level [facility]* Diagnosis Subclinical hyperthyroidism- Primary Thyrotoxicosis without mention of goiter or other cause, without mention of thyrotoxic crisis or storm Multiple thyroid nodules Nontoxic multinodular goiter Low TSH level [facility]* Diagnosis Viral illness- Primary Unspecified viral infection, in conditions classified elsewhere and of unspecified site Nausea and vomiting, unspecified vomiting type Acute nonintractable headache, unspecified headache type [facility] noteNo assessment information [facility] Work Phone: Hospital course Narrative No data available for this section [facility] Hospital Discharge instructions No data available for this section [facility] Instructions* Attachments The following attachments cannot be sent through Care Everywhere. * Headache (Colombian) * Nausea and Vomiting (Colombian) [facility] No data available for this section [facility] Reason for referral (narrative)No reason for referral information availableWBlanch[facility] Work Phone: Summary Purpose Family History Relationship Condition Age at Onset Recorded Date/T [place] mother Congestive heart failure Unknown father Cardiac disease Unknown Malignant neoplasm of colon Unknown Advance Directives Advance Directive Response Recorded Date/ Time Living Will No January 09, 2019 3:14pm Power of Warp Dresser No January 09 9 3:14pm Advance Directive Response Recorded Date/ Time Living Will No January 09, 2019 4:14pm Power of Warp Dresser No January 09 9 4:14pm Documents on File Type Date Recorded 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 Advance Directive(s) 11/01/2018 10:26 AM Advance Directive Response Recorded Date/ Time Living Will No March 07, 2023 2:30pm Power of Warp Dresser No March 07 2:30pm Advance Directive Response Recorded Date/ Time Living Will No March 07, 2023 1:30pm Power of Warp Dresser No March 07 1:30pm Advance Directive Response Recorded Date/ Time Living Will No November 17, 2023 9:29am Power of Warp Dresser No November 16 9:29am Chief Complaint and Reason for Visit Chief Complaint BUMP ON MID BACK Reason for Visit Abscess of back Chief Complaint BUMP ON MID BACK SCREENING Reason for Visit Abscess of back Chief Complaint LUNG NODULES right hand BLADDER MASS Reason for Visit Strain of right inde x finger Chief Complaint LUNG NODULES right hand BLADDER MASS UROGRAM HEMATURIA Reason for Visit Strain of right inde x finger Chief Complaint LUNG NODULES right hand BLADDER MASS UROGRAM HEMATURIA REPEAT EGD BARRETTS ESOPHAGUS 1 Y FU (MOVED FROM [facility]) ABN WEIGHT LOSS, DYSPHAGIA Reason for Visit Strain of right inde x finger Weight loss Palpitations Tachycardia Chief Complaint REPEAT EGD BARRETTS ESOPHAGUS 1 Y FU (MOVED FROM [facility]) ABN WEIGHT LOSS, DYSPHAGIA THYROID NODULES Reason for Visit Weight loss Palpitations Tachycardia Chief Complaint REPEAT EGD BARRETTS ESOPHAGUS 1 Y FU (MOVED FROM [facility]) ABN WEIGHT LOSS, DYSPHAGIA THYROID NODULES 3 Y FU E-ORDER Reason for Visit Weight loss Palpitations Tachycardia Abnormal thyroid blood test Weight loss Multinodular goiter Chief Complaint THYROID NODULES 3 Y FU E-ORDER Reason for Visit Abnormal thyroid blo od test Weight loss Multinodular goiter Chief Complaint COUGH, SORE THROAT, CHILLS, FATIGUE Reason for Visit Acute upper respirat ory infection Chief Complaint COUGH, SORE THROAT, CHILLS, FATIGUE PALP Reason for Visit Acute upper respirat ory infection Reason for Referral Specialty Diagnoses / Procedures Referred By Vania foley Referred To Contact Radiology Diagnoses Subclinical hyperthyroidism Procedures NM thyroid uptake and scan Judy Avila MD [address] [place] [address] Referral ID Status Reason Start Date Expiration Date V isits Requested Visits Authorized [id number] Pending Review 10/04/2023 10/03/2024 2 2 Additional Source Comments INFORMATION SOURCE (unrecogn ized section and content) DATE CREATED AUTHOR 01/24/2018 [facility] DATE CREATED AUTHOR AUTHOR'S ORGANIZ ATION 11/14/2018 [facility] DATE CREATED AUTHOR AUTHOR'S ORGANIZ ATION 06/21/2020 [facility] DATE CREATED AUTHOR AUTHOR'S ORGANIZ ATION 02/10/2023 [facility] DATE CREATED AUTHOR AUTHOR'S ORGANIZ ATION 05/14/2023 [facility] ([place]) DATE CREATED AUTHOR AUTHOR'S ORGANIZ ATION 07/13/2023 [facility] DATE CREATED AUTHOR AUTHOR'S ORGANIZ ATION 10/02/2024 [facility] DATE CREATED AUTHOR AUTHOR'S ORGANIZ ATION 12/15/2024 [facility] DATE CREATED AUTHOR AUTHOR'S ORGANIZ ATION 01/01/2025 [facility] DATE CREATED AUTHOR AUTHOR'S ORGANIZ ATION 01/16/2025 [facility] Care Team (unrecognized sect ion and content) Team Status: Active Member Role Status Dates Tiana Carter PUBLIC SERVICE DIRECTOR, PUBLIC SERVICE DIRECTOR-C Family Provider Active Tiana Carter PUBLIC SERVICE DIRECTOR, PUBLIC SERVICE DIRECTOR-C Primary Care Provider Active Team Status: Inactive Member Role Status Dates Tiana Carter PUBLIC SERVICE DIRECTOR, PUBLIC SERVICE DIRECTOR-C Primary Care Provider, Referri ng Provider Active Sami Norwood MD Attending Provider Active Team Status: Inactive Member Role Status Dates Tiana Carter PUBLIC SERVICE DIRECTOR, PUBLIC SERVICE DIRECTOR-C Primary Care Pro vider, Attending Provider, Referring Provider Active Team Status: Inactive Member Role Status Dates Tiana Carter PUBLIC SERVICE DIRECTOR, PUBLIC SERVICE DIRECTOR-C Primary Care Provider, Referri ng Provider Active Dr. Sudhir Wang MD Active Britni OLIVERA, PA Attending Provider Active Team Status: Inactive Member Role Status Dates Tiana Carter PUBLIC SERVICE DIRECTOR, PUBLIC SERVICE DIRECTOR-C Primary Care Provider, Referri ng Provider Active Dr. Ralf Ventura MD Attending Provider Active Team Status: Inactive Member Role Status Dates Tiana Carter PUBLIC SERVICE DIRECTOR, PUBLIC SERVICE DIRECTOR-C Primary Care Provider Active Dr. 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 Ralf Ventura MD Attending Provider, Other Provider Active Team Status: Active Member Role Status Dates Tiana Carter PUBLIC SERVICE DIRECTOR, PUBLIC SERVICE DIRECTOR-C Primary Care Provider Active ABRIL DONNELLY Attending Provider, Referring Provide r Active Team Status: Inactive Member Role Status Dates Tiana Carter PUBLIC SERVICE DIRECTOR, PUBLIC SERVICE DIRECTOR-C Primary Care Provider, Referri ng Provider Active Dr. John Thakur MD Attending Provider Active Team Status: Inactive Member Role Status Dates Tiana Carter PUBLIC SERVICE DIRECTOR, PUBLIC SERVICE DIRECTOR-C Primary Care Provider Active Dr. 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 Relationship Specialty Start Date End Date Physicians, Shlomo [facility] [address] [place] [address] PCP - General 10/02/23 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 Relationship Specialty Start Date End Date [facility] [address] [place] [address] PCP - General 10/02/23 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 Relationship Specialty Start Date End Date Physicians, Keenan [facility] [address] [place] [address] PCP - General 10/02/23 10/04/23 Tiana Carter [address] [place] [id number] PCP - General Nurse Practitioner Family 10/05/23 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 Relationship Specialty Start Date End Date Tiana Carter [address] [place] [phone] PCP - General Nurse Practitioner Family 10/05/23 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 Relationship Specialty Start Date End Date Tiana Carter [address] [place] [phone] PCP - General Nurse Practitioner Family 10/05/23 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 Relationship Specialty Start Date End Date Tiana Carter [address] [place] [phone] PCP - General Nurse Practitioner Family 10/05/23 Team Status: Inactive Member Role Status Dates Tiana Carter PUBLIC SERVICE DIRECTOR, PUBLIC SERVICE DIRECTOR-C Primary Care Provider, Referri ng Provider Active Earnest OLVIERA, PA Attending Provider Active Team Status: Inactive Member Role Status Dates Tiana Carter PUBLIC SERVICE DIRECTOR, PUBLIC SERVICE DIRECTOR-C Primary Care Provider Active MARGARITA KIM Attending Provider Active Team Status: Inactive Member Role Status Dates Tiana Carter PUBLIC SERVICE DIRECTOR, PUBLIC SERVICE DIRECTOR-C Primary Care Provider Active Dr. 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 Relationship Specialty Start Date End Date Tiana Carter [address] [place] [address] PCP - General Nurse Practitioner Family 10/05/23 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 Relationship Specialty Start Date End Date Tiana Carter [address] [place] [address] PCP - General Nurse Practitioner Family 10/05/23 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 Relationship Specialty Start Date End Date Tiana Carter [address] [place] [address] PCP - General Nurse Practitioner Family 10/05/23 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 Relationship Specialty Start Date End Date Tiana Carter [address] [place] [address] PCP - General Nurse Practitioner Family 10/05/23 Team Status: Active Member Role Status Dates Tiana Carter PUBLIC SERVICE DIRECTOR, PUBLIC SERVICE DIRECTOR-C Primary Care Provider Active Team Status: Inactive Member Role Status Dates Tiana Carter PUBLIC SERVICE DIRECTOR, PUBLIC SERVICE DIRECTOR-C Primary Care Provider Active Start: January 13, 2025 End: January 13, 2025 Marylou Powell NP, PUBLIC SERVICE DIRECTOR-C Attending Provider Active Start: January 13, 2025 End: January 13, 2025 Goals (unrecognized section and content) Goals may be documented in a n alternate section Source Comments (unrecognize d section and content) In the event this informatio n is protected by the Federal Confidentiality of Alcohol and Drug Abuse Patient Records regulations: The Federal rules restrict any use of the information to criminally investigate or prosecute any alcohol or drug abuse patient.[facility] the event this information is protected by the Federal Confidentiality of Alcohol and Drug Abuse Patient Records regulations: The Federal rules restrict any use of the information to criminally investigate or prosecute any alcohol or drug abuse patient.[facility] the event this information is protected by the Federal Confidentiality of Alcohol and Drug Abuse Patient Records regulations: The Federal rules restrict any use of the information to criminally investigate or prosecute any alcohol or drug abuse patient.[facility] the event this information is protected by the Federal Confidentiality of Alcohol and Drug Abuse Patient Records regulations: The Federal rules restrict any use of the information to criminally investigate or prosecute any alcohol or drug abuse patient.[facility] Reason for Visit (unrecogniz ed section and content) Reason Comments New Patient Pain in hands Reason Comments Orders Reason Comments Patient Update Reason Comments Patient Question Reason Comments New Patient Thyroid Problem Specialty Diagnoses / Procedures Referred By Contac t Referred To Contact Endocrinology Diagnoses Low TSH Procedures MO OFFICE/OUTPATIENT NEW MODERATE MDM 45-59 MINUTES Tiana Carter [address] [place] [address] [facility] [address] [place] [address] Referral ID Status Reason Start Date Expiration Date Visits Re quested Visits Authorized [id number] Closed 05/16/2023 05/16/2024 1 1 Reason Onset Date Comments Results 10/04/2023 Specialty Diagnoses / Procedures Referred By Contac t Referred To Contact Radiology Diagnoses Subclinical hyperthyroidism Procedures NM thyroid uptake and scan Judy Avila MD [address] [place] [address] Referral ID Status Reason Start Date Expiration Date Visits Re quested Visits Authorized [id number] Closed 10/04/2023 10/03/2024 2 1 Reason Onset Date Comments Results 11/06/2023 Specialty Diagnoses / Procedures Referred By Contac t Referred To Contact Radiology Diagnoses Multiple thyroid nodules SW pt //order in epic // pt aware of prep // no auth needed // covid neg Pred // monico ins // has no living will or healthcare power of attorney lawyer // covid reviewed // did not run estimate should be 0.00 ran RTE e verified Procedures US GUIDED THYROID NEEDLE CORE BIOPSY W/ REFLEX AFFIRMA US GUIDED THYROID BIOPSY Judy Avila MD [address] [place] [address] [facility] [address] [place] [address] Referral ID Status Reason Start Date Expiration Date Visits Re quested Visits Authorized [id number] Closed 01/29/2024 01/23/2025 1 1 Reason Onset Date Comments Results 05/14/2024 Reason Onset Date Comments Medication Problem 05/21/2024 Reason Onset Date Comments Med Refill 09/10/2024 Reason Comments Follow-up Low TSH level Reason Comments Nausea Headache Vomiting FOR RECORDS PERTAINING TO PATIENTS WHO ARE OR HAVE BEEN ENROLLED IN A CHEMICAL DEPENDENCY/SUBSTANCEABUSE PROGRAM, SOME INFORMATION MAY BE OMITTED. This clinical summary was aggregated from multiple sources. Caution should be exercised in using it in the provision of clinical care. This summary normalizes information from multiple sources, and as a consequence, information in this document may materially change the coding, format and clinical context of patient data. In addition, data may be omitted in some cases. CLINICAL DECISIONS SHOULD BE BASED ON THE PRIMARY CLINICAL RECORDS. [facility] [employer] [facility]. provides no warranty or guarantee of the accuracy or completeness of information in this document.
== END | disposition home or self-care (01) ==
LOC: US 07:21
PROVIDERS: PCP Nurse Practitioner Family
DX: R11.0 Nausea (principal)
CPT/HCPCS: 76705

== ENCOUNTER → 2025-02-14 | Outpatient (CLI) | payer BC, SELFPAY ==
--- OUTSIDE RECORDS SUMMARY | 2025-02-14 06:26 | XMS RPT_ITS | CCD ---
Author Organization [facility] Team Providers Care Crib Attendant Name Role Phone LEONEL, BRYN Unavailable Unavailable LEONEL, BRYN Unavailable Unavailable LEONEL, BRYN Unavailable Unavailable LEONEL, BRYN Unavailable Unavailable LEONEL, BRYN Unavailable Unavailable LEONEL, BRYN Unavailable Unavailable MURNEN, RENÉ Unavailable Unavailable MURNEN, RENÉ Unavailable Unavailable NONE, NONE Unavailable Unavailable MURNEN, RENÉ Unavailable Unavailable LEONEL, RBYN Unavailable Unavailable LEONEL, BRYN Unavailable Unavailable NONE, NONE Unavailable Unavailable MURNEN, RENÉ Unavailable Unavailable LEONEL, BRYN Unavailable Unavailable LEONEL, BRYN Unavailable Unavailable MATTIE PIERRE (PURCHASING SPECIALIST) Referring Unavailable JOSÉ MIGUEL KING Referring Unavailable JOSÉ MIGUEL KING Admitting Unavailable JOSÉ MIGUEL KING Attending Unavailable RAUL RUTHERFORD-TIANA NANCE Primary Care Physician RAUL ROMO TIANA Primary Care Physician RAUL ROMO TIANA Primary Care Physician Raul PURCHASING SPECIALIST, PURCHASING SPECIALIST-C [place] Primary Care Provider [phone] Raul SMITH, PURCHASING SPECIALIST-C [place] Referring Provider [phone] JOSELIN Infante Attending Provider [phone] Raul PURCHASING SPECIALIST, PURCHASING SPECIALIST-C [place] Primary Care Provider Raul PURCHASING SPECIALIST, PURCHASING SPECIALIST-C [place] Referring Provider [phone] MD Sami Norwood Attending Provider [phone] Dr. Ralf Ventura Attending Provider [phone] David OLIVERA, JOSELIN Lewis Attending Provider SYSTEM, PROVIDER NOT IN Primary Care UnavailALBERT Carrion Attending Unava ilable SYSTEM, PROVIDER NOT IN Primary Care Unavaila RITCHIE Sierra Attending Unavailable Cole Dillard CNP Primary Care Provider LORSON FIELD MERCHANDISER-VOUCHER EXAMINER, [place] Primary Care Unavail able LORSON FIELD MERCHANDISER-VOUCHER EXAMINER, TIANA Attending Unavail able LORSON FIELD MERCHANDISER-VOUCHER EXAMINER, [place] Primary Care Unavail able LORSON FIELD MERCHANDISER-VOUCHER EXAMINER, TIANA Attending Unavail able LORSON FIELD MERCHANDISER-VOUCHER EXAMINER, [place] Primary Care Unavail able LORSON FIELD MERCHANDISER-VOUCHER EXAMINER, TIANA Attending Unavail able LORSON FIELD MERCHANDISER-VOUCHER EXAMINER, TIANA Consulting Unavail able LORSON FIELD MERCHANDISER-VOUCHER EXAMINER, [place] Primary Care Unavail able MARANDA CLEMENTS MD Attending Unavailable L[place]on PURCHASING SPECIALIST, PURCHASING SPECIALIST-C [place] Primary Care Provider Lorson PURCHASING SPECIALIST, PURCHASING SPECIALIST-C [place] Referring Provider [phone] Dr. Ralf Ventura Other Provider Dr. John Thakur Attending Provider Harjinderson PURCHASING SPECIALIST, PURCHASING SPECIALIST-C [place] Primary Care Provider [phone] L[place]on PURCHASING SPECIALIST, PURCHASING SPECIALIST-C [place] Referring Provider [phone] Dr. Ralf Ventura Attending Provider Dr. Ralf Ventura Other Provider Dr. John Thakur Attending Provider [phone] COLE DILLARD Primary Care Unavailable CONY COX Attending Unavailable Physicians, [facility] Primary Care Provider Physicians, [facility] Primary Care Provider Raul Tiana Primary Care Provider [phone] L[place]on PURCHASING SPECIALIST, PURCHASING SPECIALIST-C [place] Primary Care Provider [place]on PURCHASING SPECIALIST, PURCHASING SPECIALIST-C [place] Referring Provider [phone] JOSELIN Infante Attending Provider ZMEILI, JUDY Attending Unavailable ZMEILI, JUDY Referring [facility]available [facility] Unavailable ZMEILI, JUDY Attending Unavailable ZMEILI, JUDY Referring Unavailable [facility] [place] Primary Care Unavailable ZMEILI, JUDY Attending [facility]available [facility] Primary Care Unavailable LORSON FIELD MERCHANDISER-VOUCHER EXAMINER, [place] Primary Care Unavail able LORSON FIELD MERCHANDISER-VOUCHER EXAMINER, TIANA Attending Unavail able LORSON FIELD MERCHANDISER-VOUCHER EXAMINER, TIANA Attending Unavail able LORSON FIELD MERCHANDISER-VOUCHER EXAMINER, [place] Primary Care Unavail able TYREE HOWE, MARANDA Attending Unavailable LORSON FIELD MERCHANDISER-VOUCHER EXAMINER, [place] Primary Care Unavail able SOFÍA FALCON Attending Unavailable SELF, SELF Referring Unavailable Unavailable Primary Care Provider Unavailabl e [place]on PURCHASING SPECIALIST-C, [place] Primary Care Provider [phone] Leonorael PURCHASING SPECIALIST-C, Marylou Attending Provider [phone] Shankel PURCHASING SPECIALIST-C, Marylou Referring Provider [phone] Shankel PURCHASING SPECIALIST, Marylou Attending Unavailable Shankel PURCHASING SPECIALIST, Marylou Referring Unavailable [place] PURCHASING SPECIALIST, [place] Primary Care Unavailable Tyree, Maranda Referring Unavailable WILEY LARSON Consulting Unavailable [place] PURCHASING SPECIALIST, [place] Primary Care Unavailable Maranda Clements Attending Unavailable David OLIVERA, Britni Lewis Attending Unavail able L[place]on PURCHASING SPECIALIST, [place] Primary Care Unavailable [facility] PURCHASING SPECIALIST, [place] Referring Unavailable [place] PURCHASING SPECIALIST, [place] Primary Care Unavailable [facility] PURCHASING SPECIALIST, Tiana Attending Unavailable [place] PURCHASING SPECIALIST, [place] Primary Care Unavailable WILEY LARSON Consulting Unavailable [place] PURCHASING SPECIALIST, Tiana Attending Unavailable [place] PURCHASING SPECIALIST, [place] Referring Unavailable [place] PURCHASING SPECIALIST, [place] Primary Care Unavailable [place] PURCHASING SPECIALIST, Tiana Attending Unavailable [place] PURCHASING SPECIALIST, [place] Primary Care Unavailable WILEY LARSON Attending Unavailable Leonorael PURCHASING SPECIALIST, Marylou Attending Unavailable [place] PURCHASING SPECIALIST, [facility] Unavailable Medications Current Medications Medication Drug Class(es) Dates Sig (Normalized) Sig (Original) busPIRone hydrochloride 10 mg oral tablet (20 sources) Start: 05-20-2024 End: 05-15-2025 busPIRone 10 mg oral tablet Dose : 10 mg = 1 tab(s), Oral, BID, # 180 tab(s), 3 Refill(s), Pharmacy: [facility], 166, cm, 04/29/24 14:45:00 EDT, Height, kg, 04/29/24 14:45:00 EDT, Dosing Weight Start Date: 05/20/24 Stop Date: 05/15/25 Status: Ordered Quantity: 180.0 Unit: tab(s) Repeat number: 4 Start: 05-30-2022 End: 05-25-2023 busPIRone 10 mg oral tablet Dose : 10 mg = 1 tab(s), Oral, BID, # 180 tab(s), 3 Refill(s), Pharmacy: [facility], 162.6, cm, 05/30/22 15:45:00 EDT, Height [...] 0 Refill(s), 05/15/23 2:31:00 PM EDT, Pharmacy: [facility], 166, cm, 05/08/23 8:26:00 EDT, Height, [...] Daily, # 84 tab(s), 3 Refill(s), Pharmacy: [facility], 166, cm, 04/29/24 14:45:00 EDT, Height, kg, 04/29/24 14:45:00 EDT, Dosing Weight Start Date: 05/20/24 Stop Date: 04/21/25 Status: Ordered Quantity: 84.0 Unit: tab(s) Repeat number: 4 Start: 05-20-2024 End: 04-21-2025 take 1 tablet by mouth once daily Tri-Sprintec oral tablet Dose = 1 tab(s), Oral, Daily, # 84 tab(s), 3 Refill(s), Pharmacy: [facility], 166, cm, 04/29/24 14:45:00 EDT, Height, kg, 04/29/24 14:45:00 EDT, Dosing Weight Start Date: 05/20/24 Stop Date: 04/21/25 Status: Ordered Start: 11-06-2023 End: 10-07-2024 take 1 tablet by mouth once daily Tri-Sprintec oral tablet Dose = 1 tab(s), Oral, Daily, # 84 tab(s), 3 Refill(s), Pharmacy: [facility], 166, cm, 11/06/23 11:53:00 EDT, Height, [...] Daily, # 84 tab(s), 3 Refill(s), Pharmacy: [facility], 162.6, cm, 05/30/22 15:45:00 EDT, Height, kg, 05/30/22 15:45:00 EDT, Dosing Weight Start Date: 05/30/22 Stop Date: 05/01/23 Status: Ordered Start: 04-01-2021 End: 05-26-2022 take 1 tablet by mouth once daily Tri-Sprintec oral tablet Dose = 1 tab(s), Oral, Daily, # 84 tab(s), 4 Refill(s), Pharmacy: [facility], 168, cm, 04/01/21 7:20:00 EDT, Height, [...] once daily. methIMAzole 5 mg oral tablet (19 sources) Thyroid Hormone Synthesis Inhibitor Start: 10-12-2023 End: 10-01-2025 take 1 tablet by mouth once daily Methimazole 5 mg tablet Active 5 mg PO DAILY November 20, 2023 12:00am 24 hr metoprolol succinate 25 mg extended release oral tablet (20 sources) beta-Adrenergic Antno Start: 12-20-2023 End: 06-24-2025 Metoprolol Succinate ER 25 mg oral TABLET extended release Dose : 25 mg = 1 tab(s), Oral, qDay, # 100 tab(s), 3 Refill(s), Pharmacy: [facility], 166, cm, 04/29/24 14:45:00 EDT, Height, kg, 04/29/24 14:45:00 EDT, Dosing Weight Start Date: 05/20/24 Stop Date: 06/24/25 Status: Ordered Quantity: 100.0 Unit: tab(s) Repeat number: 4 Start: 04-01-2021 End: 05-25-2023 Metoprolol Succinate ER 25 m g oral TABLET extended release Dose : 25 mg = 1 tab(s), Oral, qDay, # 90 tab(s), 3 Refill(s), Pharmacy: [facility], 162.6, cm, 05/30/22 15:45:00 EDT, Height, kg, 05/30/22 15:45:00 EDT, Dosing Weight Start Date: 05/30/22 Stop Date: 05/25/23 Status: Ordered Start: 07-03-2017 End: 12-10-2024 take 1 tablet by mouth once daily Metoprolol Succinate 25 mg tablet extended release 24 hr Discontinued 25 mg PO DAILY 90 December 20, 2023 11:09am December 10, 2024 3:27pm Comment on above: Take 25 mg by mouth once daily. Multivitamin preparation (7 sources) Start: 9 take 1 tablet by mouth once daily Multivitamin Dose = 1 tab(s), Oral, Daily, 0 Refill(s) Start Date: 04/05/19 Status: Ordered naproxen 500 mg oral tablet (16 sources) Nonsteroidal Anti-inflammatory Drug Start: 3 End: [...] above: Take 1 tablet by alexey th twice daily as needed (for pain). Take [...] Discontinued promethazine hydrochloride 25 mg oral tablet (4 sources) Phenothiazine Start: 11-03-2023 take 1 tablet by mouth every four to six hours as needed for nausea and vomiting Promethazine 25 mg tablet Active 25 mg PO EVERY 4-6 HOURS as needed for nausea and vomiting November 03, 2023 12:00am sertraline 50 mg oral tablet (5 sources) Serotonin Reuptake Inhibitor Start: 11-20-2023 End: 05-15-2025 sertraline 50 mg oral tablet Dose : 50 mg = 1 tab(s), Oral, qDay, # 90 tab(s), 3 Refill(s), Pharmacy: [facility], 166, cm, 04/29/24 14:45:00 EDT, Height, kg, 04/29/24 14:45:00 EDT, Dosing Weight Start Date: 05/20/24 Stop Date: 05/15/25 Status: Ordered Quantity: 90.0 Unit: tab(s) Repeat number: 4 Tri-Sprintec oral tablet (2 sources) Start: 04-01-2021 End: 05-26-2022 take 1 tablet by mouth once daily Tri-Sprintec oral tablet Dose = 1 tab(s), Oral, Daily, # 84 tab(s), 4 Refill(s), Pharmacy: [facility], 168, cm, 04/01/21 7:20:00 EDT, Height, [...] BID, # 1 kit(s), 0 Refill(s), Pharmacy: [facility], 167.5, cm, 06/17/24 7:23:00 EST, Height, kg, 06/17/24 7:23:00 EST, Dosing Weight Start Date: 06/17/24 Status: Ordered Quantity: 1.0 Unit: kit(s) Repeat number: 1 Completed/Discontinued Medications Medication Drug Class(es) Dates Sig (Normalized) Sig (Original) acetaminophen 325 mg / HYDROcodone bitartrate 5 mg oral tablet (13 sources) Opioid Agonist Start: 12-07-2018 End: 12-09-2018 Hydrocodone-Acetami nophen 1 TABLET tablet Discontinued 1 {tbl} PO EVERY 4 HOURS NEEDED as needed for Pain 14 2 0 December 07, 2018 12:00am December 08, 2018 12:00am December 09, 2018 12:07am Abdominal pain Unspecified abdominal pain Start: 12-07-2018 End: 12-09-2018 take 1 tablet by mouth every four hours as needed Hydrocodone-Acetaminophen Discontinued 1 TABLET PO EVERY 4 HOURS NEEDED 14 2 December 07, 2018 12:00am December 09, 2018 12:07am Ashwagandha (1 source) Start: 05-08-2023 Ashwagandha Jakia, See Instructions, 1 tablet daily, 0 Refill(s), 65.1 Start Date: 05/08/23 Status: Ordered dexamethasone 4 mg oral tablet (13 sources) Corticosteroid Start: 06-29-2021 End: 09-22-2021 take 1 tablet by mouth once daily Dexamethasone (Decadron) 4 mg tablet Discontinued 4 mg PO DAILY 5 0 June 29, 2021 1:00am September 22, 2021 9:43am dicyclomine hydrochloride 10 mg oral capsule (13 sources) Anticholinergic Start: 12-07-2018 End: 09-24-2020 take [...] mg tablet Discontinued 30 mg PO DAILY 90 December 20, 2023 11:09am December 10, 2024 3:27pm Start: 09-24-2020 End: 09-22-2021 take 1 tablet by mouth twice daily Diltiazem Hcl 30 mg tablet Discontinued 30 mg PO TWICE A DAY 180 December 24, 2020 5:47pm September 22, 2021 [...] ml medroxyPROGESTERone acetate 150 mg/ml prefilled syringe (13 sources) Progestin Start: 12-07-2017 End: 09-24-2020 inject 150 mg by intramuscular injection every three months Medroxyprogesterone (Depo-Provera) 150 mg/mL syringe Discontinued 150 mg IM every 3 months December 07, 2017 12:00am September 24, 2020 9:34am methylPREDNISolone 4 mg oral tablet (13 sources) Corticosteroid Start: 06-09-2021 End: 09-22-2021 take 1 tablet by mouth once daily Methylprednisolone (Medrol (Augustus)) 4 mg tablets,dose pack Discontinued 4 mg PO DAILY 21 June 09, 2021 1:00am September 22, 2021 9:43am multivit with minerals/lutein (MULTIVITAMIN 50 PLUS ORAL) (4 sources) multivit with minerals/lutein (MULTIVITAMIN 50 PLUS ORAL) Take by mouth. 0 Active Comment on above: Take by mouth. Multivitamin (Daily Multi-Vitamin) tablet (13 sources) Start: 07-19-2018 End: 02-23-2024 Multivitamin (Daily [...] omeprazole 40 mg delayed release oral capsule (13 sources) Proton Pump Inhibitor Start: 05-21-2019 End: 08-29-2019 take 1 capsule by mouth once daily Omeprazole 40 mg capsule,delayed release(DR/EC) Discontinued 40 mg PO DAILY May 21, 2019 12:00am August 29, 2019 2:08pm pantoprazole 40 mg delayed release oral tablet (13 sources) Proton Pump Inhibitor Start: 12-07-2018 End: 05-21-2019 take 1 tablet by mouth once daily Pantoprazole 40 MG tablet Discontinued 40 mg PO DAILY December 07, 2018 12:00am May 21, 2019 3:12pm predniSONE 10 mg oral tablet (13 sources) Start: 10-13-2017 End: 12-07-2017 take 4 tablets by mouth once daily, then take 3 tablets by mouth once daily, then take 2 tablets by mouth once daily, then take 1 tablet by mouth once daily, then take 1 tablet by mouth every other day Prednisone 10 MG tablet Discontinued 10 mg PO DIRECTED 33 0 October 13, 2017 12:00am December 07, 2017 [...] mg / trimethoprim 160 mg oral tablet (13 sources) Dihydrofolate Reductase Inhibitor Antibacterial, Sulfonamide Antimicrobial Start: 07-04-2022 End: 07-11-2022 Sulfamethoxazole-Tr imethoprim (Bactrim Ds) 800-160 mg tablet Discontinued 1 {tbl} PO Q12H 14 7 0 July 04, 2022 1:00am July 10, 2022 1:00am July 11, 2022 1:03am traMADol hydrochloride 50 mg oral tablet (2 sources) Opioid Agonist Start: 10-09-2021 End: 10-15-2021 traMADol 50 mg oral tablet Dose : 50 mg = 1 tab(s), Oral, q12h, PRN for pain, # 12 tab(s), 0 Refill(s), Pharmacy: [facility], Left flank pain, 162.6, cm, 10/09/21 [...] tab(s), 0 Refill(s), 11/30/22 7:58:00 EDT, Pharmacy: [facility], 166, cm, 11/23/22 7:04:00 EDT, Height, 65.1 Start Date: 11/23/22 Stop Date: 11/30/22 Status: Ordered Vitamin D3 125 mcg (5000 intl units) oral capsule (7 sources) Start: 07-05-2021 End: 08-04-2021 Vitamin D3 125 mcg (5000 intl units) oral capsule Dose : 125 mcg = 1 cap(s), Oral, qDay, # 30 cap(s), 0 Refill(s), Pharmacy: [facility], COVID-19, 162.6, cm, 07/05/21 16:51:00 EST, [...] Chronic Immunizations and screening for infectious disease (15 sources) Patient encounter status; Translations: [Encounter for screening for COVID-19] Onset: 04-29-2024 06-09-2021 Episodic Malaise and fatigue (4 sources) Fatigue 05-30-2022 Episodic Menstrual disorders (10 sources) Menorrhagia; Translations: [Irregular periods] 03-25-2019 Chronic Mycoses (9 sources) Pityriasis versicolor 04-01-2021 Episodic Nausea and vomiting (5 sources) Nausea; Translations: [Nausea with vomiting, unspecified] Onset: 10-04-2018 Episodic Osteoarthritis (1 source) Arthritis; Translations: [Unspecified osteoarthritis, unspecified site] 04-06-2023 Chronic Other connective tissue disease (4 sources) Hand pain 11-23-2022 Episodic Other connective tissue disease (10 sources) Swelling of hand; Translations: [Other specified [...] Onset: 11-01-2018 05-09-2019 Episodic Other gastrointestinal disorders (8 sources) Dysphagia; Translations: [Dysphagia, unspecified] 01-24-2023 Episodic [...] Episodic Other nutritional; endocrine; and metabolic disorders (2 sources) Weight decreased; Translations: [Abnormal weight loss] 01-24-2023 Episodic Other upper respiratory infections (13 sources) Sinusitis; Translations: [Chronic sinusitis, unspecified] 06-09-2021 Chronic Other upper respiratory infections (20 sources) Upper respiratory infection; Translations: [Acute upper [...] 01-16-2020 Episodic Skin and subcutaneous tissue infections (16 sources) Abscess of back ; Translations: [Cutaneous [...] in bowel habit] Onset: 11-01-2018 11-01-2018 Episodic Other screening for suspected conditions (not mental disorders or infectious disease) (20 sources) Decreased thyroid stimulating hormone level; Translations: [Thyroid function tests abnormal] Onset: 04-29-2024 05-08-2023 Episodic Results Test Name Value Interpretation Reference Range Facility Abdomen Limited 01-17-2025 Abdomen Limited [facility] [address] [place] [address] [id number] Abdomen Limited MR#: [id number] Acct: [id number] Name: YAMILKA BRYANT Rep #: [id number] : [id number] F [id number] From: Alejandro bloom MD PCP: [facility] Status: REG CLI Study: Abdomen Limited Date of Exam: 01/17/25 Exam# [id number] Ordering Dr: Marylou Powell NP PURCHASING SPECIALIST -C PROCEDURE: ABDOMEN LIMITED 01/17/2025 REASON FOR EXAM: NAUSEA COMPARISON: Prior CT scan dated January 27, 2023. FINDINGS: Liver: Hepatomegaly. The liver measures 20.3 cm. Gallbladder: Small amount of sludge is seen in the gallbladder lumen. The gallbladder wall is not thickened. Common bile duct: Normal measuring 1 mm . Pancreas: Normal Other: Visualized portions of the right kidney are unremarkable. No right upper quadrant ascites. US/Abdomen Limited IMPRESSION: Hepatomegaly. Small amount of sludge seen in the gallbladder lumen. Reading Location: [place] [address] CC: NGUYỄN Powell Chain Splitter: Signed Normal [facility] Urine Cultureon 01-15-2025 URC Mixed Gram Pos Gram Neg Org [place] Count 25,000-50,000 MIXC Mixed contaminants. Submit a new specimen if indicated. Normal [facility] Comment on above: Performed By: #### L 506.0400, L501.9520, L501.60991, L3410.9998 #### [facility] [address] [place], [address] Bilirubin, Directon 01-15-20 25 Bilirubin.direct [Mass/Vol] 0.11 mg/dL Normal 0.00-0.30 [facility] Comment on above: Result Comment: Hemo lysis present, Results??could be affected. ?? Performed By: #### L 506.0400, L501.9520, L501.46341, L3410.9998 #### [facility] [address] [place], [address] Comprehensive Metabolic Prof ilon 01-14-2025 Albumin [Mass/Vol] 4.5 g/dL Normal 3.5-5.0 [facility] Comment on above: Performed By: #### L 506.0400, L501.9520, L501.21141, L3410.9998 #### [facility] [address] [place], [address] Albumin/Globulin [Mass ratio] 1.6 {ratio} Normal 0.9-2.4 [facility] Comment on above: Performed By: #### L 506.0400, L501.9520, L501.24286, [id number] #### [facility] [address] [place], [address] ALK PHOS 62 U/L Normal 35-104 [facility] Comment on above: Performed By: #### L 506.0400, L501.9520, L501.01881, L3410.9998 #### [facility] [address] [place], [address] ALT [Catalytic activity/Vol] 8 U/L Normal <=34 [facility] Comment on above: Performed By: #### L 506.0400, L501.9520, L501.15217, L3410.9998 #### [facility] [address] [place], [address] AST [Catalytic activity/Vol] 21 U/L Normal <=31 [facility] Comment on above: Result Comment: Hemo lysis present, Results??could be affected. ?? Performed By: #### L 506.0400, L501.9520, L501.75696, L3410.9998 #### [facility] [address] [place], [address] Bilirubin [Mass/Vol] 0.28 mg/dL Normal 0.00-1.30 [facility] Comment on above: Performed By: #### L 506.0400, L501.9520, L501.42861, L3410.9998 #### [facility] [address] [place], [address] BUN/CRE 8.8 RATIO Low 10-20 [facility] Comment on above: Performed By: #### L 506.0400, L501.9520, L501.86088, L3410.9998 #### [facility] [address] [place], [address] Calcium [Mass/Vol] 9.5 mg/dL Normal 7.6-11.0 [facility] Comment on above: Performed By: #### L 506.0400, L501.9520, L501.75080, L3410.9998 #### [facility] [address] [place], [address] Chloride [Moles/Vol] 99 mmol/L Normal 98-108 [facility] Comment on above: Performed By: #### L 506.0400, L501.9520, L501.19674, L3410.9998 #### [facility] [address] [place], [address] CO2 [Moles/Vol] 24.4 mmol/L Normal 21.0-32.0 [facility] Comment on above: Performed By: #### L 506.0400, L501.9520, L501.50390, L3410.9998 #### [facility] [address] [place], [address] Creatinine [Mass/Vol] 0.80 mg/dL Normal 0.70-1.20 [facility] Comment on above: Performed By: #### L 506.0400, L501.9520, L501.51855, L3410.9998 #### [facility] [address] [place], [address] GAP 13 Normal 5-15 [facility] Comment on above: Performed By: #### L 506.0400, L501.9520, L501.30516, L3410.9998 #### [facility] [address] [place], [address] GFR/1.73 sq M.predicted among non-blacks MDRD (S/P/Bld) [Vol rate/Area] 94 mL/min/{1.73_m2} Normal >60 [facility] Comment on above: Result Comment: mL/m in/1.73m2 CKD-EPI Creatinine Equation (2020) Performed By: #### L 506.0400, L501.9520, L501.57242, L3410.9998 #### [facility] [address] [place], [address] Globulin (S) [Mass/Vol] 2.8 g/dL Normal 2.2-4.2 [facility] Comment on above: Performed By: #### L 506.0400, L501.9520, L501.80277, L3410.9998 #### [facility] [address] [place], [address] Glucose [Mass/Vol] 123 mg/dL High 70-99 [facility] Comment on above: Performed By: #### L 506.0400, L501.9520, L501.49050, L3410.9998 #### [facility] [address] [place], [address] Potassium [Moles/Vol] 3.4 mmol/L Normal 3.3-5.1 [facility] Comment on above: Result Comment: Hemo lysis present, Results??could be affected. ?? Performed By: #### L 506.0400, L501.9520, L501.72826, L3410.9998 #### [facility] [address] [place], [address] Sodium [Moles/Vol] 137 mmol/L Normal 133-145 [facility] Comment on above: Performed By: #### L 506.0400, L501.9520, L501.59852, L3410.9998 #### [facility] [address] [place], [address] T PROT 7.3 g/dL Normal 5.9-8.4 [facility] Comment on above: Performed By: #### L 506.0400, L501.9520, L501.02796, L3410.9998 #### [facility] [address] [place], [address] Urea nitrogen [Mass/Vol] 7 mg/dL Normal 4-19 [facility] Comment on above: Performed By: #### L 506.0400, L501.9520, L501.61613, L3410.9998 #### [facility] [address] [place], [address] Absolute lymphocyte countOrd ered By: Marylou Powell on 01-13-2025 Lymphocytes Auto (Unsp spec) [#/Vol] 3.68 10*3/uL 0.83-4.51 [facility] Absolute neutrophil countOrd ered By: Marylou Powell on 01-13-2025 Neutrophils (Bld) [#/Vol] 3.1 10*3/uL 2.0-7.7 [facility] Anion gap in Serum or Plasma Ordered By: Marylou Powell on 01-13-2025 Anion gap [Moles/Vol] 13 mmol/L 5-15 [facility] Automated lymphocyte count a s percentage of total leukocytesOrdered By: Marylou Powell on 01-13-2025 Lymphocytes/100 WBC Auto (Unsp spec) 48.4 % High 19-41 [facility] BUN/creatinine ratioOrdered By: Marylou Powell on 01-13-2025 Urea nitrogen/Creatinine [Mass ratio] 8.8 mg/mg Low 10-20 [facility] Basophil percentageOrdered B y: Marylou Powell on 01-13-2025 Basophils/100 WBC (Bld) 0.4 % 0-1 [facility] Bilirubin Test strip Ql (U)O rdered By: Marylou Powell on 01-13-2025 Bilirubin Ql (U) Negative Negative [facility] Bilirubin directOrdered By: Marylou Powell on 01-13-2025 Bilirubin.direct [Mass/Vol] 0.11 mg/dL 0.00-0.30 [facility] Comment on above: Hemolysis present, R esults could be affected. Bilirubin, totalOrdered By: Marylou Powell on 01-13-2025 Bilirubin [Mass/Vol] 0.28 mg/dL 0.00-1.30 [facility] CBC W/Diff, Automatedon 12-29 Absolute Lymph 3.68 X10 3/uL Normal 0.83-4.51 [facility] Comment on above: Performed By: #### L 506.0400, L501.9520, L501.76697, L3410.9998 #### [facility] [address] [place], [address] Absolute Neut 3.1 X10 3/uL Normal 2.0-7.7 [facility] Comment on above: Performed By: #### L 506.0400, L501.9520, L501.89310, L3410.9998 #### [facility] [address] [place], [address] Basophils/100 WBC (Bld) 0.4 % Normal 0-1 [facility] Comment on above: Performed By: #### L 506.0400, L501.9520, L501.39245, L3410.9998 #### [facility] [address] [place], [address] Eosinophils/100 WBC (Bld) 2.0 % Normal 0-5 [facility] Comment on above: Performed By: #### L 506.0400, L501.9520, L501.42008, L3410.9998 #### [facility] [address] [place], [address] Erythrocyte distribution width (RBC) [Ratio] 11.9 % Normal 11.6-14.6 [facility] Comment on above: Performed By: #### L 506.0400, L501.9520, L501.33537, L3410.9998 #### [facility] [address] [place], [address] Hematocrit (Bld) [Volume fraction] 40.0 % Normal 37-47 [facility] Comment on above: Performed By: #### L 506.0400, L501.9520, L501.43006, L3410.9998 #### [facility] [address] [place], [address] Hemoglobin (Bld) [Mass/Vol] 13.4 g/dL Normal 12.0-15.0 [facility] Comment on above: Performed By: #### L 506.0400, L501.9520, L501.18009, L3410.9998 #### [facility] [address] [place], [address] IG% 0.300 Normal 0.0-0.9 [facility] Comment on above: Result Comment: IG% - Immature Granulocytes (promyelocytes, myelocytes and metamyelocytes) > 1% indicates that a LEFT SHIFT is Present. Performed By: #### L 506.0400, L501.9520, L501.90805, L3410.9998 #### [facility] [address] [place], [address] Lymphocytes/100 WBC (Bld) 48.4 % High 19-41 [facility] Comment on above: Performed By: #### L 506.0400, L501.9520, L501.46729, L3410.9998 #### [facility] [address] [place], [address] MCH (RBC) [Entitic mass] 31.2 pg Normal 27.0-32.0 [facility] Comment on above: Performed By: #### L 506.0400, L501.9520, L501.02606, L3410.9998 #### [facility] [address] [place], [address] MCHC (RBC) [Mass/Vol] 33.5 g/dL Normal 32-36 [facility] Comment on above: Performed By: #### L 506.0400, L501.9520, L501.55259, L3410.9998 #### [facility] [address] [place], [address] MCV (RBC) [Entitic vol] 93.0 fL Normal 81-99 [facility] Comment on above: Performed By: #### L 506.0400, L501.9520, L501.19601, L3410.9998 #### [facility] [address] [place], [address] Monocytes/100 WBC (Bld) 8.0 % Normal 0-10 [facility] Comment on above: Performed By: #### L 506.0400, L501.9520, L501.03438, L3410.9998 #### [facility] [address] [place], [address] Neutrophils/100 WBC (Bld) 40.9 % Low 47-70 [facility] Comment on above: Performed By: #### L 506.0400, L501.9520, L501.28652, L3410.9998 #### [facility] [address] [place], [address] Nucleated RBC (Bld) [#/Vol] 0 10*3/uL Normal 0-5 [facility] Comment on above: Performed By: #### L 506.0400, L501.9520, L501.71500, L3410.9998 #### [facility] [address] [place], [address] Platelet mean volume (Bld) [Entitic vol] 10.3 fL Normal 6.2-12.0 [facility] Comment on above: Performed By: #### L 506.0400, L501.9520, L501.28811, L3410.9998 #### [facility] [address] [place], [address] Platelets (Bld) [#/Vol] 222 10*3/uL Normal 150-450 [facility] Comment on above: Performed By: #### L 506.0400, L501.9520, L501.41218, L3410.9998 #### [facility] [address] [place], [address] RBC (Bld) [#/Vol] 4.30 10*6/uL Normal 4.2-5.4 [facility] Comment on above: Performed By: #### L 506.0400, L501.9520, L501.84058, L3410.9998 #### [facility] [address] [facility] [place], [address] RDW SD 41.1 fl Normal 35.1-43.9 [facility] Comment on above: Performed By: #### L 506.0400, L501.9520, L501.85598, L3410.9998 #### [facility] [address] [place], [address] WBC (Bld) [#/Vol] 7.6 10*3/uL Normal 4.4-11.0 [facility] Comment on above: Performed By: #### L 506.0400, L501.9520, L501.16035, L3410.9998 #### [facility] [address] [place], [address] Carbon dioxide, total [Moles /volume] in Central venous bloodOrdered By: Marylou Powell on 01-13-2025 CO2 [Moles/Vol] 24.4 mmol/L 21.0-32.0 [facility] Chloride assayOrdered By: Silvio Powell on 01-13-2025 Chloride [Moles/Vol] 99 mmol/L 98-108 [facility] Eosinophil percentageOrdered By: Marylou Powell on 01-13-2025 Eosinophils/100 WBC (Bld) 2.0 % 0-5 [facility] Erythrocyte distribution wid th ratioOrdered By: Marylou Powell on 01-13-2025 Erythrocyte distribution width (RBC) [Ratio] 11.9 % 11.6-14.6 [facility] Erythrocyte distribution wid th standard deviationOrdered By: Marylou Powell on 01-13-2025 Erythrocyte distribution width (RBC) [Ratio] 41.1 fl 35.1-43.9 [facility] Glomerular filtration rate ( GFR) estimation/1.73 sq m using serum, plasma, or whole bOrdered By: Marylou Powell on 01-13-2025 GFR/1.73 sq M.predicted among non-blacks MDRD (S/P/Bld) [Vol rate/Area] 94 mL/min/{1.73_m2} >60 [facility] Comment on above: mL/min/1.73m2 CKD-EP I Creatinine Equation (2020) Hematocrit Auto (Bld) [Volum e fraction]Ordered By: Marylou Powell on 01-13-2025 Hematocrit (Bld) [Volume fraction] 40.0 % 37-47 [facility] Hemoglobin measurementOrdere d By: Marylou Powell on 01-13-2025 Hemoglobin (Bld) [Mass/Vol] 13.4 g/dL 12.0-15.0 [facility] Immature granulocytes/100 WB C Auto (Bld)Ordered By: Marylou Powell on 01-13-2025 Immature granulocytes/100 WBC (Bld) 0.300 % 0.0-0.9 [facility] Comment on above: IG% - Immature Granu locytes (promyelocytes, myelocytes and metamyelocytes) > 1% indicates that a LEFT SHIFT is Present. Ketones Test strip Ql (U)Ord ered By: Marylou Powell on 01-13-2025 Ketones Ql (U) Negative Negative [facility] - Chemistry and C hemistry - challengeOrdered By: Marylou Powell on 01-13-2025 AST [Catalytic activity/Vol] 21 U/L <32 [facility] Comment on above: Hemolysis present, R esults could be affected. MCV (mean corpuscular volume ) determinationOrdered By: Marylou Powell on 01-13-2025 MCV (RBC) [Entitic vol] 93.0 fL 81-99 [facility] Mean corpuscular hemoglobin (MCH) determinationOrdered By: Marylou Powell on 01-13-2025 MCH (RBC) [Entitic mass] 31.2 pg 27.0-32.0 [facility] Mean corpuscular hemoglobin concentration (MCHC) determinationOrdered By: Marylou Powell on 01-13-2025 MCHC (RBC) [Mass/Vol] 33.5 g/dL 32-36 [facility] Mean platelet volume determi nationOrdered By: Marylou Powell on 01-13-2025 Platelet mean volume (Bld) [Entitic vol] 10.3 fL 6.2-12.0 [facility] Microscopic analysis of urin e for red blood cells (RBC)Ordered By: Marylou Powell on 01-13-2025 Microscopic analysis of urine for red blood cells (RBC) 0-5 SEEN /hpf 0-5 [facility] Monocyte percentageOrdered B y: Marylou Powell on 01-13-2025 Monocytes/100 WBC (Bld) 8.0 % 0-10 [facility] Mucus LM Ql (Urine sed)Order ed By: Marylou Powell on 01-13-2025 Mucus Ql (Urine sed) 0 SEEN /hpf [facility] Neutrophil percentageOrdered By: Marylou Powell on 01-13-2025 Neutrophils/100 WBC (Bld) 40.9 % Low 47-70 [facility] Nitrite Test strip Ql (U)Ord ered By: Marylou Powell on 01-13-2025 Nitrite Ql (U) Negative Negative [facility] Nucleated red blood cell per centageOrdered By: Marylou Powell on 01-13-2025 Nucleated RBC/100 WBC (Bld) [Ratio] 0 % 0-5 [facility] Platelet countOrdered By: Silvio Powell on 01-13-2025 Platelets (Bld) [#/Vol] 222 10*3/uL 150-450 [facility] Potassium measurement (mass/ volume)Ordered By: Marylou Powell on 01-13-2025 Potassium (Unsp spec) [Mass/Vol] 3.4 mmol/L 3.3-5.1 [facility] Comment on above: Hemolysis present, R esults could be affected. ,Serum,hCG Quali.on 01-13-2025 HCG, SERUM QUAL Negative Normal [facility] Comment on above: Performed By: #### L 506.0400, L501.9521, L501.22859, L3410.9998 #### [facility] [place], [address] Protein Test strip Ql (U)Ord ered By: Marylou Powell on 01-13-2025 Protein Ql (U) Negative Negative [facility] RBC Auto (Bld) [#/Vol]Ordere d By: Marylou Powell on 01-13-2025 RBC (Bld) [#/Vol] 4.30 10*6/uL 4.2-5.4 [facility] Serum beta-hCG test, qualita tiveOrdered By: Marylou Powell on 01-13-2025 Beta HCG ( test) Ql Negative [facility] Serum creatinine measurement (mass/volume)Ordered By: Marylou Powell on 01-13-2025 Creatinine [Mass/Vol] 0.80 mg/dL 0.70-1.20 [facility] Serum globulin measurementOr dered By: Marylou Powell on 01-13-2025 Globulin (S) [Mass/Vol] 2.8 g/dL 2.2-4.2 [facility] Serum glucose measurement (m ass/volume)Ordered By: Marylou Powell on 01-13-2025 Glucose [Mass/Vol] 123 mg/dL High 70-99 [facility] Serum or plasma alanine alejo otransferase (ALT) measurementOrdered By: Marylou Powell on 01-13-2025 ALT [Catalytic activity/Vol] 8 U/L <35 [facility] Serum or plasma albumin cindy urement (mass/volume)Ordered By: Marylou Powell on 01-13-2025 Albumin [Mass/Vol] 4.5 g/dL 3.5-5.0 [facility] Serum or plasma albumin/glob ulin mass ratioOrdered By: Marylou Powell on 01-13-2025 Albumin/Globulin [Mass ratio] 1.6 {ratio} 0.9-2.4 [facility] Serum or plasma alkaline marvin sphatase measurementOrdered By: Marylou Powell on 01-13-2025 ALP [Catalytic activity/Vol] 62 U/L 35-104 [facility] Serum or plasma calcium cindy urement (mass/volume)Ordered By: Marylou Powell on 01-13-2025 Calcium [Mass/Vol] 9.5 mg/dL 7.6-11.0 [facility] Serum or plasma urea nitroge n measurement (mass/volume)Ordered By: Marylou Powell on 01-13-2025 Urea nitrogen [Mass/Vol] 7 mg/dL 4-19 [facility] Sodium levelOrdered By: Kelly Powell on 01-13-2025 Sodium [Moles/Vol] 137 mmol/L 133-145 [facility] Squamous epithelial cells de tection in urine sediment by light microscopyOrdered By: Marylou Powell on 01-13-2025 Epithelial cells.squamous LM Ql (Urine sed) 5-10 SEEN /hpf 5-10 [facility] Total proteinOrdered By: Pal Powell on 01-13-2025 Protein [Mass/Vol] 7.3 g/dL 5.9-8.4 [facility] Transitional cells detection in urine sediment by light microscopyOrdered By: Marylou Powell on 01-13-2025 Transitional cells LM Ql (Urine sed) 0-5 SEEN /hpf 0-5 [facility] Urinalysis, Completeon 01-13 EPI,TRANSITION 0-5 SEEN Normal 0-5 [facility] Comment on above: Order Comment: CLEAN CATCH Performed By: #### L 506.0400, L501.9520, L501.28679, L3410.9998 #### [facility] [address] [place], [place], [id number] RBC 0-5 SEEN Normal 0-5 [facility] Comment on above: Order Comment: CLEAN CATCH Performed By: #### L 506.0400, L501.9520, L501.86750, L3410.9998 #### [facility] [address] [place], [place], [id number] EPI,SQUAMOUS 5-10 SEEN Normal 5-10 [facility] Comment on above: Order Comment: CLEAN CATCH Performed By: #### L 506.0400, L501.9520, L501.50298, L3410.9998 #### [facility] [address] [place], [address] BACTERIA 0 SEEN Normal None Seen [facility] Comment on above: Order Comment: CLEAN CATCH Performed By: #### L 506.0400, L501.9520, L501.54202, L3410.9998 #### [facility] [address] [place], [address] Mucus Ql (Urine sed) 0 SEEN Normal [facility] Comment on above: Order Comment: CLEAN CATCH Performed By: #### L 506.0400, L501.9520, L501.19732, L3410.9998 #### [facility] [address] [place], [address] WBC 0 SEEN Normal 0-5 [facility] Comment on above: Order Comment: CLEAN CATCH Performed By: #### L 506.0400, L501.9520, L501.03810, L3410.9998 #### [facility] [address] [place], [address] Urine clarityOrdered By: Pal Powell on 01-13-2025 Clarity (U) Clear Clear [facility] Urine color determinationOrd ered By: Marylou Powell on 01-13-2025 Color (U) Straw Yellow [facility] Urine cultureOrdered By: Pal Powell on 01-13-2025 Bacteria identified Cx Nom (U) Mixed Gram Pos & Gram Neg Org Abnormal [facility] Urine glucose detectionOrder ed By: Marylou Powell on 01-13-2025 Glucose Ql (U) Normal mg/dl Normal [facility] Urine leukocyte esterase det ection by dipstickOrdered By: Marylou Powell on 01-13-2025 Leukocyte esterase Test strip Ql (U) Negative Negative [facility] Urine pHOrdered By: Marylou villalobos on 01-13-2025 pH (U) 6.0 [pH] 5.0 - 8.0 [facility] Urine sediment bacteria coun t by microscopy (number/high power field)Ordered By: Marylou Powell on 01-13-2025 Bacteria LM.HPF (Urine sed) [#/Area] 0 /[HPF] None Seen [facility] Urine specific gravity measu rementOrdered By: Marylou Powell on 01-13-2025 Specific gravity (U) [Rel density] 1.010 1.002-1.030 [facility] Urine urobilinogen measureme ntOrdered By: Marylou Powell on 01-13-2025 Urobilinogen Ql (U) Normal mg/dl Normal [facility] White blood cell (WBC) count Ordered By: Marylou Powell on 01-13-2025 WBC (Bld) [#/Vol] 7.6 10*3/uL 4.4-11.0 [facility] White blood cell countOrdere d By: Marylou Powell on 01-13-2025 White blood cell count 0 SEEN /hpf 0-5 [facility] SARS-COV-2 RAPID AG (WIC)on 12-31-2024 SARS-CoV-2 (COVID-19) RNA MONALISA+probe Ql (Unsp spec) Not detected Normal NOT DETECTED [facility] Comment on above: Result Comment: Nega tive [...] #### C COVAG #### [place] [address] NARRATIVE This test was perfor med using lateral flow immunoassay. This test does not differentiate between SARS-CoV and SARS-CoV2. Normal [facility] Comment on above: Performed By: #### C COVAG #### [place] [address] SARS-COV-2 RAPID ANTIGEN (CL INIC ONLY)on 12-31-2024 SARS-CoV-2 (COVID-19) RNA MONALISA+probe Ql (Unsp spec) This test was performed using lateral flow immunoassay. This test does not differentiate between SARS-CoV and SARS-CoV2. [facility] SARS-CoV-2 (COVID-19) RNA NA A+probe Ql (Unsp spec)on 12-31-2024 SARS-CoV-2 (COVID-19) Ag IA.rapid Ql (Resp) Not detected NOT DETECTED [facility] Comment on above: Negative results winnie uld [...] clinical signs and symptoms consistent with COVID-19. [facility] RFon 12-12-2024 Rheumatoid Factor <6.0 Normal <=5.9 [facility] Comment on above: Result Comment: RF I [...] tests. These results were obtained with the [employer] Lite RF IgM [place]. RF IgM values obtained with different manufacturers' assay methods may not be used interchangeably. The magnitude of the reported IgM levels cannot be correlated to an endpoint titer. Performed By: #### U MEIR PAUL K #### [facility] [address] [place], [place] [address] #### RF #### [id number] [place] [address] 12-10-2024 Antinuclear Ab Screen Negative Normal Negative [facility] Comment on above: Result Comment: Anti -nuclear antibody test is used as an aid in diagnosis of systemic autoimmune diseases. Where positive and clinically warranted, follow-up using disease-specific testing is recommended. Low positive titers are not uncommon with advanced age, certain chronic infections, and malignancies among others. Test methodology: Indirect fluorescence immunoassay (IFA) using HEp-2 cells. Performed By: [facility] [address] [place] [address] Industrial Education Teacher: Jerry Newton III, M.D. CLIA#: [id number] Performed By: #### U HUMBERTOSYDNIEIFS, K #### [address] [address] #### RF #### [place] [address] [place] 12-09-2024 Potassium [Moles/Vol] 4.3 mmol/L Normal 3.5-5.1 [facility] Comment on above: Performed By: #### U HUMBERTO, ANAIFS, K #### [place] [address] #### RF #### [place] [address] LABORATORYOrdered By: JAVON_Sharron SANDHYA CONTRIBUTOR_SYSTEM on 12-09-2024 Antinuclear Ab Screen Negative [...] immunoassay (IFA) using HEp-2 cells. Performed By: [facility] [place] [address] Industrial Education Teacher: Jerry Newton III, M.D. CLIA#: [id number] LABORATORYOrdered By: SYSTEM SYSTEM on 12-09-2024 Potassium [...] tests. These results were obtained with the [employer] Lite RF IgM [place]. RF IgM values obtained with different manufacturers' assay methods may not be used interchangeably. The magnitude of the reported IgM levels cannot be correlated to an endpoint titer. [facility]Con 12-09-2024 Uric Acid Lvl 3.6 mg/dL Normal 2.6-6.2 [facility] Comment on above: Performed By: #### U HUMBERTOMEIR K #### [facility] [address] [place], [place] [address] #### RF #### [facility] [address] [place] [address] Office Visiton 10-01-2024 Follow-up visit [id number] Misael Bryant fernie 1980 F Date Provider Department Center 10/01/2024 JUDY LNAG [facility] None Family History Problem Relation Age of Onset Asthma Mother Heart disease Mother Heart failure Mother Heart disease Father Cancer Father Thyroid disease Neg Hx Thyroid cancer Neg Hx Family Status - Relation Status Age at Mother Father Neg Hx Level of Service:46164 ND OFFICE/OUTPATIENT ESTABLISHED MOD MDM 30 MIN Reason for Visit and Comments: Follow-up [549731] - Low TSH level Normal [facility] Progress Noteon 10-01-2024 Progress Note [facility] [address] [place] [address] Dept: [phone] Dept Visit Date: 10/01/2024 HPI: Yamilka Bryant [...] had thyroid ultrasound in April 2023 at [facility] that revealed 1.4 cm right thyroid [...] and Sexual Activity Alcohol use: Yes Comment: [facility] Drug use: Never Social Drivers of Health Stress: No Stress Concern Present (01/02/2020) Received from [facility] [place] [facility] - Occupational Stress Questionnaire [...] Behavior norm (more content not included)... Normal [facility] L3410.9998on 09-23-2024 [facility] Normal [facility] Comment on above: Order Comment: [id number] TSH RECEPTOR AB SERUM RF Result Comment: TEST RESULTS LIMITS Thyrotropin Receptor Ab, Serum <1.10 IU/L 0.00-1.75 TESTING PERFORMED AT [facility]. ORIGINAL REPORT ON FILE IN LAB CONTAINS ADDITIONAL TEST SITE INFORMATION. Performed By: #### L 506.0400, L501.9520, L501.29646, L3410.9998 #### [facility] [address] [place], [address] Comprehensive Metabolic Prof ilon 09-17-2024 Albumin [Mass/Vol] 3.9 g/dL Normal 3.2-5.0 [facility] Comment on above: Performed By: #### L 500.4100, L500.4050, L3890.6300 #### [facility] [address] [place], [address] Albumin/Globulin [Mass ratio] 1.0 {ratio} Normal 0.9-2.4 [facility] Comment on above: Performed By: #### L 500.4100, L500.4050, L3890.6300 #### [facility] [address] [place], [address] ALK P 65 U/L Normal 45-117 [facility] Comment on above: Performed By: #### L 500.4100, L500.4050, L3890.6300 #### [facility] [address] [place], [address] ALT [Catalytic activity/Vol] 12 U/L Low 13-56 [facility] Comment on above: Performed By: #### L 500.4100, L500.4050, L3890.6300 #### [facility] [address] [place], [address] AST [Catalytic activity/Vol] 15 U/L Normal 15-37 [facility] Comment on above: Performed By: #### L 500.4100, L500.4050, L3890.6300 #### [facility] [address] [place], [address] Bilirubin [Mass/Vol] 0.50 mg/dL Normal 0.20-1.00 [facility] Comment on above: Result Comment: For patients on eltrombopag therapy, use of Dimension [place] TBIL is not recommended. Performed By: #### L 500.4100, L500.4050, L3890.6300 #### [facility] [address] [place], [address] BUN/CRE 11.1 RATIO Normal 10-20 [facility] Comment on above: Performed By: #### L 500.4100, L500.4050, L3890.6300 #### [facility] [address] [place], [address] CA,Total 9.5 mg/dL Normal 8.5-10.1 [facility] Comment on above: Performed By: #### L 500.4100, L500.4050, L3890.6300 #### [facility] [address] [place], [address] Chloride [Moles/Vol] 102 mmol/L Normal 98-107 [facility] Comment on above: Performed By: #### L 500.4100, L500.4050, L3890.6300 #### [facility] [address] [place], [address] CO2 [Moles/Vol] 26.0 mmol/L Normal 21.0-32.0 [facility] Comment on above: Performed By: #### L 500.4100, L500.4050, L3890.6300 #### [facility] [address] [place], [address] Creatinine [Mass/Vol] 0.90 mg/dL Normal 0.55-1.02 [facility] Comment on above: Result Comment: The validity of the calculated GFR GFRAA in patients over 70 years has not been determined. Clinical correlation is essential. Performed By: #### L 500.4100, L500.4050, L3890.6300 #### [facility] [address] [place], [address] EST GFR - AA 88 mL/min Normal >60 [facility] Comment on above: Result Comment: Afri can Palestinian GFR Calc Performed By: #### L 500.4100, L500.4050, L3890.6300 #### [facility] [address] [place], [address] GAP 8 Normal 5-15 [facility] Comment on above: Performed By: #### L 500.4100, L500.4050, L3890.6300 #### [facility] [address] [place], [address] GFR/1.73 sq M.predicted among non-blacks MDRD (S/P/Bld) [Vol rate/Area] 72 mL/min/{1.73_m2} Normal >60 [facility] Comment on above: Result Comment: Non- GFR Calc Performed By: #### L 500.4100, L500.4050, L3890.6300 #### [facility] [address] [place], [address] Globulin (S) [Mass/Vol] 3.9 g/dL Normal 2.2-4.2 [facility] Comment on above: Performed By: #### L 500.4100, L500.4050, L3890.6300 #### [facility] [address] [place], [address] Glucose [Mass/Vol] 88 mg/dL Normal 74-106 [facility] Comment on above: Performed By: #### L 500.4100, L500.4050, L3890.6300 #### [facility] [address] [place], [address] Potassium [Moles/Vol] 3.0 mmol/L Low 3.5-5.1 [facility] Comment on above: Performed By: #### L 500.4100, L500.4050, L3890.6300 #### [facility] [address] [place], [address] Sodium [Moles/Vol] 136 mmol/L Normal 136-145 [facility] Comment on above: Performed By: #### L 500.4100, L500.4050, L3890.6300 #### [facility] [address] [place], [address] T PROT 7.8 g/dL Normal 6.4-8.2 [facility] Comment on above: Performed By: #### L 500.4100, L500.4050, L3890.6300 #### [facility] [address] [place], [address] Urea nitrogen [Mass/Vol] 10 mg/dL Normal 7-18 [facility] Comment on above: Performed By: #### L 500.4100, L500.4050, L3890.6300 #### [facility] [address] [place], [address] Free T3on 09-17-2024 Free T3 [Mass/Vol] 3.3 pg/mL Normal 2.18-3.98 [facility] Comment on above: Performed By: #### L 506.0400, L501.9520, L501.94061, L3410.9998 #### [facility] [address] [place], [address] Hepatitis C Antibodyon 09-17 Hepatitis C AB Non-Reactive Normal Nonreactive [facility] Comment on above: Result Comment: Non Reactive: < 0.8 Equivocal: >/= 0.8 to < 1.0 Reactive: >/= 1.0 The [facility] requires that a reactive/equivocal HCV antibody result be sent out for confirmation. HCV Quant by PCR testing. Performed By: #### L 500.4100, L500.4050, L3890.6300 #### [facility] [address] [place], [address] Lipid Profileon 09-17-2024 Cholesterol [Mass/Vol] 196 mg/dL Normal 200 [facility] Comment on above: Result Comment: <200 mg/dL Desirable 200-240 mg/dL Borderline >240 mg/dL High Risk Performed By: #### L 500.4100, L500.4050, L3890.6300 #### [facility] [address] [place], [address] Cholesterol in HDL [Mass/Vol] 67 mg/dL Normal [facility] Comment on above: Result Comment: The drugs N-Acetylcysteine and Metamizole may falsely depress this assay. Reference Range HDL <40 mg/dL Low HDL Cholesterol HDL >or= 60 mg/dL High HDL Cholesterol Performed By: #### L 500.4100, L500.4050, L3890.6300 #### [facility] [address] [place], [address] Cholesterol in LDL [Mass/Vol] 103 mg/dL Normal 0-130 [facility] Comment on above: Performed By: #### L 500.4100, L500.4050, L3890.6300 #### [facility] [address] [place], [address] Cholesterol in VLDL [Mass/Vol] 26 mg/dL Normal 5-40 [facility] Comment on above: Performed By: #### L 500.4100, L500.4050, L3890.6300 #### [facility] [address] [place], [address] Triglyceride [Mass/Vol] 128 mg/dL Normal [facility] Comment on above: Result Comment: The drugs N-Acetylcysteine and Metamizole may falsely depress this assay. Serum Triglycerides Reference Interval Normal <150 mg/dL Borderline high 150 - 199 mg/dL High 200 - 499 mg/dL Very High > or = 500 mg/dL Performed By: #### L 500.4100, L500.4050, L3890.6300 #### [facility] [address] [place], [address] T4 Free Directon 09-17-2024 T4 FREE DIRECT 1.11 ng/dL Normal 0.76-1.46 [facility] Comment on above: Performed By: #### L 506.0400, L501.9520, L501.35706, L3410.9998 #### [facility] [address] [place], [address] Thyroid Stim Hormone (TSH)on 09-17-2024 TSH 1.790 uIU/mL Normal 0.358-3.740 [facility] Comment on above: Performed By: #### L 506.0400, L501.9520, L501.98770, L3410.9998 #### [facility] [address] [place], [address] 36on 09-10-2024 36 Pt due for labs soon and has follow up with Dr Avila 10/01/24. Please send to hold over until labs and appointment. [facility] 36on 05-21-2024 36 Name of caller: Carlota inesshiva Contact phone number: [phone] Relationship to Patient: patient Provider: Dr Avila [...] business hours to return their call: Yes Normal [facility] Metabolic Prof silvia 05-20-2024 Albumin [Mass/Vol] 3.8 g/dL Normal 3.2-5.0 [facility] Comment on above: Performed By: #### L 506.0400, L501.9520, L501.38663, L3410.9998 #### [facility] [address] [place], [address] Albumin/Globulin [Mass ratio] 1.1 {ratio} Normal 0.9-2.4 [facility] Comment on above: Performed By: #### L 506.0400, L501.9520, L501.64959, L3410.9998 #### [facility] [address] [place], [address] ALK P 68 U/L Normal 45-117 [facility] Comment on above: Performed By: #### L 506.0400, L501.9520, L501.38930, L3410.9998 #### [facility] [address] [place], [address] ALT [Catalytic activity/Vol] 11 U/L Low 13-56 [facility] Comment on above: Performed By: #### L 506.0400, L501.9520, L501.10153, L3410.9998 #### [facility] [address] [place], [address] AST [Catalytic activity/Vol] 14 U/L Low 15-37 [facility] Comment on above: Performed By: #### L 506.0400, L501.9520, L501.30248, L3410.9998 #### [facility] [address] [place], [address] Bilirubin [Mass/Vol] 0.50 mg/dL Normal 0.20-1.00 [facility] Comment on above: Result Comment: For patients on eltrombopag therapy, use of Dimension [place] TBIL is not recommended. Performed By: #### L 506.0400, L501.9520, L501.64333, L3410.9998 #### [facility] [address] [place], [address] BUN/CRE 11.3 RATIO Normal 10-20 [facility] Comment on above: Performed By: #### L 506.0400, L501.9520, L501.71484, L3410.9998 #### [facility] [address] [place], [address] CA,Total 9.5 mg/dL Normal 8.5-10.1 [facility] Comment on above: Performed By: #### L 506.0400, L501.9520, L501.62220, L3410.9998 #### [facility] [address] [place], [address] Chloride [Moles/Vol] 102 mmol/L Normal 98-107 [facility] Comment on above: Performed By: #### L 506.0400, L501.9520, L501.69476, L3410.9998 #### [facility] [address] [place], [address] CO2 [Moles/Vol] 28.0 mmol/L Normal 21.0-32.0 [facility] Comment on above: Performed By: #### L 506.0400, L501.9520, L501.29498, L3410.9998 #### [facility] [address] [place], [address] Creatinine [Mass/Vol] 0.79 mg/dL Normal 0.55-1.02 [facility] Comment on above: Result Comment: The validity of the calculated GFR GFRAA in patients over 70 years has not been determined. Clinical correlation is essential. Performed By: #### L 506.0400, L501.9520, L501.80392, L3410.9998 #### [facility] [address] [place], [address] EST GFR - AA 102 mL/min Normal >60 [facility] Comment on above: Result Comment: Afri can Palestinian GFR Calc Performed By: #### L 506.0400, L501.9520, L501.94819, L3410.9998 #### [facility] [address] [place], [address] GAP 6 Normal 5-15 [facility] Comment on above: Performed By: #### L 506.0400, L501.9520, L501.74052, L3410.9998 #### [facility] [address] [place], [address] GFR/1.73 sq M.predicted among non-blacks MDRD (S/P/Bld) [Vol rate/Area] 84 mL/min/{1.73_m2} Normal >60 [facility] Comment on above: Result Comment: Non- GFR Calc Performed By: #### L 506.0400, L501.9520, L501.98550, L3410.9998 #### [facility] [address] [place], [address] Globulin (S) [Mass/Vol] 3.4 g/dL Normal 2.2-4.2 [facility] Comment on above: Performed By: #### L 506.0400, L501.9520, L501.77467, L3410.9998 #### [facility] [address] [place], [address] Glucose [Mass/Vol] 99 mg/dL Normal 74-106 [facility] Comment on above: Performed By: #### L 506.0400, L501.9520, L501.51273, L3410.9998 #### [facility] [address] [place], [address] Potassium [Moles/Vol] 3.8 mmol/L Normal 3.5-5.1 [facility] Comment on above: Performed By: #### L 506.0400, L501.9520, L501.84978, L3410.9998 #### [facility] [address] [place], [address] Sodium [Moles/Vol] 136 mmol/L Normal 136-145 [facility] Comment on above: Performed By: #### L 506.0400, L501.9520, L501.42436, L3410.9998 #### [facility] [address] [place], [address] T PROT 7.2 g/dL Normal 6.4-8.2 [facility] Comment on above: Performed By: #### L 506.0400, L501.9520, L501.18406, L3410.9998 #### [facility] [address] [place], [address] Urea nitrogen [Mass/Vol] 9 mg/dL Normal 7-18 [facility] Comment on above: Performed By: #### L 506.0400, L501.9520, L501.72175, L3410.9998 #### [facility] [address] [place], [address] Magnesiumon 05-20-2024 Magnesium [Mass/Vol] 2.1 mg/dL Normal 1.6-2.6 [facility] Comment on above: Performed By: #### L 506.0400, L501.9520, L501.00133, L3410.9998 #### [facility] [address] [place], [address] No Panel Informationon 05-20 Culture Urine No growth at 48 hours. [facility] Work Phone: 36on 05-17-2024 36 Left msg tcb. [facility] 36 ----- Message from Gissell Avila MD sent at 05/17/2024 1:01 PM EDT ----- Inform the patient that her thyroid function test were normal so continue same dose of methimazole and recheck labs a week before her next visit with me in September [facility] 36 Addressed in a diffe rent encounter [facility] 36 Results Reconciled u nder lab tab for review. [facility] 36on 05-15-2024 36 Called for results t o faxed. [facility] 36on 05-14-2024 36 Name of caller: Carlota michele Contact phone number: [phone] Relationship to Patient: patient Provider: Dr Avila Practice: Endocrinology Chief Complaint/Reason for Call: Yamilka called in to see if her lab results were received. She had them done last week at [facility]. Yamilka would like a call back with those results and stated that she is currently out of medication. Best time of day caller can be reached: any Patient advised that office/PCP has 24-48 business hours to return their call: Yes [facility] Free T3on 05-08-2024 Free T3 [Mass/Vol] 3.4 pg/mL Normal 2.18-3.98 [facility] Comment on above: Performed By: #### L 506.0400, L501.06784, L501.9520 #### [facility] [address] [place], [address] SCRN MAMM (CAD)W/LALO BILATo n 05-08-2024 SCRN MAMM (CAD)W/LALO BILAT [facility] Services [address] [place] [address] SCRN MAMM (CAD)W/LALO BILAT MR#: [id number] Acct: [id number] Name: YAMILKA BRYANT Rep #: [id number] : 1980 F 43 From: Alejandro bloom MD PCP: NGUYỄN Heath Status: [facility] Study: SCRN MAMM (CAD)W/LALO BILAT Date of Exam: 04/23 Exam# [id number] Ordering Dr: Maranda Clements MD [id number] MAMMOGRAPHY - BILATERAL SCREENING REASON FOR EXAM: [...] delay biopsy of a clinically suspicious abnormality. [id number] Electronically Signed: Alejandro Cutler MD at 15:09 EDT , CC: NGUYỄN Carter; Dr. Maranda Clements MD Chain Splitter: Signed Normal [facility] T4 Free Directon 05-08-2024 T4 FREE DIRECT 1.05 ng/dL Normal 0.76-1.46 [facility] Comment on above: Performed By: #### L 506.0400, L501.9520, L501.22718, L3410.9998 #### [facility] [address] [place], [place], [address] Thyroid Stim Hormone (TSH)on 05-08-2024 TSH 1.570 uIU/mL Normal 0.358-3.740 [facility] Comment on above: Performed By: #### L 506.0400, L501.75773, L501.9546 #### [facility] [address] [place], [place], [address] Floor Worker Cytology Reporton 2023 Floor Worker Cytology Report . Pathology Reports Accession: Collected Date/Time: Received Date/Time: Pathologist: [id number] 04/29/2024 15:14 EDT 04/29/2024 18:00 EDT NNAMDI BAE MD Floor Worker Cytology Report SPECIMEN: Specimen Description: Liquid Prep [...] and evaluated with the assistance of the [employer] Test Imaging System. Pathology Reports Accession: Collected Date/Time: Received Date/Time: Pathologist: [id number] 04/29/2024 15:14 EDT 04/29/2024 18:00 EDT NNAMDI BAE MD Electronically Signed by Pathology report verified by [facility] Screened by: CARLOS Electronically signed by NNAMDI BAE Sign-Out Date: 05/02/2024 14:41 Performing Lab: [facility], [address] [place] [address] Pathology Dept Disclaimer The Pap test is a screening test for cervical cancer. As evidenced by published data, it is subject to both inherent false negative and false positive results. Your patient's results should be interpreted in context with pertinent clinical history including gynecological examination. Normal [facility] HPVon 05-01-2024 HPV Interp Abnormal See Interp HPVN [facility] Comment on above: Order Comment: Order placed by AP_HPV_ORDER rule from [id number] Result Comment: High Risk HPV Typing is [...] HPVO Performed By: #### H PV #### [facility] [address] [place] [address] HPV Source Cervix Normal [facility] Comment on above: Order Comment: Order placed by AP_HPV_ORDER rule from [id number] Performed By: #### H PV #### [facility] [address] [place] [address] LABORATORYOrdered By: Claudine Carbajal on 04-29-2024 HPV [...] SS Cardiology Visit Reporton Cardiology Visit Report [facility] [address] [place] [address] OFFICE VISIT Date of Service: 02/23/24 MR#: [id number] Acct: [id number] Name: YAMILKA BRYANT Rep #: [id number] : 1980 Provider: JOSELIN Richards Age/Sex: 43/F Location: [facility] Status: Signed HPI HPI History of [...] 100 Intake Visit Reasons: 3 M FU Hanger Required: No Accompanied by: Self Is patient [...] side then off and on chest discomfort [facility] Abnormal thyroid blood test Wears [...] non-healing lesi (more content not included)... Normal [facility] 02-07-2024 36 Message released to patient as written. Patient's further questions if applicable: Patient was returning office call. Released previous message to patient containing test results and medication instructions. Patient expresses understanding of message released. Please be advised. Were all questions from office addressed or relayed to the patient from encounter: Yes [facility] 36 Left msg to call back. Normal [facility] 36 ----- Message from Gissell Avila MD sent at 01/30/2024 9:05 AM EDT ----- Please inform pt that her thyroid function were normal. She can continue same dose of methimazole. Repeat thyroid test in 3 months [facility] 02-06-2024 36 My chart msg sent. Normal [facility] 02-05-2024 36 Left msg TCB [facility] 01-31-2024 36 See both msgs below. Left msg for pt to call back [facility] 36 ----- Message from Gissell Avila MD sent at 01/30/2024 3:21 PM EDT ----- Please inform the patient that FNA biopsy for the right and left thyroid nodule were benign so risk of thyroid cancer is low [place] 3743001-30-2024 36 Left msg tcb. Normal [place] [id number] ----- Message from Gissell Avila MD sent at 01/30/2024 9:05 AM EDT ----- Please inform pt that her thyroid function were normal. She can continue same dose of methimazole. Repeat thyroid test in 3 months Normal [facility] Progress Noteon 01-30-2024 Progress Note Inform the patient t hat her thyroid function test were normal so continue same dose of methimazole and recheck labs a week before her next visit with me in September Normal [facility] Progress Noteon 01-29-2024 Progress Note Please inform the pa tient that FNA biopsy for the right and left thyroid nodule were benign so risk of thyroid cancer is low Normal [facility] US GUIDED THYROID NEEDLE COR E BIOPSY W/ REFLEX AFFIRMAon 01-29-2024 US GUIDED THYROID NEEDLE CORE BIOPSY W/ REFLEX AFFIRMA Patient Name: YAMILKA [facility]YANT [facility] 1980 [id number] Exam Date/Time: 01/29/2024 09:45 Procedure: US GUIDED THYROID NEEDLE CORE BIOPSY W/ REFLEX AFFIRMA Ordering Provider: AVILA OMAR Reason For Exam: Thyroid nodule CLINICAL HISTORY: Thyroid nodule Procedures: Ultrasound-guided thyroid FNA of bilateral thyroid nodules JONATHAN: Leia Muniz PA-C Attending provider: Sundeep Shepherd M.D. fig bar machine operator: Leia Muniz PA-C Attending provider was [...] PA-C Electronically Signed Date/Time: 01/29/2024 11:07 AM [facility] US Guidance for fine needle aspiration of Thyroid glandon 01-29-2024 Impression: Technically successful uncomplicated ultrasound-guided thyroid FNA of bilateral nodules as described above. Report Dictated on Electronically Signed By: Leia Muniz PA-C Electronically Signed Date/Time: 01/29/2024 11:07 AM [facility] [employer] [facility] Patient Name: YAMILKA MONTERO : 1980 [id number] Exam Date/Time: 01/29/2024 09:45 Procedure: US GUIDED THYROID NEEDLE CORE BIOPSY W/ REFLEX AFFIRMA Ordering Provider: AVILA OMAR Reason For Exam: Thyroid nodule CLINICAL HISTORY: Thyroid nodule Procedures: Ultrasound-guided thyroid FNA of bilateral thyroid nodules JONATHAN: Leia Muniz PA-C Attending provider: Sundeep Shepherd M.D. fig bar machine operator: Leia Muniz PA-C Attending provider was [...] FINDINGS: Dominant nodule within bilateral thyroid lobes [facility] Leia Muniz PA-C - 01/29/2024 Patient Name: YAMILKA BRYANT : 1980 [id number] Exam Date/Time: 01/29/2024 09:45 Procedure: US GUIDED THYROID NEEDLE CORE BIOPSY W/ REFLEX AFFIRMA Ordering Provider: AVILA OMAR Reason For Exam: Thyroid nodule CLINICAL HISTORY: Thyroid nodule Procedures: Ultrasound-guided thyroid FNA of bilateral thyroid nodules JONATHAN: Leia Muniz PA-C Attending provider: Sundeep Shepherd M.D. fig bar machine operator: Leia Muniz PA-C Attending provider was [...] Electronically Signed Date/Time: 01/29/2024 11:07 AM EDT [facility] Radiology Study observation (narrative) [facility] US Guidance for fine needle aspiration of Thyroid glandOrdered By: Leia Muniz on 01-29-2024 [facility] Work Phone: Absolute lymphocyte countOrd ered By: ED PROVIDER on 11-17-2023 Lymphocytes Auto (Unsp spec) [#/Vol] 1.83 10*3/uL 0.83-4.51 [facility] Automated lymphocyte count a s percentage of total leukocytesOrdered By: ED PROVIDER on 11-17-2023 Lymphocytes/100 WBC Auto (Unsp spec) 23.0 % 19-41 [facility] Basophil percentageOrdered B y: ED PROVIDER on 11-17-2023 Basophils/100 WBC (Bld) 0.5 % 0-1 [facility] Eosinophils/100 WBC (Bld) 0.6 % 0-5 [facility] Hemoglobin (Bld) [Mass/Vol] 12.8 g/dL 12.0-15.0 [facility] Monocytes/100 WBC (Bld) 6.4 % 0-10 [facility] Neutrophils (Bld) [#/Vol] 5.5 10*3/uL 2.0-7.7 [facility] Neutrophils/100 WBC (Bld) 69.1 % 47-70 [facility] WBC (Bld) [#/Vol] 8.0 10*3/uL 4.4-11.0 [facility] Basophil percentageOrdered B y: Nnamdi Mcmanus on 11-17-2023 Chloride [Moles/Vol] 104 mmol/L 98-107 [facility] Glucose [Mass/Vol] 116 mg/dL 74-106 [facility] Comment on above: Fasting Glucose resu lt from 100 to 125 mg/dL suggests IMPAIRED HOMEOSTASIS per A.D.A. criteria. Potassium [Moles/Vol] 3.7 mmol/L 3.5-5.1 [facility] Sodium [Moles/Vol] 135 mmol/L 136-145 [facility] Determination of erythrocyte mean corpuscular volume (MCV)Ordered By: ED PROVIDER on 11-17-2023 MCV (RBC) [Entitic vol] 92.0 fL 81-99 [facility] Erythrocyte distribution wid th ratioOrdered By: ED PROVIDER on 11-17-2023 Erythrocyte distribution width (RBC) [Ratio] 11.7 % 11.6-14.6 [facility] Erythrocyte distribution wid th standard deviationOrdered By: ED PROVIDER on 11-17-2023 Erythrocyte distribution width (RBC) [Entitic vol] 39.7 fL 35.1-43.9 [facility] Hematocrit Auto (Bld) [Volum e fraction]Ordered By: ED PROVIDER on 11-17-2023 Hematocrit (Bld) [Volume fraction] 38.0 % 37-47 [facility] Immature granulocytes/100 WB C Auto (Bld)Ordered By: ED PROVIDER on 11-17-2023 Immature granulocytes/100 WBC (Bld) 0.400 % 0.0-0.9 [facility] Comment on above: IG% - Immature Granu locytes (promyelocytes, myelocytes and metamyelocytes) > 1% indicates that a LEFT SHIFT is Present. Laboratory - Chemistry and C hemistry - challengeOrdered By: Nnamdi Mcmanus on 11-17-2023 CO2 [Moles/Vol] 25.0 mmol/L 21.0-32.0 [facility] Magnesium [Mass/Vol] 1.8 mg/dL 1.6-2.6 [facility] Urea nitrogen/Creatinine [Mass ratio] 15.0 mg/mg 10-20 [facility] - Hematology and Cell countsOrdered By: ED PROVIDER on 11-17-2023 MCH (RBC) [Entitic mass] 31.0 pg 27.0-32.0 [facility] MCHC (RBC) [Mass/Vol] 33.7 g/dL 32-36 [facility] Nucleated RBC/100 WBC (Bld) [Ratio] 0 % 0-5 [facility] Platelet mean volume (Bld) [Entitic vol] 9.7 fL 6.2-12.0 [facility] Platelets (Bld) [#/Vol] 243 10*3/uL 150-450 [facility] No Panel InformationOrdered By: Nnamdi Mcmanus on 11-17-2023 D-Dimer Quantitative (PE/DVT) 0.33 FEU/ug/m 0.27-0.49 [facility] Comment on above: NORMAL D-Dimer level (<0.50) indicates no DVT or PE. Estimated Creatinine Clearance Calc 95.42 ml/min [facility] Estimated GFR (MDRD) Amer 125 mL/min >60 [facility] Comment on above: GFR Calc Estimated GFR (MDRD) Non-Af Amer 103 mL/min >60 [facility] Comment on above: Non- GFR Calc RBC Auto (Bld) [#/Vol]Ordere d By: ED PROVIDER on 11-17-2023 RBC (Bld) [#/Vol] 4.13 10*6/uL 4.2-5.4 [facility] Serum or plasma calcium cindy urement (mass/volume)Ordered By: Nnamdi Mcmanus on 11-17-2023 Calcium [Mass/Vol] 9.0 mg/dL 8.5-10.1 [facility] Serum or plasma cardiac trop onin I panel by high sensitivity methodOrdered By: Nnamdi Mcmanus on 11-17-2023 Tropinin I.cardiac panel High sensitivity method 4 pg/mL 3.0-54.0 [facility] Comment on above: Please Note: [place] t Units and Gender Specific Reference Ranges. For more information see Policy Stat Procedure [place] High Sensitivity Troponin (TNIH) and attachments. Serum or plasma creatinine m easurement (mass/volume)Ordered By: Nnamdi Mcmanus on 11-17-2023 Creatinine [Mass/Vol] 0.67 mg/dL 0.55-1.02 [facility] Comment on above: The validity of the calculated GFR & GFRAA in patients over 70 years has not been determined. Clinical correlation is essential. Serum or plasma urea nitroge n measurement (mass/volume)Ordered By: Nnamdi Mcmanus on 11-17-2023 Urea nitrogen [Mass/Vol] 10 mg/dL 7-18 [facility] Thin prep Papanicolaou smear with manual screeningOrdered By: Nnamdi Mcmanus on 11-17-2023 Thin prep Papanicolaou smear with manual screening 6 5-15 [facility] 36on 11-06-2023 36 Left voicemail for p atient regarding below. Provided with central scheduling phone number or to return call to office to schedule. Normal [facility] 36 ----- Message from Gissell Avila MD sent at 11/06/2023 10:15 AM EDT ----- Please inform pt that her thyroid function were normal. She can continue same dose of methimazole. Repeat thyroid test in 3 months Now, we need to FNA for 2 thyroid around this time to do it at [facility]. Please see orders. Thanks Normal [facility] OUTSIDE LAB SCANOrdered By: Kerry Galloway on 11-06-2023 [facility] Progress Noteon 11-06-2023 Progress Note Please inform pt melisa t her thyroid function were normal. She can continue same dose of methimazole. Repeat thyroid test in 3 months Now, we need to FNA for 2 thyroid around this time to do it at [facility]. Please see orders. Thanks Normal [facility] Progress Note Please inform pt melisa t her thyroid function were normal. She can continue same dose of methimazole. Repeat thyroid test in 3 months Normal [facility] Laboratory - Microbiology an d Antimicrobial susceptibilityon 11-03-2023 S. pyogenes Ag IA Ql (Unsp spec) Negative [facility] No Panel Informationon 04-05 -2024 Influenza Types A,B Rapid (Clinic) Negative [facility] POC SARS CoV-2 Antigen Negative [facility] No Panel Informationon 11-01 Free Triiodothyronine (T3) pg/dL 3.0 pg/mL 2.18-3.98 [facility] Serum or plasma thyroid stim ulating hormone (TSH) measurement (units/volume)on 11-02-2023 TSH Qn 0.81 uIU/mL 0.358-3.74 [facility] Thin prep Papanicolaou smear with manual screeningon 11-02-2023 Thin prep Papanicolaou smear with manual screening 1.30 ng/dL 0.76-1.46 [facility] 36on 10-12-2023 36 Sent, orders in, thanks Normal [facility] [place] 36 See msg below Rx Pen ded, please order labs. [facility] [place] 36 Message released to patient as written. Patient's further questions if applicable: Yamilka would like the lab work to be sent to [facility] and th prescription to [facility] in [place]. Were all questions from office addressed or relayed to the patient from encounter: Yes Affinio [facility] [place] 36 Left msg for pt to c all back. [facility] 36 ----- Message from Gissell Avila [...] do not have access to the results [facility] Progress Noteon 10-11-2023 Progress Note Please [...] do not have access to the results [place] [id number] 36 Patient scheduled on 10/10 at 9AM - [facility] 36on 10-05-2023 36 Left msg for pt expl aining it is ok. [facility] 36 Sure as long as we g et results [facility] 36 Is this ok? [place] [id number] 36 S: Patient spoke greg mason [facility] nurse regarding results B: Onset of symptoms/concern [...] the can since she doesn't live near [facility] and would have to take another day off of work. R: Message sent to office for review. Reason for Disposition Health Information question, no triage required and triager able to answer question Lab result questions Caller requesting lab results (Exception: Routine or non-urgent lab result.) Protocols used: Information Only Call - No [id number], PCP Call - [facility] Left voicemail for p atient to return call regarding below. [facility] 36 ----- Message from Gissell Avila [...] well before the thyroid uptake and scan [facility] US THYROIDon 10-04-2023 US THYROID Patient Name: YAMILKA MONTERO : 1980 Exam Date/Time: 10/02/2023 10:34 Procedure: US THYROID Ordering Provider: AVILA OMAR Reason For Exam: THYROID NODULE CLINICAL INFORMATION: Multiple thyroid nodules. Follow-up study. Ultrasound of the thyroid gland is provided. The examination is compared to a previous study from an outside institution ([facility]) dated 05/10/2023. FINDINGS: The right lobe [...] solid nodules were biopsied on 06/08/2017 (at [facility]). I do not have those results. [...] MD Electronically Signed Date/Time: 10/04/2023 10:14 AM [facility] CNPNon 07-11-2023 CNPN Telephone (AGRHUK) -- YAMILKA BRYANT ([id number]) 1980 F Date Time Provider Department 07/11/23 [...] you could do? Labs were done at [place] and are scanned in her chart. Cony Turner MD 07/11/2023 6:53 PM Signed Diandra labs are not scanned in Not sure if even done Thanks Cony Cox MD Please obtain report Diandra Zavala 07/12/2023 1:40 PM Signed I saw the labs but they were from Dr. Ralf Ventura. Will call [place] to obtain. Diandra Hawk 07/12/2023 2:40 PM Signed Spoke with [place] lab and they are faxing over results. Patient had them done on 05-05-23. Diandra Hawk 07/12/2023 2:43 PM Signed Spoke with the patient and explained that we never received the labs from [place]. They are now faxing the results to [...] Fully Assessed Reason for Visit: Patient Question [0507] Prescriptions as of 07/13/2023 - Norgestimate-Ethinyl Estradiol [...] Status:Closed by DIANDRA ZAVALA on 07/11/[address] [facility] Laboratory - Chemistry and C hemistry - challengeOrdered By: John Thakur on 05-19-2023 Free T4 [Mass/Vol] 1.03 ng/dL 0.76-1.46 [facility] No Panel InformationOrdered By: John Thakur on 05-19-2023 Free Triiodothyronine (T3) pg/dL 2.8 pg/mL 2.18-3.98 [facility] Thyroid Stimulating Hormone (TSH) 0.41 uIU/mL 0.358-3.74 [facility] Serum or plasma thyroperoxid ase antibody assay (units/volume)Ordered By: John Thakur on 05-19-2023 TPO Ab Qn [IU]/mL 0-34 [facility] Comment on above: Performed at: [place] [facility] [address] [id number] Director: Aashish Li MD, Phone: [phone] at: [facility] [id number] Director: Marco Antonio Romero PhD, Phone: [phone] Thyroid stimulating immunogl obulins detectionOrdered By: John Thakur on 05-19-2023 Thyroid stimulating immunoglobulins Ql (S) <0.10 IU/L 0.00-0.55 [facility] No Panel Informationon 05-08 Culture Urine <10,000 cfu/ml. No Significant growth. Sensitivity not indicated. [facility] Work Phone: Erythrocyte sedimentation ra pooja 05-05-2023 ESR (Bld) [Velocity] 2 mm/h 0-30 [facility] Mitotic spindle apparatus Ab [Titer] in Serum or Plasmaon 05-05-2023 Mitotic spindle apparatus Ab [Titer] Not Reportable [facility] No Panel Informationon 05-05 SYDNIE Nuclear Membrane Pattern Not Reportable [facility] Immunoglobulin G4 43 mg/dL 2-96 [facility] Tissue Transglutaminase IgG Ab <2 U/mL 0-5 [facility] Comment on above: Negative 0 - 5 Weak Positive 6 - 9 Positive >9 Serum IgG subclass 1 measure ment (mass/volume)on 05-05-2023 IgG subclass 1 (S) [Mass/Vol] 563 mg/dL 248-810 [facility] Serum IgG subclass 2 measure ment (mass/volume)on 05-05-2023 IgG subclass 2 (S) [Mass/Vol] 244 mg/dL 130-555 [facility] Serum IgG subclass 3 measure ment (mass/volume)on 05-05-2023 IgG subclass 3 (S) [Mass/Vol] 24 mg/dL 15-102 [facility] Serum cyclic citrullinated p eptide IgG antibody assay (units/volume)on 05-05-2023 Cyclic citrullinated peptide IgG Qn 1 units 0-19 [facility] Comment on above: Negative <20 Weak po sitive 20 - 39 Moderate positive 40 - 59 Strong positive >59 Serum midbody antibody titer by immunofluorescenceon 05-05-2023 Midbody Ab IF (S) [Titer] Not Reportable [facility] Serum multiple nuclear dot p attern antinuclear IgG antibody (SYDNIE) titer by immunofluoon 05-05-2023 Multiple nuclear dots nuclear IgG pattern IF (S) [Titer] Not Reportable [facility] Serum neuronal nuclear antib tyler detection by immunofluorescenceon 05-05-2023 Neuronal nuclear Ab IF Ql (S) Not Reportable [facility] Serum nuclear antibody patte rn homogenous titer by immunofluorescenceon 05-05-2023 Homogenous nuclear Ab pattern IF (S) [Titer] Not Reportable [facility] Serum nuclear antibody titer by immunofluorescenceon 05-05-2023 Nuclear Ab IF (S) [Titer] Negative . [facility] Comment on above: Negative <1:80 Borde miguel ángeline 1:80 Positive >1:80ICAP nomenclature: AC-0For more information about Hep-2 cell patterns useANApatterns.org, the official website for theInternational Consensus on Antinuclear Antibody (SYDNIE)Patterns (ICAP).Performed at: [place] [facility] [address] [id number] Director: Marco Antonio Romero PhD, Phone: [phone] Serum or plasma IgA measurem ent (mass/volume)on 05-05-2023 IgA [Mass/Vol] 173 mg/dL 87-352 [facility] Comment on above: Performed at: [place] [facility] [address] [id number] Director: Marco Antonio Romero PhD, Phone: [phone] Serum or plasma IgG measurem ent (mass/volume)on 05-05-2023 IgG [Mass/Vol] 902 mg/dL [phone] [facility] Serum or plasma uric acid me asurement (mass/volume)on 05-05-2023 Urate [Mass/Vol] 3.1 mg/dL 2.6-6.0 [facility] Comment on above: The drugs N-Acetylcy steine and Metamizole may falsely depress this assay. Serum proliferating cell nuc lear antigen (PCNA) antibody titer by immunofluorescenceon 05-05-2023 PCNA extractable nuclear Ab IF (S) [Titer] Not Reportable [facility] Serum rheumatoid factor dete ctionon 05-05-2023 Rheumatoid factor Ql (S) < 10.0 IU/mL <15 [facility] Serum speckled nuclear antib tyler pattern titeron 05-05-2023 Speckled nuclear Ab pattern (S) [Titer] Not Reportable [facility] Thin prep Papanicolaou smear with manual screeningon 05-05-2023 Thin prep Papanicolaou smear with manual screening Not Reportable [facility] CNPNon 04-14-2023 CNPN Telephone (nexTuneK) -- YAMILKA BRYANT ([id number]) 1980 F Date Time Provider Department 04/14/23 [...] Encounter Status:Closed by BARBARA JOSE on 04/14/23 [facility] CNPN Telephone (HERMESWiredBenefitsK) -- YAMILKA BRYANT ([id number]) 1980 F Date Time Provider Department 04/14/23 [...] Encounter Status:Closed by BARBARA JOSE on 04/14/23 [facility] Chandana 04-06-2023 CNOV Office Visit (HERMESHUK ) -- YAMILKA BRYANT ([id number]) 1980 F Date Time Provider Department 04/06/23 10:00 AM CONY COX During your visit today, we recorded the following information about you: Temperature Pulse Blood pressure Weight 98.3 degrees 88/minute 108/63 56.7 kg Height 1.626 m Cony Cox MD 07/12/2023 9:35 PM Addendum This note was created using NoteWriter. Subjective [...] Nausea lot Never hungry Seen surg and benjamin normal Review of Systems Constitutional: Positive for [...] 2019 LFT (more content not included)... Normal [facility] Laboratory - Chemistry and C hemistry - challengeOrdered By: Yeyo Clements on 03-10-2023 HCG ( test) Ql (U) Negative [facility] Comment on above: Very dilute urine sp ecimens, as indicated by a low specificgravity, may not contain parts representative levels of hCG. If is still suspected, a first morning urinespecimen should be collected 48 hours later and tested. Laboratory - Chemistry and C hemistry - challengeOrdered By: Ralf Ventura on 01-27-2023 Free T4 [Mass/Vol] 1.07 ng/dL 0.76-1.46 [facility] No Panel InformationOrdered By: Ralf Ventura on 01-27-2023 Thyroglobulin Antibody < 1.0 IU/mL 0.0-0.9 [facility] Comment on above: Thyroglobulin Antibo dy measured by Vitrum View, LLCMethodologyPerformed at: [place] - [facility] [address] [id number] Director: Marco Antonio Romero PhD, Phone: [phone] Follicle Stimulating Hormone 8.4 mIU/mL [facility] Comment on above: NORMAL REFERENCE RAN GES FEMALE FOLLICULAR 2.3 - 12.6 mIU/mL MID-CYCLE PEAK 5.2 - 17.5 mIU/mL LUTEAL 1.7 - 12.9 mIU/mL POST-MENOPAUSAL ON MHT 5.9 - 72.8 mIU/mL NOT ON MHT 12.7 - 132.2 mlU/mL MALE 0.7 - 10.8 mIU/mL Free Triiodothyronine (T3) pg/dL 3.0 pg/mL 2.18-3.98 [facility] Luteinizing Hormone 13.5 mIU/mL [facility] Comment on above: NORMAL REFERENCE RAN GES FEMALE FOLLICULAR 1.9 - 26.2 mIU/mL MID-CYCLE PEAK 22.8 - 76.1 mIU/mL LUTEAL 0.6 - 16.6 mIU/mL POST-MENOPAUSAL ON MHT 1.1 - 52.4 mIU/mL NOT ON MHT 8.6 - 61.8 mIU/mL MALE 1.2 - 10.6 mIU/mL Thyroid Stimulating Hormone (TSH) 0.17 uIU/mL 0.358-3.74 [facility] Serum or plasma estradiol (E 2) measurement (mass/volume)Ordered By: Ralf Ventura on 01-27-2023 E2 [Mass/Vol] 180.0 pg/mL [facility] Comment on above: NORMAL REFERENCE RAN [...] on 01-27-2023 TPO Ab Qn [IU]/mL 0-34 [facility] Whole blood hemoglobin A1c/t otal hemoglobin ratio (mass fraction)Ordered By: Ralf Ventura on 01-27-2023 HbA1c (Bld) [Mass fraction] 4.8 % 3.8-5.6 [facility] Comment on above: Normal < 5.7 % Predi abetic 5.7 - 6.4 % Diabetic >or= 6.5 % Please note range changes. Justin 11-24-2022 Nuclear Ab IF (S) [Titer] 40 {titer} Normal Neg 40 [facility] ([place]) Comment on above: Result Comment: SYDNIE Screen and Titer methodology is an immunofluorescent technique utilizing Hep2 Substrate. Performed By: #### C BC, ANEU, URIC, FT4, CMP, ADIFF, GFR, TSH ####Tana [address] [place], [place] [address]#### SYDNIE, RF ####[address] [address] RFon 11-24-2022 Rheumatoid Factor <6.0 Normal <=6.0 [facility] ([place]) Comment on above: Result Comment: RF I [...] tests. These results were obtained with the [employer] Lite RF IgM [place]. RF IgM values obtained with different manufacturers' assay methods may not be used interchangeably. The magnitude of the reported IgM levels cannot be correlated to an endpoint titer. Performed By: #### C BC, ANEU, URIC, FT4, CMP, ADIFF, GFR, TSH ####Tana [address] [place], [place] [address]#### SYDNIE, RF ####[place] [id number] XR CHEST 2 VIEWSon 3 XR CHEST [...] Date: 11/24/2022 11:11:30 AM Ordering Provider: TIANA LORSON [facility] ([place]) XR HAND MINIMUM 3 VIEWS ARIANE eMlgar 11-24-2022 XR HAND MINIMUM 3 VIEWS RIGHT [...] Date: 11/24/2022 10:24:07 AM Ordering Provider: TIANA CARTER [facility] ([place]) .Auto Diffon 11-23-2022 Basophil, Absolute 0.0 10 3/mcL Normal 0.0-0.2 [facility] ([place]) Comment on above: Performed By: #### C BC, ANEU, URIC, FT4, CMP, ADIFF, GFR, TSH #### [place] [address] #### SYDNIE, RF #### [address] [address] Basophils/100 WBC (Bld) 0.2 % Normal 0.0-2.5 [facility] ([place]) Comment on above: Performed By: #### C BC, ANEU, URIC, FT4, CMP, ADIFF, GFR, TSH #### [address] [address] #### SYDNIE, RF #### [address] [address] Eosinophil, Absolute 0.0 10 3/mcL Normal 0.0-0.4 [facility] ([place]) Comment on above: Performed By: #### C BC, ANEU, URIC, FT4, CMP, ADIFF, GFR, TSH #### [place] [address] #### SYDNIE, RF #### [address] [address] Eosinophils/100 WBC (Bld) 0.6 % Normal 0.0-7.0 [facility] ([place]) Comment on above: Performed By: #### C BC, ANEU, URIC, FT4, CMP, ADIFF, GFR, TSH #### [address] [address] #### SYDNIE, RF #### [address] [address] Lymphocyte, Absolute 1.9 10 3/mcL Normal 0.8-3.9 [facility] ([place]) Comment on above: Performed By: #### C BC, ANEU, URIC, FT4, CMP, ADIFF, GFR, TSH #### [address] [address] #### SYDNIE, RF #### [address] [address] Lymphocytes/100 WBC (Bld) 23.6 % Normal 10.0-50.0 [facility] ([place]) Comment on above: Performed By: #### C BC, ANEU, URIC, FT4, CMP, ADIFF, GFR, TSH #### [address] [address] #### SYDNIE, RF #### [address] [address] Monocyte, Absolute 0.4 10 3/mcL Normal 0.2-1.0 [facility] ([place]) Comment on above: Performed By: #### C BC, ANEU, URIC, FT4, CMP, ADIFF, GFR, TSH #### [address] [address] #### SYDNIE, RF #### [address] [address] Monocytes/100 WBC (Bld) 4.8 % Normal 1.7-13.0 [facility] ([place]) Comment on above: Performed By: #### C BC, ANEU, URIC, FT4, CMP, ADIFF, GFR, TSH #### [place] [address] #### SYDNIE, RF #### [address] [address] Neutrophils/100 WBC (Bld) 70.8 % Normal 37.0-80.0 [facility] ([place]) Comment on above: Performed By: #### C BC, ANEU, URIC, FT4, CMP, ADIFF, GFR, TSH #### [place] [address] [place], [place] [address] #### SYDNIE, RF #### [address] [address] .GFRon 11-23-2022 GFR 102 ml/min/1.73sqm Normal [facility] ([place]) Comment on above: Result Comment: GFR Population [...] ANEU, URIC, FT4, CMP, ADIFF, GFR, TSH ####[address] [address]#### SYDNIE, RF ####[address] [address] GFR Non- 84 ml/min/1.73sqm Normal [facility] ([place]) Comment on above: Result Comment: GFR Population [...] ANEU, URIC, FT4, CMP, ADIFF, GFR, TSH ####[place] [address]#### SYDNIE, RF ####[place] [address] .NEUABSon 11-23-2022 Neutrophil, Absolute 5.8 10 3/mcL Normal 2.9-6.2 [facility] ([place]) Comment on above: Performed By: #### C BC, ANEU, URIC, FT4, CMP, ADIFF, GFR, TSH #### [place] [address] #### SYDNIE, RF #### [place] [address] .Urinalysis Microscopic (AO) on 11-23-2022 UA Bacteria Trace Abnormal [facility] ([place]) Comment on above: Performed By: #### U A, UAMICAO ####Tana [address] [address] UA CA Ox Crystal 1+ /hpf Normal [facility] ([place]) Comment on above: Performed By: #### U A, UAMICAO ####Tana [address] [address] UA Mucous 3+ /hpf Normal [facility] ([place]) Comment on above: Performed By: #### U A, UAMICAO ####Tana [address] [place], [place] [address] UA RBC None Seen Normal None Seen [facility] ([place]) Comment on above: Performed By: #### U A, UAMICAO ####Tana [address] [place], [place] [address] UA Squam Epithelial 0-5 Abnormal None Seen [facility] ([place]) Comment on above: Performed By: #### U A, UAMICAO ####[address] [address] UA WBC 0-5 Abnormal None Seen [facility] ([place]) Comment on above: Performed By: #### U A, UAMICAO ####[address] [address] CBCon 11-23-2022 Erythrocyte distribution width (RBC) [Ratio] 11.9 % Normal 11.5-14.5 [facility] ([place]) Comment on above: Performed By: #### C BC, ANEU, URIC, FT4, CMP, ADIFF, GFR, TSH #### [place] [address] #### SYDNIE, RF #### [address] [address] Hematocrit (Bld) [Volume fraction] 38.5 % Normal 37.0-47.0 [facility] ([place]) Comment on above: Performed By: #### C BC, ANEU, URIC, FT4, CMP, ADIFF, GFR, TSH #### [place] [address] #### SYDNIE, RF #### [address] [address] Hgb 13.3 G/dL Normal 12.0-16.0 [facility] ([place]) Comment on above: Performed By: #### C BC, ANEU, URIC, FT4, CMP, ADIFF, GFR, TSH #### [place] [address] #### SYDNIE, RF #### [address] [address] MCH (RBC) [Entitic mass] 31.6 pg High 27.0-31.2 [facility] ([place]) Comment on above: Performed By: #### C BC, ANEU, URIC, FT4, CMP, ADIFF, GFR, TSH #### [place] [address] #### SYDNIE, RF #### [place] [address] MCHC 34.5 G/dL Normal 33.0-37.0 [facility] ([place]) Comment on above: Performed By: #### C BC, ANEU, URIC, FT4, CMP, ADIFF, GFR, TSH #### [place] [address] #### SYDNIE, RF #### [place] [address] MCV (RBC) [Entitic vol] 91.6 fL Normal 80.0-94.0 [facility] ([place]) Comment on above: Performed By: #### C BC, ANEU, URIC, FT4, CMP, ADIFF, GFR, TSH #### [place] [address] #### SYDNIE, RF #### [place] [address] Platelet 196 10 3/mcL Normal 130-400 [facility] ([place]) Comment on above: Performed By: #### C BC, ANEU, URIC, FT4, CMP, ADIFF, GFR, TSH #### [place] [address] #### SYDNIE, RF #### [place] [address] Platelet mean volume (Bld) [Entitic vol] 8.7 fL Normal 7.4-10.4 [facility] ([place]) Comment on above: Performed By: #### C BC, ANEU, URIC, FT4, CMP, ADIFF, GFR, TSH #### [place] [address] #### SYDNIE, RF #### [place] [address] RBC 4.21 10 6/mcL Normal 4.20-5.40 [facility] ([place]) Comment on above: Performed By: #### C BC, ANEU, URIC, FT4, CMP, ADIFF, GFR, TSH #### [place] [address] #### SYDNIE, RF #### [address] [address] WBC 8.2 10 3/mcL Normal 4.6-10.8 [facility] ([place]) Comment on above: Performed By: #### C BC, ANEU, URIC, FT4, CMP, ADIFF, GFR, TSH #### [address] [address] #### SYDNIE, RF #### [address] [address] CMPon 11-23-2022 Albumin Level 4.1 G/dL Normal 3.5-5.0 [facility] ([place]) Comment on above: Performed By: #### C BC, ANEU, URIC, FT4, CMP, ADIFF, GFR, TSH ####[place] [address]#### SYDNIE, RF ####[place] [address] Albumin/Globulin [Mass ratio] 1.5 {ratio} Normal 1.1-2.5 [facility] ([place]) Comment on above: Performed By: #### C BC, ANEU, URIC, FT4, CMP, ADIFF, GFR, TSH ####[place] [address]#### SYDNIE, RF ####[address] [address] ALP [Catalytic activity/Vol] 44 U/L Normal 40-135 [facility] ([place]) Comment on above: Performed By: #### C BC, ANEU, URIC, FT4, CMP, ADIFF, GFR, TSH ####[place] [address]#### SYDNIE, RF ####[address] [address] ALT [Catalytic activity/Vol] 18 U/L Normal 14-59 [facility] ([place]) Comment on above: Performed By: #### C BC, ANEU, URIC, FT4, CMP, ADIFF, GFR, TSH ####[place] [address]#### SYDNIE, RF ####[place] [address] AST [Catalytic activity/Vol] 17 U/L Normal 10-40 [facility] ([place]) Comment on above: Performed By: #### C BC, ANEU, URIC, FT4, CMP, ADIFF, GFR, TSH ####[place] [address]#### SYDNIE, RF ####[place] [address] Bili Total 0.6 mg/dL Normal 0.2-1.0 [facility] ([place]) Comment on above: Result Comment: Use of this assay is not recommended for patients undergoing treatment with eltrombopag due to the potential for falsely elevated results. Performed By: #### C BC, ANEU, URIC, FT4, CMP, ADIFF, GFR, TSH ####[place] [address]#### SYDNIE, RF ####[place] [address] BUN/Creatinine Ratio 12 ratio Normal 7-27 [facility] ([place]) Comment on above: Performed By: #### C BC, ANEU, URIC, FT4, CMP, ADIFF, GFR, TSH ####[place] [address]#### SYDNIE, RF ####[place] [address] Calcium [Mass/Vol] 9.6 mg/dL Normal 8.4-10.2 [facility] ([place] Comment on above: Performed By: #### C BC, ANEU, URIC, FT4, CMP, ADIFF, GFR, TSH ####[place] [address]#### SYDNIE, RF ####[place] [address] Chloride [Moles/Vol] 103 mmol/L Normal 98-107 [facility] ([place]) Comment on above: Performed By: #### C BC, ANEU, URIC, FT4, CMP, ADIFF, GFR, TSH ####[place] [address]#### SYDNIE, RF ####[place] [address] CO2 [Moles/Vol] 28 mmol/L Normal 22-29 [facility] ([place]) Comment on above: Performed By: #### C BC, ANEU, URIC, FT4, CMP, ADIFF, GFR, TSH ####[place] [address]#### SYDNIE, RF ####[place] [address] Creatinine [Mass/Vol] 0.76 mg/dL Normal 0.55-1.02 [facility] ([place]) Comment on above: Performed By: #### C BC, ANEU, URIC, FT4, CMP, ADIFF, GFR, TSH ####[place] [address]#### SYDNIE, RF ####[place] [address] Electrolyte Balance 10.0 mEq/L Normal 4.0-15.0 [facility] ([place]) Comment on above: Performed By: #### C BC, ANEU, URIC, FT4, CMP, ADIFF, GFR, TSH ####[place] [address]#### SYDNIE, RF ####[place] [address] Globulin 2.8 G/dL Normal [facility] ([place]) Comment on above: Performed By: #### C BC, ANEU, URIC, FT4, CMP, ADIFF, GFR, TSH ####[place] [address]#### SYDNIE, RF ####[place] [address] Glucose [Mass/Vol] 74 mg/dL Normal 70-105 [facility] [place] Comment on above: Performed By: #### C BC, ANEU, URIC, FT4, CMP, ADIFF, GFR, TSH ####[place] [address]#### SYDNIE, RF ####[address] [address] Potassium [Moles/Vol] 3.8 mmol/L Normal 3.5-5.1 [facility] ([place]) Comment on above: Performed By: #### C BC, ANEU, URIC, FT4, CMP, ADIFF, GFR, TSH ####[place] [address]#### SYDNIE, RF ####[place] [address] Sodium [Moles/Vol] 141 mmol/L Normal 136-145 [facility] [place] Comment on above: Performed By: #### C BC, ANEU, URIC, FT4, CMP, ADIFF, GFR, TSH ####[place] [address]#### SYDNIE, RF ####[address] [address] Total Protein 6.9 G/dL Normal 6.4-8.2 [facility] ([place]) Comment on above: Performed By: #### C BC, ANEU, URIC, FT4, CMP, ADIFF, GFR, TSH ####[place] [address]#### SYDNIE, RF ####[place] [address] Urea nitrogen [Mass/Vol] 9 mg/dL Normal 7-18 [facility] ([place]) Comment on above: Performed By: #### C BC, ANEU, URIC, FT4, CMP, ADIFF, GFR, TSH ####[place] [address]#### SYDNIE, RF ####[address] [address] FT4on 11-23-2022 Free T4 [Mass/Vol] 1.26 ng/dL Normal 0.76-1.46 [facility] [place] Comment on above: Performed By: #### C BC, ANEU, URIC, FT4, CMP, ADIFF, GFR, TSH #### [place] [address] [place], [place] [address] #### SYDNIE, RF #### [address] [address] LABORATORYOrdered By: An Anton on 11-23-2022 Appearance [...] 11-23-2022 TSH Qn 0.41 m[IU]/L Normal 0.36-3.74 [facility] ([place]) Comment on above: Performed By: #### C BC, ANEU, URIC, FT4, CMP, ADIFF, GFR, TSH #### [address] [address] #### SYDNIE, RF #### [place] [address] UAon 11-23-2022 Color (U) Dark yellow Normal [facility] ([place]) Comment on above: Performed By: #### U A, UAMICAO ####[place] [address] [place], [place] [address] Glucose (U) [Mass/Vol] Negative Normal Negative [facility] ([place]) Comment on above: Performed By: #### U A, UAMICAO ####[facility] [place], [place] [address] Ketones Ql (U) 80 mg/dL Abnormal Negative [facility] ([place]) Comment on above: Performed By: #### U A, UAMICAO ####Tana [address] [place] [address] UA Appear Slightly Cloudy Abnormal Clear [facility] ([place]) Comment on above: Performed By: #### U A, UAMICAO ####Tana [address] [place] [address] UA Bili Moderate Abnormal Negative [facility] ([place]) Comment on above: Performed By: #### U A, UAMICAO ####Tana [address] [place] [address] UA Blood Trace Abnormal Negative [facility] ([place]) Comment on above: Performed By: #### U A, UAMICAO ####Tana [address] [place] [address] UA Leuk Est Negative Normal Negative [facility] ([place]) Comment on above: Performed By: #### U A, UAMICAO ####[address] [place] [address] UA Nitrite Negative Normal Negative [facility] ([place]) Comment on above: Performed By: #### U A, UAMICAO ####[address]ana [address] [place] [address] UA pH 5.5 Normal 5.0 - 8.0 [facility] ([place] Comment on above: Performed By: #### U A, UAMICAO ####[address] [place] [address] UA Protein Negative Normal Negative [facility] [place] Comment on above: Performed By: #### U A, UAMICAO ####Tana [address] [place] [address] UA Spec Grav >=1.030 Abnormal 1.015-1.025 [facility] ([place] Comment on above: Performed By: #### U A, UAMICAO ####[address] [place] [address] UA Specimen Type Clean Catch Normal [facility] [place] Comment on above: Performed By: #### U A, UAMICAO ####[facility] [place], [place] [address] UA Urobilinogen 0.2 E.U./dL Normal 0.2-1.0 [facility] ([place] Comment on above: Performed By: #### U A, UAMICAO ####[facility] [place], [place] [address] URICon 11-23-2022 Uric Acid Lvl 4.3 mg/dL Normal 2.6-6.2 [facility] ([place]) Comment on above: Performed By: #### C BC, ANEU, URIC, FT4, CMP, ADIFF, GFR, TSH #### [place] [id number] [place], [place] [address] #### SYDNIE, RF #### [place] [address] Final Surgical Pathology Rep [facility] 07-28-2022 Final Surgical Pathology Report . Pathology Reports Accession: Collected Date/Time: Received Date/Time: Pathologist: [id number] 07/26/2022 10:12 EST 07/27/2022 10:26 NNAMDI ACSAS MD Final Surgical Pathology Report DIAGNOSIS: A) [...] to 0.1 cm. TS -1 Dictated by DELOTNE ELAM MICROSCOPIC DESCRIPTION: Slides reviewed. Electronically Signed by Pathology Report verified by [facility] NNAMDI BAE Sign out Date: 07/28/2022 12:45 Performing Lab: [address] Pathology Dept Normal [facility] ([place]) Floor Worker Cytology Reporton 2021 Floor Worker Cytology Report . Pathology Reports Accession: Collected Date/Time: Received Date/Time: Pathologist: [id number] 05/30/2022 16:03 EDT 06/01/2022 18:00 EDT Floor Worker Cytology Report SPECIMEN: Specimen Description: Liquid Prep [...] and evaluated with the assistance of the [employer] Test Imaging System. Pathology Reports Accession: Collected Date/Time: Received Date/Time: Pathologist: [id number] 05/30/2022 16:03 EDT 06/01/2022 18:00 EDT Electronically Signed by Pathology report verified by [facility] Screened by: KK Electronically signed by Lesley Kridler CT (ASCP) Sign-Out Date: 06/08/2022 14:01 Performing Lab: [facility], [address] [place] [address] Pathology Dept Disclaimer The Pap test is a screening test for cervical cancer. As evidenced by published data, it is subject to both inherent false negative and false positive results. Your patient's results should be interpreted in context with pertinent clinical history including gynecological examination. Normal [facility] ([place]) HPVon 06-07-2022 HPV Interp Abnormal See Interp HPVN [facility] ([place]) Comment on above: Order Comment: Order placed by AP_HPV_ORDER rule from [id number] Result Comment: High Risk HPV Typing is [...] Interp HPVO Performed By: #### H PV ####[place] [address] HPV Source Cervix Normal [facility] ([place]) Comment on above: Order Comment: Order placed by AP_HPV_ORDER rule from [id number] Performed By: #### H PV ####[place] [id number] Basophil percentageon 2021 Bilirubin [Mass/Vol] 0.50 mg/dL 0.20-1.00 [facility] Work Phone: Comment on above: For patients on eltr ombopag therapy, use of Dimension [place] TBIL is not recommended. C. trachomatis DNA MONALISA+probe Ql (Unsp spec) Negative Negative [facility] Work Phone: Chloride [Moles/Vol] 105 mmol/L 98-107 [facility] Work Phone: Cholesterol [Mass/Vol] 233 mg/dL <200 [facility] Work Phone: Comment on above: <200 mg/dL Desirable 200-240 mg/dL Borderline >240 mg/dL High Risk Glucose [Mass/Vol] 90 mg/dL 74-106 [facility] Work Phone: Potassium [Moles/Vol] 3.6 mmol/L 3.5-5.1 [facility] Work Phone: Protein [Mass/Vol] 7.5 g/dL 6.4-8.2 [facility] Work Phone: Sodium [Moles/Vol] 139 mmol/L 136-145 [facility] Work Phone: Triglyceride [Mass/Vol] 88 mg/dL <199 [facility] Work Phone: Comment on above: The drugs N-Acetylcy steine and Metamizole may falsely depress this assay.Serum Triglycerides Reference Interval Normal <150 mg/dL Borderline high 150 - 199 mg/dL High 200 - 499 mg/dL Very High > or = 500 mg/dL WBC (Bld) [#/Vol] 6.6 10*3/uL 4.4-11.0 [facility] Work Phone: Blood erythrocytes count (nu mber/volume)on 06-03-2022 RBC (Bld) [#/Vol] 4.43 10*6/uL 4.2-5.4 [facility] Work Phone: Blood hemoglobin measurement (mass/volume)on 06-03-2022 Hemoglobin (Bld) [Mass/Vol] 14.3 g/dL 12.0-15.0 [facility] Work Phone: Blood platelet mean volumeon 06-03-2022 Platelet mean volume (Bld) [Entitic vol] 10.0 fL 6.2-12.0 [facility] Work Phone: Determination of erythrocyte mean corpuscular volume (MCV)on 06-03-2022 MCV (RBC) [Entitic vol] 93.5 fL 81-99 [facility] Work Phone: HIV 1 and HIV-2 antibody ass ay with HIV-1 p24 antigen detectionon 06-03-2022 HIV 1+2 Ab+HIV1 p24 Ag IA Ql Non-Reactive Nonreactive [facility] Work Phone: Hematocrit Auto (Bld) [Volum e fraction]on 06-03-2022 Hematocrit (Bld) [Volume fraction] 41.4 % 37-47 [facility] Work Phone: Laboratory - Chemistry and C hemistry - challengeon 06-03-2022 ALP [Catalytic activity/Vol] 54 U/L 45-117 [facility] Work Phone: ALT [Catalytic activity/Vol] 16 U/L 13-56 [facility] Work Phone: CO2 [Moles/Vol] 28.0 mmol/L 21.0-32.0 [facility] Work Phone: Free T4 [Mass/Vol] 1.16 ng/dL 0.76-1.46 [facility] Work Phone: Globulin (S) [Mass/Vol] 3.7 g/dL 2.2-4.2 [facility] Work Phone: Urea nitrogen/Creatinine [Mass ratio] 12.4 mg/mg 10-20 [facility] Work Phone: Laboratory - Hematology and Cell countson 06-03-2022 Erythrocyte distribution width (RBC) [Entitic vol] 39.2 fL 35.1-43.9 [facility] Work Phone: Erythrocyte distribution width (RBC) [Ratio] 11.5 % 11.6-14.6 [facility] Work Phone: MCH (RBC) [Entitic mass] 32.3 pg 27.0-32.0 [facility] Work Phone: MCHC Auto (RBC) [Mass/Vol]on 06-03-2022 MCHC (RBC) [Mass/Vol] 34.5 g/dL 32-36 [facility] Work Phone: Neisseria gonorrhoeae detect ion by PCRon 06-03-2022 N. gonorrhoeae DNA MONALISA+probe Ql (Cervical mucus) Negative Negative [facility] Work Phone: No Panel Informationon 06-03 Estimated GFR (MDRD) Amer 130 mL/min >60 [facility] Work Phone: Comment on above: GFR Calc Estimated GFR (MDRD) Non-Af Amer 108 mL/min >60 [facility] Work Phone: Comment on above: Non- GFR Calc Hepatitis A IgM Antibody Negative Negative [facility] Work Phone: Hepatitis B Core IgM Antibody Negative Negative [facility] Work Phone: Hepatitis C Antibody (EIA) 0.1 s/co ratio 0.0-0.9 [facility] Work Phone: Hepatitis C Antibody Comment Comment . [facility] Work Phone: Comment on above: NegativeNot infected with HCV, unless recent infection issuspected or other evidence exists to indicate HCVinfection.Performed at: - Lab[address] [id number] Director: Marco Antonio Romero PhD, Phone: [phone] Miscellaneous Test See comment [facility] Work Phone: Comment on above: TEST RESULT LIMITSAn ti-TPO Ab(RDL) <9.0 IU/mL <9.0 TESTING PERFORMED AT [facility]. ORIGINAL REPORT ON FILE IN LAB CONTAINS ADDITIONAL TEST SITE INFORMATION. Thyroid Stimulating Hormone (TSH) 0.83 uIU/mL 0.358-3.74 [facility] Work Phone: Platelets bldon 06-03-2022 Platelets (Bld) [#/Vol] 202 10*3/uL 150-450 [facility] Work Phone: Serum or plasma albumin cindy urement (mass/volume)on 06-03-2022 Albumin [Mass/Vol] 3.8 g/dL 3.2-5.0 [facility] Work Phone: Serum or plasma albumin/glob ulin mass ratioon 06-03-2022 Albumin/Globulin [Mass ratio] 1.0 {ratio} 0.9-2.4 [facility] Work Phone: Serum or plasma calcium cindy urement (mass/volume)on 06-03-2022 Calcium [Mass/Vol] 9.8 mg/dL 8.5-10.1 [facility] Work Phone: Serum or plasma cholesterol in HDL measurement (mass/volume)on 06-03-2022 Cholesterol in HDL [Mass/Vol] 91 mg/dL >40 [facility] Work Phone: Comment on above: The drugs N-Acetylcy steine and Metamizole may falsely depress this assay. Reference Range HDL <40 mg/dL Low HDL Cholesterol HDL >or= 60 mg/dL High HDL Cholesterol Serum or plasma cholesterol in VLDL measurement (mass/volume)on 06-03-2022 Cholesterol in VLDL [Mass/Vol] 18 mg/dL 5-40 [facility] Work Phone: Serum or plasma creatinine m easurement (mass/volume)on 06-03-2022 Creatinine [Mass/Vol] 0.65 mg/dL 0.55-1.02 [facility] Work Phone: Comment on above: The validity of the calculated GFR & GFRAA in patients over 70 years has not been determined. Clinical correlation is essential. Serum or plasma hepatitis B virus surface antigen detection by immunoassayon 06-03-2022 HBV surface Ag IA Ql Negative Negative [facility] Work Phone: Serum or plasma low density lipoprotein (LDL) cholesterol measurement (mass/volume)on 06-03-2022 Cholesterol in LDL [Mass/Vol] 124 mg/dL 0-130 [facility] Work Phone: Serum or plasma urea nitroge n measurement (mass/volume)on 06-03-2022 Urea nitrogen [Mass/Vol] 8 mg/dL 7-18 [facility] Work Phone: Thin prep Papanicolaou smear with manual screeningon 06-03-2022 Thin prep Papanicolaou smear with manual screening 17 U/L 15-37 [facility] Work Phone: Thin prep Papanicolaou smear with manual screening 6 5-15 [facility] Work Phone: No Panel Informationon 12-06 Culture Urine 50,000 - 100,000 cfu /ml Presumptive Lactobacillus species Sensitivity testing is not recommended for one of the following reasons: 1. Established susceptibility patterns are available or 2. Interpretative criteria are not available. [facility] Work Phone: LABORATORYOrdered By: Olinda christianson on [...] DATE OF EXAM: Dec 31 2019 8:12AM [facility] 0541 - CT CHEST WO IVCON / [...] thyroid disease. No further imaging evaluation recommended. [employer] 2008 Chain Splitter: MISHA Transcribe Date/Time: Dec 31 2019 8:14A Dictated by : JH TINSLEY MD This examination was interpreted and the report reviewed and electronically signed by: JH TINSLEY MD on Dec 31 2019 8:20AM EST Normal [facility] Comprehensive Panelon 2019 Albumin [Mass/Vol] 4.2 g/dL Normal 3.9-4.9 [facility] Comment on above: Performed By: #### L LP14 #### [place] [address] ALP [Catalytic activity/Vol] 52 U/L Normal 34-123 [facility] Comment on above: Performed By: #### L LP14 #### [address] [address] ALT-SGPT Blood 15 U/L Normal 7-38 [facility] Comment on above: Performed By: #### L LP14 #### [address] [address] Anion gap [Moles/Vol] 9 mmol/L Normal 9-18 [facility] Comment on above: Performed By: #### L LP14 #### [place] [id number] AST-SGOT Blood 24 U/L Normal 13-35 [facility] Comment on above: Performed By: #### L LP14 #### [facility] [address] [place], [place] [address] Bilirubin Ql (U) 0.3 mg/dL Normal 0.2-1.3 [facility] Comment on above: Performed By: #### L LP14 #### [facility] [address] [place], [place] [address] Calcium [Mass/Vol] 9.3 mg/dL Normal 8.5-10.2 [facility] Comment on above: Performed By: #### L LP14 #### [facility] [address] [place] [address] Chloride [Moles/Vol] 102 mmol/L Normal 97-105 [facility] Comment on above: Performed By: #### L LP14 #### [facility] [address] [place] [address] CO2 Blood 26 mmol/L Normal 22-30 [facility] Comment on above: Performed By: #### L LP14 #### [facility] [address] [place] [address] Creatinine [Mass/Vol] 0.68 mg/dL Normal 0.58-0.96 [facility] Comment on above: Performed By: #### L LP14 #### [facility] [address] [place], [place] [address] Glucose [Mass/Vol] 108 mg/dL High 74-99 [facility] Comment on above: Result Comment: The [employer] Diabetes [employer] (ADA) provides guidance for cutoff [...] Standards of Medical Care in Diabetes 2016; [employer] Diabetes Association. Diabetes Care. 2016;39(Suppl 1). Performed By: #### L LP14 #### [facility] [address] [place] [address] Potassium [Moles/Vol] 4.3 mmol/L Normal 3.7-5.1 [facility] Comment on above: Performed By: #### L LP14 #### [facility] [address] [place] [address] Protein [Mass/Vol] 6.9 g/dL Normal 6.3-8.0 [facility] Comment on above: Performed By: #### L LP14 #### [facility] [address] [place] [address] Sodium [Moles/Vol] 137 mmol/L Normal 136-144 [facility] Comment on above: Performed By: #### L LP14 #### [place] [address] Urea nitrogen [Mass/Vol] 11 mg/dL Normal 7-21 [facility] Comment on above: Performed By: #### L LP14 #### [place] [address] Hemogramon 12-31-2019 Erythrocyte distribution width (RBC) [Ratio] 11.4 % Low 11.5-15.9 [facility] Comment on above: Performed By: #### L CBC #### [place] [address] Hematocrit (Bld) [Volume fraction] 39.2 % Normal 37.0-47.0 [facility] Comment on above: Performed By: #### L CBC #### [place] [address] Hemoglobin (Bld) [Mass/Vol] 13.0 g/dL Normal 12.0-16.0 [facility] Comment on above: Performed By: #### L CBC #### [facility] [address] [place] [address] MCH (RBC) [Entitic mass] 31.7 pg High 27.0-31.0 [facility] Comment on above: Performed By: #### L CBC #### [address] [place], [place] [address] MCHC (RBC) [Mass/Vol] 33.2 % Normal 32.0-36.0 [facility] Comment on above: Performed By: #### L CBC #### [facility] [address] [place] [address] MCV (RBC) [Entitic vol] 95.6 fL Normal 81.0-99.0 [facility] Comment on above: Performed By: #### L CBC #### [facility] [address] [place] [address] Platelet mean volume (Bld) [Entitic vol] 10.2 fL Normal 7.1-10.5 [facility] Comment on above: Performed By: #### L CBC #### [place] [address] Platelets (Bld) [#/Vol] 171 thou/cmm Normal 150-400 [facility] Comment on above: Performed By: #### L CBC #### [place] [address] RBC (Bld) [#/Vol] 4.10 mil/cmm Low 4.20-5.40 [facility] Comment on above: Performed By: #### L CBC #### [place] [address] WBC (Bld) [#/Vol] 5.7 thou/cmm Normal 4.8-10.5 [facility] Comment on above: Performed By: #### L CBC #### [place] [address] Lipase Bloodon 12-31-2019 Lipase Blood 48 U/L Normal 16-61 [facility] Comment on above: Performed By: #### L LIP #### [place] [id number] MDRD eGFRon 12-31-2019 GFR/1.73 sq M predicted among non-blacks MDRD (S/P/Bld) [Vol rate/Area] mL/min/{1.73_m2} Normal >60mL/min/1. 73m2 [facility] Comment on above: Result Comment: If t he patient is , multiply the result by 1.210. Performed By: #### L GFR #### [place] [address] Magnesium Bloodon 12-31-2019 Magnesium [Mass/Vol] 1.9 mg/dL Normal 1.7-2.3 [facility] Comment on above: Performed By: #### L MAG #### [place] [address] Troponin T, High Sens.on Troponin T, High Sens. <6 Normal 0-11 [facility] Comment on above: Result Comment: Krystle ents [...] result. Performed By: #### L TRPT #### [place] [address] Urinalysis Routineon 020 Appearance (U) CLEAR Normal [facility] Comment on above: Performed By: #### L URIN #### [place] [address] Bacteria LM.HPF (Urine sed) [#/Area] FEW Abnormal None [facility] Comment on above: Performed By: #### L URIN #### [place] [address] Bilirubin Urine Negative Normal Negative [facility] Comment on above: Performed By: #### L URIN #### [place] [address] Color (U) YELLOW Normal [facility] Comment on above: Performed By: #### L URIN #### [place] [address] Ep Cells Urine 2-5 Normal 0-5 [facility] Comment on above: Performed By: #### L URIN #### [facility] [address] [place] [address] Glucose Ql (U) Negative Normal Negative [facility] Comment on above: Performed By: #### L URIN #### [facility] [address] [place] [address] Granular Cast 0-2 Abnormal None [facility] Comment on above: Performed By: #### L URIN #### [facility] [address] [place] [address] Hemoglobin,Urine 2+ Abnormal Negative [facility] Comment on above: Performed By: #### L URIN #### [facility] [address] [place] [address] Ketone Urine Negative Normal Negative [facility] Comment on above: Performed By: #### L URIN #### [place] [address] Leukocytes Esterase Negative Normal Negative [facility] Comment on above: Performed By: #### L URIN #### [facility] [address] [place] [address] Nitrites Urine Negative Normal Negative [facility] Comment on above: Performed By: #### L URIN #### [facility] [address] [place] [address] pH (U) 6.0 [pH] Normal 5.0-8.0 [facility] Comment on above: Performed By: #### L URIN #### [place] [address] Protein (U) [Mass/Vol] Negative Normal Negative [facility] Comment on above: Performed By: #### L URIN #### [place] [address] RBC LM.HPF (Urine sed) [#/Area] 4-6 Abnormal 0-3 [facility] Comment on above: Performed By: #### L URIN #### [place] [address] Specific [place], Ur 1.015 Normal 1.005-1.030 [facility] Comment on above: Performed By: #### L URIN #### [facility] [address] [place] [address] Urobilinogen,Ur 0.2 EU/dL Normal 0.2-1.0 [facility] Comment on above: Performed By: #### L URIN #### [facility] [address] [place] [address] WBC LM.HPF (Urine sed) [#/Area] 0-2 Normal 0-5 [facility] Comment on above: Performed By: #### L URIN #### [facility] [address] [place] [address] Urine HCG, Qual.on 0 Beta HCG ( test) Ql (U) Negative Normal Negative [facility] Comment on above: Performed By: #### L HCG2 #### [facility] [address] [place] [address] Specific [place], Ur 1.015 Normal 1.005-1.030 [facility] Comment on above: Performed By: #### L HCG2 #### [facility] [address] [place] [address] XR ANKLE 3V AP/LAT/OBL RTon 12-31-2019 XR [...] seen. IMPRESSION: Negative for fracture or dislocation. Chain Splitter: PSCB Transcribe Date/Time: Dec 31 2019 9:57A Dictated by : AMA RUSSELL MD This examination was interpreted and the report reviewed and electronically signed by: AMA RUSSELL MD on Dec 31 2019 10:00AM EST Normal [facility] ANES Joan 11-12-2018 ANES POST HNO ID: [id number] Author: Leonel Bernard Service: Anesthesiology Author Type: [...] 2018 TIME: 12:36 PM PAGER/CONTACT #: anesthesia [facility] ANES PREOPon 11-12-2018 ANES PREOP HNO ID: [id number] Author: Leonel Bernard Service: Anesthesiology Author Type: Anesthesiologist Type: Anesthesia PreOp Filed: 11/12/2018 10:02 AM Note Text: ANESTHESIOLOGY DAY OF SURGERY NOTE SERVICE DATE: 11/12/2018 SERVICE TIME: 10.02 : 1980 Procedure(s) (LRB): COLONOSCOPY (N/A) Surgeon(s): [...] Barger's esophagus determined by biopsy - [facility] - Tachycardia PAST SURGICAL HISTORY Procedure Laterality Date - [facility] 2013 [facility] - TONSILLECTOMY HX FAMILY HISTORY [...] Miguel King Last Rate: 30 mL/hr at 11/12/1816 30 mL/hr at 11/12/18 0916 Allergies: ALLERGIES [...] November 12, 2018 TIME: 10:02 AM CSN: [id number] Normal [facility] HISTORY PHYSICALon HISTORY PHYSICAL HNO ID: [id number] Author: José Miguel King Service: General Surgery Author Type: Physician Type: HANDP Filed: 11/12/2018 9:27 AM Note Text: This note was created using [email or web address]. Yamilka Bryant is a 37 year old [...] with more than 50% of the total [id number]-fy-[id number] time of the visit in counseling / coordination of care. ? Mattie Pierre RN FIELD MERCHANDISER.VOUCHER EXAMINER [facility] NURSING PROGon 11-12-2018 Protein mass conc HNO ID: [id number] Author: Sofía ValenciaRn) KAJAL Garcia Service: Nursing Author Type: Registered Nurse Type: Nursing Progress Note Filed: 11/12/2018 11:29 AM Note Text: Nursing Progress Note Patient Name: Yamilka Bryant Patient Location: [place] Endo/[facility] Endo re[port from Philip Santiago RN, pt sitting upright eating ice chips, c/o abd cramping, advised to pass gas today, pt states that she is. VSS This note was completed by: Sofía Garcia RN [facility] PT EDon 11-12-2018 PT ED HNO ID: [id number] Author: Kenan ValenciaRn) KAJAL Bang Service: ? Author Type: Registered Nurse Type: [...] Signed By: Kenan Bang RN In Department: [facility] ENDOSCOPY Normal [facility] PT ED HNO ID: [id number] Author: Rhonda (Rn) KAJAL Teixeira Service: ? Author Type: Registered [...] Signed By: Rhonda Teixeira RN In Department: [facility] ENDOSCOPY [facility] SURGICAL PATHOLOGYon 019 SURGICAL PATHOLOGY Specimen originated from [facility] Specimen #: [id number] Submitting Physician: JOSÉ MIGUEL KING MD FINAL DIAGNOSIS 1. Rectum, polypectomy (A) - Hyperplastic polyp. 2. Terminal ileum, biopsy (B) - Ileal mucosa with no diagnostic alteration. 3. Random colon, biopsy (C) - Colonic mucosa with no diagnostic alteration. TP/minesh 11/13/2018 Fransico Mock M.D. (Electronic Signature) SPECIMEN [...] in one cassette. Gross examination performed at [facility], [address] [place] [address] 11/12/2018 4:28:50 PM Date of Report: 11/13/2018 Date of Procedure: 11/12/2018 Date of Receipt: 11/12/2018 Submitted by: JOSÉ MIGUEL KING MD Location: [facility] Diagnostic interpretation performed at [place] [address]. CLIA Number: [id number] [facility] NURSING PROGon 11-05-2018 Protein mass conc HNO ID: [id number] Author: Hien Banegas RN Service: ? Author Type: Registered Nurse [...] Banegas RN November 05, 2018 9:25 AM [facility] HISTORY PHYSICALon 9 HISTORY PHYSICAL HNO ID: [id number] Author: Sindhu Brandt Service: ? Author Type: Nurse Practitioner [...] Barger's esophagus determined by biopsy - [facility] PAST SURGICAL HISTORY Procedure Laterality Date - [facility] 2013 [facility] - TONSILLECTOMY HX FAMILY HISTORY [...] diarrhea Neuro: No history of TIA's, stroke, PUMP TESTER tumor, impaired sensorium, hemiplegia, paraplegia or quadraplegia. No neurological symptoms or problems. Denies hx BARR/migraines. Denies numbness/tingling. Respiratory: No history of current cough or dyspnea, or pneumonia in the past 6 weeks. No history of respiratory/pulmonary symptoms or problems. Former smoker. Denies hx of asthma, or NOELLE. Cardiovascular: Positive for: palpitations and tachycardia, on rx, follows [facility], Negative for Recent RI, Arrhythmia, CAD, Chest Pain, CHF, HTN, PVD, Valvular Heart Disease, DVT/PE, LE edema or SOB GI: See HPI : hx of kidney stone. Denies hx of frequent UTIs or CKD. TATTOOER: Negative for abnormal vaginal bleeding, abnormal vaginal [...] comprehension and compliance. @ASSESSEND@ SIGNATURE: Sindhu Brandt APRN.VOUCHER EXAMINER PATIENT NAME: Yamilka Bryant DATE: November 01, 2018 TIME: 10:34 AM PAGER/CONTACT #: [facility] 10-24-2018 HOSP Patient:Yani Bryant MRN: Height:5' [...] for the following basenames: K,HCT Progress Notes ([facility]): Piper Villegas Ma 10/18/2018 2:41 PM Signed Patient needs to be scheduled for a Colonoscopy [facility] in [place] with Dr. King. Dx- altered bowel habits, diarrhea, unspecified type, generalized abdominal pain. Piper Bakari Rodriguez 10/24/2018 4:28 PM Signed 11-12-2018 Per patient scheduled colon Gal Rodriguez Progress Notes ([facility]): Mattie Pierre RN FIELD MERCHANDISER.VOUCHER EXAMINER 10/18/2018 2:06 PM Signed You may take 2 of the dicyclomine, three times a day. Please follow the instructions for colonoscopy. You will be using Dulcolax and Miralax as laxatives during the preparation for the procedure. Your procedure will be at [facility], on November 12. This will be with Dr. King, with the same sedation you had for the upper endoscopy. Follow up with me on November 20, for 1:00. Mattie Pierre RN APRN.VOUCHER EXAMINER 10/18/2018 2:21 PM Signed This note was created using [email or web address]. Yamilka Bryant is a 37 year old [...] with more than 50% of the total [id number] time of the visit in counseling / coordination of care. Mattie Pierre RN FIELD MERCHANDISER.VOUCHER EXAMINER [facility] XR UPPER GI W SMALL BOWEL SE [...] ulceration. Normal transit time. IMPRESSION: Negative exam. Chain Splitter: PSCB Transcribe Date/Time: Oct 04 2018 12:41P Dictated by : SHARON ARAIZA DO This examination was interpreted and the report reviewed and electronically signed by: SHARON ARAIZA DO on Oct 04 2018 12:43PM EST [id number] [facility] Bacteria identified Cx Nom ( Wound) Wound Culture Staphylococcus aureus [facility] Work Phone: Gram stain for investigation of transfusion reaction Microscopic observation Gram stain Nom (Unsp spec) [facility] Work Phone: Vital Signs Date Time Vital Sign Value Performing Clinician Facility 12-31-2024 12:04-0400 Body height 162.6 cm Sofía Falcon APRN-VOUCHER EXAMINER Work Phone: [facility] 12-31-2024 12:04-0400 Body mass index (BMI) [Ratio] 24.89 kg/m2 Sofía Falcon APRN-VOUCHER EXAMINER Work Phone: [facility] 12-31-2024 12:04-0400 Body temperature 99.1 [degF] Sofía Falcon FIELD MERCHANDISER-VOUCHER EXAMINER Work Phone: [facility] 12-31-2024 12:04-0400 Body weight 65.77 kg Sofía Falcon FIELD MERCHANDISER-VOUCHER EXAMINER Work Phone: [facility] 12-31-2024 12:04-0400 Diastolic blood pressure 61 mm[Hg] Sofía Falcon FIELD MERCHANDISER-VOUCHER EXAMINER Work Phone: [facility] 12-31-2024 12:04-0400 Respiratory rate 16 /min Sofía Falcon FIELD MERCHANDISER-VOUCHER EXAMINER Work Phone: [facility] 12-31-2024 12:04-0400 SaO2% (BldA) [Mass fraction] 99 % Sofía Falcon FIELD MERCHANDISER-VOUCHER EXAMINER Work Phone: [facility] 12-31-2024 12:04-0400 Systolic blood pressure 112 mm[Hg] Sofía Falcon FIELD MERCHANDISER-VOUCHER EXAMINER Work Phone: [facility] 10-01-2024 07:51-0500 Body height 162.6 cm Judy Avila MD Work Phone: [facility] 10-01-2024 07:51-0500 Body mass index (BMI) [Ratio] 24.03 kg/m2 Judy Avila MD Work Phone: [facility] 10-01-2024 07:51-0500 Body weight 63.5 kg Judy Avila MD Work Phone: [facility] 10-01-2024 07:51-0500 Diastolic blood pressure 69 mm[Hg] Judy Avila MD Work Phone: [facility] 10-01-2024 07:51-0500 Heart rate 90 /min uJdy Avila MD Work Phone: [facility] 10-01-2024 07:51-0500 Systolic blood pressure 106 mm[Hg] Judy Avila MD Work Phone: [facility] 01-29-2024 09:38-0400 Diastolic blood pressure 69 mm[Hg] Judy Avila MD Work Phone: [facility] 01-29-2024 09:38-0400 Heart rate 74 /min Judy Avila MD Work Phone: [facility] 01-29-2024 09:38-0400 SaO2% (BldA) [Mass fraction] 100 % Judy Avila MD Work Phone: [facility] 01-29-2024 09:38-0400 Systolic blood pressure 106 mm[Hg] Judy Avila MD Work Phone: [facility] 11-17-2023 11:48-0400 Body temperature 97.2 [degF] PURCHASING SPECIALIST-C Tiana Carter PURCHASING SPECIALIST Work Phone: [facility] 11-17-2023 11:48-0400 Diastolic blood pressure 69 mm[Hg] PURCHASING SPECIALIST-C Tiana Carter PURCHASING SPECIALIST Work Phone: [facility] 11-17-2023 11:48-0400 Heart rate 81 /min PURCHASING SPECIALIST-C Tiana Carter PURCHASING SPECIALIST Work Phone: [facility] 11-17-2023 11:48-0400 Respiratory rate 14 /min PURCHASING SPECIALIST-C Tiana Carter PURCHASING SPECIALIST Work Phone: [facility] 11-17-2023 11:48-0400 SaO2% (BldA) [Mass fraction] 99 % PURCHASING SPECIALIST-C Tiana Carter PURCHASING SPECIALIST Work Phone: [facility] 11-17-2023 11:48-0400 Systolic blood pressure 98 mm[Hg] PURCHASING SPECIALIST-C Tiana Carter PURCHASING SPECIALIST Work Phone: [facility] 11-17-2023 09:12-0400 Body height 162.56 cm PURCHASING SPECIALIST-C Tiana Carter PURCHASING SPECIALIST Work Phone: [facility] 11-17-2023 09:12-0400 Body mass index (BMI) [Ratio] 23.8 kg/m2 PURCHASING SPECIALIST-C Tiana Carter PURCHASING SPECIALIST Work Phone: [facility] 11-17-2023 09:12-0400 Body weight 63.09 kg PURCHASING SPECIALIST-C Tiana Carter PURCHASING SPECIALIST Work Phone: [facility] 11-03-2023 07:23-0400 Body temperature 98.5 [degF] PURCHASING SPECIALIST-C Tiana Carter PURCHASING SPECIALIST Work Phone: [facility] 11-03-2023 07:23-0400 Diastolic blood pressure 70 mm[Hg] PURCHASING SPECIALIST-C Tiana Carter PURCHASING SPECIALIST Work Phone: [facility] 11-03-2023 07:23-0400 Heart rate 112 /min PURCHASING SPECIALIST-C Tiana Carter PURCHASING SPECIALIST Work Phone: [facility] 11-03-2023 07:23-0400 Respiratory rate 15 /min PURCHASING SPECIALIST-C Tiana Carter PURCHASING SPECIALIST Work Phone: [facility] 11-03-2023 07:23-0400 SaO2% (BldA) [Mass fraction] 98 % PURCHASING SPECIALIST-C Tiana Carter PURCHASING SPECIALIST Work Phone: [facility] 11-03-2023 07:23-0400 Systolic blood pressure 114 mm[Hg] PURCHASING SPECIALIST-C Tiana Carter PURCHASING SPECIALIST Work Phone: [facility] 10-02-2023 08:20-0500 Body height 162.6 cm Judy Avila MD Work Phone: [facility] 10-02-2023 08:20-0500 Body mass index (BMI) [Ratio] 21.97 kg/m2 Judy Avila MD Work Phone: [facility] 10-02-2023 08:20-0500 Body weight 58.06 kg Judy Avila MD Work Phone: [facility] 10-02-2023 08:20-0500 Diastolic blood pressure 64 mm[Hg] Judy Avila MD Work Phone: [facility] 10-02-2023 08:20-0500 Heart rate 113 /min Judy Avila MD Work Phone: [facility] 10-02-2023 08:20-0500 Systolic blood pressure 108 mm[Hg] Judy Avila MD Work Phone: [facility] 05-19-2023 13:00-0400 Body height 162.56 cm PURCHASING SPECIALIST-C Tiana Carter PURCHASING SPECIALIST Work Phone: [facility] 05-19-2023 13:00-0400 Body mass index (BMI) [Ratio] 21.7 kg/m2 PURCHASING SPECIALIST-C Tiana Carter PURCHASING SPECIALIST Work Phone: [facility] 05-19-2023 13:00-0400 Body temperature 97.6 [degF] PURCHASING SPECIALIST-C Tiana Carter PURCHASING SPECIALIST Work Phone: [facility] 05-19-2023 13:00-0400 Body weight 57.26 kg PURCHASING SPECIALIST-C Tiana Carter PURCHASING SPECIALIST Work Phone: [facility] 05-19-2023 13:00-0400 Diastolic blood pressure 68 mm[Hg] PURCHASING SPECIALIST-C Tiana Carter PURCHASING SPECIALIST Work Phone: [facility] 05-19-2023 13:00-0400 Heart rate 78 /min PURCHASING SPECIALIST-C Tiana Carter PURCHASING SPECIALIST Work Phone: [facility] 05-19-2023 13:00-0400 Respiratory rate 18 /min PURCHASING SPECIALIST-C Tiana Carter PURCHASING SPECIALIST Work Phone: [facility] 05-19-2023 13:00-0400 SaO2% (BldA) [Mass fraction] 97 % PURCHASING SPECIALIST-C Tiana Carter PURCHASING SPECIALIST Work Phone: [facility] 05-19-2023 13:00-0400 Systolic blood pressure 104 mm[Hg] PURCHASING SPECIALIST-C Tiana Carter PURCHASING SPECIALIST Work Phone: [facility] 04-06-2023 10:05-0400 Body height 162.6 cm Cony Cox MD Work Phone: [facility] 04-06-2023 10:05-0400 Body temperature 98.29 [degF] Cony Cox MD Work Phone: [facility] 04-06-2023 10:05-0400 Body weight 56.7 kg Cony Cox MD Work Phone: [facility] 04-06-2023 10:05-0400 Diastolic blood pressure 63 mm[Hg] Cony Cox MD Work Phone: [facility] 04-06-2023 10:05-0400 Heart rate 88 /min Cony Cox MD Work Phone: [facility] 04-06-2023 10:05-0400 Systolic blood pressure 108 mm[Hg] Cony Cox MD Work Phone: [facility] 03-10-2023 10:53-0400 Body temperature 97 [degF] PURCHASING SPECIALIST-C Tiana Carter PURCHASING SPECIALIST Work Phone: [facility] 03-10-2023 10:53-0400 Diastolic blood pressure 45 mm[Hg] PURCHASING SPECIALIST-C Tiana Carter PURCHASING SPECIALIST Work Phone: [facility] 03-10-2023 10:53-0400 Heart rate 74 /min PURCHASING SPECIALIST-C Tiana Carter PURCHASING SPECIALIST Work Phone: [facility] 03-10-2023 10:53-0400 Respiratory rate 16 /min PURCHASING SPECIALIST-C Tiana Carter PURCHASING SPECIALIST Work Phone: [facility] 03-10-2023 10:53-0400 SaO2% (BldA) [Mass fraction] 100 % PURCHASING SPECIALIST-C Tiana Carter PURCHASING SPECIALIST Work Phone: [facility] 03-10-2023 10:53-0400 Systolic blood pressure 93 mm[Hg] PURCHASING SPECIALIST-C Tiana Carter PURCHASING SPECIALIST Work Phone: [facility] 03-10-2023 09:26-0400 Body height 162.56 cm PURCHASING SPECIALIST-C Tiana Carter PURCHASING SPECIALIST Work Phone: [facility] 03-10-2023 09:26-0400 Body mass index (BMI) [Ratio] 21.5 kg/m2 PURCHASING SPECIALIST-C Tiana aCrter PURCHASING SPECIALIST Work Phone: [facility] 03-10-2023 09:26-0400 Body weight 57 kg PURCHASING SPECIALIST-C Tiana Carter PURCHASING SPECIALIST Work Phone: [facility] 01-24-2023 13:15-0400 Body height 162.56 cm PURCHASING SPECIALIST-C Tiana Carter PURCHASING SPECIALIST Work Phone: [facility] 01-24-2023 13:15-0400 Body mass index (BMI) [Ratio] 22.8 kg/m2 PURCHASING SPECIALIST-C Tiana Carter PURCHASING SPECIALIST Work Phone: [facility] 01-24-2023 13:15-0400 Body weight 60.32 kg PURCHASING SPECIALIST-C Tiana Carter PURCHASING SPECIALIST Work Phone: [facility] 01-24-2023 13:15-0400 Diastolic blood pressure 72 mm[Hg] PURCHASING SPECIALIST-C Tiana Carter PURCHASING SPECIALIST Work Phone: [facility] 01-24-2023 13:15-0400 Heart rate 90 /min PURCHASING SPECIALIST-C Tiana Carter PURCHASING SPECIALIST Work Phone: [facility] 01-24-2023 13:15-0400 Respiratory rate 18 /min PURCHASING SPECIALIST-C Tiana Carter PURCHASING SPECIALIST Work Phone: [facility] 01-24-2023 13:15-0400 SaO2% (BldA) [Mass fraction] 100 % PURCHASING SPECIALIST-C Tiana Carter PURCHASING SPECIALIST Work Phone: [facility] 01-24-2023 13:15-0400 Systolic blood pressure 111 mm[Hg] PURCHASING SPECIALIST-C Tiana Carter PURCHASING SPECIALIST Work Phone: [facility] 01-24-2023 09:00-0400 Body mass index (BMI) [Ratio] 23 kg/m2 PURCHASING SPECIALIST-C Tiana Carter PURCHASING SPECIALIST Work Phone: [facility] 01-24-2023 09:00-0400 Body weight 60.78 kg PURCHASING SPECIALIST-C Tiana Carter PURCHASING SPECIALIST Work Phone: [facility] 01-24-2023 09:00-0400 Diastolic blood pressure 73 mm[Hg] PURCHASING SPECIALIST-C Tiana Carter PURCHASING SPECIALIST Work Phone: [facility] 01-24-2023 09:00-0400 Respiratory rate 16 /min PURCHASING SPECIALIST-C Tiana Carter PURCHASING SPECIALIST Work Phone: [facility] 01-24-2023 09:00-0400 Systolic blood pressure 113 mm[Hg] PURCHASING SPECIALIST-C Tiana Carter PURCHASING SPECIALIST Work Phone: [facility] 07-04-2022 07:35-0500 Body temperature 98.3 [degF] PURCHASING SPECIALIST-C Tiana Carter PURCHASING SPECIALIST Work Phone: [facility] Work Phone: 07-04-2022 07:35-0500 Diastolic blood pressure 68 mm[Hg] PURCHASING SPECIALIST-C Tiana Carter PURCHASING SPECIALIST Work Phone: [facility] Work Phone: 07-04-2022 07:35-0500 Heart rate 84 /min PURCHASING SPECIALIST-C Tiana Carter PURCHASING SPECIALIST Work Phone: [facility] Work Phone: 07-04-2022 07:35-0500 Respiratory rate 14 /min PURCHASING SPECIALIST-C Tiana Carter PURCHASING SPECIALIST Work Phone: [facility] Work Phone: 07-04-2022 07:35-0500 SaO2% (BldA) [Mass fraction] 99 % PURCHASING SPECIALIST-C Tiana Carter PURCHASING SPECIALIST Work Phone: [facility] Work Phone: 07-04-2022 07:35-0500 Systolic blood pressure 118 mm[Hg] PURCHASING SPECIALIST-C Tiana Carter PURCHASING SPECIALIST Work Phone: [facility] Work Phone: Encounters Encounter Date Encounter Type Care Provider Facility Start: 01-17-2025 End: 01-17-2025 ambulatory Tiana Carter PURCHASING SPECIALIST-C Work Phone: -Ultrasound [facility] Start: 01-17-2025 End: 01-17-2025 Patient encounter procedure Marylou Shankel PURCHASING SPECIALIST-C -Ultrasound [facility] Work Phone: Start: 01-17-2025 End: 01-17-2025 ambulatory Marylou Powell NP Facility:[facility] Start: 01-13-2025 End: 01-13-2025 ambulatory Tiana Carter PURCHASING SPECIALIST-C Work Phone: [facility] Work Phone: Start: 01-13-2025 End: 01-13-2025 Patient encounter procedure Marylou Powell PURCHASING SPECIALIST-C -Laboratory [facility] Start: 01-13-2025 End: 01-13-2025 ambulatory Marylou Powell NP Facility:[facility] Start: 12-31-2024 ambulatory SOFÍA FALCON [facility] Start: 12-31-2024 End: 12-31-2024 Office outpatient new 30 minutes Sofía Falcon FIELD MERCHANDISER-VOUCHER EXAMINER Work Phone: [facility] Comment on above: Viral illness (Prima ry Dx); Nausea and vomiting, unspecified vomiting type; Acute nonintractable headache, unspecified headache type Start: 12-09-2024 End: 12-13-2024 ambulatory TIANA CARTER FIELD MERCHANDISER-VOUCHER EXAMINER Facility:[facility] Start: 12-09-2024 End: 12-13-2024 Outreach Lab TIANA CARTER FIELD MERCHANDISER-VOUCHER EXAMINER [facility] Start: 10-03-2024 ambulatory Tiana Carter NP Facil ity:[facility] Start: 10-01-2024 End: 10-01-2024 Office outpatient visit 25 minutes Judy Avila MD Work Phone: [facility] Comment on above: Subclinical hyperthy roidism (Primary Dx); Multiple thyroid nodules; Low TSH level Start: 10-01-2024 End: 10-01-2024 ambulatory JUDY AVILA [facility] Start: 09-17-2024 End: 09-17-2024 ambulatory Tiana Carter NP Facility:[facility] Start: 09-10-2024 End: 09-10-2024 Refill Judy Avila MD Work Phone: [facility] Comment on above: Low TSH level Start: 05-21-2024 End: 06-11-2024 Telephone encounter Judy Avila MD Work Phone: [facility] Comment on above: Medication Problem Start: 05-20-2024 End: 05-24-2024 ambulatory TIANA CARTER FIELD MERCHANDISER-VOUCHER EXAMINER Facility:[facility] Start: 05-20-2024 End: 05-24-2024 Outreach Lab TIANA CARTER FIELD MERCHANDISER-VOUCHER EXAMINER [facility] Start: 05-20-2024 End: 05-20-2024 ambulatory Tiana Carter PURCHASING SPECIALIST Facility:[facility] Start: 05-17-2024 End: 05-17-2024 Orders Only Judy Avila MD Work Phone: [facility] Comment on above: Hyperthyroidism (Camila summer Dx); Low TSH level Start: 05-14-2024 End: 05-17-2024 Telephone encounter Judy Avila MD Work Phone: [facility] Comment on above: Results Start: 05-08-2024 End: 05-08-2024 ambulatory Maranda Clements Facility:[facility] Start: 04-29-2024 End: 05-03-2024 ambulatory MARANDA CLEMENTS MD Facility:[facility] Start: 04-29-2024 End: 05-03-2024 Outreach Lab MARANDA CLEMENTS MD [facility] Start: 02-23-2024 End: 02-23-2024 ambulatory Britni OLIVERA Facility:[facility] Start: 01-30-2024 End: 01-30-2024 Orders Only Judy Avila MD Work Phone: [facility] End[facility] Comment on above: Subclinical hyperthy roidism (Primary Dx); Low TSH level Start: 01-29-2024 End: 01-29-2024 Subsequent hospital visit by physician Judy Avila MD Work Phone: [facility] US Imaging Comment on above: Multiple thyroid nod ules Start: 01-29-2024 End: 01-29-2024 ambulatory [facility] Start: 11-17-2023 End: 11-17-2023 Emergency department patient visit PURCHASING SPECIALIST-C Tiana Carter PURCHASING SPECIALIST Work Phone: [facility]-Emergency Department Work Phone: Start: 11-06-2023 Orders Only Judy Avila MD Work Phone: [facility] Endocrinology Comment on above: Multiple thyroid nod ules (Primary Dx); Low TSH level Results Start: 11-03-2023 End: 11-03-2023 Patient encounter procedure PURCHASING SPECIALIST-Sharron Carter PURCHASING SPECIALIST Work Phone: [facility] Work Phone: Start: 11-02-2023 End: 11-02-2023 ambulatory PURCHASING SPECIALIST-C Tiana Carter PURCHASING SPECIALIST Work Phone: [facility] Work Phone: Start: 11-02-2023 End: 11-02-2023 Patient encounter procedure PURCHASING SPECIALIST-Sharron Carter PURCHASING SPECIALIST Work Phone: [facility]-Laboratory Work Phone: Start: 10-11-2023 End: 10-11-2023 Subsequent hospital visit by physician Judy Avila MD Work Phone: [facility] Nuclear Medicine Comment on above: Subclinical hyperthy roidism Start: 10-11-2023 End: 10-11-2023 ambulatory [facility] Start: 10-04-2023 Orders Only Judy Avila MD Work Phone: [facility] Endocrinology Comment on above: Subclinical hyperthy roidism (Primary Dx) Results Start: 10-02-2023 End: 10-02-2023 Subsequent hospital visit by physician Judy Avila MD Work Phone: [facility] Imaging Comment on above: Multiple thyroid nod ules Start: 10-02-2023 End: 10-02-2023 Office outpatient new 45 minutes Judy Avila MD Work Phone: [facility] Endocrinology Comment on above: Low TSH level (Prima ry Dx); Multiple thyroid nodules Start: 07-11-2023 Telephone encounter Cony Cox MD Work Phone: [facility] [place] Comment on above: Patient Question Start: 05-19-2023 End: 05-19-2023 ambulatory PURCHASING SPECIALIST-C Tiana Carter PURCHASING SPECIALIST Work Phone: [facility] Work Phone: Start: 05-19-2023 End: 05-19-2023 Patient encounter procedure PURCHASING SPECIALIST-C Tiana Carter PURCHASING SPECIALIST Work Phone: [facility] Endocrinology Work Phone: Start: 05-10-2023 End: 05-10-2023 ambulatory PURCHASING SPECIALIST-C Tiana Carter PURCHASING SPECIALIST Work Phone: [facility] Work Phone: Start: 05-10-2023 End: 05-10-2023 Patient encounter procedure PURCHASING SPECIALIST-C Tiana Carter PURCHASING SPECIALIST Work Phone: [facility]-Ultrasound, [facility] Work Phone: Start: 05-08-2023 End: 05-13-2023 ambulatory TIANA CARTER FIELD MERCHANDISER-VOUCHER EXAMINER Facility:[facility] Start: 05-08-2023 End: 05-12-2023 Outreach Lab TIANA CARTER FIELD MERCHANDISER-VOUCHER EXAMINER [facility] Start: 05-05-2023 End: 05-05-2023 ambulatory PURCHASING SPECIALIST-C Tiana Carter PURCHASING SPECIALIST Work Phone: [facility] Work Phone: Start: 05-05-2023 End: 05-05-2023 Patient encounter procedure PURCHASING SPECIALIST-C Tiana Carter PURCHASING SPECIALIST Work Phone: [facility]-Laboratory Work Phone: Start: 04-14-2023 Telephone encounter Cony Cox MD Work Phone: [facility] [place] Comment on above: Orders Patient Update Start: 04-06-2023 End: 04-06-2023 ambulatory COLE DILLARD Facility:[facility] Start: 04-06-2023 End: 04-06-2023 Patient encounter procedure Cony Cox MD Work Phone: [facility] [place] Comment on above: 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) Start: 03-10-2023 Non-patient / Non-visit PURCHASING SPECIALIST-Sharron Carter PURCHASING SPECIALIST Work Phone: [facility] Start: 03-10-2023 End: 03-10-2023 Admission to same day surgery center PURCHASING SPECIALIST-Sharron Carter PURCHASING SPECIALIST Work Phone: [facility]-Endoscopy Work Phone: Start: 02-05-2023 End: 02-05-2023 Emergency department patient visit PROVIDER NOT IN SYSTEM [facility] Start: 01-27-2023 End: 01-27-2023 ambulatory PURCHASING SPECIALIST-Sharron Carter PURCHASING SPECIALIST Work Phone: [facility] Work Phone: Start: 01-27-2023 End: 01-27-2023 Patient encounter procedure PURCHASING SPECIALIST-Sharron Carter PURCHASING SPECIALIST Work Phone: [facility]-Radiology, [facility] Work Phone: Start: 01-24-2023 End: 01-24-2023 Patient encounter procedure PURCHASING SPECIALIST-Sharron Carter PURCHASING SPECIALIST Work Phone: [facility] Work Phone: Start: 01-24-2023 End: 01-24-2023 Patient encounter procedure PURCHASING SPECIALIST-Sharron Carter PURCHASING SPECIALIST Work Phone: [facility] Work Phone: Start: 01-09-2023 End: 01-09-2023 ambulatory PURCHASING SPECIALIST-C Tiana Carter PURCHASING SPECIALIST Work Phone: [facility] Work Phone: Start: 01-09-2023 End: 01-09-2023 Patient encounter procedure PURCHASING SPECIALIST-C Tiana Carter PURCHASING SPECIALIST Work Phone: [facility] Start: 12-19-2022 End: 12-19-2022 ambulatory PURCHASING SPECIALIST-C Tiana Carter PURCHASING SPECIALIST Work Phone: [facility] Work Phone: Start: 12-19-2022 End: 12-19-2022 Patient encounter procedure PURCHASING SPECIALIST-C Tiana Carter PURCHASING SPECIALIST Work Phone: [facility] Start: 12-16-2022 End: 12-16-2022 Patient encounter procedure PURCHASING SPECIALIST-C Tiana Carter PURCHASING SPECIALIST Work Phone: [facility] Start: 12-13-2022 End: 12-13-2022 Patient encounter procedure PURCHASING SPECIALIST-C Tiana Carter PURCHASING SPECIALIST Work Phone: [facility] Start: 11-23-2022 End: 11-24-2022 ambulatory TIANA CARTER FIELD MERCHANDISER-VOUCHER EXAMINER Facility:[facility] Start: 11-23-2022 End: 11-23-2022 Patient encounter procedure TIANA CARTER FIELD MERCHANDISER-VOUCHER EXAMINER [facility] Start: 11-16-2022 End: 11-16-2022 Emergency department patient visit PROVIDER NOT IN SYSTEM [facility] Start: 07-26-2022 End: 07-31-2022 ambulatory TIANA CARTER FIELD MERCHANDISER-VOUCHER EXAMINER Facility:[facility] Start: 07-07-2022 End: 07-07-2022 ambulatory PURCHASING SPECIALIST-C Tiana Carter PURCHASING SPECIALIST Work Phone: [facility] Work Phone: Start: 07-07-2022 End: 07-07-2022 Patient encounter procedure PURCHASING SPECIALIST-C Tiana Carter PURCHASING SPECIALIST Work Phone: [facility]-Outpatient Breast Imaging Start: 07-04-2022 End: 07-04-2022 ambulatory PURCHASING SPECIALIST-C Tiana Carter PURCHASING SPECIALIST Work Phone: [facility] Work Phone: Start: 07-04-2022 End: 07-04-2022 Patient encounter procedure PURCHASING SPECIALIST-C Tiana Carter PURCHASING SPECIALIST Work Phone: [facility]-Laboratory, Specimen Start: 07-04-2022 End: 07-04-2022 Patient encounter procedure PURCHASING SPECIALIST-C Tiana Carter PURCHASING SPECIALIST Work Phone: [facility] Start: 06-03-2022 End: 06-03-2022 ambulatory PURCHASING SPECIALIST-C Tiana Carter PURCHASING SPECIALIST Work Phone: [facility] Work Phone: Start: 06-03-2022 End: 06-03-2022 Patient encounter procedure PURCHASING SPECIALIST-C Tiana Carter PURCHASING SPECIALIST Work Phone: [facility] Start: 05-31-2022 End: 06-05-2022 ambulatory TIANA CARTER FIELD MERCHANDISER-VOUCHER EXAMINER Facility:B Start: 05-31-2022 End: 06-05-2022 Encounter for gynecological examination (general) (routine) without abnormal findings TIANA CARTER FIELD MERCHANDISER-VOUCHER EXAMINER Facility:B Start: 12-06-2021 End: 12-10-2021 Outreach Lab VIC LOPEZ MD [facility] Start: 12-06-2021 End: 12-06-[address] GIO SEALS DO [facility] Start: 11-02-2021 End: 11-02-[address] GIO SEALS DO [facility] Start: 10-09-2021 End: 10-09-[address] GIO SEALS DO [facility] Start: 05-25-2021 End: 05-29-2021 Outreach Lab TIANA CARTER FIELD MERCHANDISER-VOUCHER EXAMINER [facility] Start: 11-12-2018 End: 11-12-2018 Patient encounter procedure [facility] Start: 11-01-2018 Encounter for other preprocedural examination [facility] Start: 11-01-2018 End: 11-01-2018 Patient encounter procedure [facility] Start: 10-04-2018 Patient encounter procedure [facility] Start: 03-02-2017 End: 03-03-2017 Ambulatory NONE NONE Facility:[facility] Start: 02-16-2017 End: 02-17-2017 Ambulatory [facility] Facility:[facility] Start: 02-13-2017 End: 02-14-2017 Ambulatory [facility] Facility:[facility] Start: 02-13-2017 End: 02-14-2017 Ambulatory NONE NONE Facility:[facility] Procedures Date Procedure Procedure Detail Performing Clinician Start: 01-17-2025 Ultrasonography of abdomen Tiana Carter PURCHASING SPECIALIST-C Work Phone: Start: 01-13-2025 Urnls dip stick/tabl et reagent auto microscopy Tiana Carter PURCHASING SPECIALIST-C Work Phone: Start: 01-13-2025 Urine culture Tiana li PURCHASING SPECIALIST-C Work Phone: Start: 12-31-2024 SARS-CoV-2 (COVID-19 ) RNA [Presence] in Unspecified specimen by MONALISA with probe detection Sofía Falcon FIELD MERCHANDISER-VOUCHER EXAMINER Work Phone: Start: 09-17-2024 Thyrotropin [Units/v olume] in Serum or Plasma Judy Zmeili MD Work Phone: Start: 05-08-2024 Thyrotropin [Units/v olume] in Serum or Plasma Judy Avila MD Work Phone: Start: 01-29-2024 Biopsy thyroid percu taneous core needle Judy Avila MD Work Phone: Start: 01-29-2024 Thyrotropin [Units/v olume] in Serum or Plasma Judy Avila MD Work Phone: Start: 11-17-2023 Plain chest X-ray PURCHASING SPECIALIST-C Tiana Carter PURCHASING SPECIALIST Work Phone: Start: 11-06-2023 OUTSIDE LAB SCAN Judy burns MD Work Phone: Start: 11-02-2023 Thyrotropin [Units/v olume] in Serum or Plasma uJdy Avila MD Work Phone: Start: 10-02-2023 Thyrotropin [Units/v olume] in Serum or Plasma Judy Avila MD Work Phone: Start: 05-10-2023 US scan of thyroid PURCHASING SPECIALIST-C Tiana Carter PURCHASING SPECIALIST Work Phone: Start: 01-27-2023 Radiologic examinati on of upper gastrointestinal tract and small bowel with serial films PURCHASING SPECIALIST-Sharron Carter PURCHASING SPECIALIST Work Phone: Start: 01-09-2023 Computed tomography of abdomen and pelvis with contrast PURCHASING SPECIALIST-C Tiana Carter PURCHASING SPECIALIST Work Phone: Start: 12-19-2022 US urinary tract PURCHASING SPECIALIST-C Abilio Carter PURCHASING SPECIALIST Work Phone: Start: 12-13-2022 CT of thorax with contrast PURCHASING SPECIALIST-C Tiana Carter PURCHASING SPECIALIST Work Phone: Start: 07-07-2022 End: 07-07-2022 Screening mammography PURCHASING SPECIALIST-C Tiana fraga PURCHASING SPECIALIST Work Phone: Start: 07-04-2017 Endoscopic biopsy KARIS CARTER FIELD MERCHANDISER-VOUCHER EXAMINER Start: 06-18-2017 Biopsy TIANA HDEZON FIELD MERCHANDISER-VOUCHER EXAMINER Start: 06-08-2017 Biopsy TIANA PRICE RSON FIELD MERCHANDISER-VOUCHER EXAMINER Comment on above: thyroid- [facility] Start: 07-31-2014 Other (qualifier value) TIANA GRNADEJONATHAN FIELD MERCHANDISER-VOUCHER EXAMINER Comment on above: stomach Sx - Dr. Libia post, to repair hiatal hernia Start: 07-31-2014 Stomach structure (b tyler structure) TIANA LORJONATHAN FIELD MERCHANDISER-VOUCHER EXAMINER Investigation of tra nsfusion reaction PURCHASING SPECIALIST-C Tiana Carter PURCHASING SPECIALIST Work Phone: Microbial culture, routine N P-C Tiana Carter PURCHASING SPECIALIST Work Phone: None (qualifier value) KARIS KYARA HARJINDERJONATHAN FIELD MERCHANDISER-VOUCHER EXAMINER Plan of Treatment Date Care Activity Detail Author Start: 2056 RSV Immunization for Adults (1 - 1-dose 75+ series) RSV Immunization for Adults (1 - 1-dose 75+ series) [facility] Start: 2041 RSV Immunization aged 60 or older (1 - 1-dose 60+ series) RSV Immunization aged 60 or older (1 - 1-dose 60+ series) [facility] Start: 11-30-2031 Zoster Vaccines (1 of 2) Zoster Vaccines (1 of 2) [facility] Start: 10-07-2025 End: 10-07-2025 Patient encounter procedure 10/07/2025 8:00 AM EDT Office Visit [facility] [address] [place] [id number] Judy Avila MD [address] [place] [address] [facility] Start: 09-17-2025 Thyroid stimulating hormone measurement TSH Level [facility] Start: 09-03-2025 End: 10-01-2025 Thyrotropin [Units/volume] in Serum or Plasma TSH Lab Routine Subclinical hyperthyroidism Expected: 09/03/2025, Expires: 10/01/2025 [facility] Comment on above: Expected: 09/03/2025, Expires: Start: 09-03-2025 End: 10-01-2025 Thyroxine (T4) free [Mass/volume] in Serum or Plasma T4, free Lab Routine Subclinical hyperthyroidism Expected: 09/03/2025, Expires: 10/01/2025 [facility] Comment on above: Expected: 09/03/2025, Expires: Start: 09-03-2025 End: 10-01-2025 Triiodothyronine (T3) Free [Mass/volume] in Serum or Plasma T3, free Lab Routine Subclinical hyperthyroidism Expected: 09/03/2025, Expires: 10/01/2025 [facility] Comment on above: Expected: 09/03/2025, Expires: Start: 09-03-2025 End: 10-01-2025 US Thyroid gland US thyroid Imaging Routine Subclinical hyperthyroidism Multiple thyroid nodules Expected: 09/03/2025, Expires: 10/01/2025 [facility] Comment on above: Expected: 09/03/2025, Expires: Start: 05-08-2025 Thyroid stimulating hormone measurement TSH Level [facility] Start: 04-03-2025 End: 10-01-2025 Thyrotropin [Units/volume] in Serum or Plasma TSH Lab Routine Subclinical hyperthyroidism Expected: 04/03/2025, Expires: 10/01/2025 [facility] Work Phone: Comment on above: Expected: 04/03/2025, Expires: Start: 04-03-2025 End: 10-01-2025 Thyroxine (T4) free [Mass/volume] in Serum or Plasma T4, free Lab Routine Subclinical hyperthyroidism Expected: 04/03/2025, Expires: 10/01/2025 [facility] Comment on above: Expected: 04/03/2025, Expires: Start: 04-03-2025 End: 10-01-2025 Triiodothyronine (T3) Free [Mass/volume] in Serum or Plasma T3, free Lab Routine Subclinical hyperthyroidism Expected: 04/03/2025, Expires: 10/01/2025 [facility] Comment on above: Expected: 04/03/2025, Expires: Start: 03-31-2025 Influenza vaccination INFLUENZA VACCINE (Season Ended) [facility] Start: 01-28-2025 Thyroid stimulating hormone measurement TSH Level [facility] Start: 11-01-2024 Thyroid stimulating hormone measurement TSH Level [facility] Start: 10-01-2024 Thyroid Nodule Ultrasound Thyroid Nodule Ultrasound [facility] Start: 10-01-2024 Thyroid stimulating hormone measurement TSH Level [facility] Start: 10-01-2024 End: 10-01-2024 Patient encounter procedure [facility] Start: 09-17-2024 End: 05-17-2025 Thyroid Stimulating Hormone Receptor Antibody (TRAb) Thyroid Stimulating Hormone Receptor Antibody (TRAb) Lab Routine Low TSH level Hyperthyroidism Expected: 09/17/2024, Expires: 05/17/2025 [facility] Comment on above: Expected: 09/17/2024, Expires: Start: 09-17-2024 End: 05-17-2025 Thyrotropin [Units/volume] in Serum or Plasma TSH Lab Routine Low TSH level Hyperthyroidism Expected: 09/17/2024, Expires: 05/17/2025 [facility] Comment on above: Expected: 09/17/2024, Expires: Start: 09-17-2024 End: 05-17-2025 Thyroxine (T4) free [Mass/volume] in Serum or Plasma T4, free Lab Routine Low TSH level Hyperthyroidism Expected: 09/17/2024, Expires: 05/17/2025 [facility] Work Phone: Comment on above: Expected: 09/17/2024, Expires: Start: 09-17-2024 End: 05-17-2025 Triiodothyronine (T3) Free [Mass/volume] in Serum or Plasma T3, free Lab Routine Low TSH level Hyperthyroidism Expected: 09/17/2024, Expires: 05/17/2025 [facility] Comment on above: Expected: 09/17/2024, Expires: Start: 05-01-2024 End: 01-29-2025 Thyrotropin [Units/volume] in Serum or Plasma TSH Lab Routine Subclinical hyperthyroidism Expected: 05/01/2024, Expires: 01/29/2025 [facility] [employer] Work Phone: Comment on above: Expected: 05/01/2024, Expires: Start: 05-01-2024 End: 01-29-2025 Thyroxine (T4) free [Mass/volume] in Serum or Plasma T4, free Lab Routine Subclinical hyperthyroidism Expected: 05/01/2024, Expires: 01/29/2025 [facility] Comment on above: Expected: 05/01/2024, Expires: Start: 05-01-2024 End: 01-29-2025 Triiodothyronine (T3) Free [Mass/volume] in Serum or Plasma T3, free Lab Routine Subclinical hyperthyroidism Expected: 05/01/2024, Expires: 01/29/2025 [facility] Comment on above: Expected: 05/01/2024, Expires: Start: 03-31-2024 COVID-19 Vaccine ( season) COVID-19 Vaccine ( season) [facility] Start: 03-31-2024 COVID-19 Vaccine ( season) COVID-19 Vaccine ( season) [facility] Start: 03-31-2024 Influenza vaccination Influenza Vaccine (#1) [facility] Start: 02-05-2024 End: 11-05-2024 Thyrotropin [Units/volume] in Serum or Plasma TSH Lab Routine Low TSH level Expected: 02/05/2024, Expires: 11/05/2024 [facility] [employer] Work Phone: Comment on above: Expected: 02/05/2024, Expires: Start: 02-05-2024 End: 11-05-2024 Thyroxine (T4) free [Mass/volume] in Serum or Plasma T4, free Lab Routine Low TSH level Expected: 02/05/2024, Expires: 11/05/2024 [facility] Comment on above: Expected: 02/05/2024, Expires: Start: 02-05-2024 End: 11-05-2024 Triiodothyronine (T3) Free [Mass/volume] in Serum or Plasma T3, free Lab Routine Low TSH level Expected: 02/05/2024, Expires: 11/05/2024 [facility] Comment on above: Expected: 02/05/2024, Expires: Start: 11-17-2023 Troponin I measurement [facility] Start: 11-17-2023 [facility] Start: 11-17-2023 [facility] Start: 11-06-2023 End: 11-05-2024 US Guidance for fine needle aspiration of Thyroid gland US guided thyroid biopsy w/reflex [facility] Routine Multiple thyroid nodules Expected: 11/06/2023, Expires: 11/05/2024 [facility] Comment on above: Expected: 11/06/2023, Expires: Start: 10-11-2023 End: 10-11-2023 Patient encounter procedure 10/11/2023 9:00 AM EDT Appointment [facility] Nuclear Medicine [address] [place] [id number] Judy Avila MD [address] [place] [address] [facility] Start: 10-04-2023 End: 10-03-2024 hCG, quantitative hCG, quantitative Lab Routine Subclinical hyperthyroidism Expected: 10/04/2023 (Approximate), Expires: 10/03/2024 [facility] Comment on above: Expected: 10/04/2023 (Approximate), Expi res: 10/03/2024 Start: 10-04-2023 End: 10-03-2024 NM Thyroid gland Uptake NM thyroid uptake and scan Imaging Routine Subclinical hyperthyroidism Expected: 10/04/2023, Expires: 10/03/2024 [facility] Work Phone: Comment on above: Expected: 10/04/2023, Expires: Start: 10-02-2023 End: 10-01-2024 hCG, quantitative hCG, quantitative Lab Routine Low TSH level Expected: 10/02/2023 (Approximate), Expires: 10/01/2024 [facility] Comment on above: Expected: 10/02/2023 (Approximate), Expi res: 10/01/2024 Start: 10-02-2023 End: 10-01-2024 Thyroid Stimulating Hormone Receptor Antibody (TRAb) (Sendout) Thyroid Stimulating Hormone Receptor Antibody (TRAb) (Sendout) Lab Routine Low TSH level Expected: 10/02/2023 (Approximate), Expires: 10/01/2024 [facility] Comment on above: Expected: 10/02/2023 (Approximate), Expi res: 10/01/2024 Start: 10-02-2023 End: 10-01-2024 Thyrotropin [Units/volume] in Serum or Plasma TSH Lab Routine Low TSH level Expected: 10/02/2023 (Approximate), Expires: 10/01/2024 [facility] Comment on above: Expected: 10/02/2023 (Approximate), Expi res: 10/01/2024 Start: 10-02-2023 End: 10-01-2024 Thyroxine (T4) free [Mass/volume] in Serum or Plasma T4, free Lab Routine Low TSH level Expected: 10/02/2023 (Approximate), Expires: 10/01/2024 [facility] Work Phone: Comment on above: Expected: 10/02/2023 (Approximate), Expi res: 10/01/2024 Start: 10-02-2023 End: 10-01-2024 Triiodothyronine (T3) Free [Mass/volume] in Serum or Plasma T3, free Lab Routine Low TSH level Expected: 10/02/2023 (Approximate), Expires: 10/01/2024 [facility] Comment on above: Expected: 10/02/2023 (Approximate), Expi res: 10/01/2024 Start: 10-02-2023 End: 10-01-2024 US Thyroid gland [facility] Comment on above: Expected: 10/02/2023, Expires: Once for 1 Occurrenc es starting 10/02/2023 until 10/02/2023 Start: 07-07-2023 Screening for malignant neoplasm of breast Mammogram [facility] Start: 03-31-2023 COVID-19 Vaccine ( season) COVID-19 Vaccine ( season) [facility] Start: 03-31-2023 Influenza vaccination [facility] Start: 03-10-2023 Colonoscopy flx dx w/collj spec when pfrmd DIAGNOSTIC COLONOSCOPY [facility] Start: 03-10-2023 Esophagogastroduodenoscopy transoral diagnostic EGD DIAGNOSTIC BRUSH WASH [facility] Start: 03-10-2023 Patient discharge [facility] Start: 12-19-2022 Patient referral [facility] Work Phone: Start: 07-31-2022 DEPRESSION ASSESSMENT DEPRESSION ASSESSMENT [facility] Start: 07-04-2022 [facility] Work Phone: Start: 2021 Lipid panel LIPID SCREENING [facility] Start: 2021 Mammography [facility] Start: 2021 Screening for malignant neoplasm of breast [facility] Start: 01-01-2021 ANNUAL PCP TEAM CHRONIC DISEASE VISIT ANNUAL PCP TEAM CHRONIC DISEASE VISIT [facility] Start: 11-30-2011 HPV TESTING HPV TESTING [facility] Start: 11-30-2011 Screening for malignant neoplasm of cervix [facility] Start: 2002 PAP TESTING PAP TESTING [facility] Start: 2002 Screening for malignant neoplasm of cervix [facility] Start: 2000 DTaP/Tdap/Td Vaccines (1 - Tdap) DTaP/Tdap/Td Vaccines (1 - Tdap) [facility] Start: 2000 Hepatitis B vaccination HEP B VACCINE (1 of 3 - 19+ 3-dose series) [facility] Start: 2000 Third diphtheria, tetanus and acellular pertussis (DTaP) vaccination TDAP (ADULT) [facility] Start: 2000 Urine microalbumin profile [facility] Start: 11-30-1999 HEPATITIS C SCREENING HEPATITIS C SCREENING [facility] Start: 11-30-1999 Hepatitis C screening Hepatitis C Screening [facility] Start: 11-30-1999 HIV SCREENING HIV SCREENING [facility] Start: 11-30-1999 HIV screening HIV Screening [facility] Start: 1996 HIV screening HIV SCREENING DISCUSSION [facility] Start: 1994 Varicella vaccination Varicella Vaccines (1 of 2 - 13+ 2-dose series) [facility] Start: 1993 Depression Screening Depression Screening [facility] Start: 1982 MMR Vaccines (1 of 1 - Standard series) MMR Vaccines (1 of 1 - Standard series) [facility] Start: 1982 Varicella vaccination Varicella Vaccines (1 of 2 - 2-dose childhood series) [facility] Start: 06-01-1982 COVID-19 VACCINE (#1) COVID-19 VACCINE (#1) [facility] Start: 1981 HEPATITIS B (1 of 3 - 3-dose series) HEPATITIS B (1 of 3 - 3-dose series) [facility] Start: 1981 Hepatitis B Vaccine (1 of 3 - 3-dose series) Hepatitis B Vaccine (1 of 3 - 3-dose series) [facility] Start: 1981 Hepatitis C screening HEPATITIS C VIRUS SCREENING [facility] Start: 1981 HIV screening HIV Screening [facility] Start: 1981 Tetanus vaccination TETANUS [facility] Start: 1981 Thyroid Nodule Ultrasound Thyroid Nodule Ultrasound [facility] Fine needle aspiration [facility] Work Phone: Comment on above: Release Upon Ordering for 1 Occurrences starting 01/29/2024, 1 completed Microbial culture, routine Wound Culture [facility] Work Phone: End: 10-11-2023 NM Thyroid gland Uptake [facility] Work Phone: Comment on above: Once for 1 Occurrences starting 10/11/19 24 until 10/11/2023 Patient Education ED Palpitations [facility] Work Phone: Patient referral [facility] Work Phone: [facility] Immunizations Immunization Date Immunization Notes Care Provider Favian jaime 06-17-2024 tetanus toxoid, reduced diphtheria toxoid, and acellular pertussis vaccine, adsorbed; Translations: [Boostrix (Tdap)] TIANA CARTER FIELD MERCHANDISER-VOUCHER EXAMINER [facility] 05-14-2024 influenza virus vaccine, unspecified formulation TIANA CARTER FIELD MERCHANDISER-VOUCHER EXAMINER [facility] 05-08-2023 influenza, injectabl e, quadrivalent, contains preservative; Translations: [Fluarix PF Quadrivalent ] TIANA CARTER FIELD MERCHANDISER-VOUCHER EXAMINER [facility] 05-08-2023 influenza virus vaccine, unspecified formulation Judy Avila MD Work Phone: [facility] 05-30-2022 influenza, injectabl e, quadrivalent, contains preservative; Translations: [Fluarix PF Quadrivalent ] TIANA CARTER FIELD MERCHANDISER-VOUCHER EXAMINER [facility] 05-30-2022 influenza virus vaccine, unspecified formulation Cony Cox MD Work Phone: [facility] 05-25-2021 influenza, injectabl e, quadrivalent, contains preservative; Translations: [Fluarix PF Quadrivalent ] TIANA CARTER FIELD MERCHANDISER-VOUCHER EXAMINER [facility] 04-27-2020 influenza virus vaccine, unspecified formulation MARANDA CLEMENTS MD [facility] 07-01-2019 hepatitis B vaccine, adult dosage PURCHASING SPECIALIST-C Tiana Carter PURCHASING SPECIALIST Work Phone: [facility] 05-09-2019 influenza, injectabl e, quadrivalent, preservative free; Translations: [Fluarix PF Quadrivalent ] TIANA CARTER FIELD MERCHANDISER-VOUCHER EXAMINER [facility] 01-24-2019 hepatitis B vaccine, adult dosage PURCHASING SPECIALIST-C Tiana Carter PURCHASING SPECIALIST Work Phone: [facility] 05-30-2019 hepatitis B vaccine, adult dosage PURCHASING SPECIALIST-C Tiana Carter NP Work Phone: [facility] 05-10-2018 influenza virus vaccine, unspecified formulation MARANDA CLEMENTS MD [facility] 05-18-2017 influenza virus vaccine, unspecified formulation MARANDA CLEMENTS MD [facility] Payers Date Payer Category Payer [facility] - HMO [employer] BLUE CROSS [id number] 2024 Managed Care (unspecified) ANTH HMO PPO POS [id number] 2024 Unknown [id number] 2024 Unknown [id number] 2024 Self-pay [id number] 2022 Medicaid [id number] 2016 Unknown [id number] 2016 Unknown [id number] 1981 Unknown [id number]. 902 1981 Unknown [id number]. 2 1981 Unknown [id number] [id number]. 1981 Unknown [id number] [id number]. 1981 Unknown [id number] ..[id number]. 1981 Unknown [id number] [id number]. 1981 Unknown [id number] 2..[id number]. 1981 Unknown [id number] .[id number]. 1981 Unknown [id number] 2.0.1.674200.3.579.2. 1981 Unknown [id number] [id number]. 983 Private Health Insurance [facility] [id number] Unknown [id number] Unknown [id number]. 462 Unknown [id number]. 462 Unknown [id number] [id number]. 462 Unknown [id number] [id number]. 462 Unknown [id number] [id number]. 462 Unknown [id number] [id number]. 462 Unknown [id number] [id number]. 462 Unknown [id number]. 462 Social History Date Type Detail Facility Start: 05-09-2019 End: 11-17-2023 Ex-smoker (finding) [facility]igned At [facility] Start: 07-04-2022 End: 11-17-2023 Tobacco smoking status GAIS Unknown if ever smoked [facility] Start: 01-09-2019 None [facility] Start: 1980 Sex Assigned At Female [facility] End: 07-31-2013 History of tobacco use Current smoker [facility] End: 07-31-2013 History of tobacco use Cigarette Smoker [facility] Start: 11-01-2018 End: 12-31-2024 Cigarettes smoked current (pack per day) - Reported 0.8 [facility] Start: 11-01-2018 End: 12-31-2024 Tobacco use and exposure Smokeless tobacco non-user [facility] Start: 04-06-2023 Alcohol intake Lifetime non-d herbert (finding) [facility] Start: 06-18-2020 End: 12-31-2024 Alcohol Use Disorder Identification Test - Consumption [AUDIT-C] [facility] How often to you hav e a drink containing alcohol? Never [facility] How many standard dr inks containing alcohol do you have on a typical day? Patient refused [facility] Do you feel stress - tense, restless, nervous, or anxious, or unable to sleep at night because your mind is troubled all the time - these days [OSQ] Only a little [facility] In the past 12 month s, was there a time when you were not able to pay the mortgage or rent on time? No [facility] Start: 01-02-2020 Education 12 [facility] Start: 1980 Sex Assigned At Not on file [facility] Start: 10-02-2023 Tobacco use and exposure Forme r smokeless tobacco user [facility] Start: 10-02-2023 End: 10-01-2024 Alcohol intake Current drinker of alcohol (finding) [facility] Start: 10-02-2023 Alcohol Comment Occ [facility] Start: 11-06-2014 End: 05-18-2023 Sex Female (finding) [facility] Start: 12-31-2024 Tobacco smoking stat [facility] Never smoked tobacco [facility] Start: 12-31-2024 Alcoholic beverage intake Ex-drinker (finding) [facility] Gender identity Identifies as fe male gender (finding) [facility] NEGATED: Highlighted rowStart: NINF History of tobacco use Passive smoker [facility] Goals Date Patient Goal Desired Activity /State Mental Status Date Assessment Result Facility 11-17-2023 Cognitive function Awake;Alert;A ppropriate;Follow s Commands [facility] Work Phone: 03-10-2023 Cognitive function Level Of Cons ciousness Awake;Alert;Appropriate;Follow s Commands [facility] Work Phone: 03-10-2023 Cognitive function Voice/Name [facility] Work Phone: Clinical Notes 05-25-2021 to 01-17-2025 Annette Barker - 12/31/2024 11:55 AM CLARISSA Wayne - 12/31/2024 11:55 AM Rich Barker - 12/31/2024 11:55 AM Hailey Avila MD - 10/01/2024 8:00 AM ESTDischarge Instructions Note Date & Type Note Facility 01-17-2025 Radiology Diagnostic study note [facility] Imaging Services [address] [place] [address] Abdomen Limited MR#: [id number] Acct: [id number] Name: YAMILKA BRYANT Rep #: [id number] : 1980 F 44 From: Jose Guadalupe Cutler MD PCP: NGUYỄN Heath Status: REG C LI Study:Abdomen Limited Date of Exam: 12/30 Exam# [id number] Ordering Dr: Marylou Powell NP PROCEDURE: ABDOMEN LIMITED 01/17/2025 REASON FOR EXAM: NAUSEA COMPARISON: Prior CT scan dated January 27, 2023. FINDINGS: Liver: Hepatomegaly. The liver measures 20.3 cm. Gallbladder: Small amount of sludge is seen in the gallbladder lumen. The gallbladder wall is not thickened. Common bile duct: Normal measuring 1 mm . Pancreas: Normal Other: Visualized portions of the right kidney are unremarkable. No right upperquadrant ascites. US/Abdomen Limited IMPRESSION: Hepatomegaly. Small amount of sludge seen in the gallbladder lumen. Reading Location: [place] [address] CC: NGUYỄN Carter; Marylou Powell ~ Chain Splitter: Signed [facility] 12-31-2024 History of Present illness Narrative Main historian: Self Patient presents with Nausea, Headache, and Vomiting Associated symptoms: loss of appetite Onset: x3 days Self treatments: Ibuprofen Alleviating factors none Aggravating factors: none Exposures: states after being at a grad alliance party Last visit: HPI Yamilka Bryant 1980 presents to the [facility] with Chief Complaint [...] Exposures: states after being at a grad alliance party Last visit: History No Known Allergies [...] No Stress Concern Present (01/02/2020) Received from [facility] [place] [facility] - Occupational Stress Questionnaire Feeling of Stress : Only a little Social Connections: Not on file Personal Safety: Not on file Housing Stability: Unknown (01/02/2020) Received from [facility] Housing Stability Vital Sign Unable to [...] Pt tolerated well. documented in this encounter [facility] 10-01-2024 History of Present illness Narrative Images from the original note were not included. [facility] [address] [place] [address] Dept: [phone] Dept Visit Date: 10/01/2024 HPI: Yamilka Bryant [...] had thyroid ultrasound in April 2023 at [facility] that revealed 1.4 cm right thyroid [...] No Stress Concern Present (01/02/2020) Received from [facility], [facility] - Occupational Stress [...] signed by me. documented in this encounter [facility] 09-10-2024 Telephone encounter Note Pt due for labs soon and has follow up with Dr Avila 10/01/24. Please send to hold over until labs and appointment. [facility] 09-10-2024 Miscellaneous Notes Pt due for labs soon and has follow up with Dr Avila 10/01/24. Please send to hold over until labs and appointment. documented in this encounter [facility] 05-22-2024 Note . MICRO - Microbiology [...] Locations *1: This test was performed at: [facility], [address] [place] [address], [id number] , [facility] 05-21-2024 Telephone encounter Note Name of caller: Yamilka Contact phone number: [phone] Relationship to Patient: patient Provider: Dr Avila [...] business hours to return their call: Yes [facility] 05-21-2024 Miscellaneous Notes Name of caller: Yamilka Contact phone number: [phone] Relationship to Patient: patient Provider: Dr Avila [...] their call: Yes [facility] Telephone encounter Note Addressed in a different encounter [facility] Work Phone: 05-17-2024 Miscellaneous Notes Addressed in a different encounter Results Reconciled under lab tab for review. Called for results to faxed. Name of caller: Yamilka Contact phone number: [phone] Relationship to Patient: patient Provider: Dr Avila Practice: Endocrinology Chief Complaint/Reason for Call: Yamilka called in to see if her lab results were received. She had them done last week at [facility]. Yamilka would like a call back with those results and stated that she is currently out of medication. Best time of day caller can be reached: any Patient advised that office/PCP has 24-48 business hours to return their call: Yes documented in this encounter [facility] 05-17-2024 Telephone encounter Note Results Reconciled under lab tab for review. [facility] 05-15-2024 Telephone encounter Note Called for results to faxed. [facility] 05-14-2024 Telephone encounter Note Name of caller: Yamilka Contact phone number: [phone] Relationship to Patient: patient Provider: Dr Avila Practice: Endocrinology Chief Complaint/Reason for Call: Yamilka called in to see if her lab results were received. She had them done last week at [facility]. Yamilka would like a call back with those results and stated that she is currently out of medication. Best time of day caller can be reached: any Patient advised that office/PCP has 24-48 business hours to return their call: Yes [facility] 05-02-2024 Note This Pap Test was successfully processed and evaluated with the assistance of the [employer] System. [facility] 05-02-2024 Note This Pap Test was successfully processed and evaluated with the assistance of the [employer]. [facility] 05-02-2024 Note This Pap Test was successfully processed and evaluated with the assistance of the [employer] System. [facility] 05-02-2024 Note This Pap Test was successfully processed and evaluated with the assistance of the [employer] [facility] System. [facility] 05-02-2024 Note This Pap Test was successfully processed and evaluated with the assistance of the [employer] [facility] System. [facility] 05-02-2024 Note This Pap Test was successfully processed and evaluated with the assistance of the [employer] [facility] System. [facility] 05-02-2024 Note This Pap Test was successfully processed and evaluated with the assistance of the [employer] [facility] System. [facility] 05-02-2024 Note This Pap Test was successfully processed and evaluated with the assistance of the [employer] System. [facility] 05-02-2024 Note This Pap Test was successfully processed and evaluated with the assistance of the [employer] System. [facility] 01-29-2024 Hospital Discharge instructions Kaitlyn Koehler RN [...] a call between 8am and 5pm. - [facility] Radiology - [phone] - [facility] Radiology - [phone] - For questions after hours, please call [phone] and ask for the on-call Angiography Radiologist. [...] primary care physician. documented in this encounter [facility] 01-29-2024 [facility]Leia Muniz Pa-C discussing [...] given to patient. Patient discharged to home. [facility] 01-29-2024 Nurse Note Patient arrived to [...] given to patient. Patient discharged to home. [facility] 01-29-2024 Nurse Note Patient arrived to [...] discharged to home. documented in this encounter [facility] 11-06-2023 Telephone encounter Note Left voicemail for patient regarding below. Provided with central scheduling phone number or to return call to office to schedule. [facility] 11-06-2023 Telephone encounter Note ----- Message from Judy Avila MD sent at 11/06/2023 10:15 AM EDT ----- Please inform pt that her thyroid function were normal. She can continue same dose of methimazole. Repeat thyroid test in 3 months Now, we need to FNA for 2 thyroid around this time to do it at [facility]. Please see orders. Thanks [facility] 11-06-2023 Miscellaneous Notes Left voicemail for [...] around this time to do it at [facility]. Please see orders. Thanks documented in this encounter [facility] 10-06-2023 Telephone encounter Note Patient scheduled on 10/10 at 9AM - [facility] 10-06-2023 Miscellaneous Notes Patient scheduled on 10/10 at 9AM - [facility] Left voicemail for patient to return call [...] uptake and scan documented in this encounter [facility] 10-04-2023 Telephone encounter Note Left voicemail for patient to return call regarding below. [facility] 10-04-2023 Telephone encounter Note ----- Message [...] well before the thyroid uptake and scan [facility] 10-02-2023 History of Present illness Narrative Images from the original note were not included. [facility] [address] [place] [address] Dept: [phone] Dept Visit Date: 10/02/2023 HPI: Yamilka Bryant [...] had thyroid ultrasound in April 2023 at [facility] that revealed 1.4 cm right thyroid [...] menstrual period The patient current PCP is [facility] Past Medical History: Diagnosis Date [...] signed by me. documented in this encounter [facility] 10-02-2023 Instructions Judy Avila MD - 10/02/2023 8:20 AM EST 1 documented in this encounter [facility] 07-11-2023 Miscellaneous Notes Patient missed her appointment yesterday. She called today wanting to know if there were any issues with her labs? Does she need a follow up? She [place] far away and didn't want to travel if there was nothing more you could do? Labs were done at [facility] and are scanned in her chart. Diandra Zavala documented in this encounter [facility] 05-10-2023 Note . MICRO - Microbiology [...] Locations *1: This test was performed at: [facility], [address] [place] [address], [id number] , [facility] ([place]) 04-14-2023 Miscellaneous Notes Pt notified and asked for orders to be mailed to her home- done Barbara Jose LPN LVMM for the pt to please return my call to discuss I will also send my chart message. Barbara Jose LPN Please let her know Old chart has been reviewed Labs ordered please get them done Cony Cox MD documented in this encounter [facility] 04-06-2023 Note HNO ID: [id number] Author: Cony Cox MD Service: ? Author Type: Physician Type: Progress Notes Filed: 07/12/2023 9:35 PM Note Text: This note was created using [email or web address]. Subjective Yamilka Bryant is a 42 year [...] 90 degrees, pat (more content not included)... [facility] 04-06-2023 History of Present illness Narrative This note was created using [email or web address]. Subjective Yamilka Bryant is a 42 year [...] sister healthy 04/06/23 Father 67 04/06/23 (( [place] cancer ? Skin , ) Mom ( enlarged heart age 37 ) ?? documented in this encounter [facility] 01-24-2023 Evaluation + Plan note Future Scheduled TestsEstradiol Level 01/24/23Luteinizing Hormone 01/24/23Thyroid Antibodies 01/24/23Thyroid Stimulating Hormone 01/24/23Free T4 01/24/23A1C Hemoglobin 01/24/23Follicle Stimulating Hormone Level 01/24/23Free T3 01/24/23US Pelvis Non-OB Complete 12/12/22US Thyroid 05/08/23 [facility] 11-25-2022 Note . MICRO - Microbiology PROCEDURE: [...] Locations *1: This test was performed at: [facility], [address] [place] [address], [address] , [facility] ([place]) 11-23-2022 Evaluation + Plan note Diagnostic Tests PendingRheumatoid Factor 11/23/22Antinuclear Antibody Screen, Serum 11/23/22Urine Culture 11/23/22 [facility] 10-29-2021 Evaluation + Plan note Future Scheduled TestsXR Abdomen AP 10/29/21CT Abdomen and Pelvis w/o contrast 10/09/21 [facility] 10-09-2021 Evaluation + Plan note Diagnostic Tests PendingUrine Culture 10/09/21 Future Scheduled TestsCT Abdomen and Pelvis w/o contrast 10/09/21 [facility] 05-25-2021 Evaluation + Plan note Future Scheduled TestsPathology Floor Worker Request 05/25/21Lipid Profile 05/25/21Complete Metabolic Panel 05/25/21 [facility] Evaluation + Plan note Future Appointments Appointment Date:05/20/2024 08:00:00 AM Scheduled Provider:TIANA CARTER Location:[facility] Appointment Type:PC Wellness Annual Future Scheduled TestsMA Mammo Screening Bilateral w/ Lalo 04/29/24US Thyroid 05/08/23US Thyroid 05/01/24 [facility] Evaluation + Plan note Future Appointments Appointment Date:06/17/2024 07:30:00 AM Scheduled Provider:TIANA CARTER Location:[facility] Appointment Type:PC Wellness Annual Future Scheduled TestsMagnesium Level 05/20/24Complete Metabolic Panel 05/20/24MA Mammo Screening Bilateral w/ Lalo 04/29/24US Thyroid 05/01/24 [facility] Evaluation + Plan note Future Appointments Appointment Date:06/16/2025 07:30:00 AM Scheduled Provider:TIANA CARTER Location:[facility] Appointment Type:PC Wellness Annual Future Scheduled TestsMagnesium Level 05/20/24Lipid Profile 06/17/24epatitis C Antibody IgG 06/17/24Complete Metabolic Panel 06/17/24Complete Metabolic Panel 05/20/24MA Mammo Screening Bilateral w/ Lalo 04/29/24US Thyroid 05/01/24 [facility] Evaluation note Diagnosis Onset Date Abscess of back acute [facility] Work Phone: Evaluation note* Diagnosis Onset Date Resolution Status Strain of right index finger acute [facility] Work Phone: Evaluation note* Diagnosis Onset Date Resolution Status Strain of right index finger acute Weight loss acute Palpitations chronic Tachycardia chronic [facility] Work Phone: Evaluation note* Diagnosis Inflammatory arthritis- Primary Unspecified inflammatory polyarthropathy [facility] Onset Date Resolution Status Weight loss acute Palpitations chronic Tachycardia chronic [facility] Work Phone: Evaluation note* Diagnosis Onset Date Resolution Status Weight loss acute Palpitations chronic Tachycardia chronic Abnormal thyroid blood test acute Weight loss acute Multinodular goiter chronic [facility] Work Phone: Evaluation note* Diagnosis Onset Date Resolution Status Abnormal thyroid blood test acute Weight loss acute Multinodular goiter chronic [facility] Work Phone: Evaluation note* Diagnosis Low TSH level- Primary Multiple thyroid nodules Nontoxic multinodular goiter [facility] Diagnosis Multiple thyroid nodules Nontoxic multinodular goiter [facility] Diagnosis Subclinical hyperthyroidism- Primary Thyrotoxicosis without mention of goiter or other cause, without mention of thyrotoxic crisis or storm [facility] Diagnosis Subclinical hyperthyroidism Thyrotoxicosis without mention of goiter or other cause, without mention of thyrotoxic crisis or storm [facility]* Diagnosis Multiple thyroid nodules- Primary Nontoxic multinodular goiter Low TSH level [facility]* Diagnosis Onset Date Resolution Status Acute upper respiratory infection [facility] Work Phone: Evaluation note* Diagnosis Multiple thyroid nodules Nontoxic multinodular goiter [facility]* Diagnosis Subclinical hyperthyroidism- Primary Thyrotoxicosis without mention of goiter or other cause, without mention of thyrotoxic crisis or storm Low TSH level [facility] Diagnosis Hyperthyroidism- Primary Thyrotoxicosis without mention of goiter or other cause, without mention of thyrotoxic crisis or storm Low TSH level [facility] Diagnosis Low TSH level [facility] Diagnosis Subclinical hyperthyroidism- Primary Thyrotoxicosis without mention of goiter or other cause, without mention of thyrotoxic crisis or storm Multiple thyroid nodules Nontoxic multinodular goiter Low TSH level [facility]* Diagnosis Viral illness- Primary Unspecified viral infection, in conditions classified elsewhere and of unspecified site Nausea and vomiting, unspecified vomiting type Acute nonintractable headache, unspecified headache type [facility] noteNo assessment information availableWSamaritan North Health Center Work Phone: Hospital course Narrative No data available for this section [facility] Discharge instructions No data available for this section [facility] Instructions* Attachments The following attachments cannot be sent through Care Everywhere. * Headache (Croatian) * Nausea and Vomiting (Croatian) [facility] No data available for this section [facility] Reason for referral (narrative)No reason for referral information availableWSamaritan North Health Center Work Phone: Summary Purpose Family History No Family History Records Found Relationship Condition Age at Onset Recorded Date/T [place] mother Congestive heart failure Unknown father Cardiac disease Unknown Malignant neoplasm of colon Unknown Advance Directives No Advanced Directives Records Found Advance Directive Response Recorded Date/ Time Living Will No January 09, 2019 3:14pm Power of General Lithographic Worker No January 09 3:14pm Advance Directive Response Recorded Date/ Time Living Will No January 09, 2019 4:14pm Power of General Lithographic Worker No January 09 4:14pm Documents on File Type Date Recorded Patient Bone Char Operator Expl anation Advance Directive(s) 11/01/2018 10:26 AM Advance Directive Response Recorded Date/ Time Living Will No March 07, 2023 2:30pm Power of General Lithographic Worker No March 07 2:30pm Advance Directive Response Recorded Date/ Time Living Will No March 07, 2023 1:30pm Power of General Lithographic Worker No March 07 1:30pm Advance Directive Response Recorded Date/ Time Living Will No November 17, 2023 9:29am Power of General Lithographic Worker No November 16 9:29am Chief Complaint and [...] BARRETTS ESOPHAGUS 1 Y FU (MOVED FROM [facility]) ABN WEIGHT LOSS, DYSPHAGIA Reason for Visit Strain of right inde x finger Weight loss Palpitations Tachycardia Chief Complaint REPEAT EGD BARRETTS ESOPHAGUS 1 Y FU (MOVED FROM [facility]) ABN WEIGHT LOSS, DYSPHAGIA THYROID NODULES Reason for Visit Weight loss Palpitations Tachycardia Chief Complaint REPEAT EGD BARRETTS ESOPHAGUS 1 Y FU (MOVED FROM [employer]) ABN WEIGHT LOSS, DYSPHAGIA THYROID NODULES 3 [...] Acute upper respirat ory infection Chief Complaint Admit Date VOMITING January 17, 2025 7:19 am Reason for Referral Specialty Diagnoses / Procedures Referred By Contac t Referred To Contact Radiology Diagnoses Subclinical hyperthyroidism Procedures NM thyroid uptake and scan Judy Avila MD [address] [place] [address] Referral ID Status Reason Start Date Expiration Date V isits Requested Visits Authorized [id number] Pending Review 10/04/2023 10/03/2024 2 2 Additional Source Comments INFORMATION SOURCE (unrecogn ized section and content) DATE CREATED AUTHOR 01/24/2018 [facility] DATE CREATED AUTHOR AUTHOR'S ORGANIZ ATION 11/14/2018 [facility] DATE CREATED AUTHOR AUTHOR'S ORGANIZ ATION 06/21/2020 [facility] DATE CREATED AUTHOR AUTHOR'S ORGANIZ ATION 02/10/2023 [facility] DATE CREATED AUTHOR AUTHOR'S ORGANIZ ATION 05/14/2023 [facility] ([place]) DATE CREATED AUTHOR AUTHOR'S ORGANIZ ATION 07/13/2023 [facility] DATE CREATED AUTHOR AUTHOR'S ORGANIZ ATION 10/02/2024 [facility] DATE CREATED AUTHOR AUTHOR'S ORGANIZ ATION 12/15/2024 [facility] DATE CREATED AUTHOR AUTHOR'S ORGANIZ ATION 01/01/2025 [facility] DATE CREATED AUTHOR AUTHOR'S ORGANIZ ATION 01/25/2025 [facility] Care Team (unrecognized sect ion and content) Team Status: Active Member Role Status Dates Tiana Carter PURCHASING SPECIALIST, PURCHASING SPECIALIST-C Family Provider Active Tiana Carter NP, PURCHASING SPECIALIST-C Primary Care Provider Active Team Status: Inactive Member Role Status Dates Tiana Lorson PURCHASING SPECIALIST, PURCHASING SPECIALIST-C Primary Care Provider, Referri ng Provider Active Sami Norwood MD Attending Provider Active Team Status: Inactive Member Role Status Dates Tiana Carter PURCHASING SPECIALIST, PURCHASING SPECIALIST-C Primary Care Pro vider, Attending Provider, Referring Provider Active Team Status: Inactive Member Role Status Dates Tiana Carter PURCHASING SPECIALIST, PURCHASING SPECIALIST-C Primary Care Provider, Referri ng Provider Active Dr. Sudhir Wang MD Active Britni Hernandez PA, PA Attending Provider Active Team Status: Inactive Member Role Status Dates Tiana Carter PURCHASING SPECIALIST, PURCHASING SPECIALIST-C Primary Care Provider, Referri ng Provider Active Dr. Ralf Ventura MD Attending Provider Active Team Status: Inactive Member Role Status Dates Tiana Carter PURCHASING SPECIALIST, PURCHASING SPECIALIST-C Primary Care Provider Active Dr. Ralf Ventura MD Attending Provider, Referr ing Provider Active Crib Attendant Relationship Specialty Start Date End Date Cole Dillard CNP PCP - General Family Medicine 10/03/18 Crib Attendant Relationship Specialty Start Date End Date Cole Dillard CNP PCP - General Family Medicine 10/03/18 Team Status: Active Member Role Status Dates Tiana Carter PURCHASING SPECIALIST, PURCHASING SPECIALIST-C Primary Care Provider, Referri ng Provider Active Dr. Ralf Ventura MD Attending Provider, Other Provider Active Team Status: Active Member Role Status Dates Tiana Carter PURCHASING SPECIALIST, PURCHASING SPECIALIST-C Primary Care Provider Active ABRIL DONNELLY Attending Provider, Referring Provide r Active Team Status: Inactive Member Role Status Dates Tiana Carter PURCHASING SPECIALIST, PURCHASING SPECIALIST-C Primary Care Provider, Referri ng Provider Active Dr. John Thakur MD Attending Provider Active Team Status: Inactive Member Role Status Dates Tiana Carter PURCHASING SPECIALIST, PURCHASING SPECIALIST-C Primary Care Provider Active Dr. John Thakur MD Attending Provider, Referring Provi jasmyn Active Team Status: Inactive Member Role Status Dates Tiana Carter PURCHASING SPECIALIST, PURCHASING SPECIALIST-C Primary Care Provider Active ABRIL DONNELLY Attending Provider, Referring Provide r Active Crib Attendant Relationship Specialty Start Date End Date Cole Dillard CNP PCP - General Family Medicine 10/03/18 Crib Attendant Relationship Specialty Start Date End Date Physicians, [facility] [address] [place] [address] (Work) PCP - General 10/02/23 Crib Attendant Relationship Specialty Start Date End Date Physicians, [facility] [address] [place] [address] PCP - General 10/02/23 Crib Attendant Relationship Specialty Start Date End Date Physicians, [facility] [address] [place] [address] (Work) PCP - General 10/02/23 Crib Attendant Relationship Specialty Start Date End Date [facility] [address] [place] [address] (Work) PCP - General 10/02/23 10/04/23 Tiana Carter [address] [place] [address] PCP - General Nurse Practitioner Family 10/05/23 Crib Attendant Relationship Specialty Start Date End Date Tiana Carter [address] [place] [address] PCP - General Nurse Practitioner Family 10/05/23 Crib Attendant Relationship Specialty Start Date End Date Tiana Carter [address] [place] [address] PCP - General Nurse Practitioner Family 10/05/23 Crib Attendant Relationship Specialty Start Date End Date Tiana Carter [address] [place], [place] [id number] PCP - General Nurse Practitioner Family 10/05/23 Team Status: Inactive Member Role Status Dates Tiana Carter PURCHASING SPECIALIST, PURCHASING SPECIALIST-C Primary Care Provider, Referri ng Provider Active Earnest Gamble PA, PA Attending Provider Active Team Status: Inactive Member Role Status Dates Tiana Carter PURCHASING SPECIALIST, PURCHASING SPECIALIST-C Primary Care Provider Active MARGARITA KIM Attending Provider Active Team Status: Inactive Member Role Status Dates Tiana Carter PURCHASING SPECIALIST, PURCHASING SPECIALIST-C Primary Care Provider Active Dr. Nnamdi Mcmanus , DO Emergency Provider Active Crib Attendant Relationship Specialty Start Date End Date Tiana Carter [address] [place] [id number] PCP - General Nurse Practitioner Family 10/05/23 Crib Attendant Relationship Specialty Start Date End Date Tiana Carter [address] [place] [id number] PCP - General Nurse Practitioner Family 10/05/23 Crib Attendant Relationship Specialty Start Date End Date Tiana Carter [address] [place] [id number] PCP - General Nurse Practitioner Family 10/05/23 Crib Attendant Relationship Specialty Start Date End Date Tiana Carter [address] [place] [id number] PCP - General Nurse Practitioner Family 10/05/23 Team Status: Active Member Role Status Dates Tiana Carter PURCHASING SPECIALIST, PURCHASING SPECIALIST-C Primary Care Provider Active Team Status: Inactive Member Role Status Dates Tiana Carter PURCHASING SPECIALIST, PURCHASING SPECIALIST-C Primary Care Provider Active Start: January 13, 2025 End: January 13, 2025 Marylou Powell PURCHASING SPECIALIST, PURCHASING SPECIALIST-C Attending Provider Active Start: January 13, 2025 End: January 13, 2025 Team Status: Active Member Role/Relationship Status Dates Tiana Carter PURCHASING SPECIALIST, PURCHASING SPECIALIST-C Primary Care Provider Active Team Status: Inactive Member Role/Relationship Status Dates Tiana Carter PURCHASING SPECIALIST, PURCHASING SPECIALIST-C Primary Care Provider Active Start: January 13, 2025 End: January 13, 2025 Marylou Powell PURCHASING SPECIALIST, PURCHASING SPECIALIST-C Attending Provider Active Start: January 13, 2025 End: January 13, 2025 Team Status: Inactive Member Role/Relationship Status Dates Tiana Carter PURCHASING SPECIALIST, PURCHASING SPECIALIST-C Primary Care Provider Active Start: January 17, 2025 End: January 17, 2025 NGUYỄN Stark NP Attending Provider Active Start: January 17, 2025 End: January 17, 2025 NGUYỄN Stark NP Referring Provider Active Start: January 17, 2025 End: January 17, 2025 Goals (unrecognized section and content) Goals may be documented in a n alternate section Source Comments (unrecognize d section and content) In the event this informatio n is protected by the Federal Confidentiality of Alcohol and Drug Abuse Patient Records regulations: The Federal rules restrict any use of the information to criminally investigate or prosecute any alcohol or drug abuse patient.[facility] Hospital[facility] the event this information is protected by the Federal Confidentiality of Alcohol and Drug Abuse Patient Records regulations: The Federal rules restrict any use of the information to criminally investigate or prosecute any alcohol or drug abuse patient.[facility] HospitalIn the event this information is protected by the Federal Confidentiality of Alcohol and Drug Abuse Patient Records regulations: The Federal rules restrict any use of the information to criminally investigate or prosecute any alcohol or drug abuse patient.[facility] HospitalIn the event this information is protected by the Federal Confidentiality of Alcohol and Drug Abuse Patient Records regulations: The Federal rules restrict any use of the information to criminally investigate or prosecute any alcohol or drug abuse patient[facility] Reason for Visit (unrecogniz ed section and content) Reason Comments New Patient Pain in hands Reason Comments Orders Reason Comments Patient Update Reason Comments Patient Question Reason Comments New Patient Thyroid Problem Specialty Diagnoses / Procedures Referred By Contac t Referred To Contact Endocrinology Diagnoses Low TSH Procedures ND OFFICE/OUTPATIENT NEW MODERATE MDM 45-59 MINUTES Tiana Carter [address] [place] [address] [facility] [address] [place] [address] Referral ID Status Reason Start Date Expiration Date Visits Re quested Visits Authorized [id number] Closed 05/16/2023 05/16/2024 1 1 Reason Onset Date Comments Results 10/04/2023 Specialty Diagnoses / Procedures Referred By Vania t Referred To Contact Radiology Diagnoses Subclinical hyperthyroidism Procedures NM thyroid uptake and scan Judy Avila MD [address] [place] [address] Referral ID Status Reason Start Date Expiration Date Visits Re quested Visits Authorized [id number] Closed 10/04/2023 10/03/2024 2 1 Reason Onset Date Comments Results 11/06/2023 Specialty Diagnoses / Procedures Referred By Contac t Referred To Contact Radiology Diagnoses Multiple thyroid nodules SW pt //order in epic // pt aware of prep // no auth needed // covid neg Pred // monico ins // has no living will or healthcare power of trust and estates attorney // covid reviewed // did not run estimate should be 0.00 ran RTE e verified Procedures US GUIDED THYROID NEEDLE CORE BIOPSY W/ REFLEX AFFIRMA US GUIDED THYROID BIOPSY Judy Avila MD [address] [place] [address] [facility] [address] [place] [address] Referral ID Status Reason Start Date Expiration Date Visits Re quested Visits Authorized [id number] Closed 01/29/2024 01/23/2025 1 1 Reason Onset [...] PRIMARY CLINICAL RECORDS. [facility] [employer] [facility]. provides no warranty or guarantee of the accuracy or completeness of information in this document.
--- NOTE | 2025-02-14 06:47 | CT_ITS ---
EXAM: CT Abdomen and Pelvis With Intravenous Contrast CLINICAL INDICATION: NONINFECTIVE GASTROENTERITIS AND COLITIS, UNSPECIF TECHNIQUE: Axial computed tomography images of the abdomen and pelvis with intravenous contrast. This CT exam was performed using one or more of the following dose reduction techniques: automated exposure control, adjustment of the mA and/or kV according to patient size, and/or use of iterative reconstruction technique. COMPARISON: CT abdomen and pelvis 01/09/2023 FINDINGS: LUNG BASES: Unremarkable. No mass. No consolidation. ABDOMEN: LIVER: Hepatomegaly with fatty infiltration. GALLBLADDER AND BILE DUCTS: Unremarkable. No calcified stones. No ductal dilation. PANCREAS: Unremarkable. No mass. No ductal dilation. SPLEEN: Unremarkable. No splenomegaly. ADRENALS: Unremarkable. No mass. KIDNEYS AND URETERS: Unremarkable. No stones within either kidney. No hydronephrosis. STOMACH AND BOWEL: Fecal retention in the colon consistent with constipation. Colonic diverticulosis without acute diverticulitis. No obstruction. PELVIS: APPENDIX: No findings to suggest acute appendicitis. BLADDER: Unremarkable. No mass. REPRODUCTIVE: Unremarkable as visualized. ABDOMEN and PELVIS: INTRAPERITONEAL SPACE: Unremarkable. No free air. No significant fluid collection. BONES/JOINTS: No acute fracture. No dislocation. SOFT TISSUES: Unremarkable. VASCULATURE: Unremarkable. No abdominal aortic aneurysm. LYMPH NODES: Unremarkable. No enlarged lymph nodes. CT/Abdomen/Pelvis WITH Contrast IMPRESSION: 1. Hepatomegaly with fatty infiltration. 2. Fecal retention in the colon consistent with constipation. 3. No obstructive uropathy. 4. Colonic diverticulosis without acute diverticulitis. Reading [facility]
== END | disposition home or self-care (01) ==
LOC: CT 06:24
PROVIDERS: PCP Nurse Practitioner Family
DX: R10.9 Unspecified abdominal pain (principal)
CPT/HCPCS: 74177; Q9967

== ENCOUNTER → 2025-02-17 | Outpatient (CLI) | payer BC, SELFPAY ==
--- NOTE | 2025-02-17 12:17 | NM_ITS ---
PROCEDURE: HEPATOBILIARY IMG W/PHARM INT 02/17/2025 REASON FOR EXAM: ABD PAIN ACUTE TECHNIQUE: Intravenous Choletec with planar imaging of the abdomen. RADIOPHARMACEUTICAL: 5.7 mCi mebrofenin COMPARISON: CT 02/14/2025 FINDINGS: Homogeneous liver uptake. There is CBD and proximal bowel activity by 30 minutes. There is gallbladder activity by 60 minutes. 1.3 mcg of CCK was administered. Gallbladder ejection fraction of 0% is calculated. NM/Hepatobilliary Img w/Pharm Int IMPRESSION: Patent cystic and common bile ducts. However, there is evidence of biliary dys kinesia, with 0% gallbladder ejection fraction. Reading Location: [place] [address]
== END | disposition home or self-care (01) ==
LOC: NM 12:15
PROVIDERS: PCP Nurse Practitioner Family
DX: R10.9 Unspecified abdominal pain (principal); K52.9 Noninfective gastroenteritis and colitis, unspecified
CPT/HCPCS: 78227; A9537; J2805

== ENCOUNTER 2025-03-06 08:26 | Day surgery (SDC) | payer BC, SELFPAY ==
--- NOTE | 2025-02-26 13:46 | PAT.ANESEVAL ---
Pre-Assessment Diagnosis/Proposed Procedure Planned Operative Procedure(s): Robotic Cholecystectomy w/ICG Anesthesia History Anesthesia History - injection specialist: Anesthesia History - injection specialist Hx Hospitalization No 02/26/25 13:19 Any Problems With Anesthesia No 02/26/25 13:19 Cholinesterase deficiency No 02/26/25 13:19 You/Your Family Experience No 02/26/25 13:19 fever (hyperthermia) with Relationship Recent Exposure to Contagious No 03/10/23 09:26 Disease Does patient have nerve No 02/26/25 13:19 stimulator Patient instructed to have device shut off --Does patient have Pacemaker or ICD? When Was Last Pacemaker Check QUESTION #4 FULL TEXT: You/Your Family Experience fever (hyperthermia) with Anesthesia Last Oral Intake Last Oral intake: Last Oral Intake NPO since Meds taken in AM with sips of water? Meds patient instructed to take am of surgery PONV PONV - injection specialist: PONV - injection specialist Female Yes 02/26/25 13:19 HX of Motion Sickness No 02/26/25 13:19 HX of N/V After Surgery No 02/26/25 13:19 Non-Smoker No 02/26/25 13:19 Duration of Surgery greater Yes 02/26/25 13:19 than 60 minutes Number of Risk Factors 2 02/26/25 13:19 PONV Score Moderate Risk 02/26/25 13:19 Height & Weight Height & Weight: Anesthesia: Height & Weight Height 5 ft 4 in 02/24/25 09:15 Respiratory Assessment Respiratory Assessment - injection specialist: Respiratory Tract Infection Hx - injection specialist Hx Respiratory Tract Infection No 02/26/25 13:19 STOP Sleep Apnea STOP Sleep Apnea - injection specialist: STOP Sleep Apnea - injection specialist Hx Hypertension No 02/26/25 13:19 Hx Sleep Apnea No 02/26/25 13:19 CPAP BIPAP Do you snore loudly (louder No 02/26/25 13:19 than talking or can be heard Do you often feel tired/ No 02/26/25 13:19 fatigued/ sleepy during daytime? Has anyone observed you stop No 02/26/25 13:19 breathing during sleep? STOP Results Negative 02/26/25 13:19 QUESTION #5 FULL TEXT : Do you snore loudly (louder than talking or can be heard through closed doors)? 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 Specify any problems Hx of Preganancy in last 3 No 02/26/25 13:19 Months Nurse Filling Out Transfusion VCHRISTIN 02/26/25 13:19 & Questions: Date: 02/26/25 02/26/25 13:19 Time: 13:20 02/26/25 13:19 Patient unable to answer at this time (ie. confused, unrespo /Reproduction History /Reproductive History - injection specialist: /Reproductive Hx- injection specialist Hx Now No 02/26/25 13:19 Gestational Age (in weeks): EDC: Hx Hx Para Hx Section SAB No 02/26/25 13:19 Active Medications Active Medications: Current Medications Generic Name Dose Route Start Last Admin Trade Name Freq PRN Reason Stop Dose Admin Indocyanine Green 3.75 mg/ N/A 1.5 mls @ 999 mls/hr 03/06/25 09:15 IV 03/06/25 09:16 [facility] Medical History (Updated 02/26/25 @ 13:18 by Erika Agrawal) History of Holter monitoring Abnormal biliary HIDA scan Abnormal thyroid blood test Wears glasses Thyroid disease Kidney stones Back pain History of hiatal hernia History of IBS Gastric reflux Former smoker History of Holter monitoring History of echocardiogram Cardiology follow-up encounter History of irregular heartbeat Dysphagia Weight loss Strain of right index finger COVID-19 URI (upper respiratory infection) Encounter for screening for COVID-19 Anxiety Thyroid nodule Tachycardia Skaggs esophagus Home Medications ?Medication ?Instructions ?Recorded ?Last Taken ?Type buspirone 5 mg tablet 10 mg PO DAILY anxiety 08/29/19 Unknown History norgestimate-ethinyl estradiol 1 tab PO DAILY 12/16/22 Unknown History 0.18mg/0.215mg/0.25mg-0.035mg(28)tablet (Tri-Linyah) methimazole 5 mg tablet 5 mg PO DAILY 11/20/23 Unknown History sertraline 50 mg tablet 50 mg PO DAILY 11/20/23 Unknown History diltiazem HCl 30 mg tablet 30 mg PO DAILY #90 tabs 12/10/24 Unknown Rx metoprolol succinate 25 mg 25 mg PO DAILY #90 tabs 12/10/24 Unknown Rx tablet,extended release 24 hr Allergy/AdvReac Type Severity Reaction Status Date / Time No Known Allergies Allergy Verified 02/26/25 13:11 Family History Mother CHF (congestive heart failure) Father Heart disease Colon cancer Surgical History History of tonsillectomy and adenoidectomy History of Kimberly fundoplication History of colonoscopy (~2018) Status post biopsy of thyroid gland (~2016) History of esophagogastroduodenoscopy (EGD) Hx of hernia repair Social History Smoking Status: Current every day smoker tobacco type: e-cigarettes alcohol intake: never substance use type: does not use caffeine: Yes Type: coffee Audit: Pertinent Findings Pertinent Findings EKG Perinent findings: [facility] [address] [place] [address] 12 Lead EKG 11/17/23 0915 MR#: [id number] Acct: [id number] Name: MANE BRYANT Rep #: [id number] : 1980 42 From: Kenan Gordon MD Attending Dr: Status: DEP ER Ordering Dr: Nnamdi Mcmanus DO Date: 11/17/23 Location: ED Sex: F C Admitted: Test Reason : HIGH HR Blood Pressure : / mmHG Vent. Rate : 114 BPM Atrial Rate : 114 BPM P-R Int : 114 ms QRS Dur : 088 ms QT Int : 328 ms P-R-T Axes : 051 -49 066 degrees QTc Int : 452 ms Sinus tachycardia Left anterior fascicular block Abnormal ECG Confirmed by Kenan Gordon ([id number]), writer editor TONY SMITH ([id number]) on 11/20/2023 2:00:47 PM Referred By: Confirmed By:Kenan Gordon 11/20/23 1400 Echo (EF%) pertinent findings: 02/16/2017: normal LV chamber, EF 60-65%, normal RV, normal Aortic valve, trivial MR, trivial TR Consult pertinent findings: [facility] [address] [place] [address] OFFICE VISIT Date of Service: 02/23/24 MR#: [id number] Acct: [id number] Name: MANE BRYANT Rep #: [id number] : 1980 Provider: JOSELIN Montesinos Age/Sex: 43/F Location: [facility] [place] Status: Signed HPI HPI History of Present Illness Details: MANE BRYANT, is a 43 F with a has a history of sinus tachycardia, palpitations, hypothyroidism with a thyroid nodule status post thyroid biopsy, and anxiety. She had previously been monitored with a 30-day monitor and had a 5 beat run of VT. An echocardiogram done demonstrated preserved ejection fraction. She was in the office earlier this year for concerns over sinus tachycardia. We had attempted to have a loop recorder placed however insurance denied this. She did undergo a 14-day event monitor this did demonstrate 1 episode of sinus tachycardia with a heart rate of 129 that was associated with lightheadedness and dizziness. Her average heart rate was 84 bpm. No significant dysrhythmias noted. Patient does have brief palpitations. She has not had any fast heart rates. She has had some low heart rates. She did not have any symptoms similar to what she had earlier this year. Intake Vital Signs 11/20/23 11:25 02/23/24 08:46 Height 5 ft 4 in 5 ft 4 in Weight: 128 lb 135 lb BMI 21.9 23.1 BP 124/72 H 116/76 Blood Pressure Location Lt brachial Lt brachial Position Sitting Sitting Respiration 18 16 Pulse 96 96 Pulse Source Monitor Monitor Pulse Oximetry (%) 100 Intake Visit Reasons: 3 M FU Noise Tester Required: No Accompanied by: Self Is patient in pain?: No Allergies No Known Allergies Allergy (Verified 02/23/24 08:49) Medications Medication Instructions Recorded Confirmed Type buspirone 5 mg tablet 10 mg PO TID PRN anxiety 08/29/19 02/23/24 History norgestimate-ethinyl estradiol 1 tab PO DAILY 12/16/22 02/23/24 History 0.18 mg/0.215mg/0.25mg-35 mcg(28)tablet (Tri-Linyah) promethazine 25 mg tablet 25 mg PO Q4-6H PRN nausea and 11/03/23 02/23/24 Rx vomiting #20 tabs methimazole 5 mg tablet 5 mg PO DAILY 11/20/23 02/23/24 History sertraline 50 mg tablet 50 mg PO DAILY 11/20/23 02/23/24 History diltiazem HCl 30 mg tablet 30 mg PO DAILY #90 tabs 12/20/23 02/23/24 Rx metoprolol succinate 25 mg 25 mg PO DAILY #90 tabs 12/20/23 02/23/24 Rx tablet,extended release 24 hr Ejection fraction %: 60 Nurse's Note: wants to talk about ribs right side then off and on chest discomfort PFSH Medical History Abnormal thyroid blood test Wears glasses Thyroid disease Kidney stones Back pain History of hiatal hernia History of IBS Gastric reflux Former smoker History of Holter monitoring History of echocardiogram Cardiology follow-up encounter History of irregular heartbeat Dysphagia Weight loss Strain of right index finger COVID-19 URI (upper respiratory infection) Encounter for screening for COVID-19 Anxiety Thyroid nodule Tachycardia Skaggs esophagus Surgical History History of tonsillectomy and adenoidectomy History of Kimberly fundoplication History of colonoscopy (~2019) Status post biopsy of thyroid gland (~2017) History of esophagogastroduodenoscopy (EGD) Hx of hernia repair Family History Mother CHF (congestive heart failure) Father Heart disease Colon cancer Social History Smoking Status: Former smoker alcohol intake: never substance use type: does not use caffeine: Yes Type: coffee ROS Const Const: Positive for difficulty sleeping (same); Negative for fatigue, weakness, headache(s), frequent falls or excessive sweating Eyes Eyes: Negative for loss of peripheral vision, transient loss of vision, blurry vision, double vision or tunnel vision ENT ENT: Negative for headache(s), dizziness, Nosebleed/epistaxis or balance problems Cardio Chest Pain: Yes (discomfort) Frequency: daily, weekly and more than once a day Character: dull Location: epigastric and mid sternal Duration: brief Palpitations: Yes (her normal) feels like its: fast and skipping Edema: Bilateral (always) Muscle aches with walking: None Resp Respiratory: Negative for SOB with activity, SOB at rest, SOB orthopnea\SOB lying down, Cough or paroxysmal nocturnal dyspnea GI GI: Positive for nausea (sometimes-norm) and heartburn; Negative vomiting or black,tarry stools : Negative for hematuria Musc Musc: Negative for muscle aches/ myalgia, muscle weakness, joint pain or balance problems Skin Skin: Negative non-healing lesions, rash or unusual bruising Neuro Neuro: Positive for lightheadedness (sometimes); Negative for dizziness, near syncope, syncope, frequent falls, headache(s), weakness, blurry vision, double vision or lack of coordination James Hematologic/Lymphatic: Negative for easy bleeding or easy bruising Endo Endo: Negative for fatigue, excessive sweating or increased thirst/drinking Psych Psych: Negative for anxiety or depression Allergy Allergy/Immunology: Negative for hives and Negative for rash Cardiology Exam Const Appearance: cooperative, healthy appearing, comfortable, no acute distress and well developed Orientation: alert, awake and oriented x3 Head Head: normal to inspection Ears: hearing grossly normal bilaterally Nose: external nose normal Face and Sinus: face symmetric Mouth: oral mucosae normal, lip normal and moist mucous membranes Eyes General: appearance normal, both eyes and all related structures Eyelids: eyelids normal Conjunctivae: conjunctivae normal Pupils: PERRL EOM: EOM intact bilaterally Neck Neck: normal visual inspection and trachea midline; Negative no JVD Carotids: Negative bruit Chest Chest inspection: normal inspection of the chest Auscultation: Bilateral: Clear to Auscultation Cardio Palpation: normal PMI Rate: regular rate Rhythm: regular rhythm Heart sounds: S1 normal and S2 normal; Negative rub, gallop or murmur GI GI: soft, no hepatosplenomegaly and bowel sounds present Neuro General: patient alert, patient awake, patient oriented x3 and CN's II-XI intact bilaterally Extremities Pulses: Normal: Right Posterior Tibial Pulse, Left Posterior Tibial Pulse, Right Radial Pulse and Left Radial Pulse Lower Extremity Edema: None: Bilateral Psych Psychological: normal affect Supplemental Info Supplemental Information Holter monitor from [facility] in January 2017 showed normal sinus rhythm, 36 isolated ventricular ectopic beats, 18 isolated atrial ectopic beats, and no pauses longer than 3 seconds. Labs: Thyroid Stim Immunoglob<0.10 IU/L (0.00-0.55) LDL Cholesterol 124 mg/dL (0-130) HDL Cholesterol 91 mg/dL (40-) Cholesterol 233 mg/dL (200) H Triglycerides 88 mg/dL (-199) Diagnostics: Electrocardiogram Chest X-Ray Abdomen/Pelvis CT Pulmonary: No Data to Display Past Visits: Cardiology Visit 02/23/24 Assessment and Plan Assessment and Plan (1) Tachycardia: Status: Chronic (2) Palpitations: Status: Chronic Plan Reviewed event monitor with patient. Patient still occasionally has tachycardia. She has not had any symptoms similar to what led her to the office and October of this year. She is still concerned about the symptoms. As the symptoms are not frequent would like to pursue a loop recorder for further evaluation of SVT. Patient in the meantime we will continue with her metoprolol and diltiazem. Plan Details Follow Up: 6 Months (MMM) Additional pertinent findings: Holtor monitor 12/04/2023 to 01/02/2024 Baseline NSR at 96.6 BPM. 0 critical, 0 serious, 3 stable events occurred. Recommendation Anesthesia Recommendation Anesthesia recommendation: OPTIMIZED for anesthesia
[2025-03-06] VITALS (10 sets, daily range): BP systolic 97–116; BP diastolic 60–73; PULSE 13–89; RESP 16–20; TEMP 36.2–36.7; O2SAT 93–100; BMI 24.5
--- NOTE | 2025-03-06 08:37 | EKG12_ITS ---
Test Reason : PRE OP Blood Pressure : */* mmHG Vent. Rate : 76 BPM Atrial Rate : * BPM P-R Int : * ms QRS Dur : 82 ms QT Int : 374 ms P-R-T Axes : * -40 25 degrees QTcB Int : 420 ms Normal sinus rhythm Left axis deviation Low voltage QRS Abnormal ECG When compared with ECG of 17-Nov-2023 09:15, Junctional rhythm has replaced Sinus rhythm Vent. rate has decreased by 38 bpm Nonspecific T wave abnormality now evident in Anterior leads Reconfirmed by MING HOWE, CHLOE ([id number]), assistant editor AWAIS GALVAN ([id number]) on 03/10/2025 1:00:18 PM Referred By: Deana Duran Confirmed By: CHLOE LAI MD
[2025-03-06 08:53] LABS: Internal QC Validated? YES +Cl - CLEAR BKGD; Pregnancy, Urine Negative Negative; Record Kit Lot#,Urine Preg 962302
[2025-03-06] MEDS: Lactated Ringers 1,000 ML 15 ML IV ×2 (09:00→12:25)
[2025-03-06] MEDS: INDOCYANINE GREEN 3.75 MG in Syringe 1.5 ML 999 MG IV (09:08)
--- NOTE | 2025-03-06 09:23 | PRE.ANES_ITS ---
ASA Classification* ASA Classification ASA Classification: 2 Assessment & Plan Anesthesia* Anesthesia Assessment Anesthesia Assessment: Discussed sedation and/or anesthesia options, risks, benefits, and alternatives with patient/parents/legal guardian/POA. Questions invited. The patient/parents/legal guardian/POA seems to understand and agrees to proceed with anesthesia plan. Reviewed the physical assessment, medical history, allergy history and patient home medications list prior to surgery/procedure/anesthetic and documented any changes. Performed airway and anesthesia risk assessments. Anesthesia Type Anesthesia Type: General (Barrets esophagitis., rapid sequence induction, with glide scope) Anesthesia Focused Assessment* Temperature: 98.0 F Pulse Rate: 73 Blood Pressure: 101/63 Respiratory Rate: 16 Pulse Ox: 100 Airway Assessment Mouth opens: >3 cm Mallampati Score: II Labs Anesthesia Preop lab: CBC WBC 7.6 K/mm3 (4.4-11.0) 01/13/25 16:55 01/13/25 RBC 4.30 M/mm3 (4.2-5.4) 01/13/25 16:55 01/13/25 Hgb 13.4 g/dL (12.0-15.0) 01/13/25 16:55 01/13/25 Hct 40.0 % (37-47) 01/13/25 16:55 01/13/25 Plt Count 222 K/mm3 (150-450) 01/13/25 16:55 01/13/25 CHEMISTRY Potassium 3.4 mmol/L (3.3-5.1) 01/13/25 16:55 01/13/25 Sodium 137 mmol/L (133-145) 01/13/25 16:55 01/13/25 Magnesium 2.1 mg/dL (1.6-2.6) 05/20/24 09:09 05/20/24 BUN 7 mg/dL (4-19) 01/13/25 16:55 01/13/25 Creatinine 0.80 mg/dL (0.70-1.20) 01/13/25 16:55 01/13/25 Glucose 123 mg/dL (70-99) H 01/13/25 16:55 01/13/25 TSH 1.790 uIU/mL (0.358-3.740) 09/17/24 08:49 0203/24 COAG Urine Test Negative Negative 03/06/25 08:35 03/06/25 Pre-Assessment Diagnosis/Proposed Procedure Planned Operative Procedure(s): Robotic Cholecystectomy w/ICG Anesthesia History 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 When Was Last Pacemaker Check QUESTION #4 FULL TEXT: You/Your Family Experience fever (hyperthermia) with Anesthesia Last Oral Intake Last Oral intake: Last Oral Intake NPO since 05:30 03/06/25 08:50 Meds taken in AM with sips of Yes 03/06/25 08:50 water? 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 Female Yes 02/26/25 13:19 HX of Motion Sickness No 02/26/25 13:19 HX of N/V After Surgery No 02/26/25 13:19 Non-Smoker No 02/26/25 13:19 Duration of Surgery greater Yes 02/26/25 13:19 than 60 minutes Number of Risk Factors 2 02/26/25 13:19 PONV Score Moderate Risk 02/26/25 13:19 Height & Weight Height & Weight: Anesthesia: Height & Weight Height 5 ft 4 in 03/06/25 08:50 Weight: 65 kg 03/06/25 08:50 Body Mass Index (BMI) 24.5 03/06/25 08:50 Respiratory Assessment Respiratory Assessment - ammonium hydroxide operator: Respiratory Tract Infection Hx - ammonium hydroxide operator Hx Respiratory Tract Infection No 02/26/25 13:19 STOP Sleep Apnea STOP Sleep Apnea - ammonium hydroxide operator: STOP Sleep Apnea - ammonium hydroxide operator Hx Hypertension No 02/26/25 13:19 Hx Sleep Apnea No 02/26/25 13:19 CPAP BIPAP Do you snore loudly (louder No 02/26/25 13:19 than talking or can be heard Do you often feel tired/ No 02/26/25 13:19 fatigued/ sleepy during daytime? Has anyone observed you stop No 02/26/25 13:19 breathing during sleep? STOP Results Negative 02/26/25 13:19 QUESTION #5 FULL TEXT : Do you snore loudly (louder than talking or can be heard through closed doors)? 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 Specify any problems Hx of Preganancy in last 3 No 02/26/25 13:19 Months Nurse Filling Out Transfusion VCHRISTIN 02/26/25 13:19 & Questions: Date: 02/26/25 02/26/25 13:19 Time: 13:20 02/26/25 13:19 Patient unable to answer at this time (ie. confused, unrespo /Reproduction History /Reproductive History - ammonium hydroxide operator: /Reproductive Hx- ammonium hydroxide operator Hx Now No 02/26/25 13:19 Gestational Age (in weeks): EDC: Hx Hx Para Hx Section SAB No 02/26/25 13:19 Active Medications Active Medications: Current Medications Generic Name Dose Route Start Last Admin Trade Name Freq PRN Reason Stop Dose Admin Cefazolin Sodium 2 gm/ Sodium 110 mls @ 200 mls/hr 03/06/25 10:00 Chloride IV 03/06/25 10:32 INTRAOP ONE Lactated Ringer's 1,000 mls @ 15 mls/hr 03/06/25 08:45 03/06/25 09:00 IV 15 mls/hr .Q48H JORJE Administration PFSH Medical History (Updated 02/26/25 @ 13:18 by Erika Agrawal) History of Holter monitoring Abnormal biliary HIDA scan Abnormal thyroid blood test Wears glasses Thyroid disease Kidney stones Back pain History of hiatal hernia History of IBS Gastric reflux Former smoker History of Holter monitoring History of echocardiogram Cardiology follow-up encounter History of irregular heartbeat Dysphagia Weight loss Strain of right index finger COVID-19 URI (upper respiratory infection) Encounter for screening for COVID-19 Anxiety Thyroid nodule Tachycardia Skaggs esophagus Home Medications ?Medication ?Instructions ?Recorded ?Last Taken ?Type buspirone 5 mg tablet 10 mg PO DAILY anxiety 08/29 Unknown History norgestimate-ethinyl estradiol 1 tab PO DAILY 12/16/22 Unknown History 0.18mg/0.215mg/0.25mg-0.035mg(28)tablet (Tri-Linyah) methimazole 5 mg tablet 5 mg PO DAILY 11/20/2303/06 06:30 History sertraline 50 mg tablet 50 mg PO DAILY 11/20/23 Unkn own History diltiazem HCl 30 mg tablet 30 mg PO DAILY #90 tabs 03/06/25 06:30 Rx metoprolol succinate 25 mg 25 mg PO DAILY #90 tabs 03/06/25 06:30 Rx tablet,extended release 24 hr Allergy/AdvReac Type Severity Reaction Status Date / Time No Known Allergies Allergy Verified 03/06/25 09:00 Family History Mother CHF (congestive heart failure) Father Heart disease Colon cancer Surgical History History of tonsillectomy and adenoidectomy History of Kimberly fundoplication History of colonoscopy (~2019) Status post biopsy of thyroid gland (~2017) History of esophagogastroduodenoscopy (EGD) Hx of hernia repair Social History Smoking Status: Current every day smoker tobacco type: e-cigarettes alcohol intake: never substance use type: does not use caffeine: Yes Type: coffee Review of Systems (Anesthesia) ROS Narrative System reviewed and no additional complaints, except as documented.
--- NOTE | 2025-03-06 09:27 | PCM.HP.BLA ---
History and Physical Date of Admission: 03/06/25 Date of Service: 02/24/25 MR#: [id number] Acct: [id number] Name: MANE BRYANT Rep #: [id number] : 1980 Provider: Dr. Deana Duran MD Age/Sex: 44/F Location: [facility] [place] Status: Signed Intake Vital Signs 02/23/2408:46 02/24/2509:15 Height 5 ft 4 in 5 ft 4 in Weight: 143 lb BMI 24.5 BP 108/67 Blood Pressure Location Rt brachial Position Sitting Respiration 18 Pulse 82 Pulse Source Monitor Temp 97.6 F L Temp Source Temporal Pulse Oximetry (%) 99 Oxygen Delivery Method room air Intake Visit Reasons: ABNORMAL HIDA Chief Complaint: abnormal HIDA Is patient in pain?: No Allergies No Known Allergies Allergy (Verified 02/24/25 09:15) Medications ?Medication ?Instructions ?Recorded ?Confirmed ?Type buspirone 5 mg tablet 10 mg PO TID PRN anxiety 08/29/19 02/24/25 History norgestimate-ethinyl estradiol 1 tab PO DAILY 12/16/22 02/24/25 History 0.18mg/0.215mg/0.25mg-0.035mg()tablet (Tri-Linyah) methimazole 5 mg tablet 5 mg PO DAILY 11/20/23 02/24/25 History sertraline 50 mg tablet 50 mg PO DAILY 11/20/23 02/24/25 History diltiazem HCl 30 mg tablet 30 mg PO DAILY #90 tabs 12/10/24 02/24/25 Rx metoprolol succinate 25 mg 25 mg PO DAILY #90 tabs 12/10/24 02/24/25 Rx tablet,extended release 24 hr PFSH Medical History (Updated 02/24/25 @ 09:15 by Charo Abdullahi LPN) Abnormal biliary HIDA scan Abnormal thyroid blood test Wears glasses Thyroid disease Kidney stones Back pain History of hiatal hernia History of IBS Gastric reflux Former smoker History of Holter monitoring History of echocardiogram Cardiology follow-up encounter History of irregular heartbeat Dysphagia Weight loss Strain of right index finger COVID-19 URI (upper respiratory infection) Encounter for screening for COVID-19 Anxiety Thyroid nodule Tachycardia Skaggs esophagus Surgical History History of tonsillectomy and adenoidectomy History of Kimberly fundoplication History of colonoscopy (~2019) Status post biopsy of thyroid gland (~2017) History of esophagogastroduodenoscopy (EGD) Hx of hernia repair Family History Mother CHF (congestive heart failure)Father Heart disease Colon cancer Social History Smoking Status: Former smoker alcohol intake: never substance use type: does not use caffeine: Yes Type: coffee HPI HPI HPI: 44-year-old female presents due to right upper quadrant pain and abnormal HIDA scan consistent with biliary dyskinesia. Patient states that for the last 2 months she has been having right upper quadrant pressure rates it a 4?5/10 and is pretty constant. Patient also has been having diarrhea typically daily and this was even prior to the 2 months previous patient was diagnosed with IBS. Patient's previous abdominal surgeries include a laparoscopic Kimberly. Gallbladder ultrasound showed a small amount of sludge in the gallbladder lumen gallbladder wall is not thickened normal common bile duct. HIDA had a ejection fraction of 0. ROS General General: Yes weight change and fatigue; No appetite, colon cancer, breast cancer or weakness HEENT HEENT: Yes difficulty swallowing; No eye injury, eye surgery, swollen glands or hoarseness Endo Endocrine: Yes thyroid disease; No diabetes mellitus, thyroid cancer, Hair loss, heat intolerance or cold intolerance Skin Skin: No rash or changing moles Musc Musculoskeletal: No back problems, arthritis, rheumatoid arthritis, gout or joint pain Cardio Cardiovascular: Yes heart disease; No murmur, pacemaker, atrial fibrillation, high blood pressure, heart attack, heart stent, palpitations, shortness of breath with exertion or chest pain Psych Psychiatric: Yes anxiety; No depression or hearing voices Resp Respiratory: No shortness of breath, No sleep apnea, No cough, No COPD, No asthma, No emphysema and No wheezing Gastro Gastrointestinal: Yes abdominal pain, Yes nausea or vomiting, Yes diarrhea, Yes constipation, No blood in stool, No acid reflux, No hemorrhoids, No ulcers, Yes gallbladder problem and No black,tarry stools James Hematologic: No blood thinners, No blood disorders, No bleeding, No anemia and No blood clots Neuro Neurologic: No numbness, No tingling and No weakness Exam Const General: cooperative, healthy appearing, comfortable and no acute distress HENMT Head: normocephalic and atraumatic Neck Neck: supple Resp Effort & Inspection: normal respiratory effort Cardio Rate: regular rate GI Inspection: non-distended Palpation: soft, no hernias and nontender Skin General: no rashes or lesions noted Neuro General: CN's II-XI intact bilaterally Extrem General: normal to inspection Psych Mental Status: mental status grossly normal Attitude: cooperative Assessment and Plan Assessment and Plan (1) Abnormal biliary HIDA scan: Status: Acute Plan Reviewed the anatomy with the patient and discussed the procedure: Robotic/laparoscopic cholecystectomy with possible cholangiograms, possible open. Review risks including but not limited to bleeding, infection, hernia, bile leak, retained gallstones requiring another procedure ERCP- Endoscopic Retrograde Cholangiopancreatography, injury to another organ (bile ducts, common bile duct, small bowel, etc.) and conversion to an open procedure. All questions were answered. Deana Duran M.D. Pager: [phone] [facility] [address] [place] [address], [address] [place] [address] Office: [phone] Coding Level of Care Code Off vis,new,level 3 Diagnoses Abnormal biliary HIDA scan R94.8 02/26/25 1050 <Electronically signed by Deana Duran MD> Date eDana Duran MD
--- NOTE | 2025-03-06 09:45 | GALL_PTH ---
PATIENT: MANE BRYANT LOC: [facility] [place] U#:[id number] AGE/SX: 44/F ROOM: RE03/06/[address]: Dr. Deana Duran MD : 1980 BED: DIS: 03/06/2025 SPEC #: [id number] RECD: 03/06/25 11:50 STATUS: ZOFIA RERiana #: [id number] VIRGIL: 03/06/25 09:[address]: Deana Duran DEPT: SURGICAL PATHOLOGY RECD BY: Gabriel Perez ENTERED: 03/06/25 15:06 SP TYPE: PAUL HENDRIX DR: Tiana Carter, HOSTESS [employer] SALES REPRESENTATIVE-Sharron Tissues: A - Gallbladder, NOS Procedures: Surgery Specimen Level III HEADER OPERATION: Robotic cholecystectomy with IGC PRE-OP DIAGNOSIS: Abnormal biliary HIDA scan TISSUE SUBMITTED: A- Gallbladder MICROSCOPIC DIAGNOSIS A. Gallbladder, cholecystectomy: * Slight chronic cholecystitis MICROSCOPIC DESCRIPTION Slides are reviewed. GROSS DESCRIPTION A. Received in formalin and labeled with the patient's name and date of . Designated as gallbladder is a 7.6 x 3.8 x 2.3 cm pink-judd and green, somewhat shaggy and intact gallbladder with attached patent cystic duct (inked black, shaved). A lymph node is not present. The specimen contains dark green tenacious bile, devoid of biliary calculi. The mucosa is green-brown and granular with focal erosions, edematous cut surfaces and a maximum wall thickness of 0.3 cm. There is a possible diverticulum at the fundus. Cholesterolosis is not present. Sql Report Developer sections are submitted in 1 cassette. AL 03/06/2025 CPT:41561
[2025-03-06] MEDS: Midazolam 2 MG/2 ML Syringe IV (10:12)
[2025-03-06] MEDS: Lactated Ringers 1,000 ML 1000 ML IV (10:12)
[2025-03-06] MEDS: Cefazolin 1 GM/5 ML Vial 2 GM IV (10:18)
[2025-03-06] MEDS: fentaNYL 100 MCG/2 ML Ampul 150 MCG IV (10:18)
--- NOTE | 2025-03-06 11:21 | OP.PCM_ITS ---
Operative Report (Standard) Operative Information Date of Procedure: 03/06/25 Pre-Operative Diagnosis: Biliary dyskinesia Post-Operative Diagnosis: Same Surgery/Procedure Performed: Robotic cholecystectomy nursing education specialist: Yes Brewery Pumper: Cindy Ramirez Tasks completed by assistant media planner: Opening & closing Type of Anesthesia: General/Supplemental RN Documented Start/Stop Times: Operation Date: 03/06/25 09:45 Case Time Into Pre-Op 03/06/25 08:35 Anesthesia Start 03/06/25 10:12 Into Room 03/06/25 10:12 Procedure Start 03/06/25 10:28 Procedure End 03/06/25 11:30 Anesthesia End 03/06/25 11:34 Out of Room 03/06/25 11:34 Into Recovery 03/06/25 11:36 Out of Recovery 03/06/25 12:23 Into Phase II Recovery 03/06/25 12:24 Out of Phase II 03/06/25 13:25 Procedure Start Time: 10:28 Procedure Stop Time: 11:30 Select all DRAINS/GRAFTS/IMPLANTS that apply: None Special Medications: Ancef 2 g IV x 1 Estimated Blood Loss: < 10 cc Specimen collected: Yes Description of specimen(s) removed: Gallbladder Description of surgery: Indications: this is a 44 year-old female who developed abdominal pain/jonas sea/vomiting and on workup was found to have biliary dyskinesia, with a normal common bile duct. Laparoscopic cholecystectomy was elected. Description procedure: The patient was placed on operating table in supine position. A timeout was completed verifying correct patient, procedure, site, position and special equipment prior to beginning procedure. General Anesthesia was induced. The abdomen was prepped and draped in usual sterile fashion. An incision was made in the natural skin line below the umbilicus. The fascia was elevated and incised. The peritoneum was elevated and incised. Entry into the peritoneum was confirmed visually and no bowel was noted in the vicinity of the incision. Gardner trocar was placed. The abdomen was insufflated with carbon dioxide to a pressure of 12-15 mmHg. Patient tolerated insufflation well. The laparoscope was then inserted and abdomen inspected. No injuries from initial trocar placement were noted. Additional trochars were then inserted in the following locations 8 mm trocar left upper quadrant and 2 more 8 mm trochars in right lower quadrant and left lower quadrant. The abdomen was inspected no abnormalities were found. The tab le is placed in reverse Trendelenburg position with the right side up. Robot was docked. The adhesions between the gallbladder and omentum were taken down carefully. The dome of the gallbladder was grasped with atraumatic grasper passed through the lateral port and retracted over the dome of the liver. Infundibulum was then grasped with atraumatic grasper through the midclavicular port and ret racted to the right lower quadrant. This maneuver exposed Calot's triangle. The peritoneum overlying the gallbladder infundibulum was then incised and cystic duct and artery identified and circumferentially dissected. ICG was used to visualize the cystic duct. The cystic duct and artery were then doubly clipped and divided close to the gallbladder. The gallbladder then dissected from its peritoneal attachments by electrocautery. Hemostasis was checked and the gallbladder was removed using the endoscopic retrieval bag through the umbilical port. The gallbladder is passed off table as specimen. The gallbladder fossa was irrigated with saline and hemostasis obtained. There is no evidence of bleeding from the gallbladder fossa or cystic artery leakage of bile from the cystic duct stump. Secondary trochars removed under direct vision. No bleeding was noted the trocar sites. The laparoscope was withdrawn and umbilical trocar removed. The abdomen was allowed to collapse. The fascia of the 12 mm trocar was closed with a [id number] 0 Vicryl suture. The skin was closed with sutures of 4-0 Monocryl and Steri-Strips. The patient was extubated. The patient tolerated procedure well and was taken to the postanesthesia care unit in stable condition. Surgical Findings: See operative report Complications Complications: No
--- NOTE | 2025-03-06 11:23 | DCINST_ITS ---
Discharge Instructions Diet Discharge Diet: Light diet - advance as tolerated Activity Discharge Activity: May Not Drive (while taking narcotic pain medications.) May shower in (days): 1 Lifting Restrictions: no lifting >20 lbs x 2 wks, no strenuous exercise for 4 wks Dressing / Incision Call your doctor if your incision/area has: Continuous Slow Oozing, Sudden Increased Bleeding, Increased Pain/ Swelling, Increased Redness, Foul Smelling Discharge and Swelling at the incision site Call your doctor if you observe: Fever of 101 or Higher Remove Dressing in: 2 days Cleanse incision/area with: Soap & Water Additional Dressing/Incision Instructions:: Steri-Strips will fall off in 7 to 10 days, if they do not fall off okay to remove after 10 days. Follow Up Care Please Follow Up With: Deana Duran MD When: Call the office for a follow-up appointment 2 weeks; after 5 PM and on the weekends call [phone] with any concerns. Test Results: Test results from this visit will be discussed in further detail at your follow- up appointment, if applicable. Discharge Plan Admission Attending Provider: Deana Duran Primary Care Provider: Tiana Carter NP Instructions Print Language: Ethiopian Discharge Orders/Prescriptions Prescriptions: New oxycodone 5 mg capsule 5 mg PO Q6H PRN (Reason: pain) 3 Days Qty: 10 0RF Continued buspirone 5 mg tablet 10 mg PO DAILY norgestimate-ethinyl estradiol [Tri-Linyah] 0.18/0.215/0.25 mg-35 mcg (28) tablet 1 tab PO DAILY methimazole 5 mg tablet 5 mg PO DAILY sertraline 50 mg tablet 50 mg PO DAILY diltiazem HCl 30 mg tablet 30 mg PO DAILY Qty: 90 3RF metoprolol succinate 25 mg tablet extended release 24 hr 25 mg PO DAILY Qty: 90 3RF Referrals / Follow Up: Tiana Carter NP, TRANSMITTER TESTER-C [Primary Care Provider] - Disposition Disposition (needs filled in before D/C Order can be placed): Home, Self Care
[2025-03-06] MEDS: Bupiv/Epi 0.25% 30 ML Vial (11:28)
--- NOTE | 2025-03-06 11:40 | PCM.POST.ANE ---
Anesthesia: Postop Eval I Current Vital Signs Temperature: 97.2 F Pulse Rate: 13 Blood Pressure: 116/66 Respiratory Rate: 20 Pulse Ox: 93 Oxygen Delivery Method: Room Air Assessment Airway patent: Yes Spontaneous unlabored respirations: Yes Mental status: Awake and Calm nausea: No Vomiting: No Anesthesia Complication: No Fluid Hydration Crystalloid volume administer (ml): 900 Total IV fluid infused: 900 Progress Note Anesthesia document: Postop Eval 1 completed: Yes
--- NOTE | 2025-03-06 13:22 | POSTOPAN2_ITS ---
Anesthesia Postop Eval I Sum Postop Eval Completion status Anesthesia document: Postop Eval 1 completed: Yes Anesthesia Postop Eval I Summary Anesthesia Postop Eval I Summary: Anesthesia Postop Eval I: Assessment Summary Airway patent Yes 03/06/25 11:41 SHIPS OR BARGES LOADER.[email or web address] Spontaneous unlabored Yes 03/06/25 11:41 SHIPS OR BARGES LOADER.[email or web address] respirations Mental status Awake,Calm 03/06/25 11:41 SHIPS OR BARGES LOADER.[email or web address] nausea No 03/06/25 11:41 SHIPS OR BARGES LOADER.[email or web address] Vomiting No 03/06/25 11:41 SHIPS OR BARGES LOADER.[email or web address] Anesthesia Postop Eval I: Fluid Summary Crystalloid volume administer 900 03/06/25 11:41 SHIPS OR BARGES LOADER.[email or web address] (ml) Colloids volume administered ( ml) Blood Product volume administered (ml) Total IV fluid infused 900 03/06/25 11:41 SHIPS OR BARGES LOADER.[email or web address] Anesthesia Postop Eval I: Summary Notes Anesthesia Complication No 03/06/25 11:41 SHIPS OR BARGES LOADER.[email or web address] Anesthesia Complication Comment: Post-operative progress note Anesthesia: Postop Eval II Evaluation Mental status: Awake Pain Level: 0 nausea: No Vomiting: No
--- NOTE | 2025-03-06 13:22 | PCM.POSTANE2 ---
Anesthesia Postop Eval I Sum Postop Eval Completion status Anesthesia document: Postop Eval 1 completed: Yes Anesthesia Postop Eval I Summary Anesthesia Postop Eval I Summary: Anesthesia Postop Eval I: Assessment Summary Airway patent Yes 03/06/25 11:41 BI [email or web address] Spontaneous unlabored Yes 03/06/25 11:41 BI [email or web address] respirations Mental status Awake,Calm 03/06/25 11:41 BI [email or web address] nausea No 03/06/25 11:41 BI [email or web address] Vomiting No 03/06/25 11:41 BI [email or web address] Anesthesia Postop Eval I: Fluid Summary Crystalloid volume administer 900 03/06/25 11:41 BI [email or web address] (ml) Colloids volume administered ( ml) Blood Product volume administered (ml) Total IV fluid infused 900 03/06/25 11:41 BI [email or web address] Anesthesia Postop Eval I: Summary Notes Anesthesia Complication No 03/06/25 11:41 BI [email or web address] Anesthesia Complication Comment: Post-operative progress note Anesthesia: Postop Eval II Evaluation Mental status: Awake Pain Level: 0 nausea: No Vomiting: No
== END 2025-03-06 13:26 | disposition home or self-care (01) ==
LOC: SDC 08:26 → AC 08:28
PROVIDERS: Anesthesiology; PCP Nurse Practitioner Family; Referring Provider Surgery; Visit Provider Surgery
PROC: 0FT44ZZ Resection of Gallbladder, Percutaneous Endoscopic Approach (ICD-10-PCS; CPT 47562; principal; 2025-03-06 09:25)
DX: K81.1 Chronic cholecystitis (principal); R94.8 Abnormal results of function studies of other organs and systems; Z87.891 Personal history of nicotine dependence; Z86.16 Personal history of COVID-19; K82.8 Other specified diseases of gallbladder
CPT/HCPCS: 47562; 00790; 81025; 88304; 93005; J2405

== ENCOUNTER → 2025-03-27 | Outpatient (CLI) | payer BC, SELFPAY ==
[2025-03-27 13:19] LABS: Free T3 3.1 pg/mL (2.18-3.98)
== END | disposition home or self-care (01) ==
LOC: MFPLAB 11:32
PROVIDERS: PCP Nurse Practitioner Family
DX: E05.90 Thyrotoxicosis, unspecified without thyrotoxic crisis or storm (principal)
CPT/HCPCS: 36415; 84439; 84443; 84481

== ENCOUNTER → 2025-05-09 | Outpatient (CLI) | payer BC, SELFPAY ==
--- NOTE | 2025-05-09 12:30 | BI_ITS ---
EXAM: SCRN MAMM (CAD)W/SHON BILAT DATE: 05/09/2025 CLINICAL HISTORY: F, Age 44 y/o , SCREENING FOR BREAST CANCER TECHNIQUE: Procedure Code: [id number] Modality: MG Procedure: SCRN MAMM (CAD)W/SHON BILAT COMPARISON: Prior exam(s) were compared . FINDINGS: TISSUE DENSITY: The breasts are heterogeneously dense, which may obscure small masses. Bilateral Breast Mammographic Findings: No suspicious masses, calcifications or other abnormalities are identified. BI/SCRN MAMM (CAD)W/SHON BILAT IMPRESSION: No mammographic evidence of malignancy in either breast. OVERALL FINAL ASSESSMENT BI-RADS 1: NEGATIVE. RECOMMENDATION: Routine annual follow-up in 1 Year Additional Recommendation none A letter with findings and recommendations will be mailed to the patient. Reading Location: [id number]
--- NOTE | 2025-05-09 12:30 | BI_ITS ---
EXAM: SCRN MAMM (CAD)W/SHON BILAT DATE: 05/09/2025 CLINICAL HISTORY: F, Age 44 y/o , SCREENING FOR BREAST CANCER TECHNIQUE: Procedure Code: [id number] Modality: MG Procedure: SCRN MAMM (CAD)W/SHON BILAT COMPARISON: Prior exam(s) were compared . FINDINGS: TISSUE DENSITY: The breasts are heterogeneously dense, which may obscure small masses. Bilateral Breast Mammographic Findings: No suspicious masses, calcifications or other abnormalities are identified. BI/SCRN MAMM (CAD)W/SHON BILAT IMPRESSION: No mammographic evidence of malignancy in either breast. OVERALL FINAL ASSESSMENT BI-RADS 1: NEGATIVE. RECOMMENDATION: Routine annual follow-up in 1 Year Additional Recommendation none A letter with findings and recommendations will be mailed to the patient. Reading Location: [id number]
== END | disposition home or self-care (01) ==
LOC: OPBI 12:24
PROVIDERS: PCP Nurse Practitioner Family; Referring Provider Family Medicine; Visit Provider Family Medicine
DX: Z12.31 Encounter for screening mammogram for malignant neoplasm of breast (principal)
CPT/HCPCS: 77063; 77067

== ENCOUNTER → 2025-06-25 | Outpatient (CLI) | payer BC, SELFPAY ==
[2025-06-25 15:45] LABS: Hepatitis C Antibody Nonreactive (Nonreactive)
[2025-06-28 12:08] LABS: HCV Quant. RNA PCR HCV Not Detected IU/mL (.)
== END | disposition home or self-care (01) ==
LOC: LAB 13:20
PROVIDERS: PCP Nurse Practitioner Family; Referring Provider Nurse Practitioner Family; Visit Provider Nurse Practitioner Family
DX: Z11.59 Encounter for screening for other viral diseases (principal); E05.90 Thyrotoxicosis, unspecified without thyrotoxic crisis or storm
CPT/HCPCS: 36415; 84439; 84443; 86803; 87522